=== PATIENT | male | born 1960 | race Caucasian/White ===

== ENCOUNTER 2017-06-01 11:52 | Inpatient (IN) | payer MEDICARE ==
[~2017-06-01] VITALS: Ht 172.7 cm; Wt 52.9 kg
[~2017-06-01 11:52] MED LIST: ALPR0.5T3 PO; ASPI325T PO; BACT800T5 PO; CELE20TA PO; FENT100D T-DERMAL; FERR325T PO; GABA600T PO; LEVA500T PO; METH5TAB7 PO; NORC10TA2 PO; PERI8.6T PO; PRIN10TA PO; PROC10TA PO; RANI150C PO; SENN8.6T15 PO; TAMS5CAP PO
[2017-06-01 11:55] VITALS: BP 127/74; PULSE 109; RESP 20; TEMP 97.9; O2SAT 99
--- NOTE | 2017-06-01 12:12 | PD ---
HPI Chief Complaint: General Weakness Time Seen by Provider: 12:06 Travel History International Travel<30 days: No Contact w/Intl Traveler<30days: No Traveled to known affect area: No History of Present Illness HPI 57yo M with PMH of rectal CA with colostomy bag presents to the ED with multiple complaints. Pt mainly has been unable to eat or drink much because he feels that food gets stuck in mid esophagus and then it takes a while for it to go down and is painful for a few weeks. Also with 2-3 days of increasing cough , sometimes with blood tinged sputum. Pt also has been having dysuria, and blood clots in urine for 2 weeks. States he is suppose to follow up with urologist Dr. Tapia for stent but has not. Pt follows with oncologist Dr. Monte but is not on chemo or radiation therapy. States cancer is inoperable. Denies any fever, chest pain, sob, abdominal pain, n/v. PFSH Past Medical History Autoimmune Disease: No Anxiety: Yes Depression: Yes Cancer: Yes (RECTAL) Cardiovascular Problems: Yes Chemotherapy: No Endocrine: No Genitourinary: No Hypertension: Yes Immune Disorder: No Musculoskeletal: No Neurologic: No Psychiatric: No Reproductive: No Respiratory: No Radiation Therapy: No Past Surgical History Abdominal Surgery: Yes (LLQ COLOSTOMY) Cardiac Surgery: No Ear Surgery: No Endocrine Surgery: No Eye Surgery: No Genitourinary Surgery: No Gynecologic Surgery: No Oral Surgery: No Pacemaker: No Thoracic Surgery: No Other Surgery: Yes Social History Alcohol Use: Yes (3 BEERS/WEEK) Tobacco Use: Yes (1 ppd) Substance Use: No Allergies-Medications (Allergen,Severity, Reaction): Coded Allergies: *MDRO Multi-Drug Resistant Organism (Verified Adverse Reaction, Unknown, 09/18/16) MRSA (groin wound) - 05/25/15 / (buttock) - 03/2016 / (urine) - 08/2016 Reported Meds & Prescriptions Reported Meds & Active Scripts Active Flomax (Tamsulosin HCl) 0.4 Mg Cap 0.4 Mg PO HS Reported Prochlorperazine Maleate 10 Mg Tab 10 Mg PO Q6H PRN Senna Lax (Sennosides) 8.6 Mg Tab 1 Tab PO BID PRN Ranitidine (Ranitidine HCl) 150 Mg Cap 150 Mg PO BID Prinivil (Lisinopril) 10 Mg Tab 10 Mg PO DAILY Gabapentin 600 Mg Tab 600 Mg PO TID Celexa (Citalopram Hydrobromide) 20 Mg Tab 20 Mg PO DAILY Aspirin 325 Mg Tab 325 Mg PO DAILY Alprazolam 0.5 Mg Tab 0.5 Mg PO TID Jaylene-Colace (Sennosides-Docusate Sodium) 8.6-50 Mg Tab 2 Tab PO BID Fentanyl Patch 72 HR (Fentanyl) 100 Mcg/Hr Patch 1 Patch T-DERMAL DIR Review of Systems Except as stated in HPI: all other systems reviewed are Neg Physical Exam Narrative GENERAL: 57yo M in mild distress. SKIN: Focused skin assessment warm/dry. HEAD: Atraumatic. Normocephalic. CARDIOVASCULAR: Regular rate and rhythm. No murmur appreciated. RESPIRATORY: No accessory muscle use. Coarse breath sounds bilaterally. GASTROINTESTINAL: Abdomen soft, non-tender, nondistended. +Colostomy bag. MUSCULOSKELETAL: Right proximal femur amputation, left transmetatarsal amputation. NEUROLOGICAL: Awake and alert. No obvious cranial nerve deficits. Motor grossly within normal limits. Normal speech. PSYCHIATRIC: Appropriate mood and affect; insight and judgment normal. Data Data Last Documented VS Vital Signs Date Time Temp Pulse Resp B/P Pulse Ox O2 Delivery O2 Flow Rate FiO2 06/01/17 11:55 97.9 109 20 127/74 99 Orders Electrocardiogram (06/01/17 12:07) Basic Metabolic Panel (Bmp) (06/01/17 12:07) Complete Blood Count With Diff (06/01/17 12:07) Magnesium (Mg) (06/01/17 12:07) Chest, Single Ap (06/01/17 12:07) Urinalysis - C+S If Indicated (06/01/17 12:07) Urine Culture (06/01/17 12:25) Ceftriaxone Inj (Rocephin Inj) (06/01/17 13:30) Admit To Inpatient (06/01/17 ) Code Status (06/01/17 14:06) Vital Signs (Adult) Q4H (06/01/17 14:06) Activity Oob With Assistance (06/01/17 14:06) Sodium Chlor 0.9% 1000 Ml Inj (Ns 1000 M (06/01/17 14:06) Sodium Chloride 0.9% Flush (Ns Flush) (06/01/17 14:15) Sodium Chloride 0.9% Flush (Ns Flush) (06/01/17 21:00) Acetaminophen (Tylenol) (06/01/17 14:15) Ondansetron Inj (Zofran Inj) (06/01/17 14:15) Temazepam (Restoril) (06/01/17 14:15) Comprehensive Metabolic Panel (06/02/17 06:00) Complete Blood Count With Diff (06/02/17 06:00) Pt Request For Service (06/01/17 14:06) Ot Request For Service (06/01/17 14:06) Speech Therapy Consult-Eval/Tx (06/01/17 14:06) Dietary (Dietitian) Consult (06/01/17 14:06) Case Management Consult (06/01/17 14:06) Scd Bilateral/Knee High ANJELICA.BID (06/01/17 14:06) Yariel Bilateral/Knee High ANJELICA.QSHIFT (06/01/17 14:06) Acetaminophen (Tylenol) (06/01/17 14:15) Magnesium Hydroxide Liq (Milk Of Magnesi (06/01/17 14:15) Inpatient Certification (06/01/17 ) Ceftriaxone Inj (Rocephin Inj) (06/02/17 13:00) Consult Palliative Care (06/01/17 ) Admit Order (Ed Use Only) (06/01/17 14:11) Labs Laboratory Tests Test 06/01/17 12:25 White Blood Count 19.0 TH/MM3 Red Blood Count 3.65 MIL/MM3 Hemoglobin 8.9 GM/DL Hematocrit 27.6 % Mean Corpuscular Volume 75.6 FL Mean Corpuscular Hemoglobin 24.4 PG Mean Corpuscular Hemoglobin 32.2 % Concent Red Cell Distribution Width 16.0 % Platelet Count 915 TH/MM3 Mean Platelet Volume 6.7 FL Neutrophils (%) (Auto) 92.0 % Lymphocytes (%) (Auto) 3.8 % Monocytes (%) (Auto) 3.8 % Eosinophils (%) (Auto) 0.3 % Basophils (%) (Auto) 0.1 % Neutrophils # (Auto) 17.5 TH/MM3 Lymphocytes # (Auto) 0.7 TH/MM3 Monocytes # (Auto) 0.7 TH/MM3 Eosinophils # (Auto) 0.1 TH/MM3 Basophils # (Auto) 0.0 TH/MM3 CBC Comment DIFF FINAL Differential Comment Urine Color RED Urine Turbidity CLOUDY Urine pH 8.0 Urine Specific [place] 1.011 Urine Protein 300 mg/dL Urine Glucose (UA) NEG mg/dL Urine Ketones NEG mg/dL Urine Occult Blood LARGE Urine Nitrite NEG Urine Bilirubin NEG Urine Urobilinogen LESS THAN 2.0 MG/DL Urine Leukocyte Esterase LARGE Urine RBC /hpf Urine WBC /hpf Urine WBC Clumps MANY Urine Bacteria MANY /hpf Urine Mucus MOD /lpf Microscopic Urinalysis Comment CULTURE INDICATED Sodium Level 130 MEQ/L Potassium Level 4.4 MEQ/L Chloride Level 100 MEQ/L Carbon Dioxide Level 21.0 MEQ/L Anion Gap 9 MEQ/L Blood Urea Nitrogen 20 MG/DL Creatinine 1.44 MG/DL Estimat Glomerular Filtration 50 ML/MIN Rate Random Glucose 147 MG/DL Calcium Level 9.3 MG/DL Magnesium Level 2.0 MG/DL MDM Medical Decision Making Medical Screen Exam Complete: Yes Emergency Medical Condition: Yes Differential Diagnosis Failure to thrive vs. metastatic cancer vs. mass in esophagus vs. mass in bladder vs. UTI Narrative Course 57yo M with inoperable rectal cancer here with multiple complaints. Pt has been having hematuria and dysuria, as well as odynophagia. Pt follows with oncologist Dr. Monte but has refused full chemotherapy because he said that he had 2 relatives who from chemo and he did not want to go through that. Pt states he is not ready for hospice care yet. Labs reviewed, leukocytosis at 19.0. H/H low at 8.9/27.6. Hyponatremic at 130. BUN/creatinine 20/1.44 which is more elevated than before. UA showed large leukocyte. Many WBC. Pt given ceftriaxone 1gm IV. Pt has no abdominal tenderness to palpation. CXR showed no acute cardiopulmonary disease. Discussed with Dr. Ledbetter and accepted to his service. Pt will need GI evaluation for his odynophagia as well. Discussed with Dr. Monte who knows the patient well and states he has mets to lungs and recommend CT scan and he will see the patient in the hospital. CT chest and CT a/p ordered. Diagnosis Primary Impression: Sepsis Qualified Code: A41.9 - Sepsis, due to unspecified organism Additional Impression: Odynophagia Admitting Information Admitting Physician Requests: Admit Claudia Huang DO Jun 01, 2017 12:12
[2017-06-01 12:42] LABS: AUTOMATED NEUTROPHIL # 17.5 TH/MM3 (1.8-7.7); BASOPHIL % 0.1 % (0.0-2.0); EOSINOPHIL # 0.1 TH/MM3 (0-0.4); EOSINOPHIL % 0.3 % (0.0-4.0); HEMATOCRIT 27.6 % (39.0-51.0); HEMO FLAGS DIFF FINAL; LYMPH % 3.8 % (9.0-44.0); LYMPHOCYTE # 0.7 TH/MM3 (1.0-4.8); MEAN CELL VOLUME 75.6 FL (80.0-100.0); MEAN CORPUSCULAR HEMOGLOBIN 24.4 PG (27.0-34.0); MEAN CORPUSCULAR HGB CONC 32.2 % (32.0-36.0); MONO % 3.8 % (0.0-8.0); PLATELET COUNT 915 TH/MM3 (150-450); RED BLOOD COUNT 3.65 MIL/MM3 (4.50-5.90)
[2017-06-01 13:06] LABS: BACTERIA, URINE MANY /hpf; BLOOD, URINE LARGE (NEG); COMMENT (UR) CULTURE INDICATED; CULTURE IF INDICATED CULTURE INDICATED; GLUCOSE,URINE NEG (NEG); KETONE, URINE NEG (NEG); MUCUS URINE MOD /lpf (OCC); NITRITE,URINE NEG (NEG)
[2017-06-01 13:07] LABS: URINE COLOR RED (YELLW/STRAW)
--- NOTE | 2017-06-01 13:07 | RADRPT ---
EXAM DATE/TIME: 06/01/2017 12:27 [facility] COMPARISON: CHEST SINGLE AP, February 20, 2014, 9:36. INDICATIONS : Tightness of back muscles, cough, feeling of "gurgling" in chest, and loss of appetite. MEDICAL HISTORY : None. SURGICAL HISTORY : None. ENCOUNTER: Initial ACUITY: 2 weeks PAIN SCORE: 0/10 LOCATION: Bilateral chest FINDINGS: The lungs are clear without infiltrate, nodule, or mass. There is no appreciable pleural effusion fo r technique. Heart and mediastinum are unremarkable. CONCLUSION: No acute cardiopulmonary disease. Reema Yancey MD on June 01, 2017 at 13:04 Board Certified Radiologist. This report was verified electronically.
[2017-06-01 13:08] LABS: POTASSIUM 4.4 MEQ/L (3.5-5.1)
[2017-06-01] MEDS ORDERED: cefTRIAXone INJ 1,000 MG in SODIUM CHLORIDE 0.9% INJ 100 ML IV ONE (13:30)
[2017-06-01] MEDS ORDERED: ACETAMINOPHEN 325 MG TAB PO PRN ×2 (14:15)
[2017-06-01] MEDS ORDERED: MAGNESIUM HYDROXIDE SUSP 30 ML CUP PO PRN (14:15)
[2017-06-01] MEDS ORDERED: TEMAZEPAM 15 MG CAP PO PRN (14:15)
[2017-06-01] MEDS ORDERED: SODIUM CHLORIDE 0.9% FLUSH 10 ML FLUSH IV FLUSH PRN (14:15)
[2017-06-01] MEDS ORDERED: ONDANSETRON HCL 4 MG/2 ML VIAL IVP PRN (14:15)
[2017-06-01] MEDS ORDERED: SODIUM CHLOR 0.9% 1000 ML INJ 1,000 ML IV ONE (14:30)
--- NOTE | 2017-06-01 15:10 | HHI.HP ---
[facility] Justine Anne MD Admission Diagnosis Urosepsis Diagnoses: (1) Sepsis (2) UTI (urinary tract infection) (3) Odynophagia (4) Essential hypertension (5) Anemia of chronic disease (6) Severe protein-calorie malnutrition (7) Rectal adenocarcinoma Chief Complaint: I'm not feeling right Travel History International Travel<30 Days: No Contact w/Intl Traveler <30 Da: No Traveled to Known Affected Are: No Sepsis Criteria SIRS Criteria (2 or more): Heart rate over 90, WBC > 70876, < 4000 or > 10% bands Sepsis Criteria (SIRS+source): Infect source susp/known Criteria Outcome: Meets sepsis criteria History of Present Illness 57-year-old man with a history of rectal adenocarcinoma, hydronephrosis was brought to the ED by EMS for evaluation of decreased appetite, swallow difficulty with mostly solid for as well as pain with swallowing 1-2 weeks duration. Patient described a sensation of food particles that get stuck in his mid esophagus and able to flush it down with water however this process is painful. He also had worsening cough over the past 4 days however he has noticed some blood tinged sputum times over the past 3 days. Patient does endorse dysuria as well as blood clotting his urine 2 weeks duration. He also reports that is supposed to follow with Dr. Tapia urology for possible stent placement. He mentions that he was offered treatment with chemotherapy but has decided's lately against it. He denies any chest pain shortness of breath. Reports normal out put from his colostomy and denies any blood Review of Systems Except as stated in HPI: all other systems reviewed are Neg Past Family Social History Past Medical History Anxiety: Yes Depression: Yes Cancer: Yes (RECTAL) Cardiovascular Problems: Yes Hypertension: Yes Past Surgical History Abdominal Surgery: Yes (LLQ COLOSTOMY) Right AKA Reported Medications Flomax (Tamsulosin HCl) 0.4 Mg Cap 0.4 Mg PO HS Prochlorperazine Maleate 10 Mg Tab 10 Mg PO Q6H PRN Senna Lax (Sennosides) 8.6 Mg Tab 1 Tab PO BID PRN Ranitidine (Ranitidine HCl) 150 Mg Cap 150 Mg PO BID Prinivil (Lisinopril) 10 Mg Tab 10 Mg PO DAILY Gabapentin 600 Mg Tab 600 Mg PO TID Celexa (Citalopram Hydrobromide) 20 Mg Tab 20 Mg PO DAILY Aspirin 325 Mg Tab 325 Mg PO DAILY Alprazolam 0.5 Mg Tab 0.5 Mg PO TID Jaylene-Colace (Sennosides-Docusate Sodium) 8.6-50 Mg Tab 2 Tab PO BID Fentanyl Patch 72 HR (Fentanyl) 100 Mcg/Hr Patch 1 Patch T-DERMAL DIR Allergies: Coded Allergies: *MDRO Multi-Drug Resistant Organism (Verified Adverse Reaction, Unknown, 09/18/16) MRSA (groin wound) - 05/25/15 / (buttock) - 03/2016 / (urine) - 08/2016 Family History Father had diabetes, myocardial infarction Social History Alcohol Use: Yes (3 BEERS/WEEK) Tobacco Use: Yes (1 ppd) Substance Use: No Physical Exam Vital Signs Vital Signs Date Time Temp Pulse Resp B/P Pulse Ox O2 Delivery O2 Flow Rate FiO2 06/01/17 11:55 97.9 109 20 127/74 99 Physical Exam GENERAL: This is a well-nourished, well-developed patient, in no apparent distress. SKIN: No rashes, ecchymoses or lesions. Cool and dry. HEAD: Atraumatic. Normocephalic. No temporal or scalp tenderness. EYES: Pupils equal round and reactive. Extraocular motions intact. No scleral icterus. No injection or drainage. ENT: Nose without bleeding, purulent drainage or septal hematoma. Throat without erythema, tonsillar hypertrophy or exudate. Uvula midline. Airway patent. NECK: Trachea midline. No JVD or lymphadenopathy. Supple, nontender, no meningeal signs. CARDIOVASCULAR: Regular rate and rhythm without murmurs, gallops, or rubs. RESPIRATORY: Clear to auscultation. Breath sounds equal bilaterally. No wheezes , rales, or rhonchi. GASTROINTESTINAL: Abdomen soft, non-tender, nondistended. No hepato-splenomegaly , or palpable masses. No guarding. Colostomy bag in place MUSCULOSKELETAL:Right AKA NEUROLOGICAL: Awake and alert. Cranial nerves II through XII intact. Motor and sensory grossly within normal limits. Five out of 5 muscle strength in all muscle groups. Normal speech. Laboratory Laboratory Tests Test 06/01/17 12:25 White Blood Count 19.0 Red Blood Count 3.65 Hemoglobin 8.9 Hematocrit 27.6 Mean Corpuscular Volume 75.6 Mean Corpuscular Hemoglobin 24.4 Mean Corpuscular Hemoglobin 32.2 Concent Red Cell Distribution Width 16.0 Platelet Count 915 Mean Platelet Volume 6.7 Neutrophils (%) (Auto) 92.0 Lymphocytes (%) (Auto) 3.8 Monocytes (%) (Auto) 3.8 Eosinophils (%) (Auto) 0.3 Basophils (%) (Auto) 0.1 Neutrophils # (Auto) 17.5 Lymphocytes # (Auto) 0.7 Monocytes # (Auto) 0.7 Eosinophils # (Auto) 0.1 Basophils # (Auto) 0.0 CBC Comment DIFF FINAL Differential Comment Urine Color RED Urine Turbidity CLOUDY Urine pH 8.0 Urine Specific [place] 1.011 Urine Protein 300 Urine Glucose (UA) NEG Urine Ketones NEG Urine Occult Blood LARGE Urine Nitrite NEG Urine Bilirubin NEG Urine Urobilinogen LESS THAN 2.0 Urine Leukocyte Esterase LARGE Urine RBC Urine WBC Urine WBC Clumps MANY Urine Bacteria MANY Urine Mucus MOD Microscopic Urinalysis Comment CULTURE INDICATED Sodium Level 130 Potassium Level 4.4 Chloride Level 100 Carbon Dioxide Level 21.0 Anion Gap 9 Blood Urea Nitrogen 20 Creatinine 1.44 Estimat Glomerular Filtration 50 Rate Random Glucose 147 Calcium Level 9.3 Magnesium Level 2.0 Date/Time Procedure Status Source Growth 06/01/17 14:45 Aerobic Blood Culture Received Blood Peripheral Pending 06/01/17 14:45 Anaerobic Blood Culture Received Blood Peripheral Pending 06/01/17 12:25 Urine Culture Received Urine Clean Catch Pending Result Diagram: 06/01/17 1225 06/01/17 1225 Imaging Last Impressions Chest X-Ray 06/01/17 1207 Signed Impressions: Service Date/Time: Thursday, June 01, 2017 12:27 - CONCLUSION: No acute cardiopulmonary disease. Reema Yancey MD Assessment and Plan Problem List: (1) Sepsis ICD Code: A41.9 Status: Acute (2) UTI (urinary tract infection) ICD Code: N39.0 Status: Acute (3) Odynophagia ICD Code: R13.10 Status: Acute (4) Severe protein-calorie malnutrition ICD Code: E43 Status: Acute (5) Essential hypertension ICD Code: I10 Status: Acute (6) Anemia of chronic disease ICD Code: D63.8 Status: Chronic (7) Rectal adenocarcinoma ICD Code: C20 Status: Acute Assessment and Plan 57 year-old man with Sepsis:Heart rate over 90, WBC > 93486, < 4000 or > 10% bands, source UTI; lactic acid pending. Status post Rocephin IV, continue antibiotics pending blood and urine culture UTI: Currently on Rocephin pending urine culture Odynophagia Dysphagia of solids Check small bowel follow-through with Gastrografin Consider GI consultation for evaluation for EGD Keep nothing by mouth pending speech therapy for swallow eval Hematuria History of hydronephrosis Check renal ultrasound Consult urology Dr. Willie Stallworth Flomax Acute renal failure Post renal Renal ultrasound pending Continue IV fluid hydration History of rectal adenocarcinoma Oncology consultation pending Patient does not want hospice at this time Abdomen/pelvics CT Consider chest CT Anemia of chronic disease Check Hemoccult Severe protein calorie malnutrition Consult dietitian for calorie count Tobacco abuse Tobacco counseling cessation provided Declined nicotine patch Impaired fasting glucose Check hemoglobin A1c GI prophylaxis: PPI Code Status Full code Discussed Condition With Patient, ED physician Physician Certification 2 Midnight Certification Type: Admission for Inpatient Services Order for Inpatient Services The services are ordered in accordance with Medicare regulations or non- Medicare payer requirements, as applicable. In the case of services not specified as inpatient-only, they are appropriately provided as inpatient services in accordance with the 2-midnight benchmark. Estimated LOS (days): 2 days is the estimated time the patient will need to remain in the hospital, assuming treatment plan goals are met and no additional complications. Post-Hospital Plan: Not yet determined Problem Qualifiers (1) Sepsis: Qualified Code: A41.9 - Sepsis, due to unspecified organism Miki Ledbetter MD Jun 01, 2017 15:10
[2017-06-01] MEDS ORDERED: IOHEXOL 350 MG/ML 10 ML VIAL (for RAD DIAG) IV ONE (15:23)
--- NOTE | 2017-06-01 15:59 | PD.CONS ---
Consult Service Palliative Care Consult Requested By Dr. Zapien Primary Care Physician Justine Anne MD Reason for Consultation a. To assist with evaluation and management of symptoms including:pain, fatigued b. To assist medical decision maker(s) with: better understanding of current medical conditions; weighing benefits/burdens of medical treatment options; making medical treatment decisions. HPI History of Present Illness 57-year-old past medical history significant for nonresectable adenocarcinoma of the rectum. Radiologically per Dr. Zhou's note on February 26, 2017 patient has locally progressive disease and is resulting in bilateral hydronephrosis. Mass appears to be increasing in size. Per Dr. Zhou's note he would prefer observation alone and declined Xeloda and Avastin plus 5-FU. Pt previously was seen by palliative care in 2013. He eventually was transitioned to hospice, and was on hospice from 04/16/2014 to 11/25/2015. Pt's adenocarcinoma was deemed not terminal, and pt's prognosis was >6 months. Pt was discharge off hospice services by Dr. Rainey who covers for [facility]. Patient on 06/01/2017 came to the ER for decreased appetite, difficulty swallowing with mostly solid food as well as pain with swallowing for the past 1 -2 weeks' duration. He described that the food particle appears to be just stuck mid esophagus. He also has associated worsening cough with as 4 days and with some blood tinged sputum. Patient has dysuria and clots in his urine 2 weeks duration. Patient is supposed to follow up with Dr. Tapia of urology for possible stent placement. In the ER : * Temperature is 97.9, pulse is 109, respirations 20, blood pressures 127/74, pulse ox is 99% * WBC is 19.0, hemoglobin is 8.9, hematocrit is 27.6, platelet is 1915 * Sodium is 1:30, potassium is 4.4, chlorides 100, bicarbonate is 21.0, BUN is 20, creatinine is 1.44 * Blood cultures pending 2 * UA shows large amount" lead, leukocyte esterase, but negative for nitrite. Cultures indicated and pending. * Chest x-ray shows no acute cardiopulmonary disease. Patient is transferred to hospitalist service. Patient is placed on Rocephin for UTI. Speech therapy is pending for swallow eval. Patient is given IV fluids for renal insufficiency. Oncology was consulted. Abdominal/pelvic CT is pending, chest CT is pending. Palliative Care was consulted to review goals of care. I was not able to engage with patient. He place a blanket on top of his head and refuse to answer questions. I tried to test for capacity, asking him what year it is, he only states "I don't know." He is able to say he is in [place]. When I ask him, sir you were in Hospice before right? He just said "Hospice Sucks." Spoke to him ask him about his Health Care Surrogate, and he just remained silent. I am not able to review goals of care with patient today. Function/Cognitive Trajectory Unable to elicit, he refuses my questioning. He has right AKA and has undergo extensive wound of the right buttock, that required debridment in the past. Review of Systems ROS Limitations: Clinical Condition, Uncooperative Constitutional: COMPLAINS OF: Change in appetite Ears, nose, mouth, throat: COMPLAINS OF: Throat pain (dysphagia) Musculoskeletal: COMPLAINS OF: Back pain Past Family Social History Coded Allergies: *MDRO Multi-Drug Resistant Organism (Verified Adverse Reaction, Unknown, 09/18/16) MRSA (groin wound) - 05/25/15 / (buttock) - 03/2016 / (urine) - 08/2016 Past Medical History HTN Adenocarcinoma of rectum htn cardiovascular disease PVD Past Surgical History Yes (LLQ COLOSTOMY) Right AKA Reported Medications Prochlorperazine Maleate 10 Mg Tab 10 Mg PO Q6H PRN Senna Lax (Sennosides) 8.6 Mg Tab 1 Tab PO BID PRN Ranitidine (Ranitidine HCl) 150 Mg Cap 150 Mg PO BID Prinivil (Lisinopril) 10 Mg Tab 10 Mg PO DAILY Gabapentin 600 Mg Tab 600 Mg PO TID Celexa (Citalopram Hydrobromide) 20 Mg Tab 20 Mg PO DAILY Aspirin 325 Mg Tab 325 Mg PO DAILY Alprazolam 0.5 Mg Tab 0.5 Mg PO TID Jaylene-Colace (Sennosides-Docusate Sodium) 8.6-50 Mg Tab 2 Tab PO BID Fentanyl Patch 72 HR (Fentanyl) 100 Mcg/Hr Patch 1 Patch T-DERMAL DIR Current Medications Medications (Trade) Dose Ordered Sig/Orlin Route Start Time Stop Time Status Last Admin (NS 1000 ml Inj) 1,000 ml @ 100 mls/hr Q10H IV 06/01/17 14:06 (NS Flush) 2 ml UNSCH PRN IV FLUSH 06/01/17 14:15 (NS Flush) 2 ml BID IV FLUSH 06/01/17 21:00 (Tylenol) 650 mg Q4H PRN PO 06/01/17 14:15 (Zofran Inj) 4 mg Q6H PRN IVP 06/01/17 14:15 (Restoril) 15 mg HS PRN PO 06/01/17 14:15 (Tylenol) 650 mg Q6H PRN PO 06/01/17 14:15 Magnesium Hydroxide 30 ml 30 ml Q12H PRN PO 06/01/17 14:15 (Rocephin Inj/NS Inj) 100 ml @ 200 mls/hr Q24H IV 06/02/17 13:00 (Xanax) 0.5 mg TID PO 06/01/17 18:00 (CeleXA) 20 mg DAILY PO 06/02/17 09:00 (Flomax) 0.4 mg HS PO 06/01/17 21:00 Family History Father had diabetes, myocardial infarction Substance Use Tobacco: One pack per day Alcohol: 3 beers per week Prescription med abuse: No Illicits: No Psychosocial History Patient is single. Never no children Spiritual/Cultural Factors none Health Care Surrogate: Copy in medical record (but missing witnesses. there is also a DNR) Today's verbally stated goals: no verbal goals stated. Refuses to answer questions. Physical Exam Vital Signs Date Time Temp Pulse Resp B/P Pulse Ox O2 Delivery O2 Flow Rate FiO2 06/01/17 11:55 97.9 109 20 127/74 99 Exam Exam very limited due to pt's refusal of history and physical CONSTITUTIONAL/GENERAL: This frail middle age male. [place] on top of head, when he peeks out is dishevelled. TUBES/LINES/DRAINS:colostomy, piv. SKIN:No jaundice on superficial exam. HEAD: Atraumatic. Normocephalic. EYES:. Extraocular motions intact. N ENT: Hearing grossly normal. Nose without bleeding or purulent drainage. refuses further exam. NECK: Trachea midline. Supple, nontender. No palpable thyroid enlargement or nodularity. CARDIOVASCULAR: Could not examine RESPIRATORY/CHEST: Could not examine GASTROINTESTINAL: could not examine GENITOURINARY: Without palpable bladder distension. Yan catheter in place. MUSCULOSKELETAL: right AKA. Left lower ext, refuse for me to check pedal pulse , kept feet under blanket. LYMPHATICS:could not examine NEUROLOGICAL: Awake and alert. Refuses my qeustions. Unsure if just confuse or uncooperative PSYCHIATRIC: Cannot examine. Diagnostic Tests Laboratory Laboratory Tests Test 06/01/17 06/01/17 12:25 14:45 White Blood Count 19.0 TH/MM3 (4.0-11.0) Red Blood Count 3.65 MIL/MM3 (4.50-5.90) Hemoglobin 8.9 GM/DL (13.0-17.0) Hematocrit 27.6 % (39.0-51.0) Mean Corpuscular Volume 75.6 FL (80.0-100.0) Mean Corpuscular Hemoglobin 24.4 PG (27.0-34.0) Mean Corpuscular Hemoglobin 32.2 % Concent (32.0-36.0) Red Cell Distribution Width 16.0 % (11.6-17.2) Platelet Count 915 TH/MM3 (150-450) Mean Platelet Volume 6.7 FL (7.0-11.0) Neutrophils (%) (Auto) 92.0 % (16.0-70.0) Lymphocytes (%) (Auto) 3.8 % (9.0-44.0) Monocytes (%) (Auto) 3.8 % (0.0-8.0) Eosinophils (%) (Auto) 0.3 % (0.0-4.0) Basophils (%) (Auto) 0.1 % (0.0-2.0) Neutrophils # (Auto) 17.5 TH/MM3 (1.8-7.7) Lymphocytes # (Auto) 0.7 TH/MM3 (1.0-4.8) Monocytes # (Auto) 0.7 TH/MM3 (0-0.9) Eosinophils # (Auto) 0.1 TH/MM3 (0-0.4) Basophils # (Auto) 0.0 TH/MM3 (0-0.2) CBC Comment DIFF FINAL Differential Comment Urine Color RED (YELLW/STRAW) Urine Turbidity CLOUDY (CLEAR) Urine pH 8.0 (5.0-8.5) Urine Specific [place] 1.011 (1.002-1.035) Urine Protein 300 mg/dL (NEG-TRACE) Urine Glucose (UA) NEG mg/dL (NEG) Urine Ketones NEG mg/dL (NEG) Urine Occult Blood LARGE (NEG) Urine Nitrite NEG (NEG) Urine Bilirubin NEG (NEG) Urine Urobilinogen LESS THAN 2.0 MG/DL (LESS THAN 2.0) Urine Leukocyte Esterase LARGE (NEG) Urine RBC /hpf (0-3) Urine WBC /hpf (0-5) Urine WBC Clumps MANY (NONE) Urine Bacteria MANY /hpf (NONE) Urine Mucus MOD /lpf (OCC) Microscopic Urinalysis Comment CULTURE INDICATED Sodium Level 130 MEQ/L (136-145) Potassium Level 4.4 MEQ/L (3.5-5.1) Chloride Level 100 MEQ/L (98-107) Carbon Dioxide Level 21.0 MEQ/L (21.0-32.0) Anion Gap 9 MEQ/L (5-15) Blood Urea Nitrogen 20 MG/DL (7-18) Creatinine 1.44 MG/DL (0.60-1.30) Estimat Glomerular Filtration 50 ML/MIN (>89) Rate Random Glucose 147 MG/DL (74-106) Calcium Level 9.3 MG/DL (8.5-10.1) Magnesium Level 2.0 MG/DL (1.5-2.5) Lactic Acid Level 0.7 mmol/L (0.4-2.0) Result Diagram: 06/01/17 1225 06/01/17 1225 Microbiology Microbiology Date/Time Procedure Status Source Growth 06/01/17 12:25 Urine Culture Received Urine Clean Catch Pending 06/01/17 14:30 Aerobic Blood Culture Received Blood Peripheral Pending 06/01/17 14:30 Anaerobic Blood Culture Received Blood Peripheral Pending 06/01/17 14:45 Aerobic Blood Culture Received Blood Peripheral Pending 06/01/17 14:45 Anaerobic Blood Culture Received Blood Peripheral Pending Imaging Last Impressions Chest X-Ray 06/01/17 1207 Signed Impressions: Service Date/Time: Thursday, June 01, 2017 12:27 - CONCLUSION: No acute cardiopulmonary disease. Reema Yancey MD Patient/Family Conference Present at Family Conference: no family at bedside. Family Conference Time (mins): 0 Issues Discussed: * Palliative care role, purpose, approach * Additional medical, psychosocial, and spiritual history * Patients general health, functional status, and cognitive changes in the months leading up to the current hospitalization * Patient/family understanding of the current medical problems * Patient/family understanding of prognosis * Patients goals of care as best understood from advance directives and/or conversations and/or values * Current medical treatment options and benefits/burdens of those options * Likely scenarios comparing ongoing aggressive care with a transition to comfort measures only * Questions answered to the best of my ability * Palliative care contact information provided Assessment and Plan Symptom Scale: (1) Pain Comment: refuses to answer (2) Fatigue Comment: refuses to answer. Pertinent Non-Medical Issues Psychosocial: Spiritual: Legal: Ethical issues impacting care: Important Contacts Jeimy Isaacs, sister - [phone] Karyn, sister [phone] Prognosis Pt previously was seen by palliative care in 2013. He eventually was transitioned to hospice, and was on hospice from 04/16/2014 to 11/25/2015. Pt's adenocarcinoma was deemed not terminal, and pt's prognosis was >6 months. Pt was discharge off hospice services by Dr. Rainey who covers for [facility]. Will need the expertise of oncology to clarify goals of care and see if prognosis is less than 6 months. Code Status: Full Code Plan == Capacity- uncooperative. Could not determine capacity. Unknown if he is confused or just refusing. see HPI. == Code: Pt previously signed a community DNR in 2013 which has been scanned into record. Attending place pt as Full Code. When I ask about his previous community DNR and if that still stands, he refuses to answer to engage in conversation. Pt's Code status will remain Full Code by default. == pain- he appears to be in significant pain. Palliative care however is unable to get much history or cooperation from pt this visit. I could not review plan of care in terms of pain management. I have no recommendations at this time. == Health Care Surrgoate: Jeimy Sullivan and Karyn Jo. Missing signature. Need to follow up when pt is more cooperative. == Goals of care. Unable to review with patient. I was not able to engage with patient. He place a blanket on top of his head and refuse to answer questions. I tried to test for capacity, asking him what year it is, he only states "I don't know." He is able to say he is in [place]. When I ask him, sir you were in Hospice before right? He just said "Hospice Sucks." Spoke to him, and ask pt about his Health Care Surrogate, and he just remained silent. I am not able to review goals of care with patient today. Regardless, even if pt's goals of care was comfort measures only, as mentioned before, hospice need oncology expertise the prognosis of his cancer. Pt previously was seen by palliative care in 2013. He eventually was transitioned to hospice, and was on hospice from 04/16/2014 to 11/25/2015. Pt's adenocarcinoma was deemed not terminal, and pt's prognosis was >6 months. Pt was discharge off hospice services by Dr. Rainey who covers for [facility] on 11/25/2015. == palliative care will f/u and see if pt becomes more receptive to our services. Time Spent Total Floor Time (mins): 35 Face to Face Time (mins): 17 >50% Counseling/Coord of Care: Yes Thank you for the opportunity to participate in the care of Mr. Valles. Attestation To help prompt me to consider important information that might be impacting today's encounter and assessment, information from prior notes written by myself or my colleagues may have been "brought forward" into today's note. My signature on this note, however, is an attestation that I personally performed the exam, history, and/or decision-making noted today, and, unless otherwise indicated, the interactions with patient, family, and staff as well as the review of records all occurred today. I also attest that the listed assessment and stated plan reflect my best clinical judgment today based on the combination of historical information, prior notes, and today's exam/ interactions. When time spent is documented, it refers only to time spent today by the signer, or if indicated, combined time spent today by collaborating physician/nurse practitioner. Galo Lima MD Jun 01, 2017 15:59
[2017-06-01 16:00] VITALS: BP 123/73; PULSE 86; RESP 16; TEMP 96.4; O2SAT 97
--- NOTE | 2017-06-01 16:00 | RADRPT ---
EXAM DATE/TIME: 06/01/2017 15:12 [facility] COMPARISON: CT THORAX W CONTRAST, April 03, 2014, 10:37. INDICATIONS : General weakness, difficulty swallowing; history of rectal cancer. IV CONTRAST: 97 cc Omnipaque 350 (iohexol) IV ; Cumulative dose for multiple exams. RADIATION DOSE: 6.66 CTDIvol (mGy) ; Combined studies - Thorax/Abdomen/Pelvis MEDICAL HISTORY : Carcinoma, rectal. Cardiovascular disease Hypertension. SURGICAL HISTORY : Colostomy. Colon resection. ENCOUNTER: Initial ACUITY: 2 weeks PAIN SCALE: 0/10 LOCATION: chest TECHNIQUE: Volumetric scanning of the chest was performed. Using automated exposure control and adjustment of t he mA and/or kV according to patient size, radiation dose was kept as low as reasonably achievable to obtain optimal diagnostic quality images. DICOM format image data is available electronically for review and comparison. Follow-up recommendations for incidentally detected pulmonary nodules are based at a minimum on nodul e size and patient risk factors according to Fleischner Society Guidelines. FINDINGS: There is malignant appearing adenopathy 2 large lymph nodes adjacent to one another in subcarina l area not present on the study from 2013 with conglomerate size of 5.1 x 3.8 cm in size displacing t he esophagus and the esophagus is filled with ingested material dilated as well. There is irregular i nfiltrate right upper lobe not present previously. There is also an approximate 1.7 cm pericardial ef fusion not present previously. There is inspissated mucus within the left lower lobe bronchi. CONCLUSION: 1. Pathological adenopathy in subcarinal area not present previously suspicious for malignancy and me tastatic disease. 2. The right upper lobe infiltrate. 3. Inspissated mucus within the left lower lobe bronchi. 4. Pericardial effusion. Reema Yancey MD on June 01, 2017 at 15:54 Board Certified Radiologist. This report was verified electronically.
--- NOTE | 2017-06-01 16:24 | RADRPT ---
EXAM DATE/TIME: 06/01/2017 15:12 [facility] COMPARISON: CT ABDOMEN & PELVIS W CONTRAST, April 03, 2014, 10:37. INDICATIONS : General weakness, difficulty swallowing; history of rectal cancer. IV CONTRAST: 96 cc Omnipaque 350 (iohexol) IV ; Cumulative dose for multiple exams. ORAL CONTRAST: No oral contrast ingested. RADIATION DOSE: 6.66 CTDIvol (mGy) ; Combined studies - Thorax/Abdomen/Pelvis MEDICAL HISTORY : Carcinoma, rectal. Cardiovascular disease Hypertension. SURGICAL HISTORY : Colostomy. Colon resection. ENCOUNTER: Initial ACUITY: 2 weeks PAIN SCALE: 4/10 LOCATION: Bilateral lower quadrant TECHNIQUE: Volumetric scanning of the abdomen and pelvis was performed. Using automated exposure control and ad justment of the mA and/or kV according to patient size, radiation dose was kept as low as reasonably achievable to obtain optimal diagnostic quality images. DICOM format image data is available electro nically for review and comparison. FINDINGS: CT Abdomen: The liver, spleen, pancreas, adrenals are unremarkable. There is no evidence for any appr eciable pathological adenopathy, free fluid, or bowel obstruction. There are findings in the visualiz ed lower chest discussed on the patient's chest CT. there is moderate hydronephrosis in both kidneys with hydroureter all the way down to the bladder. An ostomy site is seen on the right. CT pelvis: There is an approximate 3.9 x 5.4 cm mass appears to be originating from rectosigmoid junc tion invading the posterior bladder wall with a large either malignant adenopathy adjacent to it renny uring 6.4 cm in size in external iliac chain. The bladder has debris and gas within it and colovesica l fistula is suspected with direct contact of posterior portion of the bladder with the above-mention ed mass which appears to be originating from the rectosigmoid junction. Previously seen presacral sof t tissue mass is smaller measuring 5 cm, it measured 8 cm in maximum diameter previously. The prostat e gland is inhomogeneous and measures 3.7 x 3.9 cm in AP and transverse diameters and nonspecific. Th ere are hypertrophic changes involving the right hip chronic in nature not changed. CONCLUSION: 1. Large mass in the rectosigmoid junction almost certainly malignant with findings almost certainly colovesical fistula. 2. Malignant adenopathy of the above-mentioned malignant mass in the right pelvic region and external iliac chain. 3. The presacral mass is smaller since 2013. 4. Moderate to severe hydronephrosis in both kidneys and hydroureter. Reema Yancey MD on June 01, 2017 at 15:59 Board Certified Radiologist. This report was verified electronically.
--- NOTE | 2017-06-01 16:45 | RADRPT ---
EXAM DATE/TIME: 06/01/2017 16:20 [facility] COMPARISON: CT ABDOMEN & PELVIS W CONTRAST, June 01, 2017, 15:12. EXTERNAL COMPARISON : [facility], CT ABDOMEN & PELVIS W/ CONTRAST, February 16, 2017 INDICATIONS : Hydronephrosis. MEDICAL HISTORY : Hypertension. Deep venous thrombosis. Methicillin-resistant Staphylococcus aureus. Renal disease. Dep ression. Anxiety. Rectal. Paraplegia. SURGICAL HISTORY : Colostomy. Right lower extremity amputation. Left toes amputation. ENCOUNTER: Initial ACUITY: 1 day PAIN SCORE: 3/10 LOCATION: Bilateral flank MEASUREMENTS: RIGHT KIDNEY: 12.0 x 7.3 x 5.4 cm LEFT KIDNEY: 12.8 x 5.5 x 5.5 cm FINDINGS: There is moderate to severe hydronephrosis in both kidneys. There is debris with gas within the bladd er with a mass behind the bladder characteristic of colovesical fistula. CONCLUSION: Moderate to severe hydronephrosis in both kidneys with malignant mass behind the bladder discussed on the patient's CT examination and findings characteristic of colovesical fistula. Reema Yancey MD on June 01, 2017 at 16:42 Board Certified Radiologist. This report was verified electronically.
[2017-06-01] MEDS: SODIUM CHLOR 0.9% 1000 ML INJ 1,000 ML IV SCH (18:09)
--- NOTE | 2017-06-01 18:10 | RADRPT ---
EXAM DATE/TIME: 06/01/2017 16:47 [facility] COMPARISON: No previous studies available for comparison. INDICATIONS : Abdominal pain, evaluate for obstruction FLUORO TIME: 0 minutes IMAGE COUNT: 7 CONTRAST: [facility] IMAGING TIME(S): 15 min, 30 min, 45 min, 1 hr MEDICAL HISTORY : Carcinoma, rectal. SURGICAL HISTORY : Colostomy. Colectomy ENCOUNTER: Initial ACUITY: 1 day PAIN SCORE: 4/10 LOCATION: Bilateral abdomen FINDINGS: Preliminary structural steel fitter film reveals moderate to severe bilateral hydronephrosis with residual contrast in the renal collecting systems from recent CT. Left iliac stents present.. There is also dilatation of the left ureter is seen with contrast in the left ureter. Gastrografin GI series reveals normal filling of the stomach. There is no significant small bowel dil atation and transit time through small bowel is within the normal range of one hour. CONCLUSION: 1. Negative for small bowel obstruction or gastric outlet obstruction. Moderate to severe bilateral h ydronephrosis. Jonas Sapp MD on June 01, 2017 at 18:06 Board Certified Radiologist. This report was verified electronically.
[2017-06-01] MEDS: ALPRAZolam 0.5 MG TAB PO SCH (18:13)
[2017-06-01] MEDS ORDERED: DIATRIZOATE MEGLUM/DIATRIZOATE SOD 120 ML BTL (for RAD DIAG) PO ONE (18:19)
[2017-06-01 18:23] VITALS: BP 131/74; PULSE 96; RESP 18; TEMP 96; O2SAT 94
[2017-06-01 20:00] VITALS: BP 102/63; PULSE 96; RESP 16; TEMP 97; O2SAT 92
[2017-06-01] MEDS: TAMSULOSIN HCL 0.4 MG CAP PO SCH (20:48)
[2017-06-01] MEDS: SODIUM CHLORIDE 0.9% FLUSH 10 ML FLUSH IV FLUSH SCH (20:48)
[2017-06-02] MEDS: SODIUM CHLOR 0.9% 1000 ML INJ 1,000 ML IV SCH ×3 (00:13→20:22)
[2017-06-02 05:39] LABS: ALT (GPT) 11 U/L (12-78); ANION GAP 10 MEQ/L (5-15); AST (GOT) 8 U/L (15-37); BICARBONATE 22.5 MEQ/L (21.0-32.0); BLOOD UREA NITROGEN 19 MG/DL (7-18); CHLORIDE 105 MEQ/L (98-107); GLOMERULAR FILTRATION RATE 50 ML/MIN (>89); POTASSIUM 3.7 MEQ/L (3.5-5.1); SODIUM (NA) 137 MEQ/L (136-145)
[2017-06-02 05:46] LABS: ALKALINE PHOSPHATASE 76 U/L (45-117); TOTAL BILIRUBIN ADULT 0.2 MG/DL (0.2-1.0)
[2017-06-02 05:47] LABS: AUTOMATED NEUTROPHIL # 13.6 TH/MM3 (1.8-7.7); BASOPHIL # 0.1 TH/MM3 (0-0.2); BASOPHIL % 0.4 % (0.0-2.0); EOSINOPHIL # 0.3 TH/MM3 (0-0.4); EOSINOPHIL % 1.7 % (0.0-4.0); HEMATOCRIT 23.6 % (39.0-51.0); HEMO FLAGS DIFF FINAL; LYMPH % 6.8 % (9.0-44.0); LYMPHOCYTE # 1.1 TH/MM3 (1.0-4.8); MEAN CELL VOLUME 76.1 FL (80.0-100.0); MEAN CORPUSCULAR HEMOGLOBIN 24.3 PG (27.0-34.0); MONO % 7.3 % (0.0-8.0); NEUT % 83.8 % (16.0-70.0); PLATELET COUNT 810 TH/MM3 (150-450); RED CELL DISTRIBUTION WIDTH 15.8 % (11.6-17.2); WHITE BLOOD COUNT 16.2 TH/MM3 (4.0-11.0)
[2017-06-02 08:00] VITALS: BP 105/64; PULSE 86; RESP 20; TEMP 98.2; O2SAT 93
[2017-06-02] MEDS: SODIUM CHLORIDE 0.9% FLUSH 10 ML FLUSH IV FLUSH SCH ×2 (08:52→20:22)
[2017-06-02] MEDS: CITALOPRAM HYDROBROMIDE 20 MG TAB PO SCH (08:52)
[2017-06-02] MEDS: ALPRAZolam 0.5 MG TAB PO SCH ×3 (08:52→17:08)
--- NOTE | 2017-06-02 10:18 | PD.CONS ---
[facility] Service Urology Consult Requested By Reason for Consult Gross hematuria Primary Care Physician Justine Anne MD Diagnosis: (1) Sepsis ICD Code: A41.9 (2) UTI (urinary tract infection) ICD Code: N39.0 (3) Odynophagia ICD Code: R13.10 (4) Essential hypertension ICD Code: I10 (5) Anemia of chronic disease ICD Code: D63.8 (6) Severe protein-calorie malnutrition ICD Code: E43 (7) Rectal adenocarcinoma ICD Code: C20 History of Present Illness 57 year-old gentleman with history rectal CA and chronic bilateral hydronephrosis managed conservatively who is now admitted with decreased appetite and difficulty swallowing. During present admission the patient was noted to have grossly bloody urine thus prompting a urology consult. Patient has been followed by nephrology for bilateral hydronephrosis and manage conservatively. Patient also has seen Dr. Cayden Tapia who I recommended stent placement in the past but for one reason or another the patient elected not to have this done. He presently denies flank pain. He reports the past several days it has been difficult for him to urinate however since being emitted to the hospital he did pass a clot and subsequently has been able to void adequately. CT scanning was performed that demonstrated a large rectosigmoid mass with likely fistula formation to the urinary bladder. Also noted was moderate to severe bilateral hydronephrosis. At the time of consultation the patient had a urinal at the bedside that demonstrated sediment along with minimal blood present. It appears that the patient's rectal cancer is inoperable a consult has been placed for hospice evaluation. Review of Systems Constitutional: COMPLAINS OF: Change in appetite, DENIES: Fever Gastrointestinal: COMPLAINS OF: Difficulty Swallowing Genitourinary: COMPLAINS OF: Hematuria (resolving) Musculoskeletal: DENIES: Back pain Except as stated in HPI: all other systems reviewed are Neg Past Family Social History Past Medical History Rectal CA Hypertension Anxiety/depression Past Surgical History Status post colostomy placement Status post right hlbpb-lrt-ovme amputation Reported Medications Refer to EMR Allergies: Coded Allergies: *MDRO Multi-Drug Resistant Organism (Verified Adverse Reaction, Unknown, 09/18/16) MRSA (groin wound) - 05/25/15 / (buttock) - 03/2016 / (urine) - 08/2016 Active Ordered Medications Refer to EMR Family History Diabetes mellitus Coronary artery disease Social History Smoker of one pack per day, moderate alcohol use, denies illicit drug abuse Physical Exam Vital Signs Date Time Temp Pulse Resp B/P Pulse Ox O2 Delivery O2 Flow Rate FiO2 06/02/17 08:00 98.2 86 20 105/64 93 06/01/17 20:00 97.0 96 16 102/63 92 06/01/17 18:23 96.0 96 18 131/74 94 06/01/17 16:00 96.4 86 16 123/73 97 06/01/17 11:55 97.9 109 20 127/74 99 Physical Exam GENERAL: This is a well-nourished, well-developed patient, in no apparent distress. SKIN: No rashes, ecchymoses or lesions. Cool and dry. HEAD: Atraumatic. Normocephalic. No temporal or scalp tenderness. EYES: Pupils equal round and reactive. Extraocular motions intact. No scleral icterus. No injection or drainage. ENT: Nose without bleeding, purulent drainage or septal hematoma. Throat without erythema, tonsillar hypertrophy or exudate. Uvula midline. Airway patent. NECK: Trachea midline. No JVD or lymphadenopathy. Supple, nontender, no meningeal signs. GASTROINTESTINAL: Abdomen soft, non-tender, nondistended. Colostomy viable. No guarding. GENITOURINARY: No CVA tenderness. Yan catheter in place draining blood- tinged urine with floating debris. MUSCULOSKELETAL: Right iywsp-wno-ruki amputation NEUROLOGICAL: Awake and alert. Cranial nerves II through XII intact. Motor and sensory grossly within normal limits. Five out of 5 muscle strength in all muscle groups. Normal speech. Laboratory Tests Test 06/01/17 06/01/17 06/02/17 12:25 14:45 04:42 White Blood Count 19.0 16.2 Red Blood Count 3.65 3.10 Hemoglobin 8.9 7.5 Hematocrit 27.6 23.6 Mean Corpuscular Volume 75.6 76.1 Mean Corpuscular Hemoglobin 24.4 24.3 Mean Corpuscular Hemoglobin 32.2 32.0 Concent Red Cell Distribution Width 16.0 15.8 Platelet Count 915 810 Mean Platelet Volume 6.7 6.7 Neutrophils (%) (Auto) 92.0 83.8 Lymphocytes (%) (Auto) 3.8 6.8 Monocytes (%) (Auto) 3.8 7.3 Eosinophils (%) (Auto) 0.3 1.7 Basophils (%) (Auto) 0.1 0.4 Neutrophils # (Auto) 17.5 13.6 Lymphocytes # (Auto) 0.7 1.1 Monocytes # (Auto) 0.7 1.2 Eosinophils # (Auto) 0.1 0.3 Basophils # (Auto) 0.0 0.1 CBC Comment DIFF FINAL DIFF FINAL Differential Comment Urine Color RED Urine Turbidity CLOUDY Urine pH 8.0 Urine Specific [place] 1.011 Urine Protein 300 Urine Glucose (UA) NEG Urine Ketones NEG Urine Occult Blood LARGE Urine Nitrite NEG Urine Bilirubin NEG Urine Urobilinogen LESS THAN 2.0 Urine Leukocyte Esterase LARGE Urine RBC Urine WBC Urine WBC Clumps MANY Urine Bacteria MANY Urine Mucus MOD Microscopic Urinalysis Comment CULTURE INDICATED Sodium Level 130 137 Potassium Level 4.4 3.7 Chloride Level 100 105 Carbon Dioxide Level 21.0 22.5 Anion Gap 9 10 Blood Urea Nitrogen 20 19 Creatinine 1.44 1.45 Estimat Glomerular Filtration 50 50 Rate Random Glucose 147 108 Calcium Level 9.3 8.2 Magnesium Level 2.0 Lactic Acid Level 0.7 Total Bilirubin 0.2 Aspartate Amino Transf 8 (AST/SGOT) Alanine Aminotransferase 11 (ALT/SGPT) Alkaline Phosphatase 76 Total Protein 6.0 Albumin 2.0 Date/Time Procedure Status Source Growth 06/01/17 14:45 Aerobic Blood Culture Received Blood Peripheral Pending 06/01/17 14:45 Anaerobic Blood Culture Received Blood Peripheral Pending 06/01/17 12:25 Urine Culture Received Urine Clean Catch Pending Result Diagram: 06/02/17 0442 06/02/17 0442 Imaging Last Impressions Chest X-Ray 06/01/17 1207 Signed Impressions: Service Date/Time: Thursday, June 01, 2017 12:27 - CONCLUSION: No acute cardiopulmonary disease. Reema Yancey MD Small Bowel X-Ray 06/01/17 0000 Signed Impressions: Service Date/Time: Thursday, June 01, 2017 16:47 - CONCLUSION: 1. Negative for small bowel obstruction or gastric outlet obstruction. Moderate to severe bilateral hydronephrosis. Jonas Sapp MD Renal Ultrasound 06/01/17 0000 Signed Impressions: Service Date/Time: Thursday, June 01, 2017 16:20 - CONCLUSION: Moderate to severe hydronephrosis in both kidneys with malignant mass behind the bladder discussed on the patient's CT examination and findings characteristic of colovesical fistula. Reema Yancey MD Chest CT 06/01/17 0000 Signed Impressions: Service Date/Time: Thursday, June 01, 2017 15:12 - CONCLUSION: 1. Pathological adenopathy in subcarinal area not present previously suspicious for malignancy and metastatic disease. 2. The right upper lobe infiltrate. 3. Inspissated mucus within the left lower lobe bronchi. 4. Pericardial effusion. Reema Yancey MD Abdomen/Pelvis CT 06/01/17 0000 Signed Impressions: Service Date/Time: Thursday, June 01, 2017 15:12 - CONCLUSION: 1. Large mass in the rectosigmoid junction almost certainly malignant with findings almost certainly colovesical fistula. 2. Malignant adenopathy of the above-mentioned malignant mass in the right pelvic region and external iliac chain. 3. The presacral mass is smaller since 2012. 4. Moderate to severe hydronephrosis in both kidneys and hydroureter. Reema Yancey MD Assessment and Plan Assessment and Plan Urologic impression: #1 resolving gross hematuria #2 long-standing bilateral hydronephrosis most likely secondary to ureteral compression from the enlarging rectal mass #3 hematuria/urinary sediment most likely related to colovesical fistula formation from the enlarging rectosigmoid mass Recommendations: #1 we'll hold off on Yan catheter placement as the patient is spontaneously voiding and hematuria is resolving #2 agree with hospice evaluation #3 patient to follow up with Dr. Cayden Tapia, his established urologist sometime after hospital discharge for ongoing urologic monitoring. Problem Qualifiers (1) Sepsis: Qualified Code: A41.9 - Sepsis, due to unspecified organism Suleiman Hidalgo MD Jun 02, 2017 10:18
--- NOTE | 2017-06-02 11:43 | HHI.PR ---
Subjective Remarks Follow-up sepsis/UTI/odynophagia/gross hematuria 06/02/17-patient seen and examined, afebrile. Reports improvement of both dysphagia of solid food as well as odynophagia. Tolerated by mouth well. Denies any gross hematuria Objective Vitals Vital Signs Date Time Temp Pulse Resp B/P Pulse Ox O2 Delivery O2 Flow Rate FiO2 06/02/17 08:00 98.2 86 20 105/64 93 06/01/17 20:00 97.0 96 16 102/63 92 06/01/17 18:23 96.0 96 18 131/74 94 06/01/17 16:00 96.4 86 16 123/73 97 06/01/17 11:55 97.9 109 20 127/74 99 I/O 06/01/17 06/01/17 06/01/17 06/02/17 06/02/17 06/02/17 06:59 14:59 22:59 06:59 14:59 22:59 Intake Total 800 ml 360 ml Output Total 500 ml Balance 800 ml -140 ml Intake Oral 360 ml IV Total 800 ml Output Urine Total 400 ml Stool Total 100 ml Result Diagram: 06/02/17 0442 06/02/17 0442 Imaging Last Impressions Chest X-Ray 06/01/17 1207 Signed Impressions: Service Date/Time: Thursday, June 01, 2017 12:27 - CONCLUSION: No acute cardiopulmonary disease. Reema Yancey MD Small Bowel X-Ray 06/01/17 0000 Signed Impressions: Service Date/Time: Thursday, June 01, 2017 16:47 - CONCLUSION: 1. Negative for small bowel obstruction or gastric outlet obstruction. Moderate to severe bilateral hydronephrosis. Jonas Sapp MD Renal Ultrasound 06/01/17 0000 Signed Impressions: Service Date/Time: Thursday, June 01, 2017 16:20 - CONCLUSION: Moderate to severe hydronephrosis in both kidneys with malignant mass behind the bladder discussed on the patient's CT examination and findings characteristic of colovesical fistula. Reema Yancey MD Chest CT 06/01/17 0000 Signed Impressions: Service Date/Time: Thursday, June 01, 2017 15:12 - CONCLUSION: 1. Pathological adenopathy in subcarinal area not present previously suspicious for malignancy and metastatic disease. 2. The right upper lobe infiltrate. 3. Inspissated mucus within the left lower lobe bronchi. 4. Pericardial effusion. Reema Yancey MD Abdomen/Pelvis CT 06/01/17 0000 Signed Impressions: Service Date/Time: Thursday, June 01, 2017 15:12 - CONCLUSION: 1. Large mass in the rectosigmoid junction almost certainly malignant with findings almost certainly colovesical fistula. 2. Malignant adenopathy of the above-mentioned malignant mass in the right pelvic region and external iliac chain. 3. The presacral mass is smaller since 2012. 4. Moderate to severe hydronephrosis in both kidneys and hydroureter. Reema Yancey MD Objective Remarks GENERAL: NAD SKIN: Warm and dry. HEAD: Normocephalic. EYES: No scleral icterus. No injection or drainage. NECK: Supple, trachea midline. No JVD or lymphadenopathy. CARDIOVASCULAR: Regular rate and rhythm without murmurs, gallops, or rubs. RESPIRATORY: Breath sounds equal bilaterally. No accessory muscle use. GASTROINTESTINAL: Abdomen soft, non-tender, nondistended. Colostomy bag in place MUSCULOSKELETAL: No cyanosis, or edema. Right AKA BACK: Nontender without obvious deformity. No CVA tenderness. A/P Problem List: (1) Sepsis ICD Code: A41.9 Status: Acute (2) UTI (urinary tract infection) ICD Code: N39.0 Status: Acute (3) Odynophagia ICD Code: R13.10 Status: Acute (4) Essential hypertension ICD Code: I10 Status: Acute (5) Anemia of chronic disease ICD Code: D63.8 Status: Chronic (6) Severe protein-calorie malnutrition ICD Code: E43 Status: Acute (7) Rectal adenocarcinoma ICD Code: C20 Status: Acute Assessment and Plan 57 year-old man with Sepsis:Heart rate over 90, WBC > 38153, < 4000 or > 10% bands, source UTI; lactic acid pending. Status post Rocephin IV, continue antibiotics pending blood and urine culture UTI: Currently on Rocephin pending urine culture Odynophagia Dysphagia of solids Improving Consider GI consultation for evaluation for EGD Hematuria History of hydronephrosis enal ultrasound noted Appreciate input from urology Continue Flomax Acute renal failure Post renal Renal ultrasound pending Continue IV fluid hydration History of rectal adenocarcinoma Oncology consultation pending Appreciate input from palliative care medicine Patient does not want hospice at this time Abdomen/pelvics CT noted and review Consider chest CT Anemia of chronic disease H&H stable Severe protein calorie malnutrition Consult dietitian for calorie count Tobacco abuse Tobacco counseling cessation provided Declined nicotine patch Impaired fasting glucose hemoglobin A1c pending GI prophylaxis: PPI Problem Qualifiers (1) Sepsis: Qualified Code: A41.9 - Sepsis, due to unspecified organism Miki Ledbetter MD Jun 02, 2017 11:43
[2017-06-02 12:00] VITALS: BP 95/69; PULSE 87; RESP 18; TEMP 97.8; O2SAT 95
[2017-06-02] MEDS: cefTRIAXone INJ 1,000 MG in SODIUM CHLORIDE 0.9% INJ 100 ML IV SCH (13:08)
[2017-06-02 13:27] LABS: HEMOGLOBIN A1a 1.4 %; HEMOGLOBIN A1b 1.7 %; HEMOGLOBIN Ao 84.2 %; HEMOGLOBIN LA1C 2.2 %; HEMOGLOBIN P3 5.7 %
--- NOTE | 2017-06-02 15:35 | MB ---
cc: WILFRID PHILLIPS DATE OF CONSULTATION: 06/02/2017 REASON FOR CONSULTATION: Progressive adenocarcinoma of the rectum. PATIENT PROFILE: The patient is a 57-year-old white male. He lives alone. He had a fiance who in 2012. He has a son. He was born in [place], [place]. He smokes three-quarters of a pack of cigarettes per day. 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 HISTORY OF PRESENT ILLNESS: The patient's history dates back to 2013 when he was diagnosed with a large rectal adenocarcinoma. He had a complicated course in that he had a perirectal abscess and had a necrotizing fasciitis which propagated into the pelvis and down into the thigh. He required a right oeqki-ddt-[id number] amputation because of the infection. He at one point was treated with palliative oral capecitabine. It is unclear to me whether he has had a response. He has been offered additional therapy by his oncologist, Dr. Monte, but he has declined. He has recently developed bilateral hydronephrosis. Chemotherapy has been discussed again, and he again declined. He was at home and visited by friends. His friends noted that he had lost weight, was ill, and had blood in his urine. They felt that he was acutely ill and arranged for transportation to the hospital where he was seen in the emergency room. On arrival, he underwent a number of tests. He had blood cultures drawn, which are negative. A urine culture is pending. The most notable tests are imaging studies: A CT of the abdomen and pelvis on 06/01/2017 shows a large mass in the rectosigmoid junction, which appears malignant with findings most consistent with a colovesicular fistula. There is malignant adenopathy in the right pelvic region and external iliac chain. There is moderate to severe hydronephrosis involving both kidneys and a hydroureter. The patient had a CT of the thorax on 06/01/2017, and now has pathologic adenopathy in the subcarinal area, which was not previously present over an area of 5.1 x 3.8 cm. There is a small pericardial effusion. There is a very minimal right upper lobe infiltrate. There is mucus within the left lower lobe bronchi. The patient has been started on antibiotics since admission. He is afebrile. As indicated above, urine culture is pending. He is not having any pain. He tells me that his urine has cleared up. He has been seen by Dr. Hidalgo, who is a urologist, and is felt to have bilateral hydronephrosis secondary to ureteral compression from an enlarging rectal mass. It appears that he may have a colovesicular fistula. No Yan was placed. At the present time, he is free of pain. He is weak. Today on 06/02, hemoglobin 7.5, white count 16,000, platelets 110,000. Lytes, BUN and creatinine notable for BUN of 19, creatinine 1.45, total albumin is 2.0. Previous CEA was 10 on 02/26/2017. PAST SURGICAL HISTORY: 1. Amputation of the distal left foot. 2. Right above-knee amputation. 3. Arterial stent placement left lower extremity. 4. Multiple surgical debridements. 5. Revision of herniated colostomy in 2015. PAST MEDICAL HISTORY: 1. Stage IV adenocarcinoma of the rectum. 2. History of alcohol abuse. 3. Tobacco abuse. 4. Peripheral vascular disease. 5. History of sacral ulcer. MEDICATIONS PRIOR TO ADMISSION: 1. Xanax. 2. Aspirin. 3. Celexa. 4. Fentanyl 100 micrograms. 5. Neurontin. 6. Lisinopril. 7. Zantac. 8. Flomax. ALLERGIES: None. FAMILY HISTORY: Noncontributory. REVIEW OF SYSTEMS: No change in vision or hearing. No chest pain or palpitations. Minimal exertional shortness of breath. No abdominal or pelvic pain. He has had hematuria. He has weakness. He has had weight loss. He has poor appetite. He gets around in his house with a wheelchair. PHYSICAL EXAMINATION: GENERAL: The physical exam reveals a chronically ill-appearing male who is not in any immediate distress. VITAL SIGNS: 02 saturation 95%, blood pressure 100/60, respiratory rate 18, pulse 88, afebrile. HEAD, EYES, EARS, NOSE, THROAT: Head is normocephalic. The sclerae and conjunctivae are normal. Oropharynx unremarkable. LYMPHATIC: No cervical, supraclavicular, axillary or inguinal adenopathy. HEART: Regular rhythm. LUNGS: Clear. ABDOMEN: Abdomen soft. No hepatosplenomegaly. No masses. No tenderness. EXTREMITIES: Right above-knee amputation. NEUROLOGIC: No focal weakness other than generalized weakness due to muscular loss. ASSESSMENT: The patient is a 57-year-old male who has progressive adenocarcinoma arising from the rectum. He now has a large mass posterior to the bladder with a probable colovesical fistula. He has mediastinal adenopathy. He has bi-ureteral obstruction but nevertheless still has reasonable renal function with a GFR of 50. PLAN: 1. I reviewed with him his x-rays showing him the mass posterior to the bladder as well as a mediastinal adenopathy so he would understand the situation. 2. I spoke with his oncologist, Dr. Josef Monte, today and Dr. Monte felt that it would be reasonable to offer this gentleman palliative chemotherapy as he has had only limited exposure to capecitabine and it would be conceivable that he would have a reasonable response to a more aggressive regimen. This information was shared with the patient. He is frightened to receive chemotherapy. He is not inclined to do this at the moment. I spoke to him about hospice. He is not inclined to do this as well. Dr. Monte will return Sunday. MD KALEIGH Joshi/DANELLE /12:55 PM /3:14 PM BOB
[2017-06-02 16:00] VITALS: BP 109/54; PULSE 89; RESP 18; TEMP 98.3; O2SAT 96
--- NOTE | 2017-06-02 16:50 | EKG ---
Date Performed: 06/01/2017 Time Performed: 12:14:22 PTAGE: 57 years EKG: SINUS TACHYCARDIA BORDERLINE RIGHT AXIS DEVIATION POSSIBLE INFERIOR MYOCARDIAL INFARCTION A BNORMAL ECG PREVIOUS TRACING : 03/15/2016 04.48 Since previous tracing, no significant change. DOCTOR: Kb Hamilton Interpretating Date/Time 06/02/2017 16:49:46
[2017-06-02 20:00] VITALS: BP 106/62; PULSE 89; RESP 20; TEMP 96.3; O2SAT 92
[2017-06-02] MEDS: TAMSULOSIN HCL 0.4 MG CAP PO SCH (20:22)
[2017-06-03] VITALS (8 sets, daily range): BP systolic 113–136; BP diastolic 60–79; PULSE 90–98; RESP 16–20; TEMP 96–98.6; O2SAT 90–96
[2017-06-03] MEDS: SODIUM CHLOR 0.9% 1000 ML INJ 1,000 ML IV SCH ×2 (04:46→17:36)
[2017-06-03 04:54] LABS: AUTOMATED NEUTROPHIL # 8.7 TH/MM3 (1.8-7.7); BASOPHIL # 0.1 TH/MM3 (0-0.2); BASOPHIL % 0.7 % (0.0-2.0); EOSINOPHIL # 0.4 TH/MM3 (0-0.4); EOSINOPHIL % 3.3 % (0.0-4.0); HEMATOCRIT 21.8 % (39.0-51.0); HEMO FLAGS DIFF FINAL; LYMPH % 9.5 % (9.0-44.0); MEAN CELL VOLUME 76.7 FL (80.0-100.0); MEAN CORPUSCULAR HEMOGLOBIN 25.3 PG (27.0-34.0); NEUT % 79.5 % (16.0-70.0); PLATELET COUNT 753 TH/MM3 (150-450); RED BLOOD COUNT 2.85 MIL/MM3 (4.50-5.90)
[2017-06-03 05:20] LABS: BICARBONATE 22.4 MEQ/L (21.0-32.0); POTASSIUM 3.7 MEQ/L (3.5-5.1)
[2017-06-03] MEDS: SODIUM CHLORIDE 0.9% FLUSH 10 ML FLUSH IV FLUSH SCH ×2 (07:49→20:09)
[2017-06-03] MEDS: CITALOPRAM HYDROBROMIDE 20 MG TAB PO SCH (07:49)
[2017-06-03] MEDS: ALPRAZolam 0.5 MG TAB PO SCH ×3 (07:49→18:24)
[2017-06-03] MEDS ORDERED: MAGNESIUM CITRATE SOLN 300 ML BTL PO ONE ×2 (12:00→18:00)
--- NOTE | 2017-06-03 12:41 | HHI.PR ---
Subjective Remarks Follow-up sepsis/UTI/odynophagia/gross hematuria 06/02/17-patient seen and examined, afebrile. Reports improvement of both dysphagia of solid food as well as odynophagia. Tolerated by mouth well. Denies any gross hematuria 06/03/17-patient seen and examined, had spelling cough overnight and described as dry. Hemoglobin down to 7.2 however patient denies any bleeding. Patient does not want any palliative chemotherapy nor does he want hospice, states this will cost him money. He still complains of foot getting stuck in the mid esophagus Objective Vitals Vital Signs Date Time Temp Pulse Resp B/P Pulse Ox O2 Delivery O2 Flow Rate FiO2 06/03/17 12:00 97.1 91 18 116/68 94 06/03/17 08:00 96.0 98 20 124/61 94 06/03/17 00:00 98.6 97 20 125/60 92 06/02/17 20:00 96.3 89 20 106/62 92 06/02/17 16:00 98.3 89 18 109/54 96 I/O 06/02/17 06/02/17 06/02/17 06/03/17 06/03/17 06/03/17 07:00 15:00 23:00 07:00 15:00 23:00 Intake Total 360 ml 1200 ml 240 ml 1690 ml Output Total 500 ml 900 ml 475 ml 300 ml Balance -140 ml 300 ml -235 ml 1390 ml Intake Oral 360 ml 1200 ml 240 ml 240 ml IV Total 1450 ml Output Urine Total 400 ml 900 ml 475 ml 300 ml Stool Total 100 ml Result Diagram: 06/03/17 0432 06/03/17 0432 Imaging Last Impressions Chest X-Ray 06/01/17 1207 Signed Impressions: Service Date/Time: Thursday, June 01, 2017 12:27 - CONCLUSION: No acute cardiopulmonary disease. Reema Yancey MD Small Bowel X-Ray 06/01/17 0000 Signed Impressions: Service Date/Time: Thursday, June 01, 2017 16:47 - CONCLUSION: 1. Negative for small bowel obstruction or gastric outlet obstruction. Moderate to severe bilateral hydronephrosis. Jonas Sapp MD Renal Ultrasound 06/01/17 0000 Signed Impressions: Service Date/Time: Thursday, June 01, 2017 16:20 - CONCLUSION: Moderate to severe hydronephrosis in both kidneys with malignant mass behind the bladder discussed on the patient's CT examination and findings characteristic of colovesical fistula. Reema Yancey MD Chest CT 06/01/17 0000 Signed Impressions: Service Date/Time: Thursday, June 01, 2017 15:12 - CONCLUSION: 1. Pathological adenopathy in subcarinal area not present previously suspicious for malignancy and metastatic disease. 2. The right upper lobe infiltrate. 3. Inspissated mucus within the left lower lobe bronchi. 4. Pericardial effusion. Reema Yancey MD Abdomen/Pelvis CT 06/01/17 0000 Signed Impressions: Service Date/Time: Thursday, June 01, 2017 15:12 - CONCLUSION: 1. Large mass in the rectosigmoid junction almost certainly malignant with findings almost certainly colovesical fistula. 2. Malignant adenopathy of the above-mentioned malignant mass in the right pelvic region and external iliac chain. 3. The presacral mass is smaller since 2012. 4. Moderate to severe hydronephrosis in both kidneys and hydroureter. Reema Yancey MD Objective Remarks GENERAL: NAD SKIN: Warm and dry. HEAD: Normocephalic. EYES: No scleral icterus. No injection or drainage. NECK: Supple, trachea midline. No JVD or lymphadenopathy. CARDIOVASCULAR: Regular rate and rhythm without murmurs, gallops, or rubs. RESPIRATORY: Breath sounds equal bilaterally. No accessory muscle use. GASTROINTESTINAL: Abdomen soft, non-tender, nondistended. Colostomy bag in place MUSCULOSKELETAL: No cyanosis, or edema. Right AKA BACK: Nontender without obvious deformity. No CVA tenderness. A/P Problem List: (1) Sepsis ICD Code: A41.9 Status: Acute (2) UTI (urinary tract infection) ICD Code: N39.0 Status: Acute (3) Odynophagia ICD Code: R13.10 Status: Acute (4) Essential hypertension ICD Code: I10 Status: Acute (5) Anemia of chronic disease ICD Code: D63.8 Status: Chronic (6) Severe protein-calorie malnutrition ICD Code: E43 Status: Acute (7) Rectal adenocarcinoma ICD Code: C20 Status: Acute Assessment and Plan 57 year-old man with Sepsis:Heart rate over 90, WBC > 82941, < 4000 or > 10% bands, source UTI. Status post Rocephin IV, continue antibiotics pending blood and urine culture UTI: Currently on Rocephin pending urine culture Odynophagia Dysphagia of solids Although improving, will get upper GI series Consider GI consultation for evaluation for EGD Hematuria History of hydronephrosis Renal ultrasound noted Appreciate input from urology Continue Flomax Anemia of chronic disease Transfuse 1 unit packed red blood cell today 06/03/17 Monitor H&H Acute renal failure Creatinine improving and down to 1.32 Renal ultrasound pending Continue IV fluid hydration History of rectal adenocarcinoma Oncology consultation appreciated, however patient does know one any palliative chemotherapy Appreciate input from palliative care medicine Patient does not want hospice at this time Abdomen/pelvics CT noted and review Consider chest CT Severe protein calorie malnutrition Consult dietitian for calorie count Tobacco abuse Tobacco counseling cessation provided Declined nicotine patch Impaired fasting glucose hemoglobin A1c 5.6 GI prophylaxis: PPI Problem Qualifiers (1) Sepsis: Qualified Code: A41.9 - Sepsis, due to unspecified organism Miki Ledbetter MD Jun 03, 2017 12:41
[2017-06-03] MEDS ORDERED: ACETAMINOPHEN 325 MG TAB PO PRN (12:45)
[2017-06-03] MEDS ORDERED: diphenhydrAMINE HCL 25 MG CAP PO PRN (12:45)
[2017-06-03] MEDS ORDERED: SODIUM CHLOR 0.9% 250 ML INJ 250 ML IV ONE (12:45)
[2017-06-03] MEDS ORDERED: DIATRIZOATE MEGLUM/DIATRIZOATE SOD 9 ML CUP PO ONE (13:00)
[2017-06-03] MEDS: cefTRIAXone INJ 1,000 MG in SODIUM CHLORIDE 0.9% INJ 100 ML IV SCH (13:33)
[2017-06-03] MEDS: BISACODYL EC 5 MG TABEC PO SCH ×2 (18:00→20:09)
[2017-06-03] MEDS: guaiFENesin/CODEINE SYRUP 200 MG/20 MG/10 ML CUP PO PRN ×2 (18:24→22:41)
[2017-06-03] MEDS: TAMSULOSIN HCL 0.4 MG CAP PO SCH (20:10)
[2017-06-04] VITALS: BP 140/77; PULSE 90; RESP 20; TEMP 98.8; O2SAT 94
[2017-06-04] MEDS: SODIUM CHLOR 0.9% 1000 ML INJ 1,000 ML IV SCH (03:58)
[2017-06-04] MEDS: guaiFENesin/CODEINE SYRUP 200 MG/20 MG/10 ML CUP PO PRN ×3 (03:59→12:44)
[2017-06-04 05:05] LABS: AUTOMATED NEUTROPHIL # 9.3 TH/MM3 (1.8-7.7); BASOPHIL # 0.1 TH/MM3 (0-0.2); BASOPHIL % 1.1 % (0.0-2.0); EOSINOPHIL # 0.3 TH/MM3 (0-0.4); EOSINOPHIL % 2.9 % (0.0-4.0); HEMATOCRIT 27.8 % (39.0-51.0); HEMO FLAGS DIFF FINAL; LYMPH % 8.5 % (9.0-44.0); MEAN CELL VOLUME 76.6 FL (80.0-100.0); MEAN CORPUSCULAR HEMOGLOBIN 24.9 PG (27.0-34.0); MEAN CORPUSCULAR HGB CONC 32.5 % (32.0-36.0); MONO % 6.2 % (0.0-8.0); NEUT % 81.3 % (16.0-70.0); PLATELET COUNT 798 TH/MM3 (150-450); RED BLOOD COUNT 3.62 MIL/MM3 (4.50-5.90); RED CELL DISTRIBUTION WIDTH 16.2 % (11.6-17.2); WHITE BLOOD COUNT 11.5 TH/MM3 (4.0-11.0)
[2017-06-04] MEDS: SODIUM CHLORIDE 0.9% FLUSH 10 ML FLUSH IV FLUSH SCH (07:48)
[2017-06-04] MEDS: CITALOPRAM HYDROBROMIDE 20 MG TAB PO SCH (07:48)
[2017-06-04] MEDS: ALPRAZolam 0.5 MG TAB PO SCH ×2 (07:48→12:44)
[2017-06-04 08:00] VITALS: BP 147/71; PULSE 85; RESP 18; TEMP 95.9; O2SAT 93
--- NOTE | 2017-06-04 09:31 | PD.ONC.PN ---
Subjective Subjective Remarks Afebrile overnight. Patient resting in bed in nad. No complaints. Wants to go home. Objective Data Date Time Temp Pulse Resp B/P Pulse Ox O2 Delivery O2 Flow Rate FiO2 06/04/17 08:00 95.9 85 18 147/71 93 06/04/17 00:00 98.8 90 20 140/77 94 06/03/17 22:18 97.7 90 20 131/79 94 06/03/17 20:00 97.7 90 20 131/79 94 06/03/17 19:04 96.7 92 18 136/78 90 06/03/17 18:39 97.7 96 18 131/72 90 06/03/17 16:00 97.2 94 16 113/62 96 06/03/17 12:00 97.1 91 18 116/68 94 06/04/17 06/04/17 06/04/17 07:00 15:00 23:00 Intake Total 716 ml Output Total 550 ml Balance 166 ml Result Diagram: 06/04/17 0435 06/03/17 0432 Laboratory Results Laboratory Tests Test 06/03/17 06/04/17 15:42 04:35 Blood Type O POSITIVE Antibody Screen NEGATIVE Crossmatch Leukocyte-Reduced Red Blood Cells Blood Bank Comment White Blood Count 11.5 TH/MM3 Red Blood Count 3.62 MIL/MM3 Hemoglobin 9.0 GM/DL Hematocrit 27.8 % Mean Corpuscular Volume 76.6 FL Mean Corpuscular Hemoglobin 24.9 PG Mean Corpuscular Hemoglobin 32.5 % Concent Red Cell Distribution Width 16.2 % Platelet Count 798 TH/MM3 Mean Platelet Volume 6.4 FL Neutrophils (%) (Auto) 81.3 % Lymphocytes (%) (Auto) 8.5 % Monocytes (%) (Auto) 6.2 % Eosinophils (%) (Auto) 2.9 % Basophils (%) (Auto) 1.1 % Neutrophils # (Auto) 9.3 TH/MM3 Lymphocytes # (Auto) 1.0 TH/MM3 Monocytes # (Auto) 0.7 TH/MM3 Eosinophils # (Auto) 0.3 TH/MM3 Basophils # (Auto) 0.1 TH/MM3 CBC Comment DIFF FINAL Differential Comment Culture Results Microbiology Date/Time Procedure Status Source Growth 06/01/17 12:25 Urine Culture - Final Complete Urine Clean Catch 50-100,000 CFU/ML MIXED YANIV... 06/01/17 14:30 Aerobic Blood Culture - Preliminary Resulted Blood Peripheral NO GROWTH IN 2 DAYS 06/01/17 14:30 Anaerobic Blood Culture - Preliminary Resulted Blood Peripheral NO GROWTH IN 2 DAYS 06/01/17 14:45 Aerobic Blood Culture - Preliminary Resulted Blood Peripheral NO GROWTH IN 2 DAYS 06/01/17 14:45 Anaerobic Blood Culture - Preliminary Resulted Blood Peripheral NO GROWTH IN 2 DAYS Administered Medications Medications (Trade) Dose Ordered Sig/Orlin Route PRN Reason Start Time Stop Time Status Last Admin Dose Admin Sodium Chloride (NS 1000 ml Inj) 1,000 ml @ 70 mls/hr [id number] IV 06/01/17 14:06 06/04/17 03:58 Sodium Chloride 2 ml 2 ml BID IV FLUSH 06/01/17 21:00 06/04/17 07:48 Ceftriaxone Sodium/Sodium Chloride (Rocephin Inj/NS Inj) 100 ml @ 200 mls/hr Q24H IV 06/02/17 13:00 06/03/17 13:33 Alprazolam (Xanax) 0.5 mg TID PO 06/01/17 18:00 06/04/17 07:48 Citalopram Hydrobromide (CeleXA) 20 mg DAILY PO 06/02/17 09:00 06/04/17 07:48 Tamsulosin HCl (Flomax) 0.4 mg HS PO 06/01/17 21:00 06/03/17 20:10 Guaifenesin/ Codeine Phosphate (Robitussin Ac 200-20 Mg/10 ml Liq) 10 ml Q4H PRN PO cough 06/03/17 12:45 06/04/17 07:55 Objective Remarks GENERAL: Middle aged male upright in bed in nad. SKIN: Warm and dry. HEAD: Normocephalic. EYES: No injection or drainage. NECK: Supple, trachea midline. CARDIOVASCULAR: Regular rate and rhythm RESPIRATORY: Breath sounds equal bilaterally. No accessory muscle use. GASTROINTESTINAL: Abdomen soft, nondistended. colostomy bag in place with a small amount of liquid stool. EXTREMITIES: No cyanosis NEUROLOGICAL: No obvious focal deficit. Awake, alert, and oriented x3. Assessment/Plan Assessment 57y/o male with progressive adenocarcinoma of the rectum. h/o Stage IV adenocarcinoma of the rectum. History of alcohol abuse. Tobacco abuse. Peripheral vascular disease. History of sacral ulcer. Plan 1. metastatic adenocarcinoma: patient emphatically stating he does not want to pursue any treatment. also does not want hospice services at this time, as he states they take half of his SS check and he needs that to pay his bills. he would just like to go home for now and possibly pursue hospice when he has declined further. 2. bi-ureteral obstruction: d/t mass. spontaneously voiding. maintaining GFR greater than 50. monitor. Caron Toledo Jun 04, 2017 09:31
--- NOTE | 2017-06-04 11:23 | HHI.PR ---
Subjective Remarks Follow-up sepsis/UTI/odynophagia/gross hematuria 06/02/17-patient seen and examined, afebrile. Reports improvement of both dysphagia of solid food as well as odynophagia. Tolerated by mouth well. Denies any gross hematuria 06/03/17-patient seen and examined, had spelling cough overnight and described as dry. Hemoglobin down to 7.2 however patient denies any bleeding. Patient does not want any palliative chemotherapy nor does he want hospice, states this will cost him money. He still complains of foot getting stuck in the mid esophagus 06/04/17-patient seen and examined, still coughing, afebrile Objective Vitals Vital Signs Date Time Temp Pulse Resp B/P Pulse Ox O2 Delivery O2 Flow Rate FiO2 06/04/17 08:00 95.9 85 18 147/71 93 06/04/17 00:00 98.8 90 20 140/77 94 06/03/17 22:18 97.7 90 20 131/79 94 06/03/17 20:00 97.7 90 20 131/79 94 06/03/17 19:04 96.7 92 18 136/78 90 06/03/17 18:39 97.7 96 18 131/72 90 06/03/17 16:00 97.2 94 16 113/62 96 06/03/17 12:00 97.1 91 18 116/68 94 I/O 06/03/17 06/03/17 06/03/17 06/04/17 06/04/17 06/04/17 06:59 14:59 22:59 06:59 14:59 22:59 Intake Total 1690 ml 3149 ml 716 ml Output Total 300 ml 650 ml 250 ml 550 ml Balance 1390 ml -650 ml 2899 ml 166 ml Intake Oral 240 ml 240 ml 240 ml IV Total 1450 ml 2909 ml 476 ml Output Urine Total 300 ml 250 ml 550 ml Stool Total 650 ml Result Diagram: 06/04/17 0435 06/03/17 0432 Objective Remarks GENERAL: NAD SKIN: Warm and dry. HEAD: Normocephalic. EYES: No scleral icterus. No injection or drainage. NECK: Supple, trachea midline. No JVD or lymphadenopathy. CARDIOVASCULAR: Regular rate and rhythm without murmurs, gallops, or rubs. RESPIRATORY: Breath sounds equal bilaterally. No accessory muscle use. GASTROINTESTINAL: Abdomen soft, non-tender, nondistended. Colostomy bag in place MUSCULOSKELETAL: No cyanosis, or edema. Right AKA BACK: Nontender without obvious deformity. No CVA tenderness. A/P Problem List: (1) Sepsis ICD Code: A41.9 Status: Acute (2) UTI (urinary tract infection) ICD Code: N39.0 Status: Acute (3) Odynophagia ICD Code: R13.10 Status: Acute (4) Essential hypertension ICD Code: I10 Status: Acute (5) Anemia of chronic disease ICD Code: D63.8 Status: Chronic (6) Severe protein-calorie malnutrition ICD Code: E43 Status: Acute (7) Rectal adenocarcinoma ICD Code: C20 Status: Acute Assessment and Plan 57 year-old man with Sepsis:Heart rate over 90, WBC > 36594, < 4000 or > 10% bands, source UTI. Status post Rocephin IV, continue antibiotic;, blood and urine culture negative UTI: Currently on Rocephin and urine culture negative, therefore will discontinue antibiotic Odynophagia Dysphagia of solids Although improving, will get barium swallow today 06/04/17 Consider GI consultation for evaluation for EGD Hematuria History of hydronephrosis Renal ultrasound noted Appreciate input from urology Continue Flomax Anemia of chronic disease Transfused 1 unit packed red blood cell 06/03/17 Monitor H&H Acute renal failure- Creatinine improving and down to 1.32 Renal ultrasound noted Continue IV fluid hydration History of rectal adenocarcinoma Oncology consultation appreciated, however patient does know one any palliative chemotherapy Appreciate input from palliative care medicine Patient does not want hospice at this time Abdomen/pelvics CT noted and review Severe protein calorie malnutrition Appreciate input from dietitian for calorie count Tobacco abuse Tobacco counseling cessation provided Declined nicotine patch Impaired fasting glucose hemoglobin A1c 5.6 GI prophylaxis: PPI Problem Qualifiers (1) Sepsis: Qualified Code: A41.9 - Sepsis, due to unspecified organism Miki Ledbetter MD Jun 04, 2017 11:23
--- NOTE | 2017-06-04 11:29 | HHI.DS ---
Discharge Summary Admission Date Jun 01, 2017 at 14:12 Discharge Date: Jun 04, 2017 Admitting Diagnosis Urosepsis (1) Sepsis ICD Code: A41.9 (2) UTI (urinary tract infection) ICD Code: N39.0 (3) Odynophagia ICD Code: R13.10 (4) Essential hypertension ICD Code: I10 (5) Anemia of chronic disease ICD Code: D63.8 (6) Severe protein-calorie malnutrition ICD Code: E43 (7) Rectal adenocarcinoma ICD Code: C20 Procedures none Brief History - From Admission 57-year-old man with a history of rectal adenocarcinoma, hydronephrosis was brought to the ED by EMS for evaluation of decreased appetite, swallow difficulty with mostly solid for as well as pain with swallowing 1-2 weeks duration. Patient described a sensation of food particles that get stuck in his mid esophagus and able to flush it down with water however this process is painful. He also had worsening cough over the past 4 days however he has noticed some blood tinged sputum times over the past 3 days. Patient does endorse dysuria as well as blood clotting his urine 2 weeks duration. He also reports that is supposed to follow with Dr. Tapia urology for possible stent placement. He mentions that he was offered treatment with chemotherapy but has decided's lately against it. He denies any chest pain shortness of breath. Reports normal out put from his colostomy and denies any blood CBC/BMP: 06/04/17 0435 06/03/17 0432 Significant Findings Laboratory Tests Test 06/01/17 06/02/17 06/03/17 06/04/17 12:25 04:42 04:32 04:35 White Blood Count 19.0 TH/MM3 16.2 TH/MM3 11.5 TH/MM3 (4.0-11.0) (4.0-11.0) (4.0-11.0) Red Blood Count 3.65 MIL/MM3 3.10 MIL/MM3 2.85 MIL/MM3 3.62 MIL/MM3 (4.50-5.90) (4.50-5.90) (4.50-5.90) (4.50-5.90) Hemoglobin 8.9 GM/DL 7.5 GM/DL 7.2 GM/DL 9.0 GM/DL (13.0-17.0) (13.0-17.0) (13.0-17.0) (13.0-17.0) Hematocrit 27.6 % 23.6 % 21.8 % 27.8 % (39.0-51.0) (39.0-51.0) (39.0-51.0) (39.0-51.0) Mean Corpuscular Volume 75.6 FL 76.1 FL 76.7 FL 76.6 FL (80.0-100.0) (80.0-100.0) (80.0-100.0) (80.0-100.0) Mean Corpuscular Hemoglobin 24.4 PG 24.3 PG 25.3 PG 24.9 PG (27.0-34.0) (27.0-34.0) (27.0-34.0) (27.0-34.0) Platelet Count 915 TH/MM3 810 TH/MM3 753 TH/MM3 798 TH/MM3 (150-450) (150-450) (150-450) (150-450) Mean Platelet Volume 6.7 FL 6.7 FL 6.3 FL 6.4 FL (7.0-11.0) (7.0-11.0) (7.0-11.0) (7.0-11.0) Neutrophils (%) (Auto) 92.0 % 83.8 % 79.5 % 81.3 % (16.0-70.0) (16.0-70.0) (16.0-70.0) (16.0-70.0) Lymphocytes (%) (Auto) 3.8 % 6.8 % 8.5 % (9.0-44.0) (9.0-44.0) (9.0-44.0) Neutrophils # (Auto) 17.5 TH/MM3 13.6 TH/MM3 8.7 TH/MM3 9.3 TH/MM3 (1.8-7.7) (1.8-7.7) (1.8-7.7) (1.8-7.7) Lymphocytes # (Auto) 0.7 TH/MM3 (1.0-4.8) Urine Color RED (YELLW/STRAW) Urine Turbidity CLOUDY (CLEAR) Urine Protein 300 mg/dL (NEG-TRACE) Urine Occult Blood LARGE (NEG) Urine Leukocyte Esterase LARGE (NEG) Urine WBC Clumps MANY (NONE) Urine Bacteria MANY /hpf (NONE) Urine Mucus MOD /lpf (OCC) Sodium Level 130 MEQ/L (136-145) Blood Urea Nitrogen 20 MG/DL (7-18) 19 MG/DL (7-18) Creatinine 1.44 MG/DL 1.45 MG/DL 1.32 MG/DL (0.60-1.30) (0.60-1.30) (0.60-1.30) Estimat Glomerular Filtration 50 ML/MIN (>89) 50 ML/MIN (>89) 56 ML/MIN (>89) Rate Random Glucose 147 MG/DL 108 MG/DL (74-106) (74-106) Monocytes # (Auto) 1.2 TH/MM3 (0-0.9) Calcium Level 8.2 MG/DL 7.6 MG/DL (8.5-10.1) (8.5-10.1) Aspartate Amino Transf 8 U/L (15-37) (AST/SGOT) Alanine Aminotransferase 11 U/L (12-78) (ALT/SGPT) Total Protein 6.0 GM/DL (6.4-8.2) Albumin 2.0 GM/DL (3.4-5.0) Chloride Level 109 MEQ/L (98-107) Imaging Last Impressions Chest X-Ray 06/01/17 1207 Signed Impressions: Service Date/Time: Thursday, June 01, 2017 12:27 - CONCLUSION: No acute cardiopulmonary disease. Reema Yancey MD Small Bowel X-Ray 06/01/17 0000 Signed Impressions: Service Date/Time: Thursday, June 01, 2017 16:47 - CONCLUSION: 1. Negative for small bowel obstruction or gastric outlet obstruction. Moderate to severe bilateral hydronephrosis. Jonas Sapp MD Renal Ultrasound 06/01/17 0000 Signed Impressions: Service Date/Time: Thursday, June 01, 2017 16:20 - CONCLUSION: Moderate to severe hydronephrosis in both kidneys with malignant mass behind the bladder discussed on the patient's CT examination and findings characteristic of colovesical fistula. Reema Yancey MD Chest CT 06/01/17 0000 Signed Impressions: Service Date/Time: Thursday, June 01, 2017 15:12 - CONCLUSION: 1. Pathological adenopathy in subcarinal area not present previously suspicious for malignancy and metastatic disease. 2. The right upper lobe infiltrate. 3. Inspissated mucus within the left lower lobe bronchi. 4. Pericardial effusion. Reema Yancey MD Abdomen/Pelvis CT 06/01/17 0000 Signed Impressions: Service Date/Time: Thursday, June 01, 2017 15:12 - CONCLUSION: 1. Large mass in the rectosigmoid junction almost certainly malignant with findings almost certainly colovesical fistula. 2. Malignant adenopathy of the above-mentioned malignant mass in the right pelvic region and external iliac chain. 3. The presacral mass is smaller since 2012. 4. Moderate to severe hydronephrosis in both kidneys and hydroureter. Reema Yancey MD PE at Discharge GENERAL: NAD SKIN: Warm and dry. HEAD: Normocephalic. EYES: No scleral icterus. No injection or drainage. NECK: Supple, trachea midline. No JVD or lymphadenopathy. CARDIOVASCULAR: Regular rate and rhythm without murmurs, gallops, or rubs. RESPIRATORY: Breath sounds equal bilaterally. No accessory muscle use. GASTROINTESTINAL: Abdomen soft, non-tender, nondistended. Colostomy bag in place MUSCULOSKELETAL: No cyanosis, or edema. Right AKA BACK: Nontender without obvious deformity. No CVA tenderness. Hospital Course Patient admitted secondary to sepsis due to UTI for which she was started on IV antibiotics with monitoring of blood and urine culture. Acute renal failure improved with IV fluid hydration. Medical oncology was consulted secondary to patient history of rectal adenocarcinoma however patient declined palliative chemotherapy as well as hospice. Due to hematuria on admissions, urology was consulted however advise on continue medical management. During his hospitalization, patient was transfused 1 unit of packed red blood cell with improvement of hemoglobin. Patient's symptoms of odynophagia as well as dysphagia to solids improved and he tolerated regular pain liquid. PT/OT were all consulted. DVT and GI prophylaxis were provided. Prior to discharge, patient's condition improved and vital remained stable. Pt Condition on Discharge: Stable Discharge Disposition: Discharge Home Discharge Time: <= 30 minutes Discharge Instructions Speech Therapy-Diet Recommends: Other (regular thin liquids) Activities you can perform: Regular-No Restrictions Follow up Referrals: Oncology PCP Follow-up - 1 Week Urology Continued Medications: Alprazolam (Alprazolam) 0.5 Mg Tab 0.5 MG PO TID ANXIETY Ref 0 TAB Aspirin (Aspirin) 325 Mg Tab 325 MG PO DAILY Ref 0 TAB Citalopram (Celexa) 20 Mg Tab 20 MG PO DAILY Control Depression Ref 0 TAB Fentanyl Patch 72 HR (Fentanyl Patch 72 HR) 100 Mcg/Hr Patch 1 PATCH T-DERMAL DIR Gabapentin (Gabapentin) 600 Mg Tab 600 MG PO TID Ref 0 TAB Lisinopril (Prinivil) 10 Mg Tab 10 MG PO DAILY Blood Pressure Management Ref 0 TAB Prochlorperazine Maleate (Prochlorperazine Maleate) 10 Mg Tab 10 MG PO Q6H PRN NAUSEA OR VOMITING Ref 0 TAB Ranitidine (Ranitidine) 150 Mg Cap 150 MG PO BID Ref 0 CAP Sennosides (Senna Lax) 8.6 Mg Tab 1 TAB PO BID PRN CONSTIPATION Sennosides-Docusate Sodium (Jaylene-Colace) 8.6-50 Mg Tab 2 TAB PO BID Constipation #60 Ref 0 TAB Tamsulosin (Flomax) 0.4 Mg Cap 0.4 MG PO HS Manage Prostate Problems #90 Ref 3 CAP Miki Ledbetter MD Jun 04, 2017 11:29
--- NOTE | 2017-06-04 11:58 | RADRPT ---
EXAM DATE/TIME: 06/04/2017 11:32 [facility] COMPARISON: CT THORAX W CONTRAST, June 01, 2017, 15:12. INDICATIONS : Dry heaves FLUORO TIME: 0.2 minutes IMAGE COUNT: 3 CONTRAST: 1. Liquid E-Z Paque Barium Sulfate (60% w/v, 41% w.w) MEDICAL HISTORY : Carcinoma, rectal. Cardiovascular disease. Hypertension. SURGICAL HISTORY : colon resection, colostomy ENCOUNTER: Initial ACUITY: 1 week PAIN SCORE: 0/10 LOCATION: Bilateral neck FINDINGS: Single contrast barium swallow was bone using thin barium. The hypopharynx appears intact and only fr ontal projection could be obtained since the patient cannot roll on his side due to amputation. There is a large filling defect within the esophagus measures 11 cm in craniocaudal dimension correspondin g to ingested material seen on the patient's prior CT examination and the esophagus is distended rela mile to obstruction and mass effect from the pathological and malignant adenopathy seen on the patient 's CT in subcarinal location. CONCLUSION: There is filling defect within the esophagus which is dilated related to mass effect from pathologica l adenopathy in subcarinal location probably ingested material, however underlying mass is difficult to exclude. Reema Yancey MD on June 04, 2017 at 11:53 Board Certified Radiologist. This report was verified electronically.
[2017-06-04 12:00] VITALS: BP 146/73; PULSE 81; RESP 18; TEMP 95.9; O2SAT 95
[2017-06-04] MEDS: cefTRIAXone INJ 1,000 MG in SODIUM CHLORIDE 0.9% INJ 100 ML IV SCH (12:45)
== END 2017-06-04 15:57 | disposition home or self-care (01) | DRG 871 ==
LOC: NEPE 11:52 → NEDA 14:12 → N07B 15:49
PROVIDERS: ADMIT Hospitalist; ATTEND Hospitalist
PROC: 30233N1 Transfusion of Nonautologous Red Blood Cells into Peripheral Vein, Percutaneous Approach (ICD-10-PCS; principal; 2017-06-03)
DX: A41.9 Sepsis, unspecified organism (principal); E43 Unspecified severe protein-calorie malnutrition; N17.9 Acute kidney failure, unspecified; C78.00 Secondary malignant neoplasm of unspecified lung; E87.1 Hypo-osmolality and hyponatremia; R13.10 Dysphagia, unspecified; C20 Malignant neoplasm of rectum; Z68.1 Body mass index [BMI] 19.9 or less, adult; N13.30 Unspecified hydronephrosis; N39.0 Urinary tract infection, site not specified; N32.1 Vesicointestinal fistula; D63.8 Anemia in other chronic diseases classified elsewhere; F17.210 Nicotine dependence, cigarettes, uncomplicated; I10 Essential (primary) hypertension; F41.9 Anxiety disorder, unspecified; I73.9 Peripheral vascular disease, unspecified; F32.9 Major depressive disorder, single episode, unspecified; Z89.611 Acquired absence of right leg above knee; Z93.3 Colostomy status; Z66 Do not resuscitate; R31.0 Gross hematuria; R73.01 Impaired fasting glucose
CPT/HCPCS: 36430; 71010; 71260; 74177; 74230; 74250; 76775; 80048; 80053; 81001; 83036; 83605; 83735; 85025; 86850; 86900; 86901; 86920; 87040; 87086; 93005; 96365; J0696; J7030; J7050; P9016; Q9963; Q9967

== ENCOUNTER 2017-06-11 11:28 | Inpatient (IN) | payer MEDICARE ==
[~2017-06-11] VITALS: Ht 167.6 cm; Wt 63.1 kg
[2017-06-11] VITALS (30 sets, daily range): BP systolic 86–180; BP diastolic 61–104; PULSE 90–126; RESP 16–35; TEMP 96.7–98.8; O2SAT 67–100
[~2017-06-11 11:28] MED LIST changes: -BACT800T5 PO; -FERR325T PO; -LEVA500T PO; -METH5TAB7 PO; -NORC10TA2 PO
[2017-06-11] MEDS ORDERED: SODIUM CHLORIDE 0.9% FLUSH 10 ML FLUSH IVF PRN (11:45)
[2017-06-11] MEDS ORDERED: RESP: BUDESONIDE 0.5 MG/2 ML NEB NEB ONE (11:45)
[2017-06-11] MEDS ORDERED: PIPERACIL-TAZO 4.5 GM PREMIX 100 ML IV STA (11:49)
[2017-06-11] MEDS ORDERED: VANCOMYCIN INJ 1,000 MG in SODIUM CHLOR 0.9% 250 ML INJ 250 ML IV STA (11:49)
[2017-06-11 12:08] LABS: BASOPHIL # 0.1 TH/MM3 (0-0.2); BASOPHIL % 0.4 % (0.0-2.0); EOSINOPHIL % 0.2 % (0.0-4.0); HEMATOCRIT 34.9 % (39.0-51.0); HEMO FLAGS DIFF FINAL; LYMPH % 5.4 % (9.0-44.0); LYMPHOCYTE # 1.2 TH/MM3 (1.0-4.8); MEAN CELL VOLUME 76.7 FL (80.0-100.0); MEAN CORPUSCULAR HEMOGLOBIN 25.6 PG (27.0-34.0); MEAN CORPUSCULAR HGB CONC 33.4 % (32.0-36.0); MONO % 6.4 % (0.0-8.0); NEUT % 87.6 % (16.0-70.0); PLATELET COUNT 1040 TH/MM3 (150-450); RED BLOOD COUNT 4.55 MIL/MM3 (4.50-5.90); RED CELL DISTRIBUTION WIDTH 17.4 % (11.6-17.2); WHITE BLOOD COUNT 22.9 TH/MM3 (4.0-11.0)
[2017-06-11] MEDS ORDERED: PROPOFOL 1000 MG/100 ML INJ 100 ML ONE (12:12)
[2017-06-11] MEDS ORDERED: SUCCINYLCHOLINE CHLORIDE 200 MG/10 ML VIAL IV PUSH ONE (12:15)
[2017-06-11] MEDS ORDERED: ETOMIDATE 20 MG/10 ML VIAL IV PUSH ONE (12:15)
--- NOTE | 2017-06-11 12:21 | PD ---
HPI Chief Complaint: Respiratory Symptoms Time Seen by Provider: 11:45 Travel History International Travel<30 days: No Contact w/Intl Traveler<30days: No Traveled to known affect area: No History of Present Illness HPI Patient is a 57-year-old male presenting from his oncologist office for evaluation of shortness of breath. Patient's vital signs were assessed in the office and his oxygen saturation was found to be in the low 80s. Patient states he's been short of breath for the last several days. He denies any fever , chills, nausea, vomiting, headache, chest pain. He reports a history of COPD but does is not on any inhalers. Patient's past medical history significant for rectal cancer with metastatic disease, hypertension, GERD, anemia. He denies any pain at this time, he denies current tobacco use. PFSH Past Medical History ADHD: Yes Autoimmune Disease: No Anxiety: Yes Depression: Yes Cancer: Yes (rectal adenocarcinoma with metastatic disease) Chemotherapy: No COPD: Yes Endocrine: No GERD: Yes Genitourinary: Yes (PT HAVING TROUBLES URINATING OVER THE PAST 2 WEEKS) Hypertension: Yes Immune Disorder: No Medical other: Yes (MRSA) Musculoskeletal: No Neurologic: No Psychiatric: No Reproductive: No Respiratory: No Radiation Therapy: Yes Tetanus Vaccination: Unknown Influenza Vaccination: No Past Surgical History Abdominal Surgery: Yes (colostomy) Cardiac Surgery: No Ear Surgery: No Endocrine Surgery: No Eye Surgery: No Genitourinary Surgery: No Gynecologic Surgery: No Oral Surgery: No Pacemaker: No Thoracic Surgery: No Other Surgery: Yes (right leg and crepitation, left partial foot amputation) Social History Alcohol Use: No Tobacco Use: No Substance Use: No Allergies-Medications (Allergen,Severity, Reaction): Coded Allergies: *MDRO Multi-Drug Resistant Organism (Verified Adverse Reaction, Unknown, ) MRSA (groin wound) - 05/25/15 / (buttock) - 03/2016 / (urine) - 08/2016 Reported Meds & Prescriptions Reported Meds & Active Scripts Active Flomax (Tamsulosin HCl) 0.4 Mg Cap 0.4 Mg PO HS Reported Prochlorperazine Maleate 10 Mg Tab 10 Mg PO Q6H PRN Senna Lax (Sennosides) 8.6 Mg Tab 1 Tab PO BID PRN Ranitidine (Ranitidine HCl) 150 Mg Cap 150 Mg PO BID Prinivil (Lisinopril) 10 Mg Tab 10 Mg PO DAILY Gabapentin 600 Mg Tab 600 Mg PO TID Celexa (Citalopram Hydrobromide) 20 Mg Tab 20 Mg PO DAILY Aspirin 325 Mg Tab 325 Mg PO DAILY Alprazolam 0.5 Mg Tab 0.5 Mg PO TID Jaylene-Colace (Sennosides-Docusate Sodium) 8.6-50 Mg Tab 2 Tab PO BID Fentanyl Patch 72 HR (Fentanyl) 100 Mcg/Hr Patch 1 Patch T-DERMAL DIR Review of Systems Except as stated in HPI: all other systems reviewed are Neg Cardiovascular: Positive: Tachycardia Respiratory: Positive: Shortness of Breath Physical Exam Narrative GENERAL: Thin, well-developed, alert male. Appears acutely ill. SKIN: Warm and dry. HEAD: Atraumatic. Normocephalic. EYES: Pupils equal and round. No scleral icterus. No injection or drainage. ENT: No nasal bleeding or discharge. Mucous membranes pink and moist. NECK: Trachea midline. No JVD. CARDIOVASCULAR: Tachycardic RESPIRATORY: Tachypneic, diaphragmatic breathing, diminished lung sounds throughout, worse in the left lung. GASTROINTESTINAL: Abdomen soft, non-tender, nondistended. Hepatic and splenic margins not palpable. Colostomy MUSCULOSKELETAL: Extremities without clubbing, cyanosis, or edema. No obvious deformities. Left leg amputation, right partial foot amputation. NEUROLOGICAL: Awake and alert. No obvious cranial nerve deficits. Motor grossly within normal limits. Five out of 5 muscle strength in the arms and legs. Normal speech. PSYCHIATRIC: Appropriate mood and affect; insight and judgment normal. Data Data Last Documented VS Vital Signs Date Time Temp Pulse Resp B/P Pulse Ox O2 Delivery O2 Flow Rate FiO2 06/11/17 13:06 120 16 139/74 67 Ventilator 70 06/11/17 12:40 15.00 06/11/17 11:44 98.8 Orders Complete Blood Count With Diff (06/11/17 11:41) Comprehensive Metabolic Panel (06/11/17 11:41) B-Type Natriuretic Peptide (06/11/17 11:41) Act Partial Throm Time (Ptt) (06/11/17 11:41) Prothrombin Time / Inr (Pt) (06/11/17 11:41) Magnesium (Mg) (06/11/17 11:41) Arterial Blood Gas (Abg) (06/11/17 11:41) Blood Culture (06/11/17 11:41) Iv Access Insert/Monitor (06/11/17 11:41) Electrocardiogram (06/11/17 11:41) Ecg Monitoring (06/11/17 11:41) Oximetry (06/11/17 11:41) Oxygen Administration (06/11/17 11:41) Chest, Single Ap (06/11/17 11:41) Sodium Chloride 0.9% Flush (Ns Flush) (06/11/17 11:45) Resp Bipap / Cpap Non Invas Vt (06/11/17 11:41) Budesonide Neb (Pulmicort Respule Neb) (06/11/17 11:45) Lactic Acid (06/11/17 11:41) Urinalysis - C+S If Indicated (06/11/17 11:41) Vancomycin Inj (Vancomycin Inj) (06/11/17 11:49) Piperacil-Tazo 4.5 Gm Premix (Zosyn 4.5 (06/11/17 11:49) Etomidate Inj (Amidate Inj) (06/11/17 12:15) Succinylcholine Inj (Quelicin Inj) (06/11/17 12:15) Propofol 1000 Mg/100 Ml Inj (Diprivan 10 (06/11/17 12:15) ^ Infusion (06/11/17 12:12) RASS (06/11/17 12:12) Neurological Rass Scale ANJELICA.Q2H (06/11/17 12:12) Propofol 1000 Mg/100 Ml Inj (Diprivan 10 (06/11/17 12:12) Insert Temp Sensing Yan Cath (06/11/17 12:28) Potassium Chlor 20 Meq Premix (Kcl 20 Me (06/11/17 12:45) Chest, Single Ap (06/11/17 ) Ct Thorax/ Chest Wo Iv Contras (06/11/17 ) Admit To Inpatient (06/11/17 ) Code Status (06/11/17 12:48) Vital Signs (Adult) ANJELICA.Q1H (06/11/17 12:48) Activity Bed Rest (06/11/17 12:48) Elevate Head Of Bed (06/11/17 12:48) Neuro Checks . ORDERED (06/11/17 12:48) Pantoprazole Inj (Protonix Inj) (06/11/17 13:00) Albuterol-Ipratropium Neb (Duoneb Neb) (06/11/17 16:00) Albuterol-Ipratropium Neb (Duoneb Neb) (06/11/17 13:00) Complete Blood Count With Diff (06/12/17 04:00) Basic Metabolic Panel (Bmp) (06/12/17 04:00) Magnesium (Mg) (06/12/17 04:00) Phosphorus (Po4) (06/12/17 04:00) Sputum Culture And Gram Stain (06/11/17 12:48) Account Analyst / Telemetry ANJELICA.Q8H (06/11/17 12:48) Heparin Inj (Heparin Inj) (06/11/17 13:00) Scd Bilateral/Knee High ANJELICA.BID (06/11/17 12:48) ^ Initiate Protocol (06/11/17 12:48) Instruction (06/11/17 12:48) [facility] Nursing Information (06/11/17 13:00) Chlorhexidine 2% Cloth (Chlorhexidine 2% (06/12/17 04:00) Chlorhexidine 2% Cloth (Chlorhexidine 2% (06/11/17 13:00) Mrsa Pcr Surveillance (06/11/17 12:48) Docusate Sodium-Senna (Jaylene-Colace) (06/11/17 21:00) Magnesium Hydroxide Liq (Milk Of Magnesi (06/11/17 13:00) Sennosides (Senokot) (06/11/17 13:00) Bisacodyl Supp (Dulcolax Supp) (06/11/17 13:00) Lactulose Liq (Lactulose Liq) (06/11/17 13:00) Inpatient Certification (06/11/17 ) Legionella Urinary Antigen (06/11/17 12:50) Pneumococcal Urinary Antigen (06/11/17 12:50) Influenzae A/B Antigen (06/11/17 12:50) Blood Glucose Goal (Criteria) (06/11/17 12:52) Hypoglycemia 70 Mg/Dl Or < (06/11/17 12:52) Notify Dr: Other (06/11/17 12:52) Dextrose 50% In Nicole (Vial) Inj (D50w (Vi (06/11/17 13:00) Glucagon Inj (Glucagon Inj) (06/11/17 13:00) Insulin Human Reg Supp Scale (Novolin R (06/11/17 13:00) ^ Medication Admin Instruction (06/11/17 12:52) Notify Dr: Other (06/11/17 12:52) Phosphorus (Po4) (06/11/17 12:52) Potassium Chlor 40 Meq Premix (Kcl 40 Me (06/11/17 13:00) Potassium Chlor 20 Meq Premix (Kcl 20 Me (06/11/17 13:00) Potassium Chloride Eff (K-Lyte Cl Eff) (06/11/17 13:00) Potassium Chlor 40 Meq Premix (Kcl 40 Me (06/11/17 13:00) Potassium Chlor 20 Meq Premix (Kcl 20 Me (06/11/17 13:00) Magnesium Sulfate Inj (Magnesium Sulfate (06/11/17 13:00) Magnesium Oxide (Mag-Ox) (06/11/17 13:00) Magnesium Sulfate Inj (Magnesium Sulfate (06/11/17 13:00) Potassium Phosphate (K-Phos) (06/11/17 13:00) Sodium Phosphate Inj (Sodium Phosphate I (06/11/17 13:00) Potassium Phosphate (K-Phos) (06/11/17 13:00) Potassium Phosphate Inj (Potassium Phosp (06/11/17 13:00) Vancomycin Inj (Vancomycin Inj) (06/11/17 14:00) Piperacil-Tazo 4.5 Gm Premix (Zosyn 4.5 (06/11/17 18:00) Azithromycin Inj (Zithromax Inj) (06/11/17 14:00) Ct Guided Thoracentesis (06/11/17 ) Glucose, Pleural Fluid (06/11/17 12:54) Ldh, Pleural Fluid (06/11/17 12:54) Pleural Fluid Ph (06/11/17 12:54) Pleural Fl Cell Count + Diff (06/11/17 12:54) Fluid Culture And Gram Stain (06/11/17 12:54) Fluid Fungus Culture And Stain (06/11/17 12:54) Cytology Request For Service (06/11/17 12:54) Total Protein, Pleural Fluid (06/11/17 12:54) Midazolam 100 Mg/Ml Inj (Versed 100 Mg/M (06/11/17 13:00) Neurological Rass Scale Q30MX2,Q2HX4,Q4H (06/11/17 12:56) Admit Order (Ed Use Only) (06/11/17 13:05) Potassium Chloride Powder (Kcl Powder) (06/11/17 13:00) Labs Laboratory Tests Test 06/11/17 06/11/17 06/11/17 11:50 11:55 12:30 Blood Gas Puncture Site LT RADIAL Blood Gas Patient Temperature 98.6 Blood Gas HCO3 23 mmol/L Blood Gas Base Excess 0.8 mmol/L Blood Gas Oxygen Saturation 81 % Arterial Blood pH 7.56 Arterial Blood Partial 26 mmHg Pressure CO2 Arterial Blood Partial 44 mmHG Pressure O2 Arterial Blood Oxygen Content 12.6 Vol % Arterial Blood 1.4 % Carboxyhemoglobin Arterial Blood Methemoglobin 0.5 % Blood Gas Hemoglobin 11.1 G/DL Oxygen Delivery Device BiPAP Blood Gas Ventilator Setting IPAP10/EPAP5 Blood Gas Inspired Oxygen 100 % White Blood Count 22.9 TH/MM3 Red Blood Count 4.55 MIL/MM3 Hemoglobin 11.6 GM/DL Hematocrit 34.9 % Mean Corpuscular Volume 76.7 FL Mean Corpuscular Hemoglobin 25.6 PG Mean Corpuscular Hemoglobin 33.4 % Concent Red Cell Distribution Width 17.4 % Platelet Count 1040 TH/MM3 Mean Platelet Volume 6.6 FL Neutrophils (%) (Auto) 87.6 % Lymphocytes (%) (Auto) 5.4 % Monocytes (%) (Auto) 6.4 % Eosinophils (%) (Auto) 0.2 % Basophils (%) (Auto) 0.4 % Neutrophils # (Auto) 20.0 TH/MM3 Lymphocytes # (Auto) 1.2 TH/MM3 Monocytes # (Auto) 1.5 TH/MM3 Eosinophils # (Auto) 0.0 TH/MM3 Basophils # (Auto) 0.1 TH/MM3 CBC Comment DIFF FINAL Differential Comment Prothrombin Time 11.8 SEC Prothromb Time International 1.1 RATIO Ratio Activated Partial 32.3 SEC Thromboplast Time Sodium Level 136 MEQ/L Potassium Level 3.1 MEQ/L Chloride Level 101 MEQ/L Carbon Dioxide Level 24.5 MEQ/L Anion Gap 11 MEQ/L Blood Urea Nitrogen 14 MG/DL Creatinine 1.04 MG/DL Estimat Glomerular Filtration 73 ML/MIN Rate Random Glucose 137 MG/DL Lactic Acid Level 2.6 mmol/L Calcium Level 9.0 MG/DL Magnesium Level 1.9 MG/DL Total Bilirubin 0.5 MG/DL Aspartate Amino Transf 10 U/L (AST/SGOT) Alanine Aminotransferase 9 U/L (ALT/SGPT) Alkaline Phosphatase 88 U/L B-Type Natriuretic Peptide 87 PG/ML Total Protein 7.3 GM/DL Albumin 2.5 GM/DL Urine Color YELLOW Urine Turbidity CLOUDY Urine pH 7.0 Urine Specific [place] 1.016 Urine Protein 300 mg/dL Urine Glucose (UA) NEG mg/dL Urine Ketones TRACE mg/dL Urine Occult Blood MOD Urine Nitrite POS Urine Bilirubin NEG Urine Urobilinogen LESS THAN 2.0 MG/DL Urine Leukocyte Esterase LARGE Urine RBC 100 /hpf Urine WBC /hpf Urine WBC Clumps MANY Urine Squamous Epithelial 1 /hpf Cells Urine Transitional Epithelial 1 /hpf Cells Urine Bacteria MANY /hpf Microscopic Urinalysis Comment CULTURE INDICATED MDM Medical Decision Making Medical Screen Exam Complete: Yes Emergency Medical Condition: Yes Medical Record Reviewed: Yes Interpretation(s) Laboratory Tests Test 06/11/17 11:55 White Blood Count 22.9 TH/MM3 Red Blood Count 4.55 MIL/MM3 Hemoglobin 11.6 GM/DL Hematocrit 34.9 % Mean Corpuscular Volume 76.7 FL Mean Corpuscular Hemoglobin 25.6 PG Mean Corpuscular Hemoglobin 33.4 % Concent Red Cell Distribution Width 17.4 % Platelet Count 1040 TH/MM3 Mean Platelet Volume 6.6 FL Neutrophils (%) (Auto) 87.6 % Lymphocytes (%) (Auto) 5.4 % Monocytes (%) (Auto) 6.4 % Eosinophils (%) (Auto) 0.2 % Basophils (%) (Auto) 0.4 % Neutrophils # (Auto) 20.0 TH/MM3 Lymphocytes # (Auto) 1.2 TH/MM3 Monocytes # (Auto) 1.5 TH/MM3 Eosinophils # (Auto) 0.0 TH/MM3 Basophils # (Auto) 0.1 TH/MM3 CBC Comment DIFF FINAL Differential Comment Vital Signs Date Time Temp Pulse Resp B/P Pulse Ox O2 Delivery O2 Flow Rate FiO2 06/11/17 11:48 34 82 BiPAP 06/11/17 11:47 85 BiPAP Differential Diagnosis Sepsis versus COPD exacerbation versus pneumothorax versus pulmonary embolism versus metabolic abnormality versus other Narrative Course Patient's 57-year-old male that presented to emergency department for evaluation of shortness of breath from Dr. Monte's office. Pt was given 3 neb treatments and 125mg of IV solu-medrol en route. Sats in ED on arrival in the low 80's. Pt placed on Bipap 10/10. Labs and imaging ordered. IV access establish , pt placed on bus driver/monitor and continuous pulse oximetry. Pt continued to have O2Sats in the low to mid 80's. PCXR showed significant fluid in the left lung. Discussed with my attending. Pt was educated on intubation, he is agreeable. Please see critical care narrative. Reviewed labs and imaging from previous admit. CT of the chest showed subcarinal adenopathy, RUL infiltrate and mucous in the LL bronchi. ABG Resp. Alkalosis EKG Sinus tachycardia with a rate of 125 CBC with WBC 22 with left shift. Empiric abx ordered. K+ 3.0 IV replacement ordered Lactic Acid 2.6 UA consistent with UTI Paged intensivists for admit. Discussed with Dr. Hope who requested CT of the chest w/o contrast, then possible IR for CT guided thoracentesis. Orders placed. Admit orders placed. Versed gtt ordered by Dr. Burch 1300 Dr. Hope at bedside. Critical Care Narrative After the risks and benefits were discussed the following procedure was performed: INTUBATION: The patient was put in optimal position for the procedure. Rapid sequence intubation was initiated by Dr. Burch using 20 milligrams of etomidate IV and 100 milligrams of succinylcholine IV. I intubated patient under the supervision of Dr. Burch with a 8.0 cuffed endotracheal tube. Tube placement was confirmed by visualization of the tube and balloon passing through the cords, capnometry and subsequent chest x-ray. Breath sounds were equal and well aerated bilaterally postintubation. No breath sounds over stomach. Patient tolerated procedure well. Critical Care: The total critical care time was 60 minutes. Time to perform other separately billable procedures was not included in the critical care time. Sepsis Criteria SIRS Criteria (2 or more): Heart rate over 90, RR > 20 or PaCO2 < 32, WBC > 40041, < 4000 or > 10% bands Sepsis Criteria (SIRS+source): Infect source susp/known Severe Sepsis (+one): Hypoperfusion, Lactate >2 Diagnosis Primary Impression: Sepsis Qualified Code: A41.9 - Sepsis, due to unspecified organism Additional Impressions: Respiratory failure with hypoxia Qualified Code: J96.91 - Respiratory failure with hypoxia, unspecified chronicity UTI (urinary tract infection) Qualified Code: N39.0 - Urinary tract infection with hematuria, site unspecified Pneumonia Qualified Code: J18.1 - Pneumonia of left lower lobe due to infectious organism Condition: Critical Migdalia Luna [facility] Jun 11, 2017 12:21
[2017-06-11 12:22] LABS: INTERNATIONAL NORMALIZED RATIO 1.1 RATIO; PROTHROMBIN TIME - PATIENT 11.8 SEC (9.8-11.6)
[2017-06-11 12:26] LABS: APTT (PATIENT) 32.3 SEC (24.3-30.1)
[2017-06-11 12:32] LABS: ANION GAP 11 MEQ/L (5-15); AST (GOT) 10 U/L (15-37); BICARBONATE 24.5 MEQ/L (21.0-32.0); BLOOD UREA NITROGEN 14 MG/DL (7-18); CHLORIDE 101 MEQ/L (98-107); GLOMERULAR FILTRATION RATE 73 ML/MIN (>89); MAGNESIUM 1.9 MG/DL (1.5-2.5); POTASSIUM 3.1 MEQ/L (3.5-5.1); SODIUM (NA) 136 MEQ/L (136-145)
[2017-06-11 12:33] LABS: ALT (GPT) 9 U/L (12-78)
[2017-06-11 12:35] LABS: ALKALINE PHOSPHATASE 88 U/L (45-117); TOTAL BILIRUBIN ADULT 0.5 MG/DL (0.2-1.0)
--- NOTE | 2017-06-11 12:37 | RADRPT ---
EXAM DATE/TIME: 06/11/2017 11:59 [place] COMPARISON: CT THORAX W CONTRAST, June 01, 2017, 15:12. CHEST SINGLE AP, June 01, 2017, 12:27. INDICATIONS : Extreme shortness of braeth. MEDICAL HISTORY : Carcinoma, rectal. Cardiovascular disease Hypertension SURGICAL HISTORY : Colon resection. Colostomy. ENCOUNTER: Initial ACUITY: 3 days PAIN SCORE: Non-responsive. LOCATION: Bilateral upper chest FINDINGS: Increasing his on changes are seen in the left base. The right lung is clear. The heart and pulmonar y vascularity are normal. CONCLUSION: Increasing consolidation left base. Sean Howard MD FACR on June 11, 2017 at 12:35 Board Certified Radiologist. This report was verified electronically.
--- NOTE | 2017-06-11 12:55 | PD ---
Physical Exam Date Seen by Provider: Jun 11, 2017 Time Seen by Provider: 11:55 Narrative I am seen this patient with ILANA Lyons. The patient is a 49-year-old male with a history of rectal adenocarcinoma that is metastasized to his abdomen and lungs. The patient presents to the oncology center for respiratory distress and low oxygen saturations. When he presented to the oncology center, he has saturations in the 80s. He was severely to Take and tachycardic. The patient was placed on BiPAP initially at 12/6 however he was unable to tolerate and was decreased to 10/6. The patient's blood gas showed respiratory alkalosis. The patient was starting to fatigue. At that time the decision was made to intubate Data Data Last Documented VS Vital Signs Date Time Temp Pulse Resp B/P Pulse Ox O2 Delivery O2 Flow Rate FiO2 06/11/17 13:06 120 16 139/74 67 Ventilator 70 06/11/17 12:40 15.00 06/11/17 11:44 98.8 Orders Complete Blood Count With Diff (06/11/17 11:41) Comprehensive Metabolic Panel (06/11/17 11:41) B-Type Natriuretic Peptide (06/11/17 11:41) Act Partial Throm Time (Ptt) (06/11/17 11:41) Prothrombin Time / Inr (Pt) (06/11/17 11:41) Magnesium (Mg) (06/11/17 11:41) Arterial Blood Gas (Abg) (06/11/17 11:41) Blood Culture (06/11/17 11:41) Iv Access Insert/Monitor (06/11/17 11:41) Electrocardiogram (06/11/17 11:41) Ecg Monitoring (06/11/17 11:41) Oximetry (06/11/17 11:41) Oxygen Administration (06/11/17 11:41) Chest, Single Ap (06/11/17 11:41) Sodium Chloride 0.9% Flush (Ns Flush) (06/11/17 11:45) Resp Bipap / Cpap Non Invas Vt (06/11/17 11:41) Budesonide Neb (Pulmicort Respule Neb) (06/11/17 11:45) Lactic Acid (06/11/17 11:41) Urinalysis - C+S If Indicated (06/11/17 11:41) Vancomycin Inj (Vancomycin Inj) (06/11/17 11:49) Piperacil-Tazo 4.5 Gm Premix (Zosyn 4.5 (06/11/17 11:49) Etomidate Inj (Amidate Inj) (06/11/17 12:15) Succinylcholine Inj (Quelicin Inj) (06/11/17 12:15) Propofol 1000 Mg/100 Ml Inj (Diprivan 10 (06/11/17 12:15) ^ Infusion (06/11/17 12:12) RASS (06/11/17 12:12) Neurological Rass Scale ANJELICA.Q2H (06/11/17 12:12) Propofol 1000 Mg/100 Ml Inj (Diprivan 10 (06/11/17 12:12) Insert Temp Sensing Yan Cath (06/11/17 12:28) Potassium Chlor 20 Meq Premix (Kcl 20 Me (06/11/17 12:45) Chest, Single Ap (06/11/17 ) Ct Thorax/ Chest Wo Iv Contras (06/11/17 ) Admit To Inpatient (06/11/17 ) Code Status (06/11/17 12:48) Vital Signs (Adult) ANJELICA.Q1H (06/11/17 12:48) Activity Bed Rest (06/11/17 12:48) Elevate Head Of Bed (06/11/17 12:48) Neuro Checks . ORDERED (06/11/17 12:48) Pantoprazole Inj (Protonix Inj) (06/11/17 13:00) Albuterol-Ipratropium Neb (Duoneb Neb) (06/11/17 16:00) Albuterol-Ipratropium Neb (Duoneb Neb) (06/11/17 13:00) Complete Blood Count With Diff (06/12/17 04:00) Basic Metabolic Panel (Bmp) (06/12/17 04:00) Magnesium (Mg) (06/12/17 04:00) Phosphorus (Po4) (06/12/17 04:00) Sputum Culture And Gram Stain (06/11/17 12:48) Impregnating Tank Operator / Telemetry ANJELICA.Q8H (06/11/17 12:48) Heparin Inj (Heparin Inj) (06/11/17 13:00) Scd Bilateral/Knee High ANJELICA.BID (06/11/17 12:48) ^ Initiate Protocol (06/11/17 12:48) Instruction (06/11/17 12:48) [facility] Nursing Information (06/11/17 13:00) Chlorhexidine 2% Cloth (Chlorhexidine 2% (06/12/17 04:00) Chlorhexidine 2% Cloth (Chlorhexidine 2% (06/11/17 13:00) Mrsa Pcr Surveillance (06/11/17 12:48) Docusate Sodium-Senna (Jaylene-Colace) (06/11/17 21:00) Magnesium Hydroxide Liq (Milk Of Magnesi (06/11/17 13:00) Sennosides (Senokot) (06/11/17 13:00) Bisacodyl Supp (Dulcolax Supp) (06/11/17 13:00) Lactulose Liq (Lactulose Liq) (06/11/17 13:00) Inpatient Certification (06/11/17 ) Legionella Urinary Antigen (06/11/17 12:50) Pneumococcal Urinary Antigen (06/11/17 12:50) Influenzae A/B Antigen (06/11/17 12:50) Blood Glucose Goal (Criteria) (06/11/17 12:52) Hypoglycemia 70 Mg/Dl Or < (06/11/17 12:52) Notify Dr: Other (06/11/17 12:52) Dextrose 50% In Nicole (Vial) Inj (D50w (Vi (06/11/17 13:00) Glucagon Inj (Glucagon Inj) (06/11/17 13:00) Insulin Human Reg Supp Scale (Novolin R (06/11/17 13:00) ^ Medication Admin Instruction (06/11/17 12:52) Notify Dr: Other (06/11/17 12:52) Phosphorus (Po4) (06/11/17 12:52) Potassium Chlor 40 Meq Premix (Kcl 40 Me (06/11/17 13:00) Potassium Chlor 20 Meq Premix (Kcl 20 Me (06/11/17 13:00) Potassium Chloride Eff (K-Lyte Cl Eff) (06/11/17 13:00) Potassium Chlor 40 Meq Premix (Kcl 40 Me (06/11/17 13:00) Potassium Chlor 20 Meq Premix (Kcl 20 Me (06/11/17 13:00) Magnesium Sulfate Inj (Magnesium Sulfate (06/11/17 13:00) Magnesium Oxide (Mag-Ox) (06/11/17 13:00) Magnesium Sulfate Inj (Magnesium Sulfate (06/11/17 13:00) Potassium Phosphate (K-Phos) (06/11/17 13:00) Sodium Phosphate Inj (Sodium Phosphate I (06/11/17 13:00) Potassium Phosphate (K-Phos) (06/11/17 13:00) Potassium Phosphate Inj (Potassium Phosp (06/11/17 13:00) Vancomycin Inj (Vancomycin Inj) (06/11/17 14:00) Piperacil-Tazo 4.5 Gm Premix (Zosyn 4.5 (06/11/17 18:00) Azithromycin Inj (Zithromax Inj) (06/11/17 14:00) Ct Guided Thoracentesis (06/11/17 ) Glucose, Pleural Fluid (06/11/17 12:54) Ldh, Pleural Fluid (06/11/17 12:54) Pleural Fluid Ph (06/11/17 12:54) Pleural Fl Cell Count + Diff (06/11/17 12:54) Fluid Culture And Gram Stain (06/11/17 12:54) Fluid Fungus Culture And Stain (06/11/17 12:54) Cytology Request For Service (06/11/17 12:54) Total Protein, Pleural Fluid (06/11/17 12:54) Midazolam 100 Mg/Ml Inj (Versed 100 Mg/M (06/11/17 13:00) Neurological Rass Scale Q30MX2,Q2HX4,Q4H (06/11/17 12:56) Admit Order (Ed Use Only) (06/11/17 13:05) Potassium Chloride Powder (Kcl Powder) (06/11/17 13:00) Labs Laboratory Tests Test 06/11/17 06/11/17 06/11/17 11:50 11:55 12:30 Blood Gas Puncture Site LT RADIAL Blood Gas Patient Temperature 98.6 Blood Gas HCO3 23 mmol/L Blood Gas Base Excess 0.8 mmol/L Blood Gas Oxygen Saturation 81 % Arterial Blood pH 7.56 Arterial Blood Partial 26 mmHg Pressure CO2 Arterial Blood Partial 44 mmHG Pressure O2 Arterial Blood Oxygen Content 12.6 Vol % Arterial Blood 1.4 % Carboxyhemoglobin Arterial Blood Methemoglobin 0.5 % Blood Gas Hemoglobin 11.1 G/DL Oxygen Delivery Device BiPAP Blood Gas Ventilator Setting IPAP10/EPAP5 Blood Gas Inspired Oxygen 100 % White Blood Count 22.9 TH/MM3 Red Blood Count 4.55 MIL/MM3 Hemoglobin 11.6 GM/DL Hematocrit 34.9 % Mean Corpuscular Volume 76.7 FL Mean Corpuscular Hemoglobin 25.6 PG Mean Corpuscular Hemoglobin 33.4 % Concent Red Cell Distribution Width 17.4 % Platelet Count 1040 TH/MM3 Mean Platelet Volume 6.6 FL Neutrophils (%) (Auto) 87.6 % Lymphocytes (%) (Auto) 5.4 % Monocytes (%) (Auto) 6.4 % Eosinophils (%) (Auto) 0.2 % Basophils (%) (Auto) 0.4 % Neutrophils # (Auto) 20.0 TH/MM3 Lymphocytes # (Auto) 1.2 TH/MM3 Monocytes # (Auto) 1.5 TH/MM3 Eosinophils # (Auto) 0.0 TH/MM3 Basophils # (Auto) 0.1 TH/MM3 CBC Comment DIFF FINAL Differential Comment Prothrombin Time 11.8 SEC Prothromb Time International 1.1 RATIO Ratio Activated Partial 32.3 SEC Thromboplast Time Sodium Level 136 MEQ/L Potassium Level 3.1 MEQ/L Chloride Level 101 MEQ/L Carbon Dioxide Level 24.5 MEQ/L Anion Gap 11 MEQ/L Blood Urea Nitrogen 14 MG/DL Creatinine 1.04 MG/DL Estimat Glomerular Filtration 73 ML/MIN Rate Random Glucose 137 MG/DL Lactic Acid Level 2.6 mmol/L Calcium Level 9.0 MG/DL Magnesium Level 1.9 MG/DL Total Bilirubin 0.5 MG/DL Aspartate Amino Transf 10 U/L (AST/SGOT) Alanine Aminotransferase 9 U/L (ALT/SGPT) Alkaline Phosphatase 88 U/L B-Type Natriuretic Peptide 87 PG/ML Total Protein 7.3 GM/DL Albumin 2.5 GM/DL Urine Color YELLOW Urine Turbidity CLOUDY Urine pH 7.0 Urine Specific Amonate 1.016 Urine Protein 300 mg/dL Urine Glucose (UA) NEG mg/dL Urine Ketones TRACE mg/dL Urine Occult Blood MOD Urine Nitrite POS Urine Bilirubin NEG Urine Urobilinogen LESS THAN 2.0 MG/DL Urine Leukocyte Esterase LARGE Urine RBC 100 /hpf Urine WBC /hpf Urine WBC Clumps MANY Urine Squamous Epithelial 1 /hpf Cells Urine Transitional Epithelial 1 /hpf Cells Urine Bacteria MANY /hpf Microscopic Urinalysis Comment CULTURE INDICATED MDM Medical Record Reviewed: Yes Supervised Visit with GOGO: Yes Differential Diagnosis Pleural effusion versus worsening metastatic lesions versus mucous plug. Narrative Course 87-year-old male presents from the oncology center with respiratory distress. The patient's sats were in the 80s on room air. He is placed on 100% nonrebreather by EMS and brought his sats to the low 90s. The patient was severely to And the decision to electively intubate was made. The patient has a large effusion in his left lower lung. This possibly still could be a mucous plug however it appears more like a effusion. He'll be admitted to the intensive care unit under Dr. Olivares service. Dr. Olivares was made aware of the patient's presentation by ILANA Glover. Critical Care Narrative Aggregate critical care time was 60 minutes. Time to perform other separately billable procedures was not included in the critical care time. My time did not include minutes spent treating any other patients simultaneously or on activities that did not directly contribute to the patient's treatment. The services I provided to this patient were to treat and/or prevent clinically significant deterioration that could result in: I provided critical care services requiring my management, as noted below: Chart data review, documentation time, medication orders and management, vital sign assessments/reviewing monitor data, ordering and reviewing lab tests, ordering and interpreting/reviewing x-rays and diagnostic studies, care of the patient and discussion of the patient with the admitting physicians. Procedures Procedure Narrative Patient was intubated emergently. After informed consent, I supervised ILANA Vernon with the intubation. Using a CMAC #4 blade and an 8.0 ET tube, patient was intubated successfully. I administered the 20 mg of accommodate and 100 mg of succinylcholine while supervising the intubation. Diagnosis Primary Impression: Acute respiratory distress syndrome Additional Impressions: Respiratory failure with hypoxia Qualified Code: J96.91 - Respiratory failure with hypoxia, unspecified chronicity Sepsis Qualified Code: A41.9 - Sepsis, due to unspecified organism Pneumonia Qualified Code: J18.1 - Pneumonia of left lower lobe due to infectious organism Rectal adenocarcinoma UTI (urinary tract infection) Qualified Code: N39.0 - Urinary tract infection with hematuria, site unspecified Admitting Information Admitting Physician Requests: Admit Jose Burch MD Jun 11, 2017 12:55
[2017-06-11] MEDS ORDERED: CHLORHEXIDINE GLUCONATE 2 % 1 PACK (2 CLOTHS) TOP PRN (13:00)
[2017-06-11] MEDS ORDERED: POTASSIUM PHOSPHATE MONOBASIC 500 MG TAB PO/TUBE PRN (13:00)
[2017-06-11] MEDS ORDERED: MISCELLANEOUS NURSING INFORMATION XX SCH (13:00)
[2017-06-11] MEDS ORDERED: MAGNESIUM HYDROXIDE SUSP 30 ML CUP PO PRN (13:00)
[2017-06-11] MEDS ORDERED: SODIUM PHOSPHATE INJ 30 MMOL in SODIUM CHLOR 0.9% 250 ML INJ 240 ML IV PRN (13:00)
[2017-06-11] MEDS ORDERED: RESP: ALBUTEROL 2.5 MG/IPRATROPIUM 0.5 MG NEB (PRN) INH (13:00)
[2017-06-11] MEDS ORDERED: DEXTROSE 50% IN WATER 50 ML VIAL(D50) IV PRN (13:00)
[2017-06-11] MEDS ORDERED: HEPARIN SODIUM - SQ 10,000 UNITS/ML VIAL SQ SCH (13:00)
[2017-06-11] MEDS ORDERED: MAGNESIUM OXIDE 400 MG TAB PO PRN (13:00)
[2017-06-11] MEDS ORDERED: POTASSIUM PHOSPHATE MONOBASIC 500 MG TAB PO PRN (13:00)
[2017-06-11] MEDS ORDERED: MAGNESIUM SULFATE INJ 4 GM in SODIUM CHLORIDE 0.9% INJ 92 ML IV PRN (13:00)
[2017-06-11] MEDS ORDERED: MAGNESIUM SULFATE INJ 2 GM in SODIUM CHLORIDE 0.9% INJ 96 ML IV PRN (13:00)
[2017-06-11] MEDS ORDERED: POTASSIUM CHLORIDE 20 MEQ PWD PACKET PO PRN (13:00)
[2017-06-11] MEDS ORDERED: BISACODYL 10 MG SUPP RECTAL PRN (13:00)
[2017-06-11] MEDS ORDERED: POTASSIUM CHLOR 20 MEQ PREMIX 100 ML IV PRN ×2 (13:00)
[2017-06-11] MEDS ORDERED: POTASSIUM CHLORIDE 25 MEQ EFFERVESCENT TAB PO PRN (13:00)
[2017-06-11] MEDS ORDERED: GLUCAGON 1 MG/ML VIAL OTHER PRN (13:00)
[2017-06-11] MEDS ORDERED: POTASSIUM CHLOR 40 MEQ PREMIX 100 ML IV PRN ×2 (13:00)
[2017-06-11] MEDS ORDERED: LACTULOSE SYRUP 20 GM/30 ML CUP PO PRN (13:00)
[2017-06-11] MEDS ORDERED: SENNOSIDES 8.6 MG TAB PO PRN (13:00)
[2017-06-11] MEDS ORDERED: POTASSIUM PHOSPHATE INJ 30 MMOL in SODIUM CHLOR 0.9% 250 ML INJ 250 ML IV PRN (13:00)
[2017-06-11] MEDS: MIDAZOLAM 100 MG/ML INJ 100 ML IV SCH (13:16)
[2017-06-11] MEDS ORDERED: MIDAZOLAM HCL 5 MG/ML VIAL (1 ML) ONE (13:23)
[2017-06-11] MEDS ORDERED: MIDAZOLAM HCL 2 MG/2 ML VIAL IV PUSH ONE (13:30)
[2017-06-11] MEDS: PROPOFOL 1000 MG/100 ML INJ 100 ML IV SCH (13:34)
[2017-06-11] MEDS ORDERED: VECURONIUM BROMIDE 10 MG VIAL IV PUSH ONE (13:45)
[2017-06-11] MEDS: VANCOMYCIN INJ 1,000 MG in SODIUM CHLOR 0.9% 250 ML INJ 250 ML IV SCH (14:00)
[2017-06-11 14:19] LABS: BACTERIA, URINE MANY /hpf; BLOOD, URINE MOD (NEG); GLUCOSE,URINE NEG (NEG); KETONE, URINE TRACE mg/dL (NEG); NITRITE,URINE POS (NEG); SQUAMOUS EPITHELIAL CELL URINE 1 /hpf (0-5); TRANSITIONAL EPI CELLS, URINE 1 /hpf; URINE COLOR YELLOW (YELLW/STRAW)
[2017-06-11 14:20] LABS: COMMENT (UR) CULTURE INDICATED; CULTURE IF INDICATED CULTURE INDICATED
--- NOTE | 2017-06-11 14:40 | RADRPT ---
EXAM DATE/TIME: 06/11/2017 13:14 [facility] COMPARISON: CT THORAX W CONTRAST, June 01, 2017, 15:12. CHEST SINGLE AP, June 11, 2017, 11:59. INDICATIONS : Post intubation. MEDICAL HISTORY : Hypertension. Chronic obstructive pulmonary disease. Gastroesophageal reflux disease. Renal adeno carcinoma. SURGICAL HISTORY : Colostomy. ENCOUNTER: Subsequent ACUITY: 1 day PAIN SCORE: Non-responsive. LOCATION: Bilateral chest FINDINGS: ET tube is in good position. There is hyperinflation of the right lung with dense consolidation with volume loss on the left. The nasogastric tube is not across the GE junction. Patient is known to have mediastinal mass by tomography 06/01/17. Bronchoscopy of the left may help. CONCLUSION: Hyperinflation of the right and viable the left. Tube above the shannon. Nasogastric tube is not acr oss the GE junction. Patient is known that may be the mediastinal mass could be involving the esopha jorge. Sean Howard MD FACR on June 11, 2017 at 14:36 Board Certified Radiologist. This report was verified electronically.
[2017-06-11 14:50] LABS: BLOOD GAS BASE EXCESS 0.8 mmol/L (-2-2); BLOOD GAS CARBOXYHEMOGLOBIN 1.4 % (0-4); BLOOD GAS HCO3 23 mmol/L (22-26); BLOOD GAS METHEMOGLOBIN 0.5 % (0-2); BLOOD GAS O2 HGB SATURATION 81 % (90-100); BLOOD GAS OXYGEN CONTENT 12.6 Vol % (12.0-20.0); BLOOD GAS PCO2 26 mmHg (38-42); BLOOD GAS PO2 44 mmHG (61-120); BLOOD GAS TOTAL HGB 11.1 G/DL (12.0-16.0); CRITICAL VALUE YES; OXYGEN DEVICE BiPAP; TEMP CORR TO 98.6
[2017-06-11 14:51] LABS: DRAW SITE LT RADIAL; FIO2 100 %; NUMBER OF ARTERIAL PUNCTURES 1; STAT YES; ULNAR PULSE PRESENT; VENT SETTINGS IPAP10/EPAP5
[2017-06-11 14:53] LABS: BLOOD GAS BASE EXCESS -0.3 mmol/L (-2-2); BLOOD GAS CARBOXYHEMOGLOBIN 1.1 % (0-4); BLOOD GAS HCO3 23 mmol/L (22-26); BLOOD GAS METHEMOGLOBIN 0.6 % (0-2); BLOOD GAS O2 HGB SATURATION 70 % (90-100); BLOOD GAS OXYGEN CONTENT 10.6 Vol % (12.0-20.0); BLOOD GAS PCO2 33 mmHg (38-42); BLOOD GAS PO2 39 mmHG (61-120); BLOOD GAS TOTAL HGB 10.8 G/DL (12.0-16.0); TEMP CORR TO 98.6
[2017-06-11 14:54] LABS: CRITICAL VALUE YES; DRAW SITE LT RADIAL; FIO2 100 %; NUMBER OF ARTERIAL PUNCTURES 1; OXYGEN DEVICE VENTILATOR; STAT YES; ULNAR PULSE PRESENT; VENT SETTINGS AC/24/550/PEEP14
[2017-06-11] MEDS: RESP: ALBUTEROL 2.5 MG/IPRATROPIUM 0.5 MG NEB (SCH) INH ×3 (15:26→23:11)
[2017-06-11] MEDS: RESP: ACETYLCYSTEINE 10% 30 ML NEB NEB SCH ×2 (15:37→20:00)
[2017-06-11] MEDS: PANTOPRAZOLE SODIUM 40 MG VIAL IV SCH (15:41)
[2017-06-11] MEDS: AZITHROMYCIN INJ 500 MG in SODIUM CHLOR 0.9% 250 ML INJ 250 ML IV SCH (15:43)
--- NOTE | 2017-06-11 15:52 | RADRPT ---
EXAM DATE/TIME: 06/11/2017 14:46 [facility] COMPARISON: CT THORAX W CONTRAST, June 01, 2017, 15:12. CT ABDOMEN & PELVIS W CONTRAST, June 01, 2017, 15:12. INDICATIONS : Respiratory arrest RADIATION DOSE: 5.1 CTDIvol (mGy) MEDICAL HISTORY : Hypertension. Chronic obstructive pulmonary disease. Carcinoma, rectal. DVT SURGICAL HISTORY : Cholecystectomy. ENCOUNTER: Initial ACUITY: 1 day PAIN SCALE: Non-responsive LOCATION: chest TECHNIQUE: Volumetric scanning of the chest was performed. Using automated exposure control and adjustment of t he mA and/or kV according to patient size, radiation dose was kept as low as reasonably achievable to obtain optimal diagnostic quality images. DICOM format image data is available electronically for r eview and comparison. Follow-up recommendations for incidentally detected pulmonary nodules are based at a minimum on nodul e size and patient risk factors according to Fleischner Society Guidelines. FINDINGS: LUNGS: The left lung is completely consolidated with only a few central air bronchograms identified. Filling defect is identified within the left mainstem bronchus causing obstruction. The right lung is hyperi nflated. Small parenchymal opacity is identified anteriorly within the right upper lobe. There is no significant consolidation. PLEURAE: Small pleural effusion is identified outlining the collapsed left lung. This does not appear amenable to ultrasound-guided thoracentesis. MEDIASTINUM: A large subcarinal mass is identified it measures 4.5 x 6.6 x 10.7 cm in size. The mass is invading o r originating from the esophagus. There is extension and occlusion of the left mainstem bronchus by t he mass. Nasogastric tube is displaced along the posterior margin of the mass. AXILLAE: Within normal limits. No lymphadenopathy. MUSCULOSKELETAL: Within normal limits for patient age. MISCELLANEOUS: Moderate to severe bilateral hydronephrosis is noted. Small calcified gallstones are noted. CONCLUSION: 1. Large subcarinal mediastinal mass obstructing the left mainstem bronchus and presenting as a large filling defect within the esophagus. This is characteristic of an aggressive neoplastic process poss ibly esophageal carcinoma. 2. Consolidated left lung to bronchial obstruction. 3. Small left pleural effusion 4. Known bilateral moderate to severe hydronephrosis. 5. Small patchy infiltrate right upper lobe. Edouard German MD on June 11, 2017 at 15:38 Board Certified Radiologist. This report was verified electronically.
--- NOTE | 2017-06-11 16:15 | MH ---
cc: RAFY MIRANDA M.D. DATE OF 1960 DATE OF ADMISSION 06/11/2017 HISTORY OF THE PRESENT ILLNESS The patient is a 57-year-old male with past medical history of rectal adenocarcinoma with metastatic disease and COPD, hypertension, gastroesophageal reflux disease and anemia. He presented to [facility] Emergency Department from his oncologist's office for evaluation of shortness of breath. He was found to have O2 saturation in the low 80s and the patient has been short of breath for several days. He denied any associated symptoms of fever, chills, cough, nausea or vomiting or any abdominal pain. On arrival to the ER he was tachycardic, tachypneic and severely hypoxemic. The patient was intubated with etomidate, succinylcholine and placed on full mechanical ventilation. When seen he is currently on Diprivan, fentanyl and versed drips for sedation and vent synchrony. In addition he receive vecuronium 10 milligrams IV push. A chest x-ray pre intubation showed consolidation left base and his chest x-ray post intubation showed hyperinflation of the right with dense consolidation with volume loss on the left. Initially he was on BiPAP 10/5 with 100% FIO2, however, the patient failed BiPAP and he was subsequently intubated. ABG post intubation appears mixed venous gas with a pH of 7.46, CO2 33, paO2 39, bicarb 23 and saturation 70% on assist control rate of 24 tidal volume 550, PEEP of 14, 100% FIO2. A CT scan of the chest was ordered. The patient's current blood pressure is 111/73, tachycardic with a heart rate of 115. PAST MEDICAL HISTORY Significant for: 1. Rectal adenocarcinoma with metastatic disease. 2. Hypertension, 3. Gastroesophageal reflux disease. 4. Anemia. PAST SURGICAL HISTORY 1. Previous colostomy. 2. Right leg above-knee amputation. 3. Left partial foot amputation. SOCIAL HISTORY Non-smoker, non-drinker per records. MEDICATIONS Reported medications include: 1. Flomax. 2. Lisinopril. 3. Gabapentin. 4. Celexa. 5. Aspirin. 6. Alprazolam. 7. Fentanyl patch. 8. Jaylene-Colace. REVIEW OF SYSTEMS As per the history of present illness the rest of the review of symptoms limited. PHYSICAL EXAMINATION GENERAL: A 57-year-old male critically ill, intubated and sedated for hypoxemic respiratory failure. VITAL SIGNS: Temperature 98.8, pulse of 115, blood pressure currently 111/73. Vent settings, PRVC, rate of 24, tidal volume 550, PEEP of 14, 100% FIO2, ____ 1.3. HEENT: Atraumatic, normocephalic. Pupils equal, round, reactive to light and accommodation. Extraocular muscles are intact. Conjunctivae pink. Nonicteric sclerae. Oral mucosa within normal. NECK: Supple. No JVD, adenopathy or thyromegaly. Trachea is midline. Orally intubated. CARDIOVASCULAR: Tachycardic. Normal S1-S2. No murmurs, rubs, or gallops noted. LUNGS: Diminished breath sounds on the left with a few coarse breath sounds. ABDOMEN: Soft and nontender. Nondistended. Positive bowel sounds. Colostomy bag in place. EXTREMITIES: Right above-knee amputation and left partial foot amputation noted. NEUROLOGIC: Intubated and sedated. LABORATORY DATA Sodium 136, potassium 3.1, chloride 101, CO2 24, BUN 14, creatinine 1.04, glucose 137, lactic acid 2.6. BNP 87. WBC 22.9, hemoglobin 11.6, hematocrit 34, platelet count 1040. INR 1.1, PT 11.8, PTT 32.3. IMAGING Radiographic studies, a chest x-ray post intubation showed hyperinflation of the right lung and dense consolidation occupying approximately 2/3 of the left lung/ IMPRESSION 1. Acute hypoxemic respiratory failure. 2. Left lower lobe consolidation. 3. Leukocytosis. 4. Chronic obstructive pulmonary disease. 5. Rectal adenocarcinoma with metastases. 6. Hypertension. 7. Mild lactic acidemia. 8. Hypokalemia. 9. Gastroesophageal reflux disease. 10. Anemia. 11. Thrombocytosis. RECOMMENDATIONS 1. Continue with sedation. The patient is currently on fentanyl, versed and Diprivan for vent synchrony as well. Daily sedation vacation when appropriate. He received vecuronium 10 milligrams IV push in the ED. 2. Continue with vent support and maintain saturations above 92%. 3. Bronchodilators in the form of DuoNeb q.4h. In addition we will add Mucomyst nebs with breathing treatments and start Solu-Medrol 60 milligrams IV q.8h. Start Flolan 30,000 ng-8ml/hr nebs. 4. The patient is for a CT scan of the chest without contrast for further evaluation of pulmonary parenchyma. The patient might need bronchoscopy when stable. 5. Monitor heart rate and blood pressure closely and maintain mean arterial pressure greater than 65 mmHg. Serial lactic acid monitoring. Place on IV fluids, D5 NS at 84 ml an hour. 6. Monitor renal function ins and outs and electrolyte replacement per protocol. He will need potassium replacement for potassium 3.1. 7. Keep n.p.o. for now and place on Protonix 40 milligrams IV daily for GI prophylaxis. Start tube feedings within the next 24 hours if remains intubated. 8. If enough effusion to drain on CT scan chest we will proceed with thoracentesis and send pleural fluid for analysis and culture. 9. Continue with broad-spectrum antibiotics in the form of vancomycin, Zosyn and azithromycin. Monitor for signs of infection which include fever and WBC. Follow up on blood culture and urine culture. In addition we will obtain strep, pneumonia, legionella urinary antigen. We will send nasal washing to rule out influenza. 10. Monitor CBC and we will consult oncology service. The patient is known to Dr. Monte. 11. Sliding scale insulin with Accu-Chek q.4h for glycemic control as the patient will be IV steroids. 12. GI prophylaxis with Protonix 40 milligrams daily and deep venous thrombosis prophylaxis with sequential compression devices. We will hold off on chemical anticoagulation prophylaxis for now. 13. We will consult urology service for hematuria which was noted in the ED. 14. Place a central line if indicated. 15. Critical care time 40 minutes excluding procedures. Prognosis guarded. Addendum: CT chest reviewed showed Large subcarinal mediastinal mass obstructing the left mainstem bronchus and presenting as a large filling defect within the esophagus ? esophageal carcinoma. Consolidated left lung to bronchial obstruction. Small left pleural effusion Known bilateral moderate to severe hydronephrosis.. Small patchy infiltrate right upper lobe. Case discussed with multiple consultants including Dr. Quiñonez from CTS, Dr. Alfonso from Gen surgery, from Pulmonary service and Dr. Quezada from GI. CTS and general surgery recommended bronchoscopy and upper endoscopy however he is unstable for any procedures at this time. Patient is also unstable to be transferred to [facility] for evaluation of endobronchial stent placement. Will start Flolan and consult palliative care. Patient is know to palliative care service. Urology was also consulted for b/l hydronephrosis and hematuria. MD NIKI Peña/JEMMA /3:19 PM /3:32 PM BOB
[2017-06-11] MEDS: POTASSIUM CHLOR 20 MEQ PREMIX 100 ML IV SCH ×2 (16:49→18:51)
[2017-06-11] MEDS: INSULIN NovoLIN REGULAR SUPPLEMENTAL SCALE SQ SCH ×2 (16:50→19:01)
--- NOTE | 2017-06-11 17:17 | PD.CONS ---
HPI History of Present Illness This is a 57 year old male with hx rectal adenocarcinoma with mets, COPD, GERD, anemia who presented to the ER with worsening SOB, oxygen saturation in 80s. He was subsequently intubated and sedated on vent now. CXR showed left lung consolidation and volum eloss, right lung hyper inflation. CT showed subcarinal mediastinal mass obastructing left main stem bronchus presenting as filling defect within the esohpagus characteristic of aggressive neoplastic process, poss esophageal carcinoma. GI has been consulted for esophageal mass. HX obtained from EMR. PFSH Past Medical History COPD metastatic rectal adenocarcinoma GERD anemia, Past Surgical History unable to obtain Coded Allergies: *MDRO Multi-Drug Resistant Organism (Verified Adverse Reaction, Unknown, ) MRSA (groin wound) - 05/25/15 / (buttock) - 03/2016 / (urine) - 08/2016 Family History unable to obtain Social History unable to obtain Review of Systems ROS pt on vent GI Exam Vitals I&O Vital Signs Date Time Temp Pulse Resp B/P Pulse Ox O2 Delivery O2 Flow Rate FiO2 06/11/17 16:00 103 24 98/64 73 Ventilator 100 06/11/17 15:45 103 24 107/67 73 Ventilator 100 06/11/17 15:27 72 100 06/11/17 15:06 109 24 105/67 73 Ventilator 100 06/11/17 14:50 110 24 102/66 73 Ventilator 100 06/11/17 14:34 112 24 103/70 73 Ventilator 100 06/11/17 14:30 75 100 06/11/17 14:06 115 24 111/73 73 Ventilator 100 06/11/17 14:05 115 24 109/70 73 Ventilator 100 06/11/17 13:58 114 24 110/68 73 Ventilator 100 06/11/17 13:51 118 24 117/72 73 Ventilator 100 06/11/17 13:50 100 06/11/17 13:39 118 25 115/69 69 Blow-by 06/11/17 13:36 118 25 120/61 72 Blow-by 06/11/17 13:21 118 16 140/81 68 Blow-by 70 06/11/17 13:06 120 16 139/74 67 Ventilator 70 06/11/17 12:51 116 16 176/96 81 Ventilator 60 06/11/17 12:40 75 15.00 100 06/11/17 12:40 60 06/11/17 12:40 123 16 180/104 100 Ventilator 06/11/17 12:30 118 16 137/87 100 Ventilator 06/11/17 12:03 125 35 130/78 86 BiPAP 06/11/17 11:48 34 82 BiPAP 06/11/17 11:47 85 BiPAP 06/11/17 11:44 98.8 126 34 138/74 91 06/11/17 11:43 84 100 Imaging Last Impressions Chest X-Ray 06/11/17 1141 Signed Impressions: Service Date/Time: Sunday, June 11, 2017 11:59 - CONCLUSION: Increasing consolidation left base. Sean Howard MD FACR Chest CT 06/11/17 0000 Signed Impressions: Service Date/Time: Sunday, June 11, 2017 14:46 - CONCLUSION: 1. Large subcarinal mediastinal mass obstructing the left mainstem bronchus and presenting as a large filling defect within the esophagus. 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 2. Consolidated left lung to bronchial obstruction. 3. Small left pleural effusion 4. Known bilateral moderate to severe hydronephrosis. 5. Small patchy infiltrate right upper lobe. Edouard German MD Laboratory Test 06/11/17 06/11/17 06/11/17 06/11/17 11:50 11:55 12:30 14:03 Blood Gas Puncture Site LT RADIAL LT RADIAL Blood Gas Patient Temperature 98.6 98.6 Blood Gas HCO3 23 mmol/L 23 mmol/L Blood Gas Base Excess 0.8 mmol/L -0.3 mmol/L Blood Gas Oxygen Saturation 81 % 70 % Arterial Blood pH 7.56 7.46 Arterial Blood Partial 26 mmHg 33 mmHg Pressure CO2 Arterial Blood Partial 44 mmHG 39 mmHG Pressure O2 Arterial Blood Oxygen Content 12.6 Vol % 10.6 Vol % Arterial Blood 1.4 % 1.1 % Carboxyhemoglobin Arterial Blood Methemoglobin 0.5 % 0.6 % Blood Gas Hemoglobin 11.1 G/DL 10.8 G/DL Oxygen Delivery Device BiPAP VENTILATOR Blood Gas Ventilator Setting IPAP10/EPAP5 AC/24/550/PEEP14 Blood Gas Inspired Oxygen 100 % 100 % White Blood Count 22.9 TH/MM3 Red Blood Count 4.55 MIL/MM3 Hemoglobin 11.6 GM/DL Hematocrit 34.9 % Mean Corpuscular Volume 76.7 FL Mean Corpuscular Hemoglobin 25.6 PG Mean Corpuscular Hemoglobin 33.4 % Concent Red Cell Distribution Width 17.4 % Platelet Count 1040 TH/MM3 Mean Platelet Volume 6.6 FL Neutrophils (%) (Auto) 87.6 % Lymphocytes (%) (Auto) 5.4 % Monocytes (%) (Auto) 6.4 % Eosinophils (%) (Auto) 0.2 % Basophils (%) (Auto) 0.4 % Neutrophils # (Auto) 20.0 TH/MM3 Lymphocytes # (Auto) 1.2 TH/MM3 Monocytes # (Auto) 1.5 TH/MM3 Eosinophils # (Auto) 0.0 TH/MM3 Basophils # (Auto) 0.1 TH/MM3 CBC Comment DIFF FINAL Differential Comment Prothrombin Time 11.8 SEC Prothromb Time International 1.1 RATIO Ratio Activated Partial 32.3 SEC Thromboplast Time Sodium Level 136 MEQ/L Potassium Level 3.1 MEQ/L Chloride Level 101 MEQ/L Carbon Dioxide Level 24.5 MEQ/L Anion Gap 11 MEQ/L Blood Urea Nitrogen 14 MG/DL Creatinine 1.04 MG/DL Estimat Glomerular Filtration 73 ML/MIN Rate Random Glucose 137 MG/DL Lactic Acid Level 2.6 mmol/L Calcium Level 9.0 MG/DL Phosphorus Level 1.5 MG/DL Magnesium Level 1.9 MG/DL Total Bilirubin 0.5 MG/DL Aspartate Amino Transf 10 U/L (AST/SGOT) Alanine Aminotransferase 9 U/L (ALT/SGPT) Alkaline Phosphatase 88 U/L B-Type Natriuretic Peptide 87 PG/ML Total Protein 7.3 GM/DL Albumin 2.5 GM/DL Urine Color YELLOW Urine Turbidity CLOUDY Urine pH 7.0 Urine Specific [place] 1.016 Urine Protein 300 mg/dL Urine Glucose (UA) NEG mg/dL Urine Ketones TRACE mg/dL Urine Occult Blood MOD Urine Nitrite POS Urine Bilirubin NEG Urine Urobilinogen LESS THAN 2.0 MG/DL Urine Leukocyte Esterase LARGE Urine RBC 100 /hpf Urine WBC /hpf Urine WBC Clumps MANY Urine Squamous Epithelial 1 /hpf Cells Urine Transitional Epithelial 1 /hpf Cells Urine Bacteria MANY /hpf Microscopic Urinalysis Comment CULTURE INDICATED Date/Time Procedure Status Source Growth 06/11/17 12:30 Urine Culture Received Urine Clean Catch Pending 06/11/17 11:55 Aerobic Blood Culture Received Blood Peripheral Pending 06/11/17 11:55 Anaerobic Blood Culture Received Blood Peripheral Pending Physical Examination HEENT: normocephalic; atraumatic; no jaundice. intubated CHEST: CTA CARDIAC: tachy ABDOMEN: Soft, nondistended, nontender; ostomy bag with liquid stool, no hepatosplenomegaly; bowel sounds are present in all four quadrants. EXTREMITIES: left foot with toe amputations, right AKA SKIN: Normal; no rash; no jaundice. 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 pt w/ hx rectal adenocarcinoma. - anemia - hgb 11.6 on admission. has hematuria - acute hypoxemic respiratory failure, left lower lobe consolidation per [facility] PLAN - EGD if stable - monitor labs - supportive care - further recs to follow THis pt seen by myself and Dr Caro and this note is written on his behalf Hellen Caro Jun 11, 2017 17:17
[2017-06-11] MEDS: DEXT 5%-NACL 0.9% 1000 ML INJ 1,000 ML IV SCH (18:13)
[2017-06-11] MEDS: methylPREDNISolone SOD SUCC 40 MG/1 ML VIAL IV PUSH SCH ×2 (18:13→23:47)
[2017-06-11] MEDS: PIPERACIL-TAZO 4.5 GM PREMIX 100 ML IV SCH ×2 (18:14→23:47)
[2017-06-11] MEDS: EPOPROSTENOL NEB SOLUTION 30 NG/KG/MIN 100 ML NEB SCH ×2 (18:50)
[2017-06-11 19:02] LABS: BLOOD GAS BASE EXCESS -3.2 mmol/L (-2-2); BLOOD GAS CARBOXYHEMOGLOBIN 1.1 % (0-4); BLOOD GAS HCO3 21 mmol/L (22-26); BLOOD GAS METHEMOGLOBIN 1.2 % (0-2); BLOOD GAS O2 HGB SATURATION 87 % (90-100); BLOOD GAS OXYGEN CONTENT 13.7 Vol % (12.0-20.0); BLOOD GAS PCO2 36 mmHg (38-42); BLOOD GAS PO2 63 mmHg (61-120); BLOOD GAS TOTAL HGB 11.1 G/DL (12.0-16.0); CRITICAL VALUE YES; OXYGEN DEVICE VENTILATOR; TEMP CORR TO 98.6
[2017-06-11 19:03] LABS: DRAW SITE RT RADIAL; FIO2 100 %; NUMBER OF ARTERIAL PUNCTURES 1; STAT YES; ULNAR PULSE PRESENT; VENT SETTINGS A/C 24/550/PEEP14
--- NOTE | 2017-06-11 19:29 | PD.CONS ---
Consult Service Palliative Care . Consult Requested By Dr. Olivares . Primary Care Physician Josef Monte MD . Reason for Consultation a. To assist with evaluation and management of symptoms including: dyspnea, pain b. To assist medical decision maker(s) with: better understanding of current medical conditions; weighing benefits/burdens of medical treatment options; making medical treatment decisions. . HPI History of Present Illness Mr. Valles is a 57-year-old male known to the palliative care service who has a medical history including metastatic colorectal cancer; COPD; hypertension; GERD; and anemia; who was sent to the emergency department via EMS from his oncologist's office because of several days of worsening shortness of breath and oxygen saturations found to be in the low 80s. On route he was given nebulizer treatments and 125 mg of IV Solu-Medrol. He also complained of difficulty urinating over the past 2 weeks. The patient was first diagnosed with a large rectal adenocarcinoma in 2013. He had a very complicated course involving a perirectal abscess and a necrotizing fasciitis which involved the pelvis and down into the thigh. He underwent multiple debridements, diverting colostomy, was in septic shock and respiratory failure requiring intubation and mechanical ventilation. He ultimately underwent a right kbktu-[id number]-clvd amputation and a left lower extremity transmetatarsal amputation and debridement. He completed a course of radiation to the rectal mass. He was initially felt not to be a candidate for chemotherapy or surgical excision. After 3 months in the hospital, he opted for comfort measures only and was enrolled with [facility] on and was transferred to a hospice care Center. Remarkably, the patient's wounds healed and he was able to gain strength under hospice care. With increase strength he became interested in follow-up with specialists including oncology and vascular surgery and getting imaging to follow the progress of his cancer. He was formally discharged from hospice services on 11/25/15. Hospice would call him periodically but lost touch with them as of 03/29/16. The patient has been followed as an outpatient in medical oncology by Dr. Monte. At one point he was treated with palliative oral capecitabine but it is unclear if he had a response. He has since been offered chemotherapy on several different occasions but has apparently declined. He more recently his developed bilateral hydronephrosis presumably from local extension of the tumor. The patient had recently been hospitalized here at [facility] from 06/01/17 through 06/04/17. He came in complaining primarily of decreased appetite, difficulty swallowing both solid foods, and pain with swallowing for 1-2 weeks. He also fell like things were getting stuck in his midesophagus. He was also complaining of some blood-tinged sputum and dysuria with blood clots in his urine. The patient was noted to have urosepsis. Renal failure and patient's other symptoms seemed to improve with antibiotic therapy. He received a unit of packed red blood cells for his anemia. CT of the abdomen on 06/01/17 showed a large mass in the rectosigmoid junction with findings consistent with a colovesicular fistula. There was also malignant adenopathy in the right pelvic region and external iliac chain. There was moderate to severe hydronephrosis involving both kidneys. CT of the chest on showed pathologic adenopathy in the subcarinal area which was not previously present. There was also a small pericardial effusion. He was once again offered palliative chemotherapy and declined. Initial vital signs in the emergency department showed temperature 98.8; pulse 126; respiratory rate 34; blood pressure 138/74; pulse oximetry 84 on 100% FiO2. In the emergency department important examination findings included the following > patient appeared critically ill. He was tachycardic without murmurs or gallops. He was tachypneic. There were diminished breath sounds on the left with a few coarse breath sounds. Abdomen was nontender and nondistended with positive bowel sounds. Colostomy bag was in place. Right [id number]-fcx-rcoq amputation and left partial foot amputation were noted. He was awake and alert. Initial diagnostic testing on this admission revealed the following: * Arterial blood gases on BiPAP at 100% FiO2 showed pH 7.56; PCO2 26; PO 244; bicarbonate 23; base excess 0.8 * CBC showed WBC 22.9; hemoglobin 11.6; platelet count 1040 * Coagulation profile showed PT 11.8; INR 1.1 * Chemistry profile showed sodium 136; potassium 3.1; chloride 101; CO2 24.5; anion gap 11; BUN 14; creatinine 1.04; GFR 73; glucose 137; lactic acid 2.6; calcium 9.0; magnesium 1.9 * Liver function studies showed bilirubin 0.5; AST 10; ALT 9; alkaline phosphatase 88; total protein 7.3; albumin 2.5 * Urinalysis was remarkable for moderate occult blood; trace ketones; large leukocyte esterase; positive nitrite; many WBC clumps; many bacteria * CT of the chest showed a large subcarinal mediastinal mass obstructing the left main stem bronchus and presenting as a large filling defect within the esophagus; consolidated left lung to bronchial obstruction; small left pleural effusion; known bilateral moderate to severe hydronephrosis; patchy infiltrate right upper lobe * EKG showed sinus tachycardia with a rate of 125. The patient's oxygen saturations remained in the low 80s upon arrival in the emergency department. He was placed on BiPAP. IV access was established. O2 sats remained in the low to mid 80s. Chest x-ray showed consolidation in the left lung. ER staff reports they discussed resuscitation and intubation with the patient. He appeared quite overwhelmed and unable to give a thoughtful answer. It was felt best to intubate him at the time. He was intubated and placed on mechanical ventilation. Critical care was consulted. At the time of my visit, patient is still in the emergency department. He is sedated with fentanyl and medazepam and is unresponsive. . Function/Cognitive Trajectory In spite of the extent of his illness, the patient was living alone. He had an electric hospital bed at home. He used a motorized scooter within his home. He used local bus for transportation. . Review of Systems ROS Limitations: Clinical Condition (patient is sedated and mechanically ventilated at the time of my visit. Unable to get review of systems other than what was provided to the emergency supervisor fabrication department's upon arrival. I am unable to contact family members.) Past Family Social History Coded Allergies: *MDRO Multi-Drug Resistant Organism (Verified Adverse Reaction, Unknown, ) MRSA (groin wound) - 05/25/15 / (buttock) - 03/2016 / (urine) - 08/2016 Past Medical History metastatic rectal adenocarcinoma COPD Hx of necrotizing fasciitis GERD anemia, anxiety Depression Hydronephrosis Past Surgical History Diverting colostomy Multiple debridements for necrotizing fasciitis AKA for necrotizing fasciitis on right Partial foot amputation for necrotizing fasciitis . Reported Medications Prehospital medications included the following: Flomax (Tamsulosin HCl) 0.4 Mg Cap 0.4 Mg PO HS Prochlorperazine Maleate 10 Mg Tab 10 Mg PO Q6H PRN Senna Lax (Sennosides) 8.6 Mg Tab 1 Tab PO BID PRN Ranitidine (Ranitidine HCl) 150 Mg Cap 150 Mg PO BID Prinivil (Lisinopril) 10 Mg Tab 10 Mg PO DAILY Gabapentin 600 Mg Tab 600 Mg PO TID Celexa (Citalopram Hydrobromide) 20 Mg Tab 20 Mg PO DAILY Aspirin 325 Mg Tab 325 Mg PO DAILY Alprazolam 0.5 Mg Tab 0.5 Mg PO TID Jaylene-Colace (Sennosides-Docusate Sodium) 8.6-50 Mg Tab 2 Tab PO BID Fentanyl Patch 72 HR (Fentanyl) 100 Mcg/Hr Patch 1 Patch T-DERMAL DIR . Current Medications Medications (Trade) Dose Ordered Sig/Orlin Route Start Time Stop Time Status Last Admin Sodium Chloride 2 ml 2 ml UNSCH PRN IVF 06/11/17 11:45 (Diprivan 1000 Mg/100ml Inj) 100 ml @ 0 mls/hr TITRATE IV 06/11/17 12:15 06/11/17 13:34 (Protonix Inj) 40 mg DAILY IV 06/11/17 13:00 06/11/17 15:41 Miscellaneous Information 1 Q361D XX 06/11/17 13:00 (Chlorhexidine 2% Cloth) 3 pack Taper DAILY@04 TOP 06/12/17 04:00 06/08/18 03:59 (Chlorhexidine 2% Cloth) 3 pack UNSCH PRN TOP 06/11/17 13:00 (Jaylene-Colace) 1 tab BID PO 06/11/17 21:00 (Milk Of Magnesia Liq) 30 ml Q12H PRN PO 06/11/17 13:00 (Senokot) 17.2 mg Q12H PRN PO 06/11/17 13:00 (Dulcolax Supp) 10 mg DAILY PRN RECTAL 06/11/17 13:00 (Lactulose Liq) 30 ml DAILY PRN PO 06/11/17 13:00 (D50w (Vial) Inj) 50 ml UNSCH PRN IV 06/11/17 13:00 (Glucagon Inj) 1 mg UNSCH PRN OTHER 06/11/17 13:00 Insulin Human Regular 1 1 Q6H SQ 06/11/17 13:00 06/11/17 16:50 Potassium Chloride 100 ml @ 50 mls/hr Q2H PRN IV 06/11/17 13:00 (KCl 20 Meq Premix Inj) 100 ml @ 50 mls/hr Q2H PRN IV 06/11/17 13:00 Potassium Bicarb/ Potassium Chloride 50 meq 50 meq UNSCH PRN PO 06/11/17 13:00 Potassium Chloride 100 ml @ 25 mls/hr UNSCH PRN IV 06/11/17 13:00 Potassium Chloride 100 ml @ 50 mls/hr Q2H PRN IV 06/11/17 13:00 (Magnesium Sulfate Inj/NS Inj) 100 ml @ 50 mls/hr UNSCH PRN IV 06/11/17 13:00 Magnesium Oxide 800 mg 800 mg UNSCH PRN PO 06/11/17 13:00 (Magnesium Sulfate Inj/NS Inj) 100 ml @ 50 mls/hr UNSCH PRN IV 06/11/17 13:00 Potassium Phosphate 2000 mg 2,000 mg Q4H PRN PO 06/11/17 13:00 (Sodium Phosphate Inj/NS 250 ml Inj) 250 ml @ 42 mls/hr UNSCH PRN IV 06/11/17 13:00 (KCl Powder) 40 meq UNSCH PRN PO 06/11/17 13:00 Potassium Phosphate 2000 mg 2,000 mg UNSCH PRN PO/TUBE 06/11/17 13:00 Potassium Phosphate 30 mmol/ Sodium Chloride 260 ml @ 42 mls/hr UNSCH PRN IV 06/11/17 13:00 Vancomycin HCl 1000 mg/Sodium Chloride 250 ml @ 250 mls/hr Q12H IV 06/11/17 14:00 Piperacillin Sod/ Tazobactam Sod 100 ml @ 200 mls/hr Q6H IV 06/11/17 18:00 06/11/17 18:14 Azithromycin 500 mg/Sodium Chloride 250 ml @ 250 mls/hr Q24H IV 06/11/17 14:00 06/11/17 15:43 Midazolam HCl 100 ml @ 0 mls/hr TITRATE IV 06/11/17 13:00 06/11/17 13:16 Fentanyl Citrate 250 ml @ 0 mls/hr TITRATE IV 06/11/17 13:30 (D5W-NS 1000 ml Inj) 1,000 ml @ 84 mls/hr [id number] IV 06/11/17 15:30 06/11/17 18:13 Methylprednisolone Sodium Succinate 60 mg 60 mg Q8H IV PUSH 06/11/17 16:00 06/11/17 18:13 (Flolan (30,000 Ng/ml) Neb/NS Inj) 100 ml @ 8 mls/hr Q8H NEB 06/11/17 18:00 . Family History Patient believed there was peripheral vascular disease in the family. . Substance Use Tobacco: One ppd for most of his adult life. Alcohol: Hx of EtOH abuse. At one time was consuming 18 beers per day. Prescription med abuse: No known abuse Illicits: No known use of illicits. . Psychosocial History Born in [place], [place]. Educated through the 11th grade. 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 Never . Rupert of cancer in the [facility] in 2012. He has a son from whom he is estranged. Patient moved to [place] approximately 15 years ago and has lived in a mobile home for most of that time. Has been living alone. He has two sisters living in [facility] who he has listed as his health care surrogates in the past. . Spiritual/Cultural Factors No known mormon affiliation. Patient decline vaccines [facility] specialist visits while he was in our hospice care center. . Living Will: Never completed Health Care Surrogate: Copy in medical record Durable Power of Dental Office Receptionist: Never completed Date completed: There is a "designation of health care surrogate" form in the electronic medical record dated 01/09/14. It should be noted that one witness signature is missing. . Health Care Surrogate(s): There is a "designation of health care surrogate" form in the electronic medical record dated 01/09/14. It should be noted that one witness signature is missing. The form designates his sisters as health care surrogates... * Jeimy Gorman [phone] * Karyn Osorio [phone] . Documented care wishes: There is no written documentation of health care preferences/goals/wishes. . Today's verbally stated goals: Patient is unable to verbally state his goals. It is now reasonably doubtful that he will become able to do so. . Family/friends goals: Unable to contact either of his sisters who are listed as health care surrogates. Unaware of other family members. . Ethical and Legal Issues Patient is currently incapacitated to make his own health care decisions. It appears unlikely he will regain capacity to do so. . Physical Exam Vital Signs Date Time Temp Pulse Resp B/P Pulse Ox O2 Delivery O2 Flow Rate FiO2 06/11/17 17:15 101 24 103/71 84 Ventilator 100 06/11/17 16:45 101 24 97/69 84 Ventilator 100 06/11/17 16:15 100 24 102/67 84 Ventilator 100 06/11/17 16:00 103 24 98/64 73 Ventilator 100 06/11/17 15:45 103 24 107/67 73 Ventilator 100 06/11/17 15:27 72 100 06/11/17 15:06 109 24 105/67 73 Ventilator 100 06/11/17 14:50 110 24 102/66 73 Ventilator 100 06/11/17 14:34 112 24 103/70 73 Ventilator 100 06/11/17 14:30 75 100 06/11/17 14:06 115 24 111/73 73 Ventilator 100 06/11/17 14:05 115 24 109/70 73 Ventilator 100 06/11/17 13:58 114 24 110/68 73 Ventilator 100 06/11/17 13:51 118 24 117/72 73 Ventilator 100 06/11/17 13:50 100 06/11/17 13:39 118 25 115/69 69 Blow-by 06/11/17 13:36 118 25 120/61 72 Blow-by 06/11/17 13:21 118 16 140/81 68 Blow-by 70 06/11/17 13:06 120 16 139/74 67 Ventilator 70 06/11/17 12:51 116 16 176/96 81 Ventilator 60 06/11/17 12:40 75 15.00 100 06/11/17 12:40 60 06/11/17 12:40 123 16 180/104 100 Ventilator 06/11/17 12:30 118 16 137/87 100 Ventilator 06/11/17 12:03 125 35 130/78 86 BiPAP 06/11/17 11:48 34 82 BiPAP 06/11/17 11:47 85 BiPAP 06/11/17 11:44 98.8 126 34 138/74 91 06/11/17 11:43 84 100 . Exam CONSTITUTIONAL/GENERAL: This is a pale; gaunt; chronically ill-appearing gentleman currently sedated, unresponsive, intubated, and mechanically ventilated in the emergency room. TUBES/LINES/DRAINS: Orotracheal tube; Yan catheter; peripheral IVs; colostomy. SKIN: No jaundice, rashes, or lesions. No wounds seen anteriorly. Skin temperature appropriate. Not diaphoretic. HEAD: Atraumatic. Normocephalic. EYES: Pupils equal and round but minimally reactive. Unable to assess extraocular movements because of sedation. No scleral icterus. No injection or drainage. Fundi not examined. ENT: Unable to assess hearing. Nose without bleeding or purulent drainage. Oropharynx difficult to assess due to intubations. NECK: Trachea midline. No palpable thyroid enlargement or nodularity. CARDIOVASCULAR: Tachycardic. Regular rhythm without murmurs, gallops, or rubs. Jugular venous distention is present.. Peripheral pulses symmetric. RESPIRATORY/CHEST: Chest is asymmetric with visible chest rise and fall on the right but none on the left. Essentially no air movement heard on the left.. No wheezes, rales, or rhonchi. GASTROINTESTINAL: Abdomen soft, non-tender, nondistended. Colostomy bag is present. No hepato-splenomegaly, or palpable masses. No guarding. Bowel sounds present. GENITOURINARY: Without palpable bladder distension. Yan catheter in place. MUSCULOSKELETAL: Extremities notable for right [id number]-[id number] amputation and left partial foot amputation. Extremities otherwise without clubbing, cyanosis , or edema. No mottling. LYMPHATICS: No palpable cervical or supraclavicular adenopathy. NEUROLOGICAL: Sedated, unresponsive. No spontaneous movements. PSYCHIATRIC: Unable to assess due to level of responsiveness. . Diagnostic Tests Laboratory Laboratory Tests Test 06/11/17 06/11/17 06/11/17 06/11/17 11:50 11:55 12:30 14:03 Blood Gas Puncture Site LT RADIAL LT RADIAL Blood Gas Patient Temperature 98.6 98.6 Blood Gas HCO3 23 mmol/L 23 mmol/L (22-26) (22-26) Blood Gas Base Excess 0.8 mmol/L -0.3 mmol/L (-2-2) (-2-2) Blood Gas Oxygen Saturation 81 % (90-100) 70 % (90-100) Arterial Blood pH 7.56 7.46 (7.380-7.420) (7.380-7.420) Arterial Blood Partial 26 mmHg (38-42) 33 mmHg (38-42) Pressure CO2 Arterial Blood Partial 44 mmHG 39 mmHG Pressure O2 (61-120) (61-120) Arterial Blood Oxygen Content 12.6 Vol % 10.6 Vol % (12.0-20.0) (12.0-20.0) Arterial Blood 1.4 % (0-4) 1.1 % (0-4) Carboxyhemoglobin Arterial Blood Methemoglobin 0.5 % (0-2) 0.6 % (0-2) Blood Gas Hemoglobin 11.1 G/DL 10.8 G/DL (12.0-16.0) (12.0-16.0) Oxygen Delivery Device BiPAP VENTILATOR Blood Gas Ventilator Setting IPAP10/EPAP5 AC/24/550/PEEP14 Blood Gas Inspired Oxygen 100 % 100 % White Blood Count 22.9 TH/MM3 (4.0-11.0) Red Blood Count 4.55 MIL/MM3 (4.50-5.90) Hemoglobin 11.6 GM/DL (13.0-17.0) Hematocrit 34.9 % (39.0-51.0) Mean Corpuscular Volume 76.7 FL (80.0-100.0) Mean Corpuscular Hemoglobin 25.6 PG (27.0-34.0) Mean Corpuscular Hemoglobin 33.4 % Concent (32.0-36.0) Red Cell Distribution Width 17.4 % (11.6-17.2) Platelet Count 1040 TH/MM3 (150-450) Mean Platelet Volume 6.6 FL (7.0-11.0) Neutrophils (%) (Auto) 87.6 % (16.0-70.0) Lymphocytes (%) (Auto) 5.4 % (9.0-44.0) Monocytes (%) (Auto) 6.4 % (0.0-8.0) Eosinophils (%) (Auto) 0.2 % (0.0-4.0) Basophils (%) (Auto) 0.4 % (0.0-2.0) Neutrophils # (Auto) 20.0 TH/MM3 (1.8-7.7) Lymphocytes # (Auto) 1.2 TH/MM3 (1.0-4.8) Monocytes # (Auto) 1.5 TH/MM3 (0-0.9) Eosinophils # (Auto) 0.0 TH/MM3 (0-0.4) Basophils # (Auto) 0.1 TH/MM3 (0-0.2) CBC Comment DIFF FINAL Differential Comment Prothrombin Time 11.8 SEC (9.8-11.6) Prothromb Time International 1.1 RATIO Ratio Activated Partial 32.3 SEC Thromboplast Time (24.3-30.1) Sodium Level 136 MEQ/L (136-145) Potassium Level 3.1 MEQ/L (3.5-5.1) Chloride Level 101 MEQ/L (98-107) Carbon Dioxide Level 24.5 MEQ/L (21.0-32.0) Anion Gap 11 MEQ/L (5-15) Blood Urea Nitrogen 14 MG/DL (7-18) Creatinine 1.04 MG/DL (0.60-1.30) Estimat Glomerular Filtration 73 ML/MIN (>89) Rate Random Glucose 137 MG/DL (74-106) Lactic Acid Level 2.6 mmol/L (0.4-2.0) Calcium Level 9.0 MG/DL (8.5-10.1) Phosphorus Level 1.5 MG/DL (2.5-4.9) Magnesium Level 1.9 MG/DL (1.5-2.5) Total Bilirubin 0.5 MG/DL (0.2-1.0) Aspartate Amino Transf 10 U/L (15-37) (AST/SGOT) Alanine Aminotransferase 9 U/L (12-78) (ALT/SGPT) Alkaline Phosphatase 88 U/L (45-117) B-Type Natriuretic Peptide 87 PG/ML (0-100) Total Protein 7.3 GM/DL (6.4-8.2) Albumin 2.5 GM/DL (3.4-5.0) Urine Color YELLOW (YELLW/STRAW) Urine Turbidity CLOUDY (CLEAR) Urine pH 7.0 (5.0-8.5) Urine Specific Randolph 1.016 (1.002-1.035) Urine Protein 300 mg/dL (NEG-TRACE) Urine Glucose (UA) NEG mg/dL (NEG) Urine Ketones TRACE mg/dL (NEG) Urine Occult Blood MOD (NEG) Urine Nitrite POS (NEG) Urine Bilirubin NEG (NEG) Urine Urobilinogen LESS THAN 2.0 MG/DL (LESS THAN 2.0) Urine Leukocyte Esterase LARGE (NEG) Urine RBC 100 /hpf (0-3) Urine WBC /hpf (0-5) Urine WBC Clumps MANY (NONE) Urine Squamous Epithelial 1 /hpf (0-5) Cells Urine Transitional Epithelial 1 /hpf (NONE) Cells Urine Bacteria MANY /hpf (NONE) Microscopic Urinalysis Comment CULTURE INDICATED . Result Diagram: 06/11/17 1155 06/11/17 1155 Microbiology Microbiology Date/Time Procedure Status Source Growth 06/11/17 11:50 Aerobic Blood Culture Received Blood Peripheral Pending 06/11/17 11:50 Anaerobic Blood Culture Received Blood Peripheral Pending 06/11/17 11:55 Aerobic Blood Culture Received Blood Peripheral Pending 06/11/17 11:55 Anaerobic Blood Culture Received Blood Peripheral Pending 06/11/17 12:30 Urine Culture Received Urine Clean Catch Pending . Imaging Last Impressions Chest X-Ray 06/11/17 1141 Signed Impressions: Service Date/Time: Sunday, June 11, 2017 11:59 - CONCLUSION: Increasing consolidation left base. Sean Howard MD FACR Chest CT 06/11/17 0000 Signed Impressions: Service Date/Time: Sunday, June 11, 2017 14:46 - CONCLUSION: 1. Large subcarinal mediastinal mass obstructing the left mainstem bronchus and presenting as a large filling defect within the esophagus. 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 2. Consolidated left lung to bronchial obstruction. 3. Small left pleural effusion 4. Known bilateral moderate to severe hydronephrosis. 5. Small patchy infiltrate right upper lobe. Edouard German MD . Procedures * Intubation/mechanical ventilation . Patient/Family Conference Present at Family Conference: Unable to contact family. . Issues Discussed: Unable to contact family . Assessment and Plan Disease Oriented Problem List: (1) Rectal adenocarcinoma Comment: Metastatic to pelvic and chest nodes. . (2) Respiratory failure with hypoxia Comment: Left lung is consolidated and not ventilating due to carinal node obstruction of the left mainstem bronches. . Unable to adequately oxygenate even with substantial pressures. . (3) Esophageal obstruction Comment: Obstruction appears to be secondary to compression from malignant node. . (4) Hydronephrosis Comment: Bilateral from tumor obstruction . (5) Sepsis (6) UTI (urinary tract infection) Symptom Scale: (1) Pain 0-10 Scale: Unable to quantify Comment: Sources of pain may now include orotracheal intubation; Yan catheterization; vascular access lines. . (2) Dyspnea 0-10 Scale: 10 Comment: Dyspnea with severe upon arrival. Now controlled with mechanical ventilation. Still unable to adequately oxygenate. Dyspnea also being treated pharmacologically with opiates and benzodiazepines. . Pertinent Non-Medical Issues Psychosocial: Patient apparently lived alone. Has 2 sisters who live in [facility] that reportedly he has been out of touch with for about a year. There is a son he is estranged from. Spiritual: No known mormon affiliation. Patient declined [facility] specialist visits when he was a hospice patient. Legal: Patient has a written designation of health care surrogate that is missing one of the witnesses. He designated both of the sisters as surrogates. There is also a community DNR form signed on 04/18/14. It is unclear from subsequent physician visits and hospitalizations if he wanted this status to continue. Ethical issues impacting care: Patient is currently incapacitated. Given difficulty oxygenating him, it is becoming increasingly unlikely that he will regain capacity. . Important Contacts Patient has listed his 2 sisters as health care surrogates back in 2013. A friend has indicated that he has been out of touch with the sisters for approximately one year. * Jeimy Gorman [phone] * Karyn Osorio [phone] . Prognosis This patient has metastatic colorectal adenocarcinoma. He has undergone radiation. He has declined chemotherapy on several occasions. Metastatic disease is causing multiple complications. First and foremost he has obstruction of the left mainstem bronchus which has caused a central collapse of the left lung. Even with intubation and mechanical ventilation on pressure we are unable to bring oxygen saturations into the 90s. Tumor also appears to be compressing his esophagus. In addition, he has had ongoing problems with obstructive uropathy. Though BUN and creatinine are normal at this time he has gross hematuria. These problems are on top of chronic malnutrition with a current albumin of 2.5. Due to ongoing hypoxia in spite of mechanical ventilation at 100% FiO2 and higher pressures, patient is at high risk for a cardiac event and . Due to patient's dire condition, he does not appear to be a candidate for any major procedures. Patient is currently capacitated to make his own health care decisions. It appears unlikely, given her difficulty oxygenating him, that he will regain capacity to do so. He would certainly be a candidate for hospice care again if/when goals are clearly comfort oriented. . Code Status: Full Code Plan == Code Status: FULL CODE. ER staff said the patient seems somewhat overwhelmed when intubation and CODE STATUS was discussed. He did inquire how long he might need life support. Otherwise he was vague. They felt that it was safer to intubate him and try and sort out goals/preferences later under the circumstances. Patient had completed a [facility] DNR order back in 2013. It seems since that time, however, he has opted for aggressive care and it is unclear if he desired ongoing DNR status. I have been unable to contact his sisters -- his last stone designated health care surrogates-- to discuss CODE STATUS and other goals. == Decision making: Patient is currently incapacitated to make his own health care decisions. Because we are now having trouble oxygenating him in spite of mechanical ventilation and high pressures, it is becoming increasingly unlikely that he will ever regain capacity. There is no spouse. There is an estranged son we have no contact information for. He has previously listed his 2 sisters -- Jeimy Gorman and Karyn Kinney -- as health care surrogates. I have been unable to contact either of the in spite of multiple phone calls.. == Goals of medical treatment: As noted above, goals are unclear. We probably need to continue with aggressive care until we are able to contact a legal decision-maker. == Pain: Current sources of pain would include orotracheal intubation, Yan catheter, vascular access lines, and bedbound status. He is currently on a fentanyl drip which appears to be adequate for symptom management. No additional recommendations at this time. == Dyspnea: Patient has profound dyspnea from his obstructed left main bronchus and his inability to oxygenate through the left lung. Dyspnea is partially being managed through mechanical ventilation . He is also on both fentanyl, midazolam, , and propofol drips. No further recommendations at this time == I have personally made five separate attempts to contact the patient's 2 sisters. There is a repeated busy signal at Ms Gorman's number. I get the outgoing message at Ms. Yus number but her voice mail is full and I am unable to leave a message. If the patient survives overnight the palliative care team and case management will continue to seek out the sisters and any other family members that can serve as proxy decision-maker's. == I personally discussed the case with Dr. Burch, ER nurse practitioner, ER nurse, and Dr. Olivares. == Palliative care will continue to follow to assist with symptom management and to further clarify goals of medical treatment as the clinical course evolves. . Thank you for the opportunity to participate in the care of Mr. Valles. . Attestation To help prompt me to consider important information that might be impacting today's encounter and assessment, information from prior notes written by myself or my colleagues may have been "brought forward" into today's note. My signature on this note, however, is an attestation that I personally performed the exam, history, and/or decision-making noted today, and, unless otherwise indicated, the interactions with patient, family, and staff as well as the review of records all occurred today. I also attest that the listed assessment and stated plan reflect my best clinical judgment today based on the combination of historical information, prior notes, and today's exam/ interactions. When time spent is documented, it refers only to time spent today by the signer, or if indicated, combined time spent today by collaborating physician/nurse practitioner. . Francis Bolden MD Jun 11, 2017 19:24
[2017-06-11] MEDS: DOCUSATE SODIUM 50 MG/SENNA 8.6 MG TAB PO SCH (21:08)
--- NOTE | 2017-06-11 23:58 | PD.CONS ---
HPI Service General Surgery Consult Requested By Dr. Hope Primary Care Physician Josef Monte MD History of Present Illness Mr. Valles is very well known to me in the past after rectal cancer perforation causing severe necrotizing fasciitis requiring multiple debridements and amputation of the right lower extremity. He has been followed by Dr. Josef Monte for the rectal adenocarcinoma. He was unable to undergo surgical resection. He did undergo palliative radiation. The patient has been admitted to the hospital with respiratory failure. He has radiologic evidence of metastatic disease to the thorax obstructing the left main stem bronchus. There are no surgical treatment options from my standpoint. Past Family Social History Allergies: Coded Allergies: *MDRO Multi-Drug Resistant Organism (Verified Adverse Reaction, Unknown, ) MRSA PCR Positive 06/11/17 MRSA (groin wound) - 05/25/15 / (buttock) - 03/2016 / (urine) - 08/2016 Active Ordered Medications Current Medications Medications (Trade) Dose Ordered Sig/Orlin Route Start Time Stop Time Status Last Admin Sodium Chloride 2 ml 2 ml UNSCH PRN IVF 06/11/17 11:45 (Diprivan 1000 Mg/100ml Inj) 100 ml @ 0 mls/hr TITRATE IV 06/11/17 12:15 06/11/17 13:34 (Protonix Inj) 40 mg DAILY IV 06/11/17 13:00 06/11/17 15:41 Miscellaneous Information 1 [id number] XX 06/11/17 13:00 (Chlorhexidine 2% Cloth) 3 pack Taper DAILY@04 TOP 06/12/17 04:00 06/08/18 03:59 (Chlorhexidine 2% Cloth) 3 pack UNSCH PRN TOP 06/11/17 13:00 (Jaylene-Colace) 1 tab BID PO 06/11/17 21:00 06/11/17 21:08 (Milk Of Magnesia Liq) 30 ml Q12H PRN PO 06/11/17 13:00 (Senokot) 17.2 mg Q12H PRN PO 06/11/17 13:00 (Dulcolax Supp) 10 mg DAILY PRN RECTAL 06/11/17 13:00 (Lactulose Liq) 30 ml DAILY PRN PO 06/11/17 13:00 (D50w (Vial) Inj) 50 ml UNSCH PRN IV 06/11/17 13:00 (Glucagon Inj) 1 mg UNSCH PRN OTHER 06/11/17 13:00 Insulin Human Regular 1 1 Q6H SQ 06/11/17 13:00 06/11/17 19:01 Potassium Chloride 100 ml @ 50 mls/hr Q2H PRN IV 06/11/17 13:00 (KCl 20 Meq Premix Inj) 100 ml @ 50 mls/hr Q2H PRN IV 06/11/17 13:00 Potassium Bicarb/ Potassium Chloride 50 meq 50 meq UNSCH PRN PO 06/11/17 13:00 Potassium Chloride 100 ml @ 25 mls/hr UNSCH PRN IV 06/11/17 13:00 Potassium Chloride 100 ml @ 50 mls/hr Q2H PRN IV 06/11/17 13:00 (Magnesium Sulfate Inj/NS Inj) 100 ml @ 50 mls/hr UNSCH PRN IV 06/11/17 13:00 Magnesium Oxide 800 mg 800 mg UNSCH PRN PO 06/11/17 13:00 (Magnesium Sulfate Inj/NS Inj) 100 ml @ 50 mls/hr UNSCH PRN IV 06/11/17 13:00 Potassium Phosphate 2000 mg 2,000 mg Q4H PRN PO 06/11/17 13:00 (Sodium Phosphate Inj/NS 250 ml Inj) 250 ml @ 42 mls/hr UNSCH PRN IV 06/11/17 13:00 (KCl Powder) 40 meq UNSCH PRN PO 06/11/17 13:00 Potassium Phosphate 2000 mg 2,000 mg UNSCH PRN PO/TUBE 06/11/17 13:00 Potassium Phosphate 30 mmol/ Sodium Chloride 260 ml @ 42 mls/hr UNSCH PRN IV 06/11/17 13:00 Vancomycin HCl 1000 mg/Sodium Chloride 250 ml @ 250 mls/hr Q12H IV 06/11/17 14:00 Piperacillin Sod/ Tazobactam Sod 100 ml @ 200 mls/hr Q6H IV 06/11/17 18:00 06/11/17 23:47 Azithromycin 500 mg/Sodium Chloride 250 ml @ 250 mls/hr Q24H IV 06/11/17 14:00 06/11/17 15:43 Midazolam HCl 100 ml @ 0 mls/hr TITRATE IV 06/11/17 13:00 06/11/17 13:16 Fentanyl Citrate 250 ml @ 0 mls/hr TITRATE IV 06/11/17 13:30 (D5W-NS 1000 ml Inj) 1,000 ml @ 84 mls/hr [id number] IV 06/11/17 15:30 06/11/17 18:13 Methylprednisolone Sodium Succinate 60 mg 60 mg Q8H IV PUSH 06/11/17 16:00 06/11/17 23:47 (Flolan (30,000 Ng/ml) Neb/NS Inj) 100 ml @ 8 mls/hr Q8H NEB 06/11/17 18:00 06/11/17 18:50 Physical Exam Vital Signs Vital Signs Date Time Temp Pulse Resp B/P Pulse Ox O2 Delivery O2 Flow Rate FiO2 06/11/17 22:00 96 06/11/17 21:36 95 100 06/11/17 21:00 100 06/11/17 20:00 90 06/11/17 20:00 100 06/11/17 20:00 96.7 90 24 86/66 89 06/11/17 19:00 90 24 92/63 91 06/11/17 18:33 95 100 06/11/17 17:30 100 81 06/11/17 17:15 101 24 103/71 84 Ventilator 100 06/11/17 16:45 101 24 97/69 84 Ventilator 100 06/11/17 16:15 100 24 102/67 84 Ventilator 100 06/11/17 16:00 103 24 98/64 73 Ventilator 100 06/11/17 15:45 103 24 107/67 73 Ventilator 100 06/11/17 15:27 72 100 06/11/17 15:06 109 24 105/67 73 Ventilator 100 06/11/17 14:50 110 24 102/66 73 Ventilator 100 06/11/17 14:34 112 24 103/70 73 Ventilator 100 06/11/17 14:30 75 100 06/11/17 14:06 115 24 111/73 73 Ventilator 100 06/11/17 14:05 115 24 109/70 73 Ventilator 100 06/11/17 13:58 114 24 110/68 73 Ventilator 100 06/11/17 13:51 118 24 117/72 73 Ventilator 100 06/11/17 13:50 100 06/11/17 13:39 118 25 115/69 69 Blow-by 06/11/17 13:36 118 25 120/61 72 Blow-by 06/11/17 13:21 118 16 140/81 68 Blow-by 70 06/11/17 13:06 120 16 139/74 67 Ventilator 70 06/11/17 12:51 116 16 176/96 81 Ventilator 60 06/11/17 12:40 75 15.00 100 06/11/17 12:40 60 06/11/17 12:40 123 16 180/104 100 Ventilator 06/11/17 12:30 118 16 137/87 100 Ventilator 06/11/17 12:03 125 35 130/78 86 BiPAP 06/11/17 11:48 34 82 BiPAP 06/11/17 11:47 85 BiPAP 06/11/17 11:44 98.8 126 34 138/74 91 06/11/17 11:43 84 100 Laboratory Laboratory Tests Test 06/11/17 06/11/17 06/11/17 06/11/17 11:50 11:55 12:30 14:03 Blood Gas Puncture Site LT RADIAL LT RADIAL Blood Gas Patient Temperature 98.6 98.6 Blood Gas HCO3 23 23 Blood Gas Base Excess 0.8 -0.3 Blood Gas Oxygen Saturation 81 70 Arterial Blood pH 7.56 7.46 Arterial Blood Partial 26 33 Pressure CO2 Arterial Blood Partial 44 39 Pressure O2 Arterial Blood Oxygen Content 12.6 10.6 Arterial Blood 1.4 1.1 Carboxyhemoglobin Arterial Blood Methemoglobin 0.5 0.6 Blood Gas Hemoglobin 11.1 10.8 Oxygen Delivery Device BiPAP VENTILATOR Blood Gas Ventilator Setting IPAP10/EPAP5 AC/24/550/PEEP14 Blood Gas Inspired Oxygen 100 100 White Blood Count 22.9 Red Blood Count 4.55 Hemoglobin 11.6 Hematocrit 34.9 Mean Corpuscular Volume 76.7 Mean Corpuscular Hemoglobin 25.6 Mean Corpuscular Hemoglobin 33.4 Concent Red Cell Distribution Width 17.4 Platelet Count 1040 Mean Platelet Volume 6.6 Neutrophils (%) (Auto) 87.6 Lymphocytes (%) (Auto) 5.4 Monocytes (%) (Auto) 6.4 Eosinophils (%) (Auto) 0.2 Basophils (%) (Auto) 0.4 Neutrophils # (Auto) 20.0 Lymphocytes # (Auto) 1.2 Monocytes # (Auto) 1.5 Eosinophils # (Auto) 0.0 Basophils # (Auto) 0.1 CBC Comment DIFF FINAL Differential Comment Prothrombin Time 11.8 Prothromb Time International 1.1 Ratio Activated Partial 32.3 Thromboplast Time Sodium Level 136 Potassium Level 3.1 Chloride Level 101 Carbon Dioxide Level 24.5 Anion Gap 11 Blood Urea Nitrogen 14 Creatinine 1.04 Estimat Glomerular Filtration 73 Rate Random Glucose 137 Lactic Acid Level 2.6 Calcium Level 9.0 Phosphorus Level 1.5 Magnesium Level 1.9 Total Bilirubin 0.5 Aspartate Amino Transf 10 (AST/SGOT) Alanine Aminotransferase 9 (ALT/SGPT) Alkaline Phosphatase 88 B-Type Natriuretic Peptide 87 Total Protein 7.3 Albumin 2.5 Urine Color YELLOW Urine Turbidity CLOUDY Urine pH 7.0 Urine Specific Helper 1.016 Urine Protein 300 Urine Glucose (UA) NEG Urine Ketones TRACE Urine Occult Blood MOD Urine Nitrite POS Urine Bilirubin NEG Urine Urobilinogen LESS THAN 2.0 Urine Leukocyte Esterase LARGE Urine RBC 100 Urine WBC Urine WBC Clumps MANY Urine Squamous Epithelial 1 Cells Urine Transitional Epithelial 1 Cells Urine Bacteria MANY Microscopic Urinalysis Comment CULTURE INDICATED Test 06/11/17 18:43 Blood Gas Puncture Site RT RADIAL Blood Gas Patient Temperature 98.6 Blood Gas HCO3 21 Blood Gas Base Excess -3.2 Blood Gas Oxygen Saturation 87 Arterial Blood pH 7.39 Arterial Blood Partial 36 Pressure CO2 Arterial Blood Partial 63 Pressure O2 Arterial Blood Oxygen Content 13.7 Arterial Blood 1.1 Carboxyhemoglobin Arterial Blood Methemoglobin 1.2 Blood Gas Hemoglobin 11.1 Oxygen Delivery Device VENTILATOR Blood Gas Ventilator Setting A/C 24/550/PEEP14 Blood Gas Inspired Oxygen 100 Date/Time Procedure Status Source Growth 06/11/17 12:30 Urine Culture Received Urine Clean Catch Pending 06/11/17 11:55 Aerobic Blood Culture Received Blood Peripheral Pending 06/11/17 11:55 Anaerobic Blood Culture Received Blood Peripheral Pending Result Diagram: 06/11/17 1155 06/11/17 1155 Kaden,Juwan PIKE Jun 11, 2017 23:58
[2017-06-12] VITALS (24 sets, daily range): BP systolic 80–110; BP diastolic 54–77; PULSE 90–118; RESP 20–25; TEMP 97.5–98.8; O2SAT 87–99
[2017-06-12] MEDS: INSULIN NovoLIN REGULAR SUPPLEMENTAL SCALE SQ SCH ×6 (01:00→22:00)
[2017-06-12] MEDS: MIDAZOLAM 100 MG/ML INJ 100 ML IV SCH ×2 (01:04→13:50)
[2017-06-12] MEDS: VANCOMYCIN INJ 1,000 MG in SODIUM CHLOR 0.9% 250 ML INJ 250 ML IV SCH ×2 (01:04→14:55)
[2017-06-12] MEDS: EPOPROSTENOL NEB SOLUTION 30 NG/KG/MIN 100 ML NEB SCH ×4 (02:48→16:25)
[2017-06-12] MEDS: RESP: ALBUTEROL 2.5 MG/IPRATROPIUM 0.5 MG NEB (SCH) INH ×5 (03:07→20:59)
[2017-06-12] MEDS: RESP: ACETYLCYSTEINE 10% 30 ML NEB NEB SCH ×6 (03:08→20:00)
[2017-06-12] MEDS: DEXT 5%-NACL 0.9% 1000 ML INJ 1,000 ML IV SCH (03:25)
[2017-06-12] MEDS: CHLORHEXIDINE GLUCONATE 2 % 1 PACK (2 CLOTHS) TOP SCH (04:00)
[2017-06-12 04:19] LABS: AUTOMATED NEUTROPHIL # 28.5 TH/MM3 (1.8-7.7); BASOPHIL % 0.2 % (0.0-2.0); HEMO FLAGS DIFF FINAL; LYMPH % 1.7 % (9.0-44.0); LYMPHOCYTE # 0.5 TH/MM3 (1.0-4.8); MEAN CELL VOLUME 77.3 FL (80.0-100.0); MEAN CORPUSCULAR HEMOGLOBIN 25.7 PG (27.0-34.0); MEAN CORPUSCULAR HGB CONC 33.2 % (32.0-36.0); MONO % 2.3 % (0.0-8.0); NEUT % 95.8 % (16.0-70.0); PLATELET COUNT 984 TH/MM3 (150-450); RED BLOOD COUNT 4.13 MIL/MM3 (4.50-5.90); RED CELL DISTRIBUTION WIDTH 17.5 % (11.6-17.2); WHITE BLOOD COUNT 29.8 TH/MM3 (4.0-11.0)
[2017-06-12] MEDS ORDERED: ALBUMIN HUMAN 25% 25 GM/100 ML BAGP IV ONE ×2 (04:45→23:45)
[2017-06-12] MEDS ORDERED: SODIUM CHLOR 0.9% 1000 ML INJ 1,000 ML IV ONE (04:45)
[2017-06-12 04:47] LABS: BICARBONATE 21.9 MEQ/L (21.0-32.0); POTASSIUM 4.1 MEQ/L (3.5-5.1)
[2017-06-12] MEDS: PIPERACIL-TAZO 4.5 GM PREMIX 100 ML IV SCH ×4 (06:02→23:48)
--- NOTE | 2017-06-12 06:42 | RADRPT ---
EXAM DATE/TIME: 06/12/2017 06:09 [place] COMPARISON: CHEST SINGLE AP, June 11, 2017, 13:14. INDICATIONS : Respiratory distress. MEDICAL HISTORY : Hypertension. Chronic obstructive pulmonary disease. Gastroesophageal reflux disease. Renal adenocarc inoma.. SURGICAL HISTORY : Colostomy. ENCOUNTER: Subsequent ACUITY: 2 days PAIN SCORE: Non-responsive. LOCATION: Bilateral chest FINDINGS: Right lung is clear. Endotracheal tube tip at the inferior margin of clavicles. Enteric tube is prese nt on the distal tip overlies the expected location of the distal esophagus, side port overlies the m id esophagus. There is elevation of the left hemidiaphragm and left lower lobe atelectasis and consol idation of left upper lobe consolidation. There is minor loss of left hemithorax. Left effusion. CONCLUSION: Stable appearance of the chest. Reggie Murillo MD on June 12, 2017 at 6:40 Board Certified Radiologist. This report was verified electronically.
[2017-06-12 07:21] LABS: BLOOD GAS BASE EXCESS -6.8 mmol/L (-2-2); BLOOD GAS HCO3 18 mmol/L (22-26); BLOOD GAS PCO2 38 mmHg (38-42); BLOOD GAS PO2 90 mmHg (61-120)
[2017-06-12 07:22] LABS: BLOOD GAS CARBOXYHEMOGLOBIN 0.9 % (0-4); BLOOD GAS METHEMOGLOBIN 1.1 % (0-2); BLOOD GAS TOTAL HGB 12.8 G/DL (12.0-16.0)
[2017-06-12 07:23] LABS: BLOOD GAS O2 HGB SATURATION 93 % (90-100); BLOOD GAS OXYGEN CONTENT 16.8 Vol % (12.0-20.0); CRITICAL VALUE NO; DRAW SITE RT RADIAL; FIO2 100 %; NUMBER OF ARTERIAL PUNCTURES 1; OXYGEN DEVICE VENTILATOR; STAT NO; TEMP CORR TO 98.6; ULNAR PULSE PRESENT; VENT SETTINGS PRVC/AC
--- NOTE | 2017-06-12 07:56 | MB ---
cc: LAURENCE MOESS DATE OF CONSULTATION 06/11/2017 REASON FOR CONSULTATION Mr. Valles is a 57-year-old male with a history of metastatic rectal cancer who was admitted to the emergency room with shortness of breath and required to be intubated. He is currently intubated and sedated and I am unable to take a history and physical from the patient. This will be taken from the chart. PAST MEDICAL HISTORY His medical history is notable for: 1. Metastatic rectal adenocarcinoma 2. Hypertension 3. Gastroesophageal reflux disease 4. Anemia PAST SURGICAL HISTORY Noted as: 1. Colostomy 2. Right above the knee amputation 3. Left partial foot amputation SOCIAL HISTORY There is no history of smoking or drinking. MEDICATIONS For medications, refer to the chart. REVIEW OF SYSTEMS Unable to obtain due to currently intubated and sedated. PHYSICAL EXAM PRESENT VITALS: Temperature 98.8, heart rate 103, respiratory rate 24, blood pressure is 98/64, pulse ox is 80, FIO2 is 100. GENERAL: He is cachectic 57-year-old male currently intubated and sedated. HEENT: Normocephalic, atraumatic. NECK: Supple. LUNGS: Breath sounds bilaterally. ABDOMEN: Soft, nontender and nondistended. He has a Yan catheter in with gross hematuria noted. EXTREMITIES: He has a right [id number] amputation. Left side shows no evidence of cyanosis, clubbing or edema. LABORATORY DATA White count 22.9, hemoglobin 11.6, hematocrit 34.9, platelet count of 1040. Sodium 136, potassium 3.1, chloride 101, CO2 24.5, BUN 14, creatinine 1.04, glucose 137. PT is 11.8, INR is 1.1, PTT is 32.3. Urinalysis shows large leukoesterase with nitrite positive and numerous white cells and 100 red cells. ASSESSMENT This is a 57-year-old male with metastatic rectal cancer who presented with shortness of breath now currently intubated in the emergency room with evidence of gross hematuria. Gross hematuria by report was noted after the Yan catheter was placed and was irrigated at the bedside presently to clear. No clots were evacuated. I would recommend observing urine output and monitoring hematuria. Irrigate Yan q. shift with 60 cc Piston syringe and will follow. If necessary, we will obtain imaging studies in the future if he stabilizes. Thank you for the consult and allowing me to participate in the care of this patient. Laurence BINGHAM/DJL /5:21 PM /7:44 AM
[2017-06-12] MEDS: DOCUSATE SODIUM 50 MG/SENNA 8.6 MG TAB PO SCH ×2 (08:11→20:34)
[2017-06-12] MEDS: PANTOPRAZOLE SODIUM 40 MG VIAL IV SCH (08:11)
[2017-06-12] MEDS: methylPREDNISolone SOD SUCC 40 MG/1 ML VIAL IV PUSH SCH ×3 (08:11→23:48)
--- NOTE | 2017-06-12 09:20 | HHI.CCPN ---
Subjective Remarks/Hospital Course The patient is a 57-year-old male with past medical history of rectal adenocarcinoma with metastatic disease and COPD, hypertension, GERD and anemia. He presented to [facility] Emergency Department from his oncologist's office for evaluation of shortness of breath. He was found to have O2 saturation in the low 80s and the patient has been short of breath for several days. He denied any associated symptoms of fever, chills, cough, nausea or vomiting or any abdominal pain. On arrival to the ER he was tachycardic, tachypneic and severely hypoxemic. The patient was intubated with etomidate, succinylcholine and placed on full mechanical ventilation. When seen he is currently on Diprivan, fentanyl and versed drips for sedation and vent synchrony. In addition he receive vecuronium 10 milligrams IV push. A chest x- ray pre intubation showed consolidation left base and his chest x-ray post intubation showed hyperinflation of the right with dense consolidation with volume loss on the left. Initially he was on BiPAP 10/5 with 100% FIO2, however , the patient failed BiPAP and he was subsequently intubated. ABG post intubation appears mixed venous gas with a pH of 7.46, CO2 33, paO2 39, bicarb 23 and saturation 70% on assist control rate of 24 tidal volume 550, PEEP of 14 , 100% FIO2. A CT scan of the chest was ordered. The patient's current blood pressure is 111/73, tachycardic with a heart rate of 115. 06/12 Patient is sedated with Diprivan, Fentanyl and Versed. Afebrile. On PRVC with PEEP:7 and FIO2 90%. No recurrent hematuria. Objective Vital Signs Date Time Temp Pulse Resp B/P Pulse Ox O2 Delivery O2 Flow Rate FiO2 06/12/17 07:45 96 85 06/12/17 06:00 118 06/12/17 04:00 98.4 22 82/62 06/11/17 17:15 Ventilator 06/11/17 12:40 15.00 Intake and Output 06/11/17 06/11/17 06/12/17 08:00 16:00 00:00 Intake Total 902 ml Output Total 425 ml Balance 477 ml Result Diagram: 06/12/17 0345 06/12/17 0345 Other Results Laboratory Tests Test 06/11/17 06/11/17 06/11/17 06/11/17 11:50 11:55 12:30 14:03 Blood Gas Puncture Site LT RADIAL LT RADIAL Blood Gas Patient Temperature 98.6 98.6 Blood Gas HCO3 23 mmol/L 23 mmol/L Blood Gas Base Excess 0.8 mmol/L -0.3 mmol/L Blood Gas Oxygen Saturation 81 % 70 % Arterial Blood pH 7.56 7.46 Arterial Blood Partial 26 mmHg 33 mmHg Pressure CO2 Arterial Blood Partial 44 mmHG 39 mmHG Pressure O2 Arterial Blood Oxygen Content 12.6 Vol % 10.6 Vol % Arterial Blood 1.4 % 1.1 % Carboxyhemoglobin Arterial Blood Methemoglobin 0.5 % 0.6 % Blood Gas Hemoglobin 11.1 G/DL 10.8 G/DL Oxygen Delivery Device BiPAP VENTILATOR Blood Gas Ventilator Setting IPAP10/EPAP5 AC/24/550/PEEP14 Blood Gas Inspired Oxygen 100 % 100 % White Blood Count 22.9 TH/MM3 Red Blood Count 4.55 MIL/MM3 Hemoglobin 11.6 GM/DL Hematocrit 34.9 % Mean Corpuscular Volume 76.7 FL Mean Corpuscular Hemoglobin 25.6 PG Mean Corpuscular Hemoglobin 33.4 % Concent Red Cell Distribution Width 17.4 % Platelet Count 1040 TH/MM3 Mean Platelet Volume 6.6 FL Neutrophils (%) (Auto) 87.6 % Lymphocytes (%) (Auto) 5.4 % Monocytes (%) (Auto) 6.4 % Eosinophils (%) (Auto) 0.2 % Basophils (%) (Auto) 0.4 % Neutrophils # (Auto) 20.0 TH/MM3 Lymphocytes # (Auto) 1.2 TH/MM3 Monocytes # (Auto) 1.5 TH/MM3 Eosinophils # (Auto) 0.0 TH/MM3 Basophils # (Auto) 0.1 TH/MM3 CBC Comment DIFF FINAL Differential Comment Prothrombin Time 11.8 SEC Prothromb Time International 1.1 RATIO Ratio Activated Partial 32.3 SEC Thromboplast Time Sodium Level 136 MEQ/L Potassium Level 3.1 MEQ/L Chloride Level 101 MEQ/L Carbon Dioxide Level 24.5 MEQ/L Anion Gap 11 MEQ/L Blood Urea Nitrogen 14 MG/DL Creatinine 1.04 MG/DL Estimat Glomerular Filtration 73 ML/MIN Rate Random Glucose 137 MG/DL Lactic Acid Level 2.6 mmol/L Calcium Level 9.0 MG/DL Phosphorus Level 1.5 MG/DL Magnesium Level 1.9 MG/DL Total Bilirubin 0.5 MG/DL Aspartate Amino Transf 10 U/L (AST/SGOT) Alanine Aminotransferase 9 U/L (ALT/SGPT) Alkaline Phosphatase 88 U/L B-Type Natriuretic Peptide 87 PG/ML Total Protein 7.3 GM/DL Albumin 2.5 GM/DL Urine Color YELLOW Urine Turbidity CLOUDY Urine pH 7.0 Urine Specific Kermit 1.016 Urine Protein 300 mg/dL Urine Glucose (UA) NEG mg/dL Urine Ketones TRACE mg/dL Urine Occult Blood MOD Urine Nitrite POS Urine Bilirubin NEG Urine Urobilinogen LESS THAN 2.0 MG/DL Urine Leukocyte Esterase LARGE Urine RBC 100 /hpf Urine WBC /hpf Urine WBC Clumps MANY Urine Squamous Epithelial 1 /hpf Cells Urine Transitional Epithelial 1 /hpf Cells Urine Bacteria MANY /hpf Microscopic Urinalysis Comment CULTURE INDICATED Test 06/11/17 06/11/17 06/12/17 06/12/17 18:43 18:45 03:45 05:39 Blood Gas Puncture Site RT RADIAL RT RADIAL Blood Gas Patient Temperature 98.6 98.6 Blood Gas HCO3 21 mmol/L 18 mmol/L Blood Gas Base Excess -3.2 mmol/L -6.8 mmol/L Blood Gas Oxygen Saturation 87 % 93 % Arterial Blood pH 7.39 7.31 Arterial Blood Partial 36 mmHg 38 mmHg Pressure CO2 Arterial Blood Partial 63 mmHg 90 mmHg Pressure O2 Arterial Blood Oxygen Content 13.7 Vol % 16.8 Vol % Arterial Blood 1.1 % 0.9 % Carboxyhemoglobin Arterial Blood Methemoglobin 1.2 % 1.1 % Blood Gas Hemoglobin 11.1 G/DL 12.8 G/DL Oxygen Delivery Device VENTILATOR VENTILATOR Blood Gas Ventilator Setting A/C PRVC/AC 24/550/PEEP14 Blood Gas Inspired Oxygen 100 % 100 % Nasal Screen MRSA (PCR) MRSA DETECTED White Blood Count 29.8 TH/MM3 Red Blood Count 4.13 MIL/MM3 Hemoglobin 10.6 GM/DL Hematocrit 32.0 % Mean Corpuscular Volume 77.3 FL Mean Corpuscular Hemoglobin 25.7 PG Mean Corpuscular Hemoglobin 33.2 % Concent Red Cell Distribution Width 17.5 % Platelet Count 984 TH/MM3 Mean Platelet Volume 6.6 FL Neutrophils (%) (Auto) 95.8 % Lymphocytes (%) (Auto) 1.7 % Monocytes (%) (Auto) 2.3 % Eosinophils (%) (Auto) 0.0 % Basophils (%) (Auto) 0.2 % Neutrophils # (Auto) 28.5 TH/MM3 Lymphocytes # (Auto) 0.5 TH/MM3 Monocytes # (Auto) 0.7 TH/MM3 Eosinophils # (Auto) 0.0 TH/MM3 Basophils # (Auto) 0.0 TH/MM3 CBC Comment DIFF FINAL Differential Comment Sodium Level 140 MEQ/L Potassium Level 4.1 MEQ/L Chloride Level 107 MEQ/L Carbon Dioxide Level 21.9 MEQ/L Anion Gap 11 MEQ/L Blood Urea Nitrogen 22 MG/DL Creatinine 1.46 MG/DL Estimat Glomerular Filtration 50 ML/MIN Rate Random Glucose 220 MG/DL Calcium Level 8.1 MG/DL Phosphorus Level 6.3 MG/DL Magnesium Level 2.0 MG/DL Imaging Last Impressions Chest X-Ray 06/12/17 0000 Signed Impressions: Service Date/Time: Monday, June 12, 2017 06:09 - CONCLUSION: Stable appearance of the chest. Reggie Murillo MD Chest CT 06/11/17 0000 Signed Impressions: Service Date/Time: Sunday, June 11, 2017 14:46 - CONCLUSION: 1. Large subcarinal mediastinal mass obstructing the left mainstem bronchus and presenting as a large filling defect within the esophagus. 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 2. Consolidated left lung to bronchial obstruction. 3. Small left pleural effusion 4. Known bilateral moderate to severe hydronephrosis. 5. Small patchy infiltrate right upper lobe. Edouard German MD Objective Remarks GENERAL: Patient is 57 yo critically ill intubated and sedated SKIN: Warm and dry. HEAD: Normocephalic. EYES: No scleral icterus. No injection or drainage. NECK: Supple, trachea midline. No JVD or lymphadenopathy. orally intubated CARDIOVASCULAR: Regular rate and rhythm without murmurs, gallops, or rubs. RESPIRATORY: Diminished BS on left. No accessory muscle use. GASTROINTESTINAL: Abdomen soft, non-tender, nondistended. MUSCULOSKELETAL: No cyanosis, or edema. Neuro: Sedated A/P Assessment and Plan . Acute hypoxemic respiratory failure. 2. Left lower lobe consolidation. 3. Leukocytosis. 4. COPD 5. Rectal adenocarcinoma with metastases. 6. Hypertension. 7. Mild lactic acidemia. 8. Hypokalemia. 9. Gastroesophageal reflux disease. 10. Anemia. 11. B/L hydronephrosis Plan: Neuro: On fentanyl, versed and Diprivan infusions for sedation and vent synchrony Pulm: Continue with vent support and maintain sats> 92%. Bronchodilators, Solu-Medrol 60mg IV q.8h. Continue Flolan 30,000 ng-8ml/hr nebs. CT chest reviewed and discussed with Dr. Guardado Will likely need broncho with biopsy r/o endobronchial lesions/ bronchogenic ca Patient is at high risk for bronch at this time given amount of O2 support. On PRVC RR 20, TV 550, IT: 1.30, PEEP:7, FIO2 90%, decrease FIO2 as angela. CV: Monitor HR and BP keep MAP> 65 mmHg. Check lactic acid- on NS at 84 ml an hour. : Monitor renal function ins and outs and electrolyte replacement per protocol. Cr: 1.46 from 1.04, on NS@84ml/hr Urology is following for b/l hydronephrosis and hematuria (cleared) GI: On Protonix 40 mg IV daily for GI prophylaxis. Start tube feeds- Glucerna 1.5 with goal rate 45ml/hr GI is following - likely need EGD r/o esophageal mass General surgery si following - Dr. Alfonso ID: Continue with abx(vancomycin, Zosyn and azithromycin) Monitor for signs of infections(fever and WBC) Follow up on blood culture and urine culture from 06/11 ID eval. Check strep pneumonia, legionella urinary antigen., nasal washing to rule out influenza and sputum cx. Heme: Monitor CBC, consult oncology service. Patient is known to Dr. Monte. Endo: SSI with Accu-Chek q.4h for glycemic control GI prophylaxis with Protonix 40 mg daily and DVT prophylaxis with SCD's. Not on chemical anticoagulation prophylaxis due to hematuria Palliative care is following CCT 30 mins Placido Olivares MD Jun 12, 2017 09:20
[2017-06-12] MEDS ORDERED: GLUCAGON 1 MG/ML VIAL OTHER PRN (09:30)
[2017-06-12] MEDS ORDERED: DEXTROSE 50% IN WATER 50 ML VIAL(D50) IV PRN (09:30)
[2017-06-12] MEDS: SODIUM CHLOR 0.9% 1000 ML INJ 1,000 ML IV SCH ×2 (10:30→19:50)
--- NOTE | 2017-06-12 10:33 | HHI.PR ---
Subjective Patient symptoms today Pt seen and examined. Intubated and sedated. Urine now clear. Objective Vital Signs Vital Signs Date Time Temp Pulse Resp B/P Pulse Ox O2 Delivery O2 Flow Rate FiO2 06/12/17 09:00 113 20 80/56 96 06/12/17 08:00 98.3 112 20 92/62 98 06/12/17 08:00 85 06/12/17 07:45 96 85 06/12/17 07:00 116 20 92/58 99 06/12/17 06:15 90 06/12/17 06:00 118 06/12/17 04:14 87 100 06/12/17 04:00 100 06/12/17 04:00 98.4 116 22 82/62 87 06/12/17 04:00 116 06/12/17 02:30 100 06/12/17 02:00 109 06/12/17 01:25 100 06/12/17 00:25 92 100 06/12/17 00:00 109 06/12/17 00:00 98.0 90 24 86/66 89 06/12/17 00:00 100 06/12/17 00:00 98.0 109 21 84/54 91 06/11/17 22:00 96 06/11/17 21:36 95 100 06/11/17 21:00 100 06/11/17 20:00 90 06/11/17 20:00 100 06/11/17 20:00 96.7 90 24 86/66 89 06/11/17 19:00 90 24 92/63 91 06/11/17 18:33 95 100 06/11/17 17:30 100 81 06/11/17 17:15 101 24 103/71 84 Ventilator 100 06/11/17 16:45 101 24 97/69 84 Ventilator 100 06/11/17 16:15 100 24 102/67 84 Ventilator 100 06/11/17 16:00 103 24 98/64 73 Ventilator 100 06/11/17 15:45 103 24 107/67 73 Ventilator 100 06/11/17 15:27 72 100 06/11/17 15:06 109 24 105/67 73 Ventilator 100 06/11/17 14:50 110 24 102/66 73 Ventilator 100 06/11/17 14:34 112 24 103/70 73 Ventilator 100 06/11/17 14:30 75 100 06/11/17 14:06 115 24 111/73 73 Ventilator 100 06/11/17 14:05 115 24 109/70 73 Ventilator 100 06/11/17 13:58 114 24 110/68 73 Ventilator 100 06/11/17 13:51 118 24 117/72 73 Ventilator 100 06/11/17 13:50 100 06/11/17 13:39 118 25 115/69 69 Blow-by 06/11/17 13:36 118 25 120/61 72 Blow-by 06/11/17 13:21 118 16 140/81 68 Blow-by 70 06/11/17 13:06 120 16 139/74 67 Ventilator 70 06/11/17 12:51 116 16 176/96 81 Ventilator 60 06/11/17 12:40 75 15.00 100 06/11/17 12:40 60 06/11/17 12:40 123 16 180/104 100 Ventilator 06/11/17 12:30 118 16 137/87 100 Ventilator 06/11/17 12:03 125 35 130/78 86 BiPAP 06/11/17 11:48 34 82 BiPAP 06/11/17 11:47 85 BiPAP 06/11/17 11:44 98.8 126 34 138/74 91 06/11/17 11:43 84 100 Intake & Output 06/12/17 06/12/17 07:00 19:00 Intake Total 2706 ml Output Total 685 ml Balance 2021 ml Intake IV Total 2706 ml Output Urine Total 625 ml Stool Total 60 ml Result Diagram: 06/12/17 0345 06/12/17 0345 Imaging Last 24 hours Impressions Chest X-Ray 06/12/17 0000 Signed Impressions: Service Date/Time: Monday, June 12, 2017 06:09 - CONCLUSION: Stable appearance of the chest. Reggie Murillo MD Chest X-Ray 06/11/17 1141 Signed Impressions: Service Date/Time: Sunday, June 11, 2017 11:59 - CONCLUSION: Increasing consolidation left base. Sean Howard MD FACR Objective Remarks Abd:soft,nt,nd Yan: urine clear Medications and IVs Current Medications Medications (Trade) Dose Ordered Sig/Orlin Route Start Time Stop Time Status Last Admin Sodium Chloride 2 ml 2 ml UNSCH PRN IVF 06/11/17 11:45 (Diprivan 1000 Mg/100ml Inj) 100 ml @ 0 mls/hr TITRATE IV 06/11/17 12:15 06/11/17 13:34 (Protonix Inj) 40 mg DAILY IV 06/11/17 13:00 06/12/17 08:11 Miscellaneous Information 1 Q361D XX 06/11/17 13:00 (Chlorhexidine 2% Cloth) 3 pack Taper DAILY@04 TOP 06/12/17 04:00 06/08/18 03:59 06/12/17 04:00 (Chlorhexidine 2% Cloth) 3 pack UNSCH PRN TOP 06/11/17 13:00 (Jaylene-Colace) 1 tab BID PO 06/11/17 21:00 06/12/17 08:11 (Milk Of Magnesia Liq) 30 ml Q12H PRN PO 06/11/17 13:00 (Senokot) 17.2 mg Q12H PRN PO 06/11/17 13:00 (Dulcolax Supp) 10 mg DAILY PRN RECTAL 06/11/17 13:00 (Lactulose Liq) 30 ml DAILY PRN PO 06/11/17 13:00 (D50w (Vial) Inj) 50 ml UNSCH PRN IV 06/11/17 13:00 Glucagon 1 mg 1 mg UNSCH PRN OTHER 06/11/17 13:00 Potassium Chloride 100 ml @ 50 mls/hr Q2H PRN IV 06/11/17 13:00 (KCl 20 Meq Premix Inj) 100 ml @ 50 mls/hr Q2H PRN IV 06/11/17 13:00 Potassium Bicarb/ Potassium Chloride 50 meq 50 meq UNSCH PRN PO 06/11/17 13:00 Potassium Chloride 100 ml @ 25 mls/hr UNSCH PRN IV 06/11/17 13:00 Potassium Chloride 100 ml @ 50 mls/hr Q2H PRN IV 06/11/17 13:00 (Magnesium Sulfate Inj/NS Inj) 100 ml @ 50 mls/hr UNSCH PRN IV 06/11/17 13:00 Magnesium Oxide 800 mg 800 mg UNSCH PRN PO 06/11/17 13:00 (Magnesium Sulfate Inj/NS Inj) 100 ml @ 50 mls/hr UNSCH PRN IV 06/11/17 13:00 Potassium Phosphate 2000 mg 2,000 mg Q4H PRN PO 06/11/17 13:00 (Sodium Phosphate Inj/NS 250 ml Inj) 250 ml @ 42 mls/hr UNSCH PRN IV 06/11/17 13:00 (KCl Powder) 40 meq UNSCH PRN PO 06/11/17 13:00 Potassium Phosphate 2000 mg 2,000 mg UNSCH PRN PO/TUBE 06/11/17 13:00 Potassium Phosphate 30 mmol/ Sodium Chloride 260 ml @ 42 mls/hr UNSCH PRN IV 06/11/17 13:00 06/11/17 23:58 Vancomycin HCl 1000 mg/Sodium Chloride 250 ml @ 250 mls/hr Q12H IV 06/11/17 14:00 06/12/17 01:04 Piperacillin Sod/ Tazobactam Sod 100 ml @ 200 mls/hr Q6H IV 06/11/17 18:00 06/12/17 06:02 Azithromycin 500 mg/Sodium Chloride 250 ml @ 250 mls/hr Q24H IV 06/11/17 14:00 06/11/17 15:43 Midazolam HCl 100 ml @ 0 mls/hr TITRATE IV 06/11/17 13:00 06/12/17 01:04 (fentaNYL DRIP) 250 ml @ 0 mls/hr TITRATE IV 06/11/17 13:30 Methylprednisolone Sodium Succinate 60 mg 60 mg Q8H IV PUSH 06/11/17 16:00 06/12/17 08:11 Epoprostenol Sodium 45 ml/ Sodium Chloride 100 ml @ 8 mls/hr Q8H NEB 06/11/17 18:00 06/12/17 02:48 (NS 1000 ml Inj) 1,000 ml @ 84 mls/hr [id number] IV 06/12/17 10:00 (NovoLIN R SUPPLEMENTAL SCALE) 1 Q4H SQ 06/12/17 10:00 Assessment and Plan Assessment and Plan 57 y.o male with metastatic rectal cancer with hematuria and bilateral hydronephrosis. Hematuria now cleared. Creatinine at 1.4 up from 1.0. Continue to monitor. Will follow. Cayden Tapia DO Jun 12, 2017 10:33
[2017-06-12 11:28] LABS: BICARBONATE 20.2 MEQ/L (21.0-32.0); POTASSIUM 3.3 MEQ/L (3.5-5.1)
--- NOTE | 2017-06-12 11:29 | HHI.GIFU ---
Subjective Remarks Still on high ventilator support, FIO2 80%. Pulmonology following, planning for possible bronchoscopy once more stable. TF started. No GI bleeding. Objective Vitals I&O Vital Signs Date Time Temp Pulse Resp B/P Pulse Ox O2 Delivery O2 Flow Rate FiO2 06/12/17 09:00 113 20 80/56 96 06/12/17 08:00 98.3 112 20 92/62 98 06/12/17 08:00 85 06/12/17 07:45 96 85 06/12/17 07:00 116 20 92/58 99 06/12/17 06:15 90 06/12/17 06:00 118 06/12/17 04:14 87 100 06/12/17 04:00 100 06/12/17 04:00 98.4 116 22 82/62 87 06/12/17 04:00 116 06/12/17 02:30 100 06/12/17 02:00 109 06/12/17 01:25 100 06/12/17 00:25 92 100 06/12/17 00:00 109 06/12/17 00:00 98.0 90 24 86/66 89 06/12/17 00:00 100 06/12/17 00:00 98.0 109 21 84/54 91 06/11/17 22:00 96 06/11/17 21:36 95 100 06/11/17 21:00 100 06/11/17 20:00 90 06/11/17 20:00 100 06/11/17 20:00 96.7 90 24 86/66 89 06/11/17 19:00 90 24 92/63 91 06/11/17 18:33 95 100 06/11/17 17:30 100 81 06/11/17 17:15 101 24 103/71 84 Ventilator 100 06/11/17 16:45 101 24 97/69 84 Ventilator 100 06/11/17 16:15 100 24 102/67 84 Ventilator 100 06/11/17 16:00 103 24 98/64 73 Ventilator 100 06/11/17 15:45 103 24 107/67 73 Ventilator 100 06/11/17 15:27 72 100 06/11/17 15:06 109 24 105/67 73 Ventilator 100 06/11/17 14:50 110 24 102/66 73 Ventilator 100 06/11/17 14:34 112 24 103/70 73 Ventilator 100 06/11/17 14:30 75 100 06/11/17 14:06 115 24 111/73 73 Ventilator 100 06/11/17 14:05 115 24 109/70 73 Ventilator 100 06/11/17 13:58 114 24 110/68 73 Ventilator 100 06/11/17 13:51 118 24 117/72 73 Ventilator 100 06/11/17 13:50 100 06/11/17 13:39 118 25 115/69 69 Blow-by 06/11/17 13:36 118 25 120/61 72 Blow-by 06/11/17 13:21 118 16 140/81 68 Blow-by 70 06/11/17 13:06 120 16 139/74 67 Ventilator 70 06/11/17 12:51 116 16 176/96 81 Ventilator 60 06/11/17 12:40 75 15.00 100 06/11/17 12:40 60 06/11/17 12:40 123 16 180/104 100 Ventilator 06/11/17 12:30 118 16 137/87 100 Ventilator 06/11/17 12:03 125 35 130/78 86 BiPAP 06/11/17 11:48 34 82 BiPAP 06/11/17 11:47 85 BiPAP 06/11/17 11:44 98.8 126 34 138/74 91 06/11/17 11:43 84 100 I/O 06/11/17 06/11/17 06/11/17 06/12/17 06/12/17 06/12/17 07:00 15:00 23:00 07:00 15:00 23:00 Intake Total 902 ml 1804 ml Output Total 425 ml 260 ml Balance 477 ml 1544 ml Intake IV Total 902 ml 1804 ml Output Urine Total 375 ml 250 ml Stool Total 50 ml 10 ml Laboratory Laboratory Tests Test 06/11/17 06/11/17 06/11/17 06/11/17 11:50 11:55 12:30 14:03 Blood Gas Puncture Site LT RADIAL LT RADIAL Blood Gas Patient Temperature 98.6 98.6 Blood Gas HCO3 23 23 Blood Gas Base Excess 0.8 -0.3 Blood Gas Oxygen Saturation 81 70 Arterial Blood pH 7.56 7.46 Arterial Blood Partial 26 33 Pressure CO2 Arterial Blood Partial 44 39 Pressure O2 Arterial Blood Oxygen Content 12.6 10.6 Arterial Blood 1.4 1.1 Carboxyhemoglobin Arterial Blood Methemoglobin 0.5 0.6 Blood Gas Hemoglobin 11.1 10.8 Oxygen Delivery Device BiPAP VENTILATOR Blood Gas Ventilator Setting IPAP10/EPAP5 AC/24/550/PEEP14 Blood Gas Inspired Oxygen 100 100 White Blood Count 22.9 Red Blood Count 4.55 Hemoglobin 11.6 Hematocrit 34.9 Mean Corpuscular Volume 76.7 Mean Corpuscular Hemoglobin 25.6 Mean Corpuscular Hemoglobin 33.4 Concent Red Cell Distribution Width 17.4 Platelet Count 1040 Mean Platelet Volume 6.6 Neutrophils (%) (Auto) 87.6 Lymphocytes (%) (Auto) 5.4 Monocytes (%) (Auto) 6.4 Eosinophils (%) (Auto) 0.2 Basophils (%) (Auto) 0.4 Neutrophils # (Auto) 20.0 Lymphocytes # (Auto) 1.2 Monocytes # (Auto) 1.5 Eosinophils # (Auto) 0.0 Basophils # (Auto) 0.1 CBC Comment DIFF FINAL Differential Comment Prothrombin Time 11.8 Prothromb Time International 1.1 Ratio Activated Partial 32.3 Thromboplast Time Sodium Level 136 Potassium Level 3.1 Chloride Level 101 Carbon Dioxide Level 24.5 Anion Gap 11 Blood Urea Nitrogen 14 Creatinine 1.04 Estimat Glomerular Filtration 73 Rate Random Glucose 137 Lactic Acid Level 2.6 Calcium Level 9.0 Phosphorus Level 1.5 Magnesium Level 1.9 Total Bilirubin 0.5 Aspartate Amino Transf 10 (AST/SGOT) Alanine Aminotransferase 9 (ALT/SGPT) Alkaline Phosphatase 88 B-Type Natriuretic Peptide 87 Total Protein 7.3 Albumin 2.5 Urine Color YELLOW Urine Turbidity CLOUDY Urine pH 7.0 Urine Specific [place] 1.016 Urine Protein 300 Urine Glucose (UA) NEG Urine Ketones TRACE Urine Occult Blood MOD Urine Nitrite POS Urine Bilirubin NEG Urine Urobilinogen LESS THAN 2.0 Urine Leukocyte Esterase LARGE Urine RBC 100 Urine WBC Urine WBC Clumps MANY Urine Squamous Epithelial 1 Cells Urine Transitional Epithelial 1 Cells Urine Bacteria MANY Microscopic Urinalysis Comment CULTURE INDICATED Test 06/11/17 06/11/17 06/12/17 06/12/17 18:43 18:45 03:45 05:39 Blood Gas Puncture Site RT RADIAL RT RADIAL Blood Gas Patient Temperature 98.6 98.6 Blood Gas HCO3 21 18 Blood Gas Base Excess -3.2 -6.8 Blood Gas Oxygen Saturation 87 93 Arterial Blood pH 7.39 7.31 Arterial Blood Partial 36 38 Pressure CO2 Arterial Blood Partial 63 90 Pressure O2 Arterial Blood Oxygen Content 13.7 16.8 Arterial Blood 1.1 0.9 Carboxyhemoglobin Arterial Blood Methemoglobin 1.2 1.1 Blood Gas Hemoglobin 11.1 12.8 Oxygen Delivery Device VENTILATOR VENTILATOR Blood Gas Ventilator Setting A/C PRVC/AC 24/550/PEEP14 Blood Gas Inspired Oxygen 100 100 Nasal Screen MRSA (PCR) MRSA DETECTED White Blood Count 29.8 Red Blood Count 4.13 Hemoglobin 10.6 Hematocrit 32.0 Mean Corpuscular Volume 77.3 Mean Corpuscular Hemoglobin 25.7 Mean Corpuscular Hemoglobin 33.2 Concent Red Cell Distribution Width 17.5 Platelet Count 984 Mean Platelet Volume 6.6 Neutrophils (%) (Auto) 95.8 Lymphocytes (%) (Auto) 1.7 Monocytes (%) (Auto) 2.3 Eosinophils (%) (Auto) 0.0 Basophils (%) (Auto) 0.2 Neutrophils # (Auto) 28.5 Lymphocytes # (Auto) 0.5 Monocytes # (Auto) 0.7 Eosinophils # (Auto) 0.0 Basophils # (Auto) 0.0 CBC Comment DIFF FINAL Differential Comment Sodium Level 140 Potassium Level 4.1 Chloride Level 107 Carbon Dioxide Level 21.9 Anion Gap 11 Blood Urea Nitrogen 22 Creatinine 1.46 Estimat Glomerular Filtration 50 Rate Random Glucose 220 Calcium Level 8.1 Phosphorus Level 6.3 Magnesium Level 2.0 Date/Time Procedure Status Source Growth 06/12/17 09:45 Influenza Types A,B Antigen ([facility]) Ordered Nasal Washing Pending 06/12/17 09:45 Gram Stain Received Sputum Endotracheal Pending 06/12/17 09:45 Sputum Culture Received Sputum Endotracheal Pending 06/11/17 12:30 Urine Culture Received Urine Clean Catch Pending 06/11/17 11:55 Aerobic Blood Culture Received Blood Peripheral Pending 06/11/17 11:55 Anaerobic Blood Culture Received Blood Peripheral Pending Imaging Last Impressions Chest X-Ray 06/12/17 0000 Signed Impressions: Service Date/Time: Monday, June 12, 2017 06:09 - CONCLUSION: Stable appearance of the chest. Reggie Murillo MD Chest CT 06/11/17 0000 Signed Impressions: Service Date/Time: Rom, June 11, 2017 14:46 - CONCLUSION: 1. Large subcarinal mediastinal mass obstructing the left mainstem bronchus and presenting as a large filling defect within the esophagus. 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 2. Consolidated left lung to bronchial obstruction. 3. Small left pleural effusion 4. Known bilateral moderate to severe hydronephrosis. 5. Small patchy infiltrate right upper lobe. Edouard German MD Physical Exam HEENT: Normocephalic; atraumatic; no jaundice. CHEST: Resp even/unlabored. OETT to vent, FIO2 80%. CARDIAC: ST ABDOMEN: Soft, mildly distended, nontender; no hepatosplenomegaly; bowel sounds are present in all four quadrants. Colostomy right side. Old colostomy site on left with drsg d/i. EXTREMITIES: Left foot amputation. 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 esophageal mass. Chest CT(06/11/17)-----> 1. Large subcarinal mediastinal mass obstructing the left mainstem bronchus and presenting as a large filling defect within the esophagus. 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 2. Consolidated left lung to bronchial obstruction. 3. Small left pleural effusion 4. Known bilateral moderate to severe hydronephrosis. 5. Small patchy infiltrate right upper lobe. He was recently hospitalized for dysphagia/odynophagia (06/01-06/04). He was not evaluated by our service at that time. Pulmonary following, considering bronchoscopy once respiratory status improves. Will await bronch and consider EGD when more stable after bronchoscopy. - Dysphagia, decreased appetite, odynophagia. Recently hospitalized from 06/01-. There are no outpatient records from our office of EGD. - Anemia. No obvious acute blood loss. 10.6/32.0. - Leukocytosis. He has LLL consolidation. FLU A/B negative, Sputum pending, urine cx pending, bcx no growth 1 day Zosyn - Bilateral hydronephrosis, Hematuria. following. - Acute hypoxemic respiratory failure, left lower lobe consolidation, COPD. vent. per [facility] - Metastatic rectal cancer. Dx with large rectal adenocarcinoma in 2013. This was complicated by a perirectal abscess and a necrotizing fasciitis which involved the pelivs and down the thigh. S/P multiple debridement, diverting colostomy. He has undergone radiation. Initially felt to not be a candidate for chemotherapy and at one point, was on hospice, but then discharged from hospice services on 11/25. He is followed by Dr. Monte, and at one point was treated with palliative oral capecitabine, but it is unclear if he had a response. He has since been offered palliative chemo on several different occasions, but declined treatment. He PLAN: - TF as tolerated - Cont. PPI - Abx per CCM - Monitor labs - Consider EGD when more stable, after bronchoscopy. ? esophageal stent - Supportive care - Pt seen and examined by Dr. Caro and myself and this note is written on his behalf Suzanna Ordonez Jun 12, 2017 11:29
--- NOTE | 2017-06-12 11:35 | MB ---
cc: Nichole GUARDADO M.D. DATE OF CONSULTATION: 06/11/2017 REASON FOR CONSULTATION Respiratory failure. HISTORY OF PRESENT ILLNESS This is a 57-year-old white male with a history of rectal adenocarcinoma and history of metastatic disease, has been under the care of Dr. Monte, oncologist. The patient also has a longstanding history of COPD. He was seen in the emergency room earlier today for shortness of breath and low O2 sats and he has been getting progressively dyspneic over the past few days. He has had no wheezing or cough and no nausea, vomiting or aspiration and denied any hemoptysis or hematemesis. The patient did have a CT of the chest, however, which showed extensive mediastinal adenopathy with mass lesion extending into the left mainstem bronchus which apparently has now occluded the bronchus. He had to be intubated, placed on ventilator support, and now on 100% FIO2 and is sedated with propofol. The patient had a blood gas study done initially which showed a pO2 of 39 with a sat of 70%. The patient's blood pressure was borderline and he is hypokalemic. PAST MEDICAL HISTORY Includes: 1. History of pneumonia and COPD. 2. History of adenocarcinoma of the rectum with metastatic disease, not on chemotherapy. 3. He has hypertension. 4. History has had a history for gastroesophageal reflux and anemia. PAST SURGICAL HISTORY 1. [id number] amputation of the right leg. 2. Colostomy with colon resection in the past. 3. Left partial foot amputation. HABITS The patient does not smoke. No significant alcohol. MEDICATION Med list was reviewed and includes: 1. Alprazolam. 2. Gabapentin. 3. Celexa. 4. Aspirin. 5. Flomax. 6. Lisinopril. 7. Fentanyl. REVIEW OF SYSTEMS The patient is intubated, unable to respond. FAMILY HISTORY Noncontributory. PHYSICAL EXAMINATION GENERAL: This averagely built middle-aged white female is pale and intubated and sedated. VITAL SIGNS: Blood pressure 110/50, heart rate was 110, respirations 24, temperature 97. HEENT: Pupils reactive and equal. Tongue is moist. Throat has secretions. NECK: Supple without venous distension. Trachea midline. No thyroid enlargement. CHEST: Distant breath sounds over the left chest with occasional wheezes heard bilaterally, more on the left upper chest. HEART: The heart sounds are regular, S1, S2. No murmur. ABDOMEN: Soft, slightly protuberant without masses or organomegaly or tenderness. Bowel sounds are active. EXTREMITIES: Cool extremities. There is amputated right [id number] and the left leg foot amputated. Pulse is not well felt. The patient is sedated. IMPRESSION 1. Hypoxemic respiratory failure. 2. Metastatic carcinoma with complete left lung atelectasis. 3. Rectal adenocarcinoma with metastasis. 4. Pneumonia left lung. 5. Sepsis ___. 6. Anemia of chronic disease. 7. COPD. 8. Hypertension. PLAN The patient has been kept sedated. Will place him on ventilator with rate of 24, PEEP of 14 and FIO2 100%. Nebulized DuoNeb solution added q.4 hours and Solu-Medrol 40 mg IV q.6 hours. Antibiotic therapy has been started by Dr. Olivares which we will continue and we will keep him n.p.o. ____ NG tube for suction. Followup chest x-ray and blood gas to be done and FIO2 will be weaned as tolerated. I will consider doing a bronchoscopy when his clinical condition has stabilized. Thank you Dr. Hope for this consultation. Rip Guardado MD JVD/VEENA /7:24 PM /11:15 AM
--- NOTE | 2017-06-12 11:49 | HHI.HCPN ---
Spoke with PAN Jarrell to request accurints to find family as medical staff has been unable to reach persons in EMR. Accurints produced accurate number for Karyn Kinney, patients sister and alternate health care surrogate: . Spoke with Karyn who confirms she is the patient's sister, states primary health care surrogate Jeimy is . Karyn reports she is the only living siblings. Confirms she is willing to serve as health care surrogate. Dr. Bolden to follow-up to provide medical update and address goals of care. Contacts requested to be updated in EMR. Shira Durham MSW, LEAF BINNER Jun 12, 2017 11:49
[2017-06-12] MEDS: fentaNYL DRIP 250 ML IV SCH (11:53)
--- NOTE | 2017-06-12 12:41 | MB ---
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 CHIEF COMPLAINT The patient presented to my office reporting difficulty breathing, fatigue and weakness. HISTORY OF PRESENT ILLNESS Mr. Valles is very pleasant 57-year-old man who is well-known to me from previous hospitalizations as well as outpatient visits. Mr. Valles history with rectal cancer and dates back to 2013 when he presented with a large rectal mass with associated perirectal abscess. He developed necrotizing fasciitis involving his sacral area with extension down to his right thigh and lower extremity. The patient underwent at that time aggressive debridement and eventually required high dqkzz-wpd-eizq amputation of his right lower extremity, extensive debridement of his right gluteal area, and eventually required partial amputation of his left foot. This patient subsequently underwent palliative radiation to the primary rectal mass. He was in very poor condition at that time in the summer of 2013 and was discharged home on Hospice. He survived and reestablished followup with me in the summer. At that time he underwent systemic restaging and was noted to have persistent disease in the pelvis as well as new metastases to the lungs. He was recommended palliative systemic chemotherapy. He grudgingly agreed to receive palliative systemic therapy so long as it was "oral agents ". He was treated with 4 to 5 months Xeloda with modest benefit. He categorically declined intravenous systemic chemotherapy because he had lost many relatives to cancer who had been on systemic chemotherapy. In his mind he associated palliative systemic chemotherapy in the IV form with poor outcomes. About three months ago he came off of treatment completely. He had been in his usual fair state of health up until about two weeks ago when he was hospitalized for difficulty breathing. He underwent restaging at that time and was noted to have progressive disease in the pelvis as well as progressive disease in the thorax. He was noted in particular to have directed extension of his tumor into the bladder with resultant hematuria and is noted to have a large subcarinal mass. The patient was discharged home and came in to see me today and the outpatient clinic. Upon presentation he was noted to have an O2 sat of 80% on room air. He had poor response to high rate oxygen replacement intranasally. club licensee were called and he was sent into the emergency department. Shortly after presentation the emergency department he was intubated for respiratory failure. CT imaging of the thorax performed after intubation revealed complete collapse of the left lung second secondary to a large infiltrative mass in the sub shannon with extension into the left main stem bronchus. I have been asked to see the patient to help direct future goals of care and to communicate with family. PAST MEDICAL HISTORY 1. Metastatic adenocarcinoma of the lung. 2. Peripheral arterial disease. 3. High briwr-sso-tutu amputation on the right side. Partial amputation of the left foot. 4. Arterial stent placement in the lower extremity on the left side. 5. Multiple surgical debridements. 6. Various abdominal surgeries including diverting colostomy as well as reduction of colostomy associate hernia. 7. Tobacco abuse. 8. COPD. 9. History of alcohol abuse. FAMILY HISTORY Could not obtain at this time. REVIEW OF SYSTEMS I did obtain a review of systems prior to him being intubated. The patient's major complaints were that of difficulty breathing, fatigue, weakness, loss of appetite. Weight loss. He reported pain in his chest and his abdomen. He reported bleeding in his urine. He reported nausea but denies vomiting. He denied difficulty swallowing, he denies hematochezia or melena. PHYSICAL EXAMINATION VITAL SIGNS: Temperature is 90, 8.8 degrees Fahrenheit, heart rate ranging between 126 beats per minute and 100 beats a minute, blood pressure 103/71, O2 sats 95% on 100% FIO2. GENERAL APPERANACE: Mr. Valles is a middle-aged male, he is laying in bed, he is sedated, intubated and nonresponsive. HEAD, EYES, EARS, NOSE, AND THROAT: Head atraumatic, normocephalic, conjunctive a are responsive. Conjunctive are pale sclerae are anicteric, pupils are responsive. Oral exam ET tube in place. LUNGS: Respiratory exam: No breath sounds heard over the left hemithorax. Right chest: Good air movement bilaterally. CARDIOVASCULAR SYSTEM: Tachycardiac, regular, S1-S2. ABDOMEN: Abdominal examination, a colostomy bag is noted, additional ostomy is also identified. The belly, otherwise soft, no palpable organ enlargement. EXTREMITIES: Right high ogiqk-fad-melb amputation. On the left side he has no pretibial edema. No calf tenderness. MUSCULOSKELETAL: Generalized muscle wasting. CENTRAL NERVOUS SYSTEM: No spontaneous movements. LABORATORY FINDINGS Blood work dated 06/11/2017: WBC count 22.9, hemoglobin 11.6 gm/dl, hematocrit 35%, MCV 76.7, platelet count of 1040, absolute neutrophil count is 20. Absolute monocyte count 1.5. Chemistries; Sodium 136, potassium 3.1, chloride 101, bicarb 24.5, BUN 14, creatinine one, EGFR 137, lactic acid 2.6, phosphate beta phosphorus is 1.5, calcium nine, magnesium 1.9, total bilirubin 0.5, AST 10, ALT nine, alkaline phosphatase 88, BNP 87, albumin 2.5. IMAGING STUDIES CT scan of the thorax 06/11/2017: 1. A large subcarinal mediastinal mass with obstruction of the left mainstem bronchus and presenting as a large filling defect within the esophagus. Characteristic of aggressive neoplastic process, possibly esophageal carcinoma. 2. Consolidated left lung with bronchial obstruction. Left pleural effusion. Known bilateral moderate to severe hydronephrosis. ASSESSMENT Mr. Valles is a 57-year-old man well-known to me from my outpatient practice. Mr. Valles has a known diagnosis of locally recurrent adenocarcinoma the rectum. His initial diagnosis of rectal carcinoma was established in 2013. He was treated at that time with palliative radiation. He had multiple other medical issues at that time including necrotizing fasciitis which required multiple amputations an extensive debridement with multiple surgeries on his gluteal area on the right side as well on his legs. Eventually required high gxiny-ymi-tyzm amputation on the right side. Mr. Valles was discharged from the hospital after a more than 2-month hospitalization, he was discharged to the hospice care facility and then was later discharged to his home. He remain on Hospice for 2 years. After he survive 2 years he came off of hospice and reestablished followup with me in the summer of 2016. The patient at that time was doing well seemingly. He was restaged and was found to have local recurrence / persistence of the adenocarcinoma of rectum and was also noted to have a spiculated mass / lesion involving the left upper lobe of the lung. Mediastinal lymphadenopathy was identified as well. He was recommended palliative systemic therapy. He declined any intravenous systemic chemotherapy and preferred instead to go on oral Xeloda which is a low intensity agent for palliation. The patient tolerated treatment reasonably well but discontinued treatment about two and half to three months ago because he was having difficulty affording the copayment. He was offered IV systemic chemotherapy which he declined. Two weeks ago he was hospitalized because he was urinating blood and was also having chest and abdominal pain. Imaging studies indicated progressive disease in the thorax and in the abdomen and pelvis. Again conversation regarding palliative systemic chemotherapy was initiated at this time with my partner non destructive testing inspector Dr. Kb Paez. The patient declined palliative systemic chemotherapy at that time. He was scheduled to see me in my clinic to discuss goals of care and possible hospice for end-of-life care. He came into my office today and was side was hypoxic and clear respiratory distress. [employer] licensee were called and he was sent over to the emergency department where he was intubated. RECOMMENDATIONS 1. Metastatic carcinoma likely of rectal primary: At this point I would suggest the patient be treated palliatively. He had been declining palliative intravenous systemic chemotherapy or any form of systemic treatment for the past few months. He had made clear to me that he did not wish to continue aggressive goals of care. He was actually considering hospice when club licensee were called. I will consult palliative care for end-of-life care. MD MAE Bear/adelita /6:47 PM /12:22 PM BOB
--- NOTE | 2017-06-12 13:12 | HHI.HCPN ---
Reason for visit a. To assist with evaluation and management of symptoms including: dyspnea, pain; encephalopathy b. To assist medical decision maker(s) with: better understanding of current medical conditions; weighing benefits/burdens of medical treatment options; making medical treatment decisions. . Subjective/Interval History Mr. Valles is sedated (fentanyl/midazolam/propofol) but arousable , intubated , mechanically ventilated in an MICU bed. Per his primary nurse, when more wakeful, he is able to follow some basic commands. For me , he awakens to stimulation, but quickly drifts back to sleep. Though now wakeful, I do not believe he is capacitated to make his own decisions. Since my last visit, they have been able to wean some vent support -- FI02 down to 70%; PEEP down to 7. t max 98.3; BP 80-109 / 56-72; HR 109-116; RR 20; Pulse ox up to 95-99 on 70 -85%. Urine output 625. WBC 29.8; Hg 10.6; Plt 984; K 3.3; CO2 20.2; BUN23; Creat 1.5; GFR 48 Cultures negative to date. . Family/friend interactions Able to contact patient's sister -- Karyn Kinney and spoke with her by phone for approximately 20 minutes. . Ms. Kinney reports that the patient's other sister last year. Both patient's parents are . She confirms that the patient has a son somewhere but remains estranged and to her knowledge there has been no reconciliaton and no one knows his contact information. Ms. Kinney has kept in touch with her brother. She reports that she spoke with him by phone on Sunday. I updated Ms. Kinney regarding the patient's current clinical condition. We discussed resuscitation status. I informed Ms. An that the patient had signed a DNR form in the past and that per his friend, he has a DNR form on his refrigerator. I also let her know that per ER staff, he appeared uncomfortable and overwhelmed when they discussed resuscitation in the ED and were not getting a clear answer. They decided to go forward with intubation. Ms. Kinney indicated she had not had any direct discussions with the patient regarding resuscitation status. Ms. Kinney told me she would be coming to visit the patient tomorrow. She is willing to serve as proxy decision maker. She is hoping he will regain the ability to make his own decisions. She felt it best to leave him full code for now. . Advance Directives Living Will: Never completed Health Care Surrogate: Copy in medical record Durable Power of Picker / Packer: Never completed Advance Directive Specifics Date completed: There is a "designation of health care surrogate" form in the electronic medical record dated 01/09/14. It should be noted that one witness signature is missing. . Health Care Surrogate(s): There is a "designation of health care surrogate" form in the electronic medical record dated 01/09/14. It should be noted that one witness signature is missing. The form designates his sisters as health care surrogates... * Jeimy Gorman [phone] * Karyn Osorio [phone] We have subsequently learned that Jeimy Gorman is . New number for Karyn Osorio who is willing to serve as proxy is [phone] . Documented care wishes: There is no written documentation of health care preferences/goals/wishes other than a signed DNR order. Unclear if the patient , in the ED wanted to reverse this. . Objective Vital Signs Date Time Temp Pulse Resp B/P Pulse Ox O2 Delivery O2 Flow Rate FiO2 06/12/17 12:04 98 70 06/12/17 12:00 97.5 109 20 109/72 98 06/12/17 12:00 80 06/12/17 12:00 109 06/12/17 11:00 112 20 82/56 95 06/12/17 10:00 113 20 87/55 97 06/12/17 10:00 113 06/12/17 09:00 113 20 80/56 96 06/12/17 08:00 98.3 112 20 92/62 98 06/12/17 08:00 85 06/12/17 08:00 112 06/12/17 07:45 96 85 06/12/17 07:00 116 20 92/58 99 06/12/17 06:15 90 06/12/17 06:00 118 06/12/17 04:14 87 100 06/12/17 04:00 100 06/12/17 04:00 98.4 116 22 82/62 87 06/12/17 04:00 116 06/12/17 02:30 100 06/12/17 02:00 109 06/12/17 01:25 100 06/12/17 00:25 92 100 06/12/17 00:00 109 06/12/17 00:00 98.0 90 24 86/66 89 06/12/17 00:00 100 06/12/17 00:00 98.0 109 21 84/54 91 06/11/17 22:00 96 06/11/17 21:36 95 100 06/11/17 21:00 100 06/11/17 20:00 90 06/11/17 20:00 100 06/11/17 20:00 96.7 90 24 86/66 89 06/11/17 19:00 90 24 92/63 91 06/11/17 18:33 95 100 06/11/17 17:30 100 81 06/11/17 17:15 101 24 103/71 84 Ventilator 100 06/11/17 16:45 101 24 97/69 84 Ventilator 100 06/11/17 16:15 100 24 102/67 84 Ventilator 100 06/11/17 16:00 103 24 98/64 73 Ventilator 100 06/11/17 15:45 103 24 107/67 73 Ventilator 100 06/11/17 15:27 72 100 06/11/17 15:06 109 24 105/67 73 Ventilator 100 06/11/17 14:50 110 24 102/66 73 Ventilator 100 06/11/17 14:34 112 24 103/70 73 Ventilator 100 06/11/17 14:30 75 100 06/11/17 14:06 115 24 111/73 73 Ventilator 100 06/11/17 14:05 115 24 109/70 73 Ventilator 100 06/11/17 13:58 114 24 110/68 73 Ventilator 100 06/11/17 13:51 118 24 117/72 73 Ventilator 100 06/11/17 13:50 100 06/11/17 13:39 118 25 115/69 69 Blow-by 06/11/17 13:36 118 25 120/61 72 Blow-by 06/11/17 13:21 118 16 140/81 68 Blow-by 70 06/11/17 13:06 120 16 139/74 67 Ventilator 70 06/11/17 12:51 116 16 176/96 81 Ventilator 60 Intake & Output 06/12/17 06/12/17 06:59 18:59 Intake Total 2706 ml Output Total 685 ml Balance 2021 ml Intake IV Total 2706 ml Output Urine Total 625 ml Stool Total 60 ml . Physical Exam CONSTITUTIONAL/GENERAL: This is a pale; gaunt; chronically ill-appearing gentleman currently sedated, intubated, and mechanically ventilated in the MICU. He awakens briefly, can follow a few simple commands, and then drifts back to sleep. TUBES/LINES/DRAINS: Orotracheal tube; orogastric tube; Yan catheter; peripheral IVs; colostomy. SKIN: No jaundice, rashes, or lesions. No wounds seen anteriorly. Skin temperature appropriate. Not diaphoretic. HEAD: Atraumatic. Normocephalic. EYES: Pupils equal and round. EOMs intact. No scleral icterus. No injection or drainage. Fundi not examined. ENT: Appears to hear me. Nose without bleeding or purulent drainage. Oropharynx difficult to assess due to intubations. NECK: Trachea midline. CARDIOVASCULAR: Tachycardic. Regular rhythm without murmurs, gallops, or rubs. Jugular venous distention is present.. Peripheral pulses symmetric. RESPIRATORY/CHEST: Chest is asymmetric with visible chest rise and fall on the right but less on the left. Much diminished air movement heard on the left.. Rare wheeze. GASTROINTESTINAL: Abdomen soft, distended, non-tender. Colostomy bag is present. No hepato-splenomegaly, or palpable masses. No guarding. Bowel sounds present. GENITOURINARY: Without palpable bladder distension. Yan catheter in place. MUSCULOSKELETAL: Extremities notable for right [id number] amputation and left partial foot amputation. Extremities otherwise without clubbing, cyanosis , or edema. No mottling. LYMPHATICS: Not examined. NEUROLOGICAL: Sedated, but arousable. Follows a few simple commands, quickly drifts back to sleep. Moves all extremities. PSYCHIATRIC: Unable to assess due to level of responsiveness. . Diagnostic Tests Laboratory Laboratory Tests Test 06/11/17 06/11/17 06/11/17 06/11/17 11:50 11:55 12:30 14:03 Blood Gas Puncture Site LT RADIAL LT RADIAL Blood Gas Patient Temperature 98.6 98.6 Blood Gas HCO3 23 mmol/L 23 mmol/L (22-26) (22-26) Blood Gas Base Excess 0.8 mmol/L -0.3 mmol/L (-2-2) (-2-2) Blood Gas Oxygen Saturation 81 % (90-100) 70 % (90-100) Arterial Blood pH 7.56 7.46 (7.380-7.420) (7.380-7.420) Arterial Blood Partial 26 mmHg (38-42) 33 mmHg (38-42) Pressure CO2 Arterial Blood Partial 44 mmHG 39 mmHG Pressure O2 (61-120) (61-120) Arterial Blood Oxygen Content 12.6 Vol % 10.6 Vol % (12.0-20.0) (12.0-20.0) Arterial Blood 1.4 % (0-4) 1.1 % (0-4) Carboxyhemoglobin Arterial Blood Methemoglobin 0.5 % (0-2) 0.6 % (0-2) Blood Gas Hemoglobin 11.1 G/DL 10.8 G/DL (12.0-16.0) (12.0-16.0) Oxygen Delivery Device BiPAP VENTILATOR Blood Gas Ventilator Setting IPAP10/EPAP5 AC/24/550/PEEP14 Blood Gas Inspired Oxygen 100 % 100 % White Blood Count 22.9 TH/MM3 (4.0-11.0) Red Blood Count 4.55 MIL/MM3 (4.50-5.90) Hemoglobin 11.6 GM/DL (13.0-17.0) Hematocrit 34.9 % (39.0-51.0) Mean Corpuscular Volume 76.7 FL (80.0-100.0) Mean Corpuscular Hemoglobin 25.6 PG (27.0-34.0) Mean Corpuscular Hemoglobin 33.4 % Concent (32.0-36.0) Red Cell Distribution Width 17.4 % (11.6-17.2) Platelet Count 1040 TH/MM3 (150-450) Mean Platelet Volume 6.6 FL (7.0-11.0) Neutrophils (%) (Auto) 87.6 % (16.0-70.0) Lymphocytes (%) (Auto) 5.4 % (9.0-44.0) Monocytes (%) (Auto) 6.4 % (0.0-8.0) Eosinophils (%) (Auto) 0.2 % (0.0-4.0) Basophils (%) (Auto) 0.4 % (0.0-2.0) Neutrophils # (Auto) 20.0 TH/MM3 (1.8-7.7) Lymphocytes # (Auto) 1.2 TH/MM3 (1.0-4.8) Monocytes # (Auto) 1.5 TH/MM3 (0-0.9) Eosinophils # (Auto) 0.0 TH/MM3 (0-0.4) Basophils # (Auto) 0.1 TH/MM3 (0-0.2) CBC Comment DIFF FINAL Differential Comment Prothrombin Time 11.8 SEC (9.8-11.6) Prothromb Time International 1.1 RATIO Ratio Activated Partial 32.3 SEC Thromboplast Time (24.3-30.1) Sodium Level 136 MEQ/L (136-145) Potassium Level 3.1 MEQ/L (3.5-5.1) Chloride Level 101 MEQ/L (98-107) Carbon Dioxide Level 24.5 MEQ/L (21.0-32.0) Anion Gap 11 MEQ/L (5-15) Blood Urea Nitrogen 14 MG/DL (7-18) Creatinine 1.04 MG/DL (0.60-1.30) Estimat Glomerular Filtration 73 ML/MIN (>89) Rate Random Glucose 137 MG/DL (74-106) Lactic Acid Level 2.6 mmol/L (0.4-2.0) Calcium Level 9.0 MG/DL (8.5-10.1) Phosphorus Level 1.5 MG/DL (2.5-4.9) Magnesium Level 1.9 MG/DL (1.5-2.5) Total Bilirubin 0.5 MG/DL (0.2-1.0) Aspartate Amino Transf 10 U/L (15-37) (AST/SGOT) Alanine Aminotransferase 9 U/L (12-78) (ALT/SGPT) Alkaline Phosphatase 88 U/L (45-117) B-Type Natriuretic Peptide 87 PG/ML (0-100) Total Protein 7.3 GM/DL (6.4-8.2) Albumin 2.5 GM/DL (3.4-5.0) Urine Color YELLOW (YELLW/STRAW) Urine Turbidity CLOUDY (CLEAR) Urine pH 7.0 (5.0-8.5) Urine Specific [place] 1.016 (1.002-1.035) Urine Protein 300 mg/dL (NEG-TRACE) Urine Glucose (UA) NEG mg/dL (NEG) Urine Ketones TRACE mg/dL (NEG) Urine Occult Blood MOD (NEG) Urine Nitrite POS (NEG) Urine Bilirubin NEG (NEG) Urine Urobilinogen LESS THAN 2.0 MG/DL (LESS THAN 2.0) Urine Leukocyte Esterase LARGE (NEG) Urine RBC 100 /hpf (0-3) Urine WBC /hpf (0-5) Urine WBC Clumps MANY (NONE) Urine Squamous Epithelial 1 /hpf (0-5) Cells Urine Transitional Epithelial 1 /hpf (NONE) Cells Urine Bacteria MANY /hpf (NONE) Microscopic Urinalysis Comment CULTURE INDICATED Test 06/11/17 06/11/17 06/12/17 06/12/17 18:43 18:45 03:45 05:39 Blood Gas Puncture Site RT RADIAL RT RADIAL Blood Gas Patient Temperature 98.6 98.6 Blood Gas HCO3 21 mmol/L 18 mmol/L (22-26) (22-26) Blood Gas Base Excess -3.2 mmol/L -6.8 mmol/L (-2-2) (-2-2) Blood Gas Oxygen Saturation 87 % (90-100) 93 % (90-100) Arterial Blood pH 7.39 7.31 (7.380-7.420) (7.380-7.420) Arterial Blood Partial 36 mmHg (38-42) 38 mmHg (38-42) Pressure CO2 Arterial Blood Partial 63 mmHg 90 mmHg Pressure O2 (61-120) (61-120) Arterial Blood Oxygen Content 13.7 Vol % 16.8 Vol % (12.0-20.0) (12.0-20.0) Arterial Blood 1.1 % (0-4) 0.9 % (0-4) Carboxyhemoglobin Arterial Blood Methemoglobin 1.2 % (0-2) 1.1 % (0-2) Blood Gas Hemoglobin 11.1 G/DL 12.8 G/DL (12.0-16.0) (12.0-16.0) Oxygen Delivery Device VENTILATOR VENTILATOR Blood Gas Ventilator Setting A/C PRVC/AC 24/550/PEEP14 Blood Gas Inspired Oxygen 100 % 100 % Nasal Screen MRSA (PCR) MRSA DETECTED (NOT DETECT) White Blood Count 29.8 TH/MM3 (4.0-11.0) Red Blood Count 4.13 MIL/MM3 (4.50-5.90) Hemoglobin 10.6 GM/DL (13.0-17.0) Hematocrit 32.0 % (39.0-51.0) Mean Corpuscular Volume 77.3 FL (80.0-100.0) Mean Corpuscular Hemoglobin 25.7 PG (27.0-34.0) Mean Corpuscular Hemoglobin 33.2 % Concent (32.0-36.0) Red Cell Distribution Width 17.5 % (11.6-17.2) Platelet Count 984 TH/MM3 (150-450) Mean Platelet Volume 6.6 FL (7.0-11.0) Neutrophils (%) (Auto) 95.8 % (16.0-70.0) Lymphocytes (%) (Auto) 1.7 % (9.0-44.0) Monocytes (%) (Auto) 2.3 % (0.0-8.0) Eosinophils (%) (Auto) 0.0 % (0.0-4.0) Basophils (%) (Auto) 0.2 % (0.0-2.0) Neutrophils # (Auto) 28.5 TH/MM3 (1.8-7.7) Lymphocytes # (Auto) 0.5 TH/MM3 (1.0-4.8) Monocytes # (Auto) 0.7 TH/MM3 (0-0.9) Eosinophils # (Auto) 0.0 TH/MM3 (0-0.4) Basophils # (Auto) 0.0 TH/MM3 (0-0.2) CBC Comment DIFF FINAL Differential Comment Sodium Level 140 MEQ/L (136-145) Potassium Level 4.1 MEQ/L (3.5-5.1) Chloride Level 107 MEQ/L (98-107) Carbon Dioxide Level 21.9 MEQ/L (21.0-32.0) Anion Gap 11 MEQ/L (5-15) Blood Urea Nitrogen 22 MG/DL (7-18) Creatinine 1.46 MG/DL (0.60-1.30) Estimat Glomerular Filtration 50 ML/MIN (>89) Rate Random Glucose 220 MG/DL (74-106) Calcium Level 8.1 MG/DL (8.5-10.1) Phosphorus Level 6.3 MG/DL (2.5-4.9) Magnesium Level 2.0 MG/DL (1.5-2.5) Test 06/12/17 10:50 Sodium Level 141 MEQ/L (136-145) Potassium Level 3.3 MEQ/L (3.5-5.1) Chloride Level 110 MEQ/L (98-107) Carbon Dioxide Level 20.2 MEQ/L (21.0-32.0) Anion Gap 11 MEQ/L (5-15) Blood Urea Nitrogen 23 MG/DL (7-18) Creatinine 1.50 MG/DL (0.60-1.30) Estimat Glomerular Filtration 48 ML/MIN (>89) Rate Random Glucose 164 MG/DL (74-106) Lactic Acid Level 2.5 mmol/L (0.4-2.0) Calcium Level 7.8 MG/DL (8.5-10.1) Phosphorus Level 4.0 MG/DL (2.5-4.9) . Result Diagram: 06/12/17 0345 06/12/17 1050 Microbiology Microbiology Date/Time Procedure Status Source Growth 06/11/17 11:50 Aerobic Blood Culture - Preliminary Resulted Blood Peripheral NO GROWTH IN 1 DAY 06/11/17 11:50 Anaerobic Blood Culture - Preliminary Resulted Blood Peripheral NO GROWTH IN 1 DAY 06/11/17 11:55 Aerobic Blood Culture - Preliminary Resulted Blood Peripheral NO GROWTH IN 1 DAY 06/11/17 11:55 Anaerobic Blood Culture - Preliminary Resulted Blood Peripheral NO GROWTH IN 1 DAY 06/11/17 12:30 Urine Culture Received Urine Clean Catch Pending 06/12/17 09:45 Gram Stain Received Sputum Endotracheal Pending 06/12/17 09:45 Sputum Culture Received Sputum Endotracheal Pending 06/12/17 09:45 Influenza Types A,B Antigen (C[place]ELIA) Ordered Nasal Washing Pending 06/12/17 11:00 Influenza Types A,B Antigen (C[place]ELIA) - Final Complete Nasal Washing NEGATIVE FOR FLU A AND B ANTIGEN.... . Imaging Last Impressions Chest X-Ray 06/12/17 0000 Signed Impressions: Service Date/Time: Monday, June 12, 2017 06:09 - CONCLUSION: Stable appearance of the chest. Reggie Murillo MD Chest CT 06/11/17 0000 Signed Impressions: Service Date/Time: Sunday, June 11, 2017 14:46 - CONCLUSION: 1. Large subcarinal mediastinal mass obstructing the left mainstem bronchus and presenting as a large filling defect within the esophagus. 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 2. Consolidated left lung to bronchial obstruction. 3. Small left pleural effusion 4. Known bilateral moderate to severe hydronephrosis. 5. Small patchy infiltrate right upper lobe. Edouard German MD . Procedures * Intubation/mechanical ventilation . Assessment and Plan Disease Oriented Problem List: (1) Rectal adenocarcinoma Comment: Metastatic to pelvic and chest nodes. . (2) Respiratory failure with hypoxia Comment: Left lung is consolidated and not ventilating adequately due to carinal node obstruction of the left mainstem bronchus. . Initially unable to ventilate adequately in spite of vent support and high PEEP. Now improving. . . (3) Esophageal obstruction Comment: Obstruction appears to be secondary to compression from malignant node. . (4) Hydronephrosis Comment: Bilateral from tumor obstruction . (5) Sepsis (6) UTI (urinary tract infection) Symptom Scale: (1) Pain 0-10 Scale: Unable to quantify Comment: Sources of pain may now include orotracheal intubation; Yan catheterization; vascular access lines. . (2) Dyspnea 0-10 Scale: 10 Comment: Dyspnea with severe upon arrival. Now controlled with mechanical ventilation. Oxygenation slowly improving. Dyspnea also being treated pharmacologically with opiates and benzodiazepines. . Pertinent Non-Medical Issues Psychosocial: Patient apparently lived alone. He has one surviving sister -- Karyn Kinney -- who live in [facility]. He has kept in touch with here. There is a son he is estranged from for whom there is no contact information. Spiritual: No known orthodoxy affiliation. Patient declined furnace liner visits when he was a hospice patient. Legal: Patient has a written designation of health care surrogate that is missing one of the witnesses. He designated both of the sisters as surrogates. Only one sister survives. There is also a community DNR form signed on . It is unclear from subsequent physician visits and hospitalizations if he wanted this status to continue. Ethical issues impacting care: Patient is currently incapacitated. . Important Contacts Patient has listed his 2 sisters as health care surrogates back in 2013. Sister -- Jeimy -- is now . * Karyn Osorio (sister and health care surrogate) [phone] . Prognosis This patient has metastatic colorectal adenocarcinoma. He has undergone radiation. He has declined chemotherapy on several occasions. Metastatic disease is causing multiple complications. First and foremost he has obstruction of the left mainstem bronchus which has caused a central collapse of the left lung. Even with intubation and mechanical ventilation on high PEEP we were unable to bring oxygen saturations into the 90s. This has now improved. Tumor also appears to be compressing his esophagus. In addition, he has had ongoing problems with obstructive uropathy. Though BUN and creatinine are normal at this time he has gross hematuria. These problems are on top of chronic malnutrition with a current albumin of 2.5. Due to patient's dire condition, he does not appear to be a candidate for any major procedures. He would certainly be a candidate for hospice care again if/when goals are clearly comfort oriented. . Code Status: Full Code Plan == Code Status: FULL CODE. ER staff said the patient seems somewhat overwhelmed when intubation and CODE STATUS was discussed. He did inquire how long he might need life support. Otherwise he was vague. They felt that it was safer to intubate him and try and sort out goals/preferences later under the circumstances. Patient had completed a [facility] DNR order back in 2013, and per a friend, he still has a copy on his refrigerator. == Decision making: Patient is currently incapacitated to make his own health care decisions. As it now appears we will be able to oxygenate him adequately, he may recover capacity to make his own health care decisions. There is no spouse. There is an estranged son we have no contact information for. He has previously listed his 2 sisters -- Jeimy Gorman and Karyn Kinney -- as health care surrogates though there is a witness signature omitted from the document. Sister -- Jeimy -- is as are his parents. That leaves sister Karyn Kinney [phone] as the surrogate and she is willing to fill this role. == Goals of medical treatment: As noted above, goals are unclear. Patient may recover capacity. Will continue aggressive care including FULL CODE for now. Sister plan on visiting on 06/13/17 and we will re-visit goals then . . == Pain: Current sources of pain would include orotracheal intubation, Yan catheter, vascular access lines, and bedbound status. He is currently on a fentanyl drip which appears to be adequate for symptom management. No additional recommendations at this time. == Dyspnea: Patient has profound dyspnea from his obstructed left main bronchus . We initially had trouble oxygenating him adequately in spite of vent support and high PEEP. He is on both fentanyl, midazolam, , and propofol drips which will certainly help mitigate subjective dyspnea. . No further recommendations at this time == As noted above, I was able to speak with sister -- Karyn Kinney -- who is now the legal decision maker while patient is incapacitated. She plans on visting (She lives in [facility]) the afternoon of 06/13/17. ==Case discussed in person with Drs. Olivares and Debby. == Palliative care will continue to follow to assist with symptom management and to further clarify goals of medical treatment as the clinical course evolves. . Time Spent Total Floor Time (mins): 40 (Total floor time included chart review, patient exam, above referenced telephone conversation with the surrogate, discussions with Drs. Resendiz, collaboration with primary nurse, and documentaiton. ) Face to Face Time (mins): 10 >50% Counseling/Coord of Care: Yes Attestation To help prompt me to consider important information that might be impacting today's encounter and assessment, information from prior notes written by myself or my colleagues may have been "brought forward" into today's note. My signature on this note, however, is an attestation that I personally performed the exam, history, and/or decision-making noted today, and, unless otherwise indicated, the interactions with patient, family, and staff as well as the review of records all occurred today. I also attest that the listed assessment and stated plan reflect my best clinical judgment today based on the combination of historical information, prior notes, and today's exam/ interactions. When time spent is documented, it refers only to time spent today by the signer, or if indicated, combined time spent today by collaborating physician/nurse practitioner. . Francis Bolden MD Jun 12, 2017 13:12 and stated plan reflect my best clinical judgment today based on the combination of historical information, prior notes, and today's exam/ interactions. When time spent is documented, it refers only to time spent today by the signer, or if indicated, combined time spent today by collaborating physician/nurse practitioner. . Francis Bolden MD Jun 12, 2017 13:12
--- NOTE | 2017-06-12 13:44 | RADRPT ---
EXAM DATE/TIME: 06/12/2017 12:41 [facility] COMPARISON: CT ABDOMEN & PELVIS W CONTRAST, June 01, 2017, 15:12. US KIDNEY/RENAL/BLADDER, June 01, 2017, 16:20. EXTERNAL COMPARISON : [facility], [place] Renogram with lasix, March 23, 2017POI, CT Abdomen, 02/16/2017. INDICATIONS : Hydronephrosis. MEDICAL HISTORY : Hypertension. Deep venous thrombosis. Methicillin-resistant Staphylococcus aureus. Renal disease. Dep ression. Anxiety. Rectal. Paraplegia. SURGICAL HISTORY : Colostomy. Right lower extremity amputation. Left toes amputation. ENCOUNTER: Subsequent ACUITY: 1 day PAIN SCORE: Nonresponsive. LOCATION: Bilateral flank MEASUREMENTS: RIGHT KIDNEY: 13.3 x 4.5 x 4.5 cm LEFT KIDNEY: 11.8 x 4.9 x 4.3 cm FINDINGS: RIGHT KIDNEY: There continues to be hydronephrosis of the right collecting system. The hydronephrosis appears to be improved compared to the prior ultrasound. No other significant change is seen with the right kidney . LEFT KIDNEY: There continues to be some hydronephrosis of the left collecting system. However this is improved com pared to the prior study. No other significant change is seen compared to the prior study. BLADDER: There is a Yan catheter in urinary bladder. CONCLUSION: There continues to be bilateral hydronephrosis, right greater than left. The hydronephrosis appears t o be improved compared to the prior examination. Alistair Balderas MD on June 12, 2017 at 13:39 Board Certified Radiologist. This report was verified electronically.
[2017-06-12] MEDS: AZITHROMYCIN INJ 500 MG in SODIUM CHLOR 0.9% 250 ML INJ 250 ML IV SCH (13:50)
[2017-06-12] MEDS: PROPOFOL 1000 MG/100 ML INJ 100 ML IV SCH (14:55)
--- NOTE | 2017-06-12 15:53 | EKG ---
Date Performed: 06/11/2017 Time Performed: 11:50:19 PTAGE: 57 years EKG: SINUS TACHYCARDIA MARKED RIGHT AXIS DEVIATION PROBABLE INFERIOR MYOCARDIAL INFARCTION ABNOR MAL ECG INTERPRETATION BASED ON A DEFAULT AGE OF 39 YEARS PREVIOUS TRACING : 06/01/2017 12.14 DOCTOR: Elvie Duke Interpretating Date/Time 06/12/2017 15:46:45
--- NOTE | 2017-06-12 19:13 | HHI.PR ---
Subjective Remarks Critical and on the vent .FIo2 at 65 %. CXR shows some aeration of left lung.On Antibiotics and Solumedrol Objective Vital Signs Date Time Temp Pulse Resp B/P Pulse Ox O2 Delivery O2 Flow Rate FiO2 06/12/17 18:00 107 06/12/17 18:00 107 06/12/17 18:00 107 20 82/59 94 06/12/17 17:56 65 06/12/17 17:00 108 20 90/63 96 06/12/17 17:00 108 06/12/17 16:00 98.2 104 20 90/61 96 06/12/17 16:00 70 06/12/17 16:00 104 06/12/17 15:26 96 70 06/12/17 15:00 108 25 98/62 96 06/12/17 14:00 108 20 88/60 95 06/12/17 14:00 108 06/12/17 13:00 112 24 104/69 90 06/12/17 12:04 98 70 06/12/17 12:00 97.5 109 20 109/72 98 06/12/17 12:00 80 06/12/17 12:00 109 06/12/17 11:00 112 20 82/56 95 06/12/17 10:00 113 20 87/55 97 06/12/17 10:00 113 06/12/17 09:00 113 20 80/56 96 06/12/17 08:00 98.3 112 20 92/62 98 06/12/17 08:00 85 06/12/17 08:00 112 06/12/17 07:45 96 85 06/12/17 07:00 116 20 92/58 99 06/12/17 06:15 90 06/12/17 06:00 118 06/12/17 04:14 87 100 06/12/17 04:00 100 06/12/17 04:00 98.4 116 22 82/62 87 06/12/17 04:00 116 06/12/17 02:30 100 06/12/17 02:00 109 06/12/17 01:25 100 06/12/17 00:25 92 100 06/12/17 00:00 109 06/12/17 00:00 98.0 90 24 86/66 89 06/12/17 00:00 100 06/12/17 00:00 98.0 109 21 84/54 91 06/11/17 22:00 96 06/11/17 21:36 95 100 06/11/17 21:00 100 06/11/17 20:00 90 06/11/17 20:00 100 06/11/17 20:00 96.7 90 24 86/66 89 I/O 06/11/17 06/11/17 06/11/17 06/12/17 06/12/17 06/12/17 07:00 15:00 23:00 07:00 15:00 23:00 Intake Total 902 ml 1804 ml 1509 ml Output Total 425 ml 260 ml 250 ml Balance 477 ml 1544 ml 1259 ml Intake IV Total 902 ml 1804 ml 1239 ml Tube Feeding 70 ml Other 200 ml Output Urine Total 375 ml 250 ml 250 ml Stool Total 50 ml 10 ml 0 ml # Bowel Movements 0 Result Diagram: 06/12/17 0345 06/12/17 1050 Objective Remarks GENERAL: This averagely built middle-aged white male intubated and sedated. HEENT: Pupils reactive and equal. Throat has secretions. NECK: Supple without venous distension. Trachea midline. No thyroid enlargement. CHEST: Distant breath sounds over the left chest with occasional wheezes heard bilaterally, more on the left upper chest. HEART: The heart sounds are regular, S1, S2. No murmur. ABDOMEN: Soft, slightly protuberant without masses or organomegaly or tenderness. Bowel sounds are active. EXTREMITIES: Cool extremities. There is amputated right [id number] and the left leg foot amputated. Pulses not well felt. The patient is sedated. Assessment and Plan Assessment and Plan IMPRESSION 1. Hypoxemic respiratory failure. 2. Metastatic carcinoma with complete left lung atelectasis. 3. Rectal adenocarcinoma with metastasis. 4. Pneumonia left lung. 5. Sepsis . 6. Anemia of chronic disease. 7. COPD. 8. Hypertension. Plan : 1. Cont Vent support and Wean FIo2 to kep sat >90. 2. Cont Vanco,Zosyn, Zithromax 3. Nebs q6h , duoneb 4. CXR ,CBC,BMP ,ABG in am 5. Keep sedated, for vent control. 6. Wean PEEP to 5 CM 7. Will consider Bronchoscopy if FIO2 <50 % 8. D/W Dr Hope. Nichole Guardado MD Jun 12, 2017 19:13
--- NOTE | 2017-06-12 19:31 | MB ---
cc: JOE FARNSWORTH MD, ALAA M.D. DATE OF CONSULTATION: 06/12/[address] Olivares. REASON FOR CONSULTATION: Pneumonia HISTORY OF PRESENT ILLNESS: This is a 57-year-old white male who has a history of adenocarcinoma, stage IV of the rectum. The patient was recently hospitalized and was noted to have ureteral obstruction. He was discharged from the hospital on June 04. He elected not to have any treatment for the cancer. This is an unresectable cancer which he has been followed. The patient was admitted to the hospital after he presented to the emergency department with respiratory distress. He apparently was having shortness of breath of several days. The patient was intubated. He is currently on the ventilator. Chest x-ray showed almost complete opacification of the left lung. Sputum culture was taken and the result is pending. The patient had a white blood cell count of 22.9 yesterday. His heart rate in the emergency department was 120 and lactic acid level was 2.6. The patient was awakened on the ventilator. He is sedated. Information is obtained from the medical record. PAST MEDICAL HISTORY 1. Rectal cancer diagnosed back in 2013. 2. History of necrotizing fasciitis involving the right lower extremity. 3. Right above knee amputation. 4. Left transmetatarsal amputation 5. Hypertension 6. Gastroesophageal reflux disease. ALLERGIES NO KNOWN DRUG ALLERGIES. MEDICATIONS 1. Piperacillin/tazobactam 2. Vancomycin 3. Epoprostenol 4. DuoNeb 5. Methylprednisolone 6. Azithromycin 7. Protonix 8. Potassium 9. Propofol 10. Midazolam. SOCIAL HISTORY No alcohol, no tobacco, no illicit drug use. FAMILY HISTORY: Noncontributory. REVIEW OF SYSTEMS: Unobtainable. The patient is intubated on the ventilator. PHYSICAL EXAMINATION: This is a cachectic-appearing male who is on the ventilator. He awakens and tracks with his eyes. The vital signs include temperature of 97.5, BP 104/69, heart rate 112, respirations per ventilator. HEENT: Extraocular movements appear grossly intact. Pupils reactive to light. Oropharynx intubated. Neck: Supple without adenopathy. Lungs: Decreased breath sounds on the left throughout. Fair breath sounds on the right. Heart: Regular S1-S2 without audible murmurs, rubs or gallops. Abdomen: Bowel sounds present, soft, bowel sounds are diminished, however. The patient has a colostomy in place. Rectal: Not performed. Extremities: The right [id number] amputation site is intact. The left transmetatarsal site appears intact. No edema. Skin: No rash. Neuro: Unable to assess. Psych: Unable to assess. LABORATORY DATA WBC 29.8, platelets 984, hemoglobin 10.6, 95% neutrophils, creatinine 1.50, BUN 23, sodium 141. Sputum culture pending. Urine culture pending. Blood culture pending. Urinalysis revealed many white blood cell clumps. IMPRESSION 1. Pneumonia involving the left lung likely post obstructive. The patient noted to have large subcarinal mediastinal mass obstructing the left mainstem bronchus and also large filling defect within the esophagus. 2. Acute respiratory failure. 3. Abnormal urinalysis suggesting UTI. The patient has history of ureteral obstruction in the past. 4. Rectal cancer, untreated. RECOMMENDATIONS 1. Continue Piperacillin/tazobactam 2. Continue vancomycin. 3. Continue azithromycin 4. Monitor sputum culture. 5. Monitor urine culture. 6. Monitor blood culture. 7. Follow clinical response. Thank you for this consultation. The patient's progress will be followed with you and further recommendations will be given upon followup. The patient also likely has cancer involving possibly the esophagus. Joe Farnsworth MD FD/GRACIE /1:01 PM /6:17 PM
[2017-06-12] MEDS ORDERED: SODIUM CHLORID 0.9% 500 ML INJ 500 ML IV ONE (23:45)
[2017-06-13] VITALS (23 sets, daily range): BP systolic 89–111; BP diastolic 59–76; PULSE 90–109; RESP 17–21; TEMP 97.7–98.7; O2SAT 97–100
[2017-06-13] MEDS: RESP: ALBUTEROL 2.5 MG/IPRATROPIUM 0.5 MG NEB (SCH) INH ×6 (00:44→20:43)
[2017-06-13] MEDS: INSULIN NovoLIN REGULAR SUPPLEMENTAL SCALE SQ SCH ×6 (01:26→22:00)
[2017-06-13] MEDS: EPOPROSTENOL NEB SOLUTION 30 NG/KG/MIN 100 ML NEB SCH ×6 (01:26→19:54)
[2017-06-13] MEDS: VANCOMYCIN INJ 1,000 MG in SODIUM CHLOR 0.9% 250 ML INJ 250 ML IV SCH ×2 (01:26→15:21)
[2017-06-13] MEDS: MIDAZOLAM 100 MG/ML INJ 100 ML IV SCH ×2 (01:27→12:42)
[2017-06-13] MEDS: PROPOFOL 1000 MG/100 ML INJ 100 ML IV SCH ×3 (01:45→19:54)
[2017-06-13] MEDS: CHLORHEXIDINE GLUCONATE 2 % 1 PACK (2 CLOTHS) TOP SCH (04:00)
[2017-06-13] MEDS: RESP: ACETYLCYSTEINE 10% 30 ML NEB NEB SCH ×6 (04:00→20:43)
[2017-06-13] MEDS: PIPERACIL-TAZO 4.5 GM PREMIX 100 ML IV SCH ×4 (05:36→23:19)
[2017-06-13 05:40] LABS: AUTOMATED NEUTROPHIL # 26.8 TH/MM3 (1.8-7.7); BASOPHIL % 0.2 % (0.0-2.0); HEMATOCRIT 29.9 % (39.0-51.0); HEMO FLAGS DIFF FINAL; LYMPH % 1.7 % (9.0-44.0); LYMPHOCYTE # 0.5 TH/MM3 (1.0-4.8); MEAN CELL VOLUME 78.1 FL (80.0-100.0); MEAN CORPUSCULAR HGB CONC 30.7 % (32.0-36.0); NEUT % 96.1 % (16.0-70.0); PLATELET COUNT 926 TH/MM3 (150-450); RED BLOOD COUNT 3.83 MIL/MM3 (4.50-5.90); RED CELL DISTRIBUTION WIDTH 17.9 % (11.6-17.2); WHITE BLOOD COUNT 27.8 TH/MM3 (4.0-11.0)
[2017-06-13 06:08] LABS: POTASSIUM 4.1 MEQ/L (3.5-5.1)
[2017-06-13] MEDS: methylPREDNISolone SOD SUCC 40 MG/1 ML VIAL IV PUSH SCH ×3 (08:12→23:19)
[2017-06-13] MEDS: DOCUSATE SODIUM 50 MG/SENNA 8.6 MG TAB PO SCH ×2 (08:12→19:54)
[2017-06-13] MEDS: PANTOPRAZOLE SODIUM 40 MG VIAL IV SCH (08:12)
--- NOTE | 2017-06-13 08:38 | HHI.PR ---
Subjective Patient symptoms today Pt intubated and sedated. Urine is clear today. Objective Vital Signs Vital Signs Date Time Temp Pulse Resp B/P Pulse Ox O2 Delivery O2 Flow Rate FiO2 06/13/17 07:39 100 55 06/13/17 06:00 55 06/13/17 06:00 109 06/13/17 04:02 99 60 06/13/17 04:00 98.7 108 20 89/59 99 06/13/17 04:00 108 06/13/17 04:00 60 06/13/17 02:00 107 06/13/17 01:30 60 06/13/17 00:45 100 60 06/13/17 00:00 98.6 104 20 102/68 98 06/13/17 00:00 65 06/13/17 00:00 104 06/12/17 22:00 108 06/12/17 20:52 97 65 06/12/17 20:00 65 06/12/17 20:00 110 06/12/17 20:00 98.8 110 20 110/77 97 06/12/17 18:00 107 06/12/17 18:00 107 06/12/17 18:00 107 20 82/59 94 06/12/17 17:56 65 06/12/17 17:00 108 20 90/63 96 06/12/17 17:00 108 06/12/17 16:00 98.2 104 20 90/61 96 06/12/17 16:00 70 06/12/17 16:00 104 06/12/17 15:26 96 70 06/12/17 15:00 108 25 98/62 96 06/12/17 14:00 108 20 88/60 95 06/12/17 14:00 108 06/12/17 13:00 112 24 104/69 90 06/12/17 12:04 98 70 06/12/17 12:00 97.5 109 20 109/72 98 06/12/17 12:00 80 06/12/17 12:00 109 06/12/17 11:00 112 20 82/56 95 06/12/17 10:00 113 20 87/55 97 06/12/17 10:00 113 06/12/17 09:00 113 20 80/56 96 Intake & Output 06/13/17 06/13/17 07:00 19:00 Intake Total 3786 ml Output Total 605 ml Balance 3181 ml Intake IV Total 2822 ml Tube Feeding 784 ml Other 180 ml Output Urine Total 600 ml Stool Total 5 ml Result Diagram: 06/13/17 0426 06/13/176 Objective Remarks Abd:soft,nt,nd Yan: urine clear 06/13 Abd:soft,nt,nd Yan: urine clear Medications and IVs Current Medications Medications (Trade) Dose Ordered Sig/Orlin Route Start Time Stop Time Status Last Admin Sodium Chloride 2 ml 2 ml UNSCH PRN IVF 06/11/17 11:45 (Diprivan 1000 Mg/100ml Inj) 100 ml @ 0 mls/hr TITRATE IV 06/11/17 12:15 06/13/17 01:45 (Protonix Inj) 40 mg DAILY IV 06/11/17 13:00 06/13/17 08:12 Miscellaneous Information 1 [id number] XX 06/11/17 13:00 (Chlorhexidine 2% Cloth) 3 pack Taper DAILY@04 TOP 06/12/17 04:00 06/08/18 03:59 06/13/17 04:00 (Chlorhexidine 2% Cloth) 3 pack UNSCH PRN TOP 06/11/17 13:00 (Jaylene-Colace) 1 tab BID PO 06/11/17 21:00 06/13/17 08:12 (Milk Of Magnesia Liq) 30 ml Q12H PRN PO 06/11/17 13:00 (Senokot) 17.2 mg Q12H PRN PO 06/11/17 13:00 (Dulcolax Supp) 10 mg DAILY PRN RECTAL 06/11/17 13:00 (Lactulose Liq) 30 ml DAILY PRN PO 06/11/17 13:00 (D50w (Vial) Inj) 50 ml UNSCH PRN IV 06/11/17 13:00 Glucagon 1 mg 1 mg UNSCH PRN OTHER 06/11/17 13:00 Potassium Chloride 100 ml @ 50 mls/hr Q2H PRN IV 06/11/17 13:00 (KCl 20 Meq Premix Inj) 100 ml @ 50 mls/hr Q2H PRN IV 06/11/17 13:00 Potassium Bicarb/ Potassium Chloride 50 meq 50 meq UNSCH PRN PO 06/11/17 13:00 06/12/17 11:53 Potassium Chloride 100 ml @ 25 mls/hr UNSCH PRN IV 06/11/17 13:00 Potassium Chloride 100 ml @ 50 mls/hr Q2H PRN IV 06/11/17 13:00 (Magnesium Sulfate Inj/NS Inj) 100 ml @ 50 mls/hr UNSCH PRN IV 06/11/17 13:00 Magnesium Oxide 800 mg 800 mg UNSCH PRN PO 06/11/17 13:00 (Magnesium Sulfate Inj/NS Inj) 100 ml @ 50 mls/hr UNSCH PRN IV 06/11/17 13:00 Potassium Phosphate 2000 mg 2,000 mg Q4H PRN PO 06/11/17 13:00 (Sodium Phosphate Inj/NS 250 ml Inj) 250 ml @ 42 mls/hr UNSCH PRN IV 06/11/17 13:00 (KCl Powder) 40 meq UNSCH PRN PO 06/11/17 13:00 Potassium Phosphate 2000 mg 2,000 mg UNSCH PRN PO/TUBE 06/11/17 13:00 Potassium Phosphate 30 mmol/ Sodium Chloride 260 ml @ 42 mls/hr UNSCH PRN IV 06/11/17 13:00 06/11/17 23:58 Vancomycin HCl 1000 mg/Sodium Chloride 250 ml @ 250 mls/hr Q12H IV 06/11/17 14:00 06/13/17 01:26 Piperacillin Sod/ Tazobactam Sod 100 ml @ 200 mls/hr Q6H IV 06/11/17 18:00 06/13/17 05:36 Azithromycin 500 mg/Sodium Chloride 250 ml @ 250 mls/hr Q24H IV 06/11/17 14:00 06/12/17 13:50 Midazolam HCl 100 ml @ 0 mls/hr TITRATE IV 06/11/17 13:00 06/13/17 01:27 (fentaNYL DRIP) 250 ml @ 0 mls/hr TITRATE IV 06/11/17 13:30 06/12/17 11:53 Methylprednisolone Sodium Succinate 60 mg 60 mg Q8H IV PUSH 06/11/17 16:00 06/13/17 08:12 Epoprostenol Sodium 45 ml/ Sodium Chloride 100 ml @ 8 mls/hr Q8H NEB 06/11/17 18:00 06/13/17 01:26 (NS 1000 ml Inj) 1,000 ml @ 84 mls/hr [id number] IV 06/12/17 10:00 06/12/17 19:50 (NovoLIN R SUPPLEMENTAL SCALE) 1 Q4H SQ 06/12/17 10:00 06/12/17 17:49 Assessment and Plan Assessment and Plan 57 y.o male with metastatic rectal cancer with hematuria and bilateral hydronephrosis. Hematuria now cleared. Creatinine at 1.4 up from 1.0. Continue to monitor. Will follow. 06/13 57 y.o male with metastatic rectal cancer with hematuria and bilateral hydronephrosis. Hematuria resolved. Irrigate prn Cayden Tapia DO Jun 13, 2017 08:38
[2017-06-13] MEDS: SODIUM CHLOR 0.9% 1000 ML INJ 1,000 ML IV SCH ×2 (08:42→22:06)
[2017-06-13] MEDS: fentaNYL DRIP 250 ML IV SCH (10:11)
--- NOTE | 2017-06-13 11:29 | HHI.IDPN ---
Note Infectious Disease Note Patient is awake but restless. Follows commands. On the vent. Rust colored sputum suctioned - scant amts. Seen for pneumonia. 57-year-old white male who has a history of adenocarcinoma, stage IV of the rectum. PAST MEDICAL HISTORY 1. Rectal cancer diagnosed back in 2013. 2. History of necrotizing fasciitis involving the right lower extremity. 3. Right above knee amputation. 4. Left transmetatarsal amputation 5. Hypertension 6. Gastroesophageal reflux disease. ALLERGIES NO KNOWN DRUG ALLERGIES. ANTIBIOTICS: 1. Piperacillin/tazobactam 2. Vancomycin 3. Azithromycin OBJECTIVE: Vital Signs Date Time Temp Pulse Resp B/P Pulse Ox O2 Delivery O2 Flow Rate FiO2 06/13/17 10:30 45 06/13/17 10:00 105 06/13/17 09:00 107 06/13/17 09:00 107 20 103/68 99 06/13/17 08:00 98.4 107 21 97/71 99 06/13/17 08:00 107 06/13/17 08:00 55 06/13/17 07:39 100 55 06/13/17 07:00 105 06/13/17 07:00 105 20 92/63 98 06/13/17 06:00 55 06/13/17 06:00 109 06/13/17 04:02 99 60 06/13/17 04:00 98.7 108 20 89/59 99 06/13/17 04:00 108 06/13/17 04:00 60 06/13/17 02:00 107 06/13/17 01:30 60 06/13/17 00:45 100 60 06/13/17 00:00 98.6 104 20 102/68 98 06/13/17 00:00 65 06/13/17 00:00 104 06/12/17 22:00 108 06/12/17 20:52 97 65 06/12/17 20:00 65 06/12/17 20:00 110 06/12/17 20:00 98.8 110 20 110/77 97 06/12/17 18:00 107 06/12/17 18:00 107 06/12/17 18:00 107 20 82/59 94 06/12/17 17:56 65 06/12/17 17:00 108 20 90/63 96 06/12/17 17:00 108 06/12/17 16:00 98.2 104 20 90/61 96 06/12/17 16:00 70 06/12/17 16:00 104 06/12/17 15:26 96 70 06/12/17 15:00 108 25 98/62 96 06/12/17 14:00 108 20 88/60 95 06/12/17 14:00 108 06/12/17 13:00 112 24 104/69 90 06/12/17 12:04 98 70 06/12/17 12:00 97.5 109 20 109/72 98 06/12/17 12:00 80 06/12/17 12:00 109 06/12/17 06/12/17 06/13/17 15:00 23:00 07:00 Intake Total 1509 ml 1899 ml 1887 ml Output Total 250 ml 155 ml 450 ml Balance 1259 ml 1744 ml 1437 ml Intake IV Total 1239 ml 1395 ml 1427 ml Tube Feeding 70 ml 444 ml 340 ml Other 200 ml 60 ml 120 ml Output Urine Total 250 ml 150 ml 450 ml Stool Total 0 ml 5 ml 0 ml # Bowel Movements 0 Laboratory Tests Test 06/11/17 06/12/17 06/13/17 11:55 03:45 04:26 White Blood Count 22.9 TH/MM3 29.8 TH/MM3 27.8 TH/MM3 Red Blood Count 4.55 MIL/MM3 4.13 MIL/MM3 3.83 MIL/MM3 Hemoglobin 11.6 GM/DL 10.6 GM/DL 9.2 GM/DL Hematocrit 34.9 % 32.0 % 29.9 % Mean Corpuscular Volume 76.7 FL 77.3 FL 78.1 FL Mean Corpuscular Hemoglobin 25.6 PG 25.7 PG 24.0 PG Mean Corpuscular Hemoglobin 33.4 % 33.2 % 30.7 % Concent Red Cell Distribution Width 17.4 % 17.5 % 17.9 % Platelet Count 1040 TH/MM3 984 TH/MM3 926 TH/MM3 Mean Platelet Volume 6.6 FL 6.6 FL 6.7 FL Neutrophils (%) (Auto) 87.6 % 95.8 % 96.1 % Lymphocytes (%) (Auto) 5.4 % 1.7 % 1.7 % Monocytes (%) (Auto) 6.4 % 2.3 % 2.0 % Eosinophils (%) (Auto) 0.2 % 0.0 % 0.0 % Basophils (%) (Auto) 0.4 % 0.2 % 0.2 % Neutrophils # (Auto) 20.0 TH/MM3 28.5 TH/MM3 26.8 TH/MM3 Lymphocytes # (Auto) 1.2 TH/MM3 0.5 TH/MM3 0.5 TH/MM3 Monocytes # (Auto) 1.5 TH/MM3 0.7 TH/MM3 0.6 TH/MM3 Eosinophils # (Auto) 0.0 TH/MM3 0.0 TH/MM3 0.0 TH/MM3 Basophils # (Auto) 0.1 TH/MM3 0.0 TH/MM3 0.0 TH/MM3 CBC Comment DIFF FINAL DIFF FINAL DIFF FINAL Differential Comment Laboratory Tests Test 06/11/17 06/12/17 06/12/17 06/13/17 11:55 03:45 10:50 04:26 Sodium Level 136 MEQ/L 140 MEQ/L 141 MEQ/L 143 MEQ/L Potassium Level 3.1 MEQ/L 4.1 MEQ/L 3.3 MEQ/L 4.1 MEQ/L Chloride Level 101 MEQ/L 107 MEQ/L 110 MEQ/L 115 MEQ/L Carbon Dioxide Level 24.5 MEQ/L 21.9 MEQ/L 20.2 MEQ/L 19.0 MEQ/L Anion Gap 11 MEQ/L 11 MEQ/L 11 MEQ/L 9 MEQ/L Blood Urea Nitrogen 14 MG/DL 22 MG/DL 23 MG/DL 28 MG/DL Creatinine 1.04 MG/DL 1.46 MG/DL 1.50 MG/DL 1.55 MG/DL Estimat Glomerular Filtration 73 ML/MIN 50 ML/MIN 48 ML/MIN 46 ML/MIN Rate Random Glucose 137 MG/DL 220 MG/DL 164 MG/DL 129 MG/DL Lactic Acid Level 2.6 mmol/L 2.5 mmol/L Calcium Level 9.0 MG/DL 8.1 MG/DL 7.8 MG/DL 7.7 MG/DL Phosphorus Level 1.5 MG/DL 6.3 MG/DL 4.0 MG/DL 4.1 MG/DL Magnesium Level 1.9 MG/DL 2.0 MG/DL 2.0 MG/DL Total Bilirubin 0.5 MG/DL Aspartate Amino Transf 10 U/L (AST/SGOT) Alanine Aminotransferase 9 U/L (ALT/SGPT) Alkaline Phosphatase 88 U/L B-Type Natriuretic Peptide 87 PG/ML Total Protein 7.3 GM/DL Albumin 2.5 GM/DL Microbiology Date/Time Procedure Status Source Growth 06/11/17 11:50 Aerobic Blood Culture - Preliminary Resulted Blood Peripheral NO GROWTH IN 2 DAYS 06/11/17 11:50 Anaerobic Blood Culture - Preliminary Resulted Blood Peripheral NO GROWTH IN 2 DAYS 06/11/17 11:55 Aerobic Blood Culture - Preliminary Resulted Blood Peripheral NO GROWTH IN 2 DAYS 06/11/17 11:55 Anaerobic Blood Culture - Preliminary Resulted Blood Peripheral NO GROWTH IN 2 DAYS 06/11/17 12:30 Urine Culture - Preliminary Resulted Urine Clean Catch Group D Enterococcus 06/12/17 09:45 Gram Stain - Final Resulted Sputum Endotracheal 06/12/17 09:45 Sputum Culture Resulted Sputum Endotracheal Pending 06/12/17 09:45 Influenza Types A,B Antigen (CORNELIA) Ordered Nasal Washing Pending 06/12/17 09:45 Legionella Antigen - Final Complete Urine Catheterized Urine PRESUMPTIVE NEGATIVE FOR LEGIONELLA P... 06/12/17 09:45 Streptococcus pneumoniae Antigen (M - Final Complete Urine Catheterized Urine PRESUMPTIVE NEGATIVE FOR STREPTOCOCCU... 06/12/17 11:00 Influenza Types A,B Antigen (CORNELIA) - Final Complete Nasal Washing NEGATIVE FOR FLU A AND B ANTIGEN.... IMAGING: Renal Ultrasound 06/12/17 0000 Signed Impressions: Service Date/Time: Monday, June 12, 2017 12:41 - CONCLUSION: There continues to be bilateral hydronephrosis, right greater than left. The hydronephrosis appears to be improved compared to the prior examination. Alistair Balderas MD Chest X-Ray 06/12/17 0000 Signed Impressions: Service Date/Time: Monday, June 12, 2017 06:09 - CONCLUSION: Stable appearance of the chest. Reggie Murillo MD Chest CT 06/11/17 0000 Signed Impressions: Service Date/Time: Sunday, June 11, 2017 14:46 - CONCLUSION: 1. Large subcarinal mediastinal mass obstructing the left mainstem bronchus and presenting as a large filling defect within the esophagus. 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 2. Consolidated left lung to bronchial obstruction. 3. Small left pleural effusion 4. Known bilateral moderate to severe hydronephrosis. 5. Small patchy infiltrate right upper lobe. Edouard German MD PHYSICAL EXAMINATION: GENERAL: On the ventilator. Awake. follows commands. HEENT: Extraocular movements appear grossly intact. Pupils reactive to light. Oropharynx intubated. Neck: Supple without adenopathy. Lungs: Decreased breath sounds on the left throughout. Clear on the right. Heart: Regular S1-S2 without audible murmurs, rubs or gallops. Abdomen: Bowel sounds present, soft, bowel sounds are diminished. Extremities: The right [id number] amputation site is intact. The left transmetatarsal site appears intact. No edema. Skin: No rash. Neuro: Unable to fully assess. Psych: Unable to assess. IMPRESSION 1. Pneumonia involving the left lung likely post obstructive. The patient noted to have large subcarinal mediastinal mass obstructing the left mainstem bronchus and also large filling defect within the esophagus. 2. Acute respiratory failure. 3. Chronic renal failure probable acute component. 4. Abnormal urinalysis suggesting UTI. The patient has history of ureteral obstruction in the past. 5. Rectal cancer, untreated. RECOMMENDATIONS 1. Continue Piperacillin/tazobactam 2. Continue vancomycin. 3. Continue azithromycin 4. Follow cultures. 5. Follow clinical response. Edgar Tinoco MD Jun 13, 2017 11:29
--- NOTE | 2017-06-13 13:19 | HHI.CCPN ---
Subjective Remarks/Hospital Course The patient is a 57-year-old male with past medical history of rectal adenocarcinoma with metastatic disease and COPD, hypertension, GERD and anemia. He presented to [facility] Emergency Department from his oncologist's office for evaluation of shortness of breath. He was found to have O2 saturation in the low 80s and the patient has been short of breath for several days. He denied any associated symptoms of fever, chills, cough, nausea or vomiting or any abdominal pain. On arrival to the ER he was tachycardic, tachypneic and severely hypoxemic. The patient was intubated with etomidate, succinylcholine and placed on full mechanical ventilation. When seen he is currently on Diprivan, fentanyl and versed drips for sedation and vent synchrony. In addition he receive vecuronium 10 milligrams IV push. A chest x- ray pre intubation showed consolidation left base and his chest x-ray post intubation showed hyperinflation of the right with dense consolidation with volume loss on the left. Initially he was on BiPAP 10/5 with 100% FIO2, however , the patient failed BiPAP and he was subsequently intubated. ABG post intubation appears mixed venous gas with a pH of 7.46, CO2 33, paO2 39, bicarb 23 and saturation 70% on assist control rate of 24 tidal volume 550, PEEP of 14 , 100% FIO2. A CT scan of the chest was ordered. The patient's current blood pressure is 111/73, tachycardic with a heart rate of 115. 06/12 Patient is sedated with Diprivan, Fentanyl and Versed. Afebrile. On PRVC with PEEP:7 and FIO2 90%. No recurrent hematuria. 06/13 patient remains intubated sedated but wakes up easily follows commands. Chest x-ray pending today. PEEP at 7 FiO2 down to 55% Objective Vital Signs Date Time Temp Pulse Resp B/P Pulse Ox O2 Delivery O2 Flow Rate FiO2 06/13/17 12:06 97 45 06/13/17 12:00 98.4 102 20 97/63 06/11/17 17:15 Ventilator 06/11/17 12:40 15.00 Intake and Output 06/12/17 06/12/17 06/13/17 08:00 16:00 00:00 Intake Total 1804 ml 1509 ml 1899 ml Output Total 260 ml 250 ml 155 ml Balance 1544 ml 1259 ml 1744 ml Result Diagram: 06/13/17 0426 06/13/17 0426 Other Results Microbiology Date/Time Procedure Status Source Growth 06/12/17 09:45 Legionella Antigen - Final Complete Urine Catheterized Urine PRESUMPTIVE NEGATIVE FOR LEGIONELLA P... 06/12/17 09:45 Streptococcus pneumoniae Antigen (M - Final Complete Urine Catheterized Urine PRESUMPTIVE NEGATIVE FOR STREPTOCOCCU... 06/12/17 11:00 Influenza Types A,B Antigen (CORNELIA) - Final Complete Nasal Washing NEGATIVE FOR FLU A AND B ANTIGEN.... Imaging Last Impressions Chest X-Ray 06/12/17 0000 Signed Impressions: Service Date/Time: Monday, June 12, 2017 06:09 - CONCLUSION: Stable appearance of the chest. Reggie Murillo MD Chest CT 06/11/17 0000 Signed Impressions: Service Date/Time: Sunday, June 11, 2017 14:46 - CONCLUSION: 1. Large subcarinal mediastinal mass obstructing the left mainstem bronchus and presenting as a large filling defect within the esophagus. 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 2. Consolidated left lung to bronchial obstruction. 3. Small left pleural effusion 4. Known bilateral moderate to severe hydronephrosis. 5. Small patchy infiltrate right upper lobe. Edouard German MD Objective Remarks GENERAL: Patient is 57 yo critically ill intubated and sedated SKIN: Warm and dry. HEAD: Normocephalic. EYES: No scleral icterus. No injection or drainage. NECK: Supple, trachea midline. No JVD or lymphadenopathy. orally intubated CARDIOVASCULAR: Regular rate and rhythm without murmurs, gallops, or rubs. RESPIRATORY: Diminished BS on left. No accessory muscle use. GASTROINTESTINAL: Abdomen soft, non-tender, nondistended. MUSCULOSKELETAL: No cyanosis, or edema. Neuro: Sedated. Wakes up easily follows commands bilateral upper and lower extremities A/P Assessment and Plan 1. Acute hypoxemic respiratory failure. 2. Left lung consolidation. 3. Leukocytosis. 4. COPD 5. Rectal adenocarcinoma with metastases. 6. Hypertension. 7. Mild lactic acidemia. 8. Hypokalemia. 9. Gastroesophageal reflux disease. 10. Anemia. 11. B/L hydronephrosis 12. UTI with enterococcus Plan: Neuro: On fentanyl, versed and Diprivan infusions for sedation and vent synchrony. Daily sedation vacation Pulm: Continue with vent support and maintain sats> 92%. Bronchodilators, Solu-Medrol 60mg IV q.8h. Continue Flolan 30,000 ng-8ml/hr nebs-start weaning in [address] chest reviewed and discussed with Dr. Guardado. Will likely need broncho with biopsy r/o endobronchial lesions/ bronchogenic ca-planned for today 5 PM On PRVC RR 20, TV 550, IT: 1.30, PEEP:7, FIO2 55%, decrease FIO2 as angela. CV: Monitor HR and BP keep MAP> 65 mmHg. NS at 84 ml an hour. : Monitor renal function ins and outs and electrolyte replacement per protocol. Cr: 1.55 from 1.4, on NS@84ml/hr Urology is following for b/l hydronephrosis and hematuria (cleared) GI: On Protonix 40 mg IV daily for GI prophylaxis. Tube feeds- Glucerna 1.5 with goal rate 45ml/hr GI is following - likely need EGD r/o esophageal mass General surgery following - Dr. Alfonso ID: Continue with abx(vancomycin, Zosyn and azithromycin) Monitor for signs of infections(fever and WBC) Follow up on blood culture and urine culture from 06/11 ID eval. Urine cx the enterococcus Check strep pneumonia, legionella urinary antigen., nasal washing to rule out influenza and sputum cx. Heme: Monitor CBC, consult oncology service. Patient is known to Dr. Monte. Endo: SSI with Accu-Chek q.4h for glycemic control GI prophylaxis with Protonix 40 mg daily and DVT prophylaxis with SCD's. Not on chemical anticoagulation prophylaxis due to hematuria. Consider in 24 hours, no hematuria Palliative care is following CCT 33 mins Monique Erwin MD Jun 13, 2017 13:19
[2017-06-13] MEDS: AZITHROMYCIN INJ 500 MG in SODIUM CHLOR 0.9% 250 ML INJ 250 ML IV SCH (13:39)
--- NOTE | 2017-06-13 13:48 | HHI.GIFU ---
Subjective Remarks Pt becoming more aware. Still on ventilator. Oxygen sats improving on lower FIO2. Brohchoscopy is planned. We will be happy to do EGD when and if needed. Esophageal stent will probably be needed to facilitate XRT. Pt appears comfortable. Objective Vitals I&O Vital Signs Date Time Temp Pulse Resp B/P Pulse Ox O2 Delivery O2 Flow Rate FiO2 06/13/17 12:06 97 45 06/13/17 12:00 45 06/13/17 12:00 98.4 102 20 97/63 97 06/13/17 12:00 102 06/13/17 11:00 104 20 111/76 97 06/13/17 10:30 45 06/13/17 10:00 105 06/13/17 10:00 105 20 107/74 98 06/13/17 09:00 107 06/13/17 09:00 107 20 103/68 99 06/13/17 08:00 98.4 107 21 97/71 99 06/13/17 08:00 107 06/13/17 08:00 55 06/13/17 07:39 100 55 06/13/17 07:00 105 06/13/17 07:00 105 20 92/63 98 06/13/17 06:00 55 06/13/17 06:00 109 06/13/17 04:02 99 60 06/13/17 04:00 98.7 108 20 89/59 99 06/13/17 04:00 108 06/13/17 04:00 60 06/13/17 02:00 107 06/13/17 01:30 60 06/13/17 00:45 100 60 06/13/17 00:00 98.6 104 20 102/68 98 06/13/17 00:00 65 06/13/17 00:00 104 06/12/17 22:00 108 06/12/17 20:52 97 65 06/12/17 20:00 65 06/12/17 20:00 110 06/12/17 20:00 98.8 110 20 110/77 97 06/12/17 18:00 107 06/12/17 18:00 107 06/12/17 18:00 107 20 82/59 94 06/12/17 17:56 65 06/12/17 17:00 108 20 90/63 96 06/12/17 17:00 108 06/12/17 16:00 98.2 104 20 90/61 96 06/12/17 16:00 70 06/12/17 16:00 104 06/12/17 15:26 96 70 06/12/17 15:00 108 25 98/62 96 06/12/17 14:00 108 20 88/60 95 06/12/17 14:00 108 I/O 06/12/17 06/12/17 06/12/17 06/13/17 06/13/17 06/13/17 06:59 14:59 22:59 06:59 14:59 22:59 Intake Total 1804 ml 1509 ml 1899 ml 1887 ml Output Total 260 ml 250 ml 155 ml 450 ml Balance 1544 ml 1259 ml 1744 ml 1437 ml Intake IV Total 1804 ml 1239 ml 1395 ml 1427 ml Tube Feeding 70 ml 444 ml 340 ml Other 200 ml 60 ml 120 ml Output Urine Total 250 ml 250 ml 150 ml 450 ml Stool Total 10 ml 0 ml 5 ml 0 ml # Bowel Movements 0 Laboratory Laboratory Tests Test 06/13/17 04:26 White Blood Count 27.8 Red Blood Count 3.83 Hemoglobin 9.2 Hematocrit 29.9 Mean Corpuscular Volume 78.1 Mean Corpuscular Hemoglobin 24.0 Mean Corpuscular Hemoglobin 30.7 Concent Red Cell Distribution Width 17.9 Platelet Count 926 Mean Platelet Volume 6.7 Neutrophils (%) (Auto) 96.1 Lymphocytes (%) (Auto) 1.7 Monocytes (%) (Auto) 2.0 Eosinophils (%) (Auto) 0.0 Basophils (%) (Auto) 0.2 Neutrophils # (Auto) 26.8 Lymphocytes # (Auto) 0.5 Monocytes # (Auto) 0.6 Eosinophils # (Auto) 0.0 Basophils # (Auto) 0.0 CBC Comment DIFF FINAL Differential Comment Sodium Level 143 Potassium Level 4.1 Chloride Level 115 Carbon Dioxide Level 19.0 Anion Gap 9 Blood Urea Nitrogen 28 Creatinine 1.55 Estimat Glomerular Filtration 46 Rate Random Glucose 129 Calcium Level 7.7 Phosphorus Level 4.1 Magnesium Level 2.0 Date/Time Procedure Status Source Growth 06/12/17 11:00 Influenza Types A,B Antigen (CORNELIA) - Final Complete Nasal Washing NEGATIVE FOR FLU A AND B ANTIGEN.... 06/12/17 09:45 Legionella Antigen - Final Complete Urine Catheterized Urine PRESUMPTIVE NEGATIVE FOR LEGIONELLA P... 06/12/17 09:45 Streptococcus pneumoniae Antigen (M - Final Complete Urine Catheterized Urine PRESUMPTIVE NEGATIVE FOR STREPTOCOCCU... 06/12/17 09:45 Influenza Types A,B Antigen (CORNELIA) Ordered Nasal Washing Pending 06/12/17 09:45 Gram Stain - Final Resulted Sputum Endotracheal 06/12/17 09:45 Sputum Culture Resulted Sputum Endotracheal Pending 06/11/17 12:30 Urine Culture - Preliminary Resulted Urine Clean Catch Group D Enterococcus 06/11/17 11:55 Aerobic Blood Culture - Preliminary Resulted Blood Peripheral NO GROWTH IN 2 DAYS 06/11/17 11:55 Anaerobic Blood Culture - Preliminary Resulted Blood Peripheral NO GROWTH IN 2 DAYS Physical Exam HEENT: Normocephalic; atraumatic; no jaundice. CHEST: Resp even/unlabored. OETT to vent, FIO2 80%. CARDIAC: ST ABDOMEN: Soft, mildly distended, nontender; no hepatosplenomegaly; bowel sounds are present in all four quadrants. Colostomy right side. Old colostomy site on left with drsg d/i. EXTREMITIES: Left foot amputation. 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 esophageal mass. Chest CT(06/11/17)-----> 1. Large subcarinal mediastinal mass obstructing the left mainstem bronchus and presenting as a large filling defect within the esophagus. 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 2. Consolidated left lung to bronchial obstruction. 3. Small left pleural effusion 4. Known bilateral moderate to severe hydronephrosis. 5. Small patchy infiltrate right upper lobe. He was recently hospitalized for dysphagia/odynophagia (06/01-06/04). He was not evaluated by our service at that time. Pulmonary following, considering bronchoscopy once respiratory status improves. Will await bronch and consider EGD when more stable after bronchoscopy. - Dysphagia, decreased appetite, odynophagia. Recently hospitalized from 06/01-. There are no outpatient records from our office of EGD. - Anemia. No obvious acute blood loss. 10.6/32.0. - Leukocytosis. He has LLL consolidation. FLU A/B negative, Sputum pending, urine cx pending, bcx no growth 1 day Zosyn - Bilateral hydronephrosis, Hematuria. following. - Acute hypoxemic respiratory failure, left lower lobe consolidation, COPD. vent. per CCM - Metastatic rectal cancer. Dx with large rectal adenocarcinoma in 2013. This was complicated by a perirectal abscess and a necrotizing fasciitis which involved the pelivs and down the thigh. S/P multiple debridement, diverting colostomy. He has undergone radiation. Initially felt to not be a candidate for chemotherapy and at one point, was on hospice, but then discharged from hospice services on 11/25. He is followed by Dr. Monte, and at one point was treated with palliative oral capecitabine, but it is unclear if he had a response. He has since been offered palliative chemo on several different occasions, but declined treatment. He PLAN: - TF as tolerated - Cont. PPI - Abx per [facility] - Monitor labs - Consider EGD when more stable, after bronchoscopy. ? esophageal stent - Supportive care Maninder Caro MD Jun 13, 2017 13:48
--- NOTE | 2017-06-13 13:49 | RADRPT ---
EXAM DATE/TIME: 06/13/2017 13:15 [facility] COMPARISON: CHEST SINGLE AP, June 12, 2017, 6:09. INDICATIONS : Shortness of breath. MEDICAL HISTORY : Hypertension. Deep venous thrombosis. Methicillin-resistant Staphylococcus aureus. Renal disease. Dep ression. Anxiety. Rectal. Paraplegia. SURGICAL HISTORY : Colostomy. Right lower extremity amputation. Left toes amputation. ENCOUNTER: Subsequent ACUITY: 2 days PAIN SCORE: Non-responsive. LOCATION: Bilateral chest FINDINGS: ET tube is in good position. Mild loss is evident on the left. Right lung is reasonably well inflat ed. ET tube is not across the GE junction. Pulmonary vascularity is normal. CONCLUSION: Stable chest with marked volume loss on the left. Sean Howard MD FACR on June 13, 2017 at 13:46 Board Certified Radiologist. This report was verified electronically.
[2017-06-13 17:03] LABS: APTT (PATIENT) 27.1 SEC (24.3-30.1); PROTHROMBIN TIME - PATIENT 11.5 SEC (9.8-11.6)
[2017-06-13] MEDS ORDERED: fentaNYL CITRATE 250 MCG/5 ML AMP ONE (17:28)
--- NOTE | 2017-06-13 17:46 | HHI.PR ---
Subjective Remarks Critical and on the vent .FIo2 at 45 %. O2 sat 96 CXR shows some aeration of left lung.On Antibiotics and Solumedrol. Was scheduled for bronchoscopy to evaluate the left lung but family decided to hold off on any procedure Objective Vital Signs Date Time Temp Pulse Resp B/P Pulse Ox O2 Delivery O2 Flow Rate FiO2 06/13/17 16:20 99 45 06/13/17 16:00 97.7 104 20 97 06/13/17 16:00 104 06/13/17 16:00 45 06/13/17 15:00 104 20 91/63 99 06/13/17 14:00 105 17 98/63 99 06/13/17 14:00 105 06/13/17 13:00 104 20 94/60 97 06/13/17 12:06 97 45 06/13/17 12:00 45 06/13/17 12:00 98.4 102 20 97/63 97 06/13/17 12:00 102 06/13/17 11:00 104 20 111/76 97 06/13/17 10:30 45 06/13/17 10:00 105 06/13/17 10:00 105 20 107/74 98 06/13/17 09:00 107 06/13/17 09:00 107 20 103/68 99 06/13/17 08:00 98.4 107 21 97/71 99 06/13/17 08:00 107 06/13/17 08:00 55 06/13/17 07:39 100 55 06/13/17 07:00 105 06/13/17 07:00 105 20 92/63 98 06/13/17 06:00 55 06/13/17 06:00 109 06/13/17 04:02 99 60 06/13/17 04:00 98.7 108 20 89/59 99 06/13/17 04:00 108 06/13/17 04:00 60 06/13/17 02:00 107 06/13/17 01:30 60 06/13/17 00:45 100 60 06/13/17 00:00 98.6 104 20 102/68 98 06/13/17 00:00 65 06/13/17 00:00 104 06/12/17 22:00 108 06/12/17 20:52 97 65 06/12/17 20:00 65 06/12/17 20:00 110 06/12/17 20:00 98.8 110 20 110/77 97 06/12/17 18:00 107 06/12/17 18:00 107 06/12/17 18:00 107 20 82/59 94 06/12/17 17:56 65 I/O 06/12/17 06/12/17 06/12/17 06/13/17 06/13/17 06/13/17 06:59 14:59 22:59 06:59 14:59 22:59 Intake Total 1804 ml 1509 ml 1899 ml 1887 ml 1364 ml Output Total 260 ml 250 ml 155 ml 450 ml 400 ml Balance 1544 ml 1259 ml 1744 ml 1437 ml 964 ml Intake IV Total 1804 ml 1239 ml 1395 ml 1427 ml 1028 ml Tube Feeding 70 ml 444 ml 340 ml 236 ml Other 200 ml 60 ml 120 ml 100 ml Output Urine Total 250 ml 250 ml 150 ml 450 ml 400 ml Stool Total 10 ml 0 ml 5 ml 0 ml 0 ml # Bowel Movements 0 0 Result Diagram: 06/13/1742506/13/17425 Objective Remarks GENERAL: This averagely built middle-aged white male intubated and sedated. HEENT: Pupils reactive and equal. Throat clear. NECK: Supple without venous distension. Trachea midline. No thyroid enlargement. CHEST: Distant breath sounds over the left chest with occasional wheezes heard bilaterally, more on the left upper chest. HEART: The heart sounds are regular, S1, S2. No murmur. ABDOMEN: Soft, slightly protuberant without masses or organomegaly or tenderness. Bowel sounds are active. EXTREMITIES: Warm extremities. There is amputated right [id number] and the left leg foot amputated. Pulses not well felt. The patient is sedated. Assessment and Plan Assessment and Plan IMPRESSION 1. Hypoxemic respiratory failure. 2. Metastatic carcinoma with complete left lung atelectasis. 3. Rectal adenocarcinoma with metastasis. 4. Pneumonia left lung. 5. Sepsis . 6. Anemia of chronic disease. 7. COPD. 8. Hypertension. Plan : 1. Cont Vent support and Wean FIo2 to kep sat >90. 2. Cont Vanco,Zosyn, Zithromax 3. Nebs q6h , duoneb 4. CXR ,CBC,BMP , in am 5. Keep sedated, for vent control. 6. Wean PEEP to 5 CM 7. Hold Bronchoscopy per family request 8. D/W Dr Erwin. Nichole Guardado MD Jun 13, 2017 17:46
--- NOTE | 2017-06-13 18:00 | HHI.HCPN ---
Reason for visit a. To assist with evaluation and management of symptoms including: dyspnea, pain; encephalopathy b. To assist medical decision maker(s) with: better understanding of current medical conditions; weighing benefits/burdens of medical treatment options; making medical treatment decisions. . Subjective/Interval History Mr. Valles is sedated (fentanyl/midazolam/propofol) but arousable , intubated , mechanically ventilated in an MICU bed. He is sleeping soundly and barely stirs to voice/exam for me. He does not awaken. Dr. Erwin tells me he was following commands earlier today. Family arrived from the [facility]. They indicated the patient was wakeful for them but they were not convinced he recognized them. Patient continues to show improvement in oxygenation -- FIO2 now down to 45%. PEEP remains at 7. Afebrile. Some systolic BPs still in the low 90s. Borderline tachycardia. . Family/friend interactions Patioent's sister -- Karyn Kinney -- the health care surrogate arrived. She was accompanied by her niece Tanika Rincon and Tanika's daughter. 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 Maritza Burch. I met with this family for about 45 minutes in the consult room. We went over the patient's medical history, current challenges, diagnostic test results, etc. We discussed how it is possible that he could come off the ventilator. We discussed how his cancer was not going to be curable, but if he improved enough he could conceivably be a candidate for airway/esophageal stenting; radiation therapy; palliative chemotherapy; etc. which might help prolong his life. We also discussed, however, that it was unlikely that he could live independently again if he is able to survive the hospitalization. Family was unanimous in saying that the patient was already tired. They reminded me that he continued to have his [facility] DNR order on his refrigerator. He had shared with them multiple times how he would never be willing to try chemotherapy. They said he was at a point where he just wanted to leave things alone and "let what happens, happen." Family felt strongly that he would want to be compassionately removed from life support now. We discussed what happened in the ED and why they chose to intubate him them. We discussed the [place] Statutes in regard to withholding/withdrawal of life support and how if the physicians felt there was a chance that the patient would regain capacity to make his/her own decisions, then they should allow that to take place. We discussed the process of withdrawal of life support if we end up going in that direction. The health care surrogate said that on their ride here, they were called and asked to consent to bronchoscopy. They gave their consent on the phone, but now after seeing him, they don't want to put him through that. We discussed the benefits/burdens of bronchoscopy. they decided to forego the bronchoscopy at this time. . Advance Directives Living Will: Never completed Health Care Surrogate: Copy in medical record Durable Power of Billing Clerk: Never completed Advance Directive Specifics Date completed: There is a "designation of health care surrogate" form in the electronic medical record dated 01/09/14. It should be noted that one witness signature is missing. . Health Care Surrogate(s): There is a "designation of health care surrogate" form in the electronic medical record dated 01/09/14. It should be noted that one witness signature is missing. The form designates his sisters as health care surrogates... * Jeimy Gorman [phone] * Karyn Osorio [phone] We have subsequently learned that Jeimy Gorman is . New number for Karyn Osorio who is willing to serve as proxy is [phone] . Documented care wishes: There is no written documentation of health care preferences/goals/wishes other than a signed DNR order. Unclear if the patient , in the ED wanted to reverse this. . Objective Vital Signs Date Time Temp Pulse Resp B/P Pulse Ox O2 Delivery O2 Flow Rate FiO2 06/13/17 16:20 99 45 06/13/17 16:00 97.7 104 20 97 06/13/17 16:00 104 06/13/17 16:00 45 06/13/17 15:00 104 20 91/63 99 06/13/17 14:00 105 17 98/63 99 06/13/17 14:00 105 06/13/17 13:00 104 20 94/60 97 06/13/17 12:06 97 45 06/13/17 12:00 45 06/13/17 12:00 98.4 102 20 97/63 97 06/13/17 12:00 102 06/13/17 11:00 104 20 111/76 97 06/13/17 10:30 45 06/13/17 10:00 105 06/13/17 10:00 105 20 107/74 98 06/13/17 09:00 107 06/13/17 09:00 107 20 103/68 99 06/13/17 08:00 98.4 107 21 97/71 99 06/13/17 08:00 107 06/13/17 08:00 55 06/13/17 07:39 100 55 06/13/17 07:00 105 06/13/17 07:00 105 20 92/63 98 06/13/17 06:00 55 06/13/17 06:00 109 06/13/17 04:02 99 60 06/13/17 04:00 98.7 108 20 89/59 99 06/13/17 04:00 108 06/13/17 04:00 60 06/13/17 02:00 107 06/13/17 01:30 60 06/13/17 00:45 100 60 06/13/17 00:00 98.6 104 20 102/68 98 06/13/17 00:00 65 06/13/17 00:00 104 06/12/17 22:00 108 06/12/17 20:52 97 65 06/12/17 20:00 65 06/12/17 20:00 110 06/12/17 20:00 98.8 110 20 110/77 97 06/12/17 18:00 107 06/12/17 18:00 107 06/12/17 18:00 107 20 82/59 94 06/12/17 17:56 65 Intake & Output 06/13/17 06/13/17 07:00 19:00 Intake Total 3786 ml 1364 ml Output Total 605 ml 400 ml Balance 3181 ml 964 ml Intake IV Total 2822 ml 1028 ml Tube Feeding 784 ml 236 ml Other 180 ml 100 ml Output Urine Total 600 ml 400 ml Stool Total 5 ml 0 ml # Bowel Movements 0 Physical Exam CONSTITUTIONAL/GENERAL: This is a pale; gaunt; chronically ill-appearing gentleman currently sedated, intubated, and mechanically ventilated in the MICU. Stirs slightly to voice/exam, but does not awaken. TUBES/LINES/DRAINS: Orotracheal tube; orogastric tube; Yan catheter; peripheral IVs; colostomy. SKIN: No jaundice, rashes, or lesions. No wounds seen anteriorly. Skin temperature appropriate. Not diaphoretic. EYES: Pupils equal and round. No scleral icterus. No injection or drainage. Fundi not examined. ENT: Oropharynx difficult to assess due to intubations. NECK: Trachea midline. CARDIOVASCULAR: Tachycardic. Regular rhythm without murmurs, gallops, or rubs. No JVD. RESPIRATORY/CHEST: Chest movement now symmetric. Diminished air movement heard on the left compared to right.. Rare wheeze. GASTROINTESTINAL: Abdomen soft, distended, non-tender. Colostomy bag is present. No hepato-splenomegaly, or palpable masses. No guarding. Bowel sounds present. GENITOURINARY: Without palpable bladder distension. Yan catheter in place. 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 Extremities otherwise without clubbing, cyanosis , or edema. No mottling. LYMPHATICS: Not examined. NEUROLOGICAL: Sedated. Does not awaken and barely stirs to voice or exam. PSYCHIATRIC: Unable to assess due to level of responsiveness. . Diagnostic Tests Laboratory Laboratory Tests Test 06/11/17 06/11/17 06/11/17 06/11/17 11:50 11:55 12:30 14:03 Blood Gas Puncture Site LT RADIAL LT RADIAL Blood Gas Patient Temperature 98.6 98.6 Blood Gas HCO3 23 mmol/L 23 mmol/L (22-26) (22-26) Blood Gas Base Excess 0.8 mmol/L -0.3 mmol/L (-2-2) (-2-2) Blood Gas Oxygen Saturation 81 % (90-100) 70 % (90-100) Arterial Blood pH 7.56 7.46 (7.380-7.420) (7.380-7.420) Arterial Blood Partial 26 mmHg (38-42) 33 mmHg (38-42) Pressure CO2 Arterial Blood Partial 44 mmHG 39 mmHG Pressure O2 (61-120) (61-120) Arterial Blood Oxygen Content 12.6 Vol % 10.6 Vol % (12.0-20.0) (12.0-20.0) Arterial Blood 1.4 % (0-4) 1.1 % (0-4) Carboxyhemoglobin Arterial Blood Methemoglobin 0.5 % (0-2) 0.6 % (0-2) Blood Gas Hemoglobin 11.1 G/DL 10.8 G/DL (12.0-16.0) (12.0-16.0) Oxygen Delivery Device BiPAP VENTILATOR Blood Gas Ventilator Setting IPAP10/EPAP5 AC/24/550/PEEP14 Blood Gas Inspired Oxygen 100 % 100 % Prothrombin Time 11.8 SEC (9.8-11.6) Prothromb Time International 1.1 RATIO Ratio Activated Partial 32.3 SEC Thromboplast Time (24.3-30.1) Sodium Level 136 MEQ/L (136-145) Potassium Level 3.1 MEQ/L (3.5-5.1) Chloride Level 101 MEQ/L (98-107) Carbon Dioxide Level 24.5 MEQ/L (21.0-32.0) Anion Gap 11 MEQ/L (5-15) Blood Urea Nitrogen 14 MG/DL (7-18) Creatinine 1.04 MG/DL (0.60-1.30) Estimat Glomerular Filtration 73 ML/MIN (>89) Rate Random Glucose 137 MG/DL (74-106) Lactic Acid Level 2.6 mmol/L (0.4-2.0) Calcium Level 9.0 MG/DL (8.5-10.1) Phosphorus Level 1.5 MG/DL (2.5-4.9) Magnesium Level 1.9 MG/DL (1.5-2.5) Total Bilirubin 0.5 MG/DL (0.2-1.0) Aspartate Amino Transf 10 U/L (15-37) (AST/SGOT) Alanine Aminotransferase 9 U/L (12-78) (ALT/SGPT) Alkaline Phosphatase 88 U/L (45-117) B-Type Natriuretic Peptide 87 PG/ML (0-100) Total Protein 7.3 GM/DL (6.4-8.2) Albumin 2.5 GM/DL (3.4-5.0) White Blood Count 22.9 TH/MM3 (4.0-11.0) Red Blood Count 4.55 MIL/MM3 (4.50-5.90) Hemoglobin 11.6 GM/DL (13.0-17.0) Hematocrit 34.9 % (39.0-51.0) Mean Corpuscular Volume 76.7 FL (80.0-100.0) Mean Corpuscular Hemoglobin 25.6 PG (27.0-34.0) Mean Corpuscular Hemoglobin 33.4 % Concent (32.0-36.0) Red Cell Distribution Width 17.4 % (11.6-17.2) Platelet Count 1040 TH/MM3 (150-450) Mean Platelet Volume 6.6 FL (7.0-11.0) Neutrophils (%) (Auto) 87.6 % (16.0-70.0) Lymphocytes (%) (Auto) 5.4 % (9.0-44.0) Monocytes (%) (Auto) 6.4 % (0.0-8.0) Eosinophils (%) (Auto) 0.2 % (0.0-4.0) Basophils (%) (Auto) 0.4 % (0.0-2.0) Neutrophils # (Auto) 20.0 TH/MM3 (1.8-7.7) Lymphocytes # (Auto) 1.2 TH/MM3 (1.0-4.8) Monocytes # (Auto) 1.5 TH/MM3 (0-0.9) Eosinophils # (Auto) 0.0 TH/MM3 (0-0.4) Basophils # (Auto) 0.1 TH/MM3 (0-0.2) CBC Comment DIFF FINAL Differential Comment Urine Color YELLOW (YELLW/STRAW) Urine Turbidity CLOUDY (CLEAR) Urine pH 7.0 (5.0-8.5) Urine Specific [place] 1.016 (1.002-1.035) Urine Protein 300 mg/dL (NEG-TRACE) Urine Glucose (UA) NEG mg/dL (NEG) Urine Ketones TRACE mg/dL (NEG) Urine Occult Blood MOD (NEG) Urine Nitrite POS (NEG) Urine Bilirubin NEG (NEG) Urine Urobilinogen LESS THAN 2.0 MG/DL (LESS THAN 2.0) Urine Leukocyte Esterase LARGE (NEG) Urine RBC 100 /hpf (0-3) Urine WBC /hpf (0-5) Urine WBC Clumps MANY (NONE) Urine Squamous Epithelial 1 /hpf (0-5) Cells Urine Transitional Epithelial 1 /hpf (NONE) Cells Urine Bacteria MANY /hpf (NONE) Microscopic Urinalysis Comment CULTURE INDICATED Test 8/7/17 8/7/17 8/8/17 8/8/17 18:43 18:45 03:45 05:39 Blood Gas Puncture Site RT RADIAL RT RADIAL Blood Gas Patient Temperature 98.6 98.6 Blood Gas HCO3 21 mmol/L 18 mmol/L (22-26) (22-26) Blood Gas Base Excess -3.2 mmol/L -6.8 mmol/L (-2-2) (-2-2) Blood Gas Oxygen Saturation 87 % (90-100) 93 % (90-100) Arterial Blood pH 7.39 7.31 (7.380-7.420) (7.380-7.420) Arterial Blood Partial 36 mmHg (38-42) 38 mmHg (38-42) Pressure CO2 Arterial Blood Partial 63 mmHg 90 mmHg Pressure O2 (61-120) (61-120) Arterial Blood Oxygen Content 13.7 Vol % 16.8 Vol % (12.0-20.0) (12.0-20.0) Arterial Blood 1.1 % (0-4) 0.9 % (0-4) Carboxyhemoglobin Arterial Blood Methemoglobin 1.2 % (0-2) 1.1 % (0-2) Blood Gas Hemoglobin 11.1 G/DL 12.8 G/DL (12.0-16.0) (12.0-16.0) Oxygen Delivery Device VENTILATOR VENTILATOR Blood Gas Ventilator Setting A/C PRVC/AC 24/550/PEEP14 Blood Gas Inspired Oxygen 100 % 100 % Nasal Screen MRSA (PCR) MRSA DETECTED (NOT DETECT) White Blood Count 29.8 TH/MM3 (4.0-11.0) Red Blood Count 4.13 MIL/MM3 (4.50-5.90) Hemoglobin 10.6 GM/DL (13.0-17.0) Hematocrit 32.0 % (39.0-51.0) Mean Corpuscular Volume 77.3 FL (80.0-100.0) Mean Corpuscular Hemoglobin 25.7 PG (27.0-34.0) Mean Corpuscular Hemoglobin 33.2 % Concent (32.0-36.0) Red Cell Distribution Width 17.5 % (11.6-17.2) Platelet Count 984 TH/MM3 (150-450) Mean Platelet Volume 6.6 FL (7.0-11.0) Neutrophils (%) (Auto) 95.8 % (16.0-70.0) Lymphocytes (%) (Auto) 1.7 % (9.0-44.0) Monocytes (%) (Auto) 2.3 % (0.0-8.0) Eosinophils (%) (Auto) 0.0 % (0.0-4.0) Basophils (%) (Auto) 0.2 % (0.0-2.0) Neutrophils # (Auto) 28.5 TH/MM3 (1.8-7.7) Lymphocytes # (Auto) 0.5 TH/MM3 (1.0-4.8) Monocytes # (Auto) 0.7 TH/MM3 (0-0.9) Eosinophils # (Auto) 0.0 TH/MM3 (0-0.4) Basophils # (Auto) 0.0 TH/MM3 (0-0.2) CBC Comment DIFF FINAL Differential Comment Sodium Level 140 MEQ/L (136-145) Potassium Level 4.1 MEQ/L (3.5-5.1) Chloride Level 107 MEQ/L (98-107) Carbon Dioxide Level 21.9 MEQ/L (21.0-32.0) Anion Gap 11 MEQ/L (5-15) Blood Urea Nitrogen 22 MG/DL (7-18) Creatinine 1.46 MG/DL (0.60-1.30) Estimat Glomerular Filtration 50 ML/MIN (>89) Rate Random Glucose 220 MG/DL (74-106) Calcium Level 8.1 MG/DL (8.5-10.1) Phosphorus Level 6.3 MG/DL (2.5-4.9) Magnesium Level 2.0 MG/DL (1.5-2.5) Test 06/12/17 06/13/17 06/13/17 10:50 04:26 16:30 Sodium Level 141 MEQ/L 143 MEQ/L (136-145) (136-145) Potassium Level 3.3 MEQ/L 4.1 MEQ/L (3.5-5.1) (3.5-5.1) Chloride Level 110 MEQ/L 115 MEQ/L (98-107) (98-107) Carbon Dioxide Level 20.2 MEQ/L 19.0 MEQ/L (21.0-32.0) (21.0-32.0) Anion Gap 11 MEQ/L (5-15) 9 MEQ/L (5-15) Blood Urea Nitrogen 23 MG/DL (7-18) 28 MG/DL (7-18) Creatinine 1.50 MG/DL 1.55 MG/DL (0.60-1.30) (0.60-1.30) Estimat Glomerular Filtration 48 ML/MIN (>89) 46 ML/MIN (>89) Rate Random Glucose 164 MG/DL 129 MG/DL (74-106) (74-106) Lactic Acid Level 2.5 mmol/L (0.4-2.0) Calcium Level 7.8 MG/DL 7.7 MG/DL (8.5-10.1) (8.5-10.1) Phosphorus Level 4.0 MG/DL 4.1 MG/DL (2.5-4.9) (2.5-4.9) White Blood Count 27.8 TH/MM3 (4.0-11.0) Red Blood Count 3.83 MIL/MM3 (4.50-5.90) Hemoglobin 9.2 GM/DL (13.0-17.0) Hematocrit 29.9 % (39.0-51.0) Mean Corpuscular Volume 78.1 FL (80.0-100.0) Mean Corpuscular Hemoglobin 24.0 PG (27.0-34.0) Mean Corpuscular Hemoglobin 30.7 % Concent (32.0-36.0) Red Cell Distribution Width 17.9 % (11.6-17.2) Platelet Count 926 TH/MM3 (150-450) Mean Platelet Volume 6.7 FL (7.0-11.0) Neutrophils (%) (Auto) 96.1 % (16.0-70.0) Lymphocytes (%) (Auto) 1.7 % (9.0-44.0) Monocytes (%) (Auto) 2.0 % (0.0-8.0) Eosinophils (%) (Auto) 0.0 % (0.0-4.0) Basophils (%) (Auto) 0.2 % (0.0-2.0) Neutrophils # (Auto) 26.8 TH/MM3 (1.8-7.7) Lymphocytes # (Auto) 0.5 TH/MM3 (1.0-4.8) Monocytes # (Auto) 0.6 TH/MM3 (0-0.9) Eosinophils # (Auto) 0.0 TH/MM3 (0-0.4) Basophils # (Auto) 0.0 TH/MM3 (0-0.2) CBC Comment DIFF FINAL Differential Comment Magnesium Level 2.0 MG/DL (1.5-2.5) Prothrombin Time 11.5 SEC (9.8-11.6) Prothromb Time International 1.0 RATIO Ratio Activated Partial 27.1 SEC Thromboplast Time (24.3-30.1) . Result Diagram: 06/13/17 0426 06/13/17 0426 Microbiology Microbiology Date/Time Procedure Status Source Growth 06/11/17 11:50 Aerobic Blood Culture - Preliminary Resulted Blood Peripheral NO GROWTH IN 2 DAYS 06/11/17 11:50 Anaerobic Blood Culture - Preliminary Resulted Blood Peripheral NO GROWTH IN 2 DAYS 06/11/17 11:55 Aerobic Blood Culture - Preliminary Resulted Blood Peripheral NO GROWTH IN 2 DAYS 06/11/17 11:55 Anaerobic Blood Culture - Preliminary Resulted Blood Peripheral NO GROWTH IN 2 DAYS 06/11/17 12:30 Urine Culture - Final Complete Urine Clean Catch Enterococcus Faecalis 06/12/17 09:45 Gram Stain - Final Resulted Sputum Endotracheal 06/12/17 09:45 Sputum Culture - Preliminary Resulted S. Aureus Mrsa 06/12/17 09:45 Influenza Types A,B Antigen (CORNELIA) Ordered Nasal Washing Pending 06/12/17 09:45 Legionella Antigen - Final Complete Urine Catheterized Urine PRESUMPTIVE NEGATIVE FOR LEGIONELLA P... 06/12/17 09:45 Streptococcus pneumoniae Antigen (M - Final Complete Urine Catheterized Urine PRESUMPTIVE NEGATIVE FOR STREPTOCOCCU... 06/12/17 11:00 Influenza Types A,B Antigen (CORNELIA) - Final Complete Nasal Washing NEGATIVE FOR FLU A AND B ANTIGEN.... . Imaging Last Impressions Chest X-Ray 06/13/17 0000 Signed Impressions: Service Date/Time: Tuesday, June 13, 2017 13:15 - CONCLUSION: Stable chest with marked volume loss on the left. Sean Howard MD FACR Renal Ultrasound 06/12/17 0000 Signed Impressions: Service Date/Time: Monday, June 12, 2017 12:41 - CONCLUSION: There continues to be bilateral hydronephrosis, right greater than left. The hydronephrosis appears to be improved compared to the prior examination. Alistair Balderas MD Chest CT 06/11/17 0000 Signed Impressions: Service Date/Time: Sunday, June 11, 2017 14:46 - CONCLUSION: 1. Large subcarinal mediastinal mass obstructing the left mainstem bronchus and presenting as a large filling defect within the esophagus. 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 2. Consolidated left lung to bronchial obstruction. 3. Small left pleural effusion 4. Known bilateral moderate to severe hydronephrosis. 5. Small patchy infiltrate right upper lobe. Edouard German MD . Procedures * Intubation/mechanical ventilation . Assessment and Plan Disease Oriented Problem List: (1) Rectal adenocarcinoma Comment: Metastatic to pelvic and chest nodes. . (2) Respiratory failure with hypoxia Comment: Left lung is consolidated and not ventilating adequately due to carinal node obstruction of the left mainstem bronchus. . Initially unable to ventilate adequately in spite of vent support and high PEEP. Now improving. . . (3) Esophageal obstruction Comment: Obstruction appears to be secondary to compression from malignant node. . (4) Hydronephrosis Comment: Bilateral from tumor obstruction . (5) Sepsis (6) UTI (urinary tract infection) Symptom Scale: (1) Pain 0-10 Scale: Unable to quantify Comment: Sources of pain may now include orotracheal intubation; Yan catheterization; vascular access lines. . (2) Dyspnea 0-10 Scale: Unable to quantify Comment: Dyspnea with severe upon arrival. Now controlled with mechanical ventilation. Oxygenation slowly improving. Dyspnea also being treated pharmacologically with opiates and benzodiazepines. . Pertinent Non-Medical Issues Psychosocial: Patient apparently lived alone. He has one surviving sister -- Karyn Kinney -- who live in [facility]. He has kept in touch with here. There is an niece -- Tanika Rincon -- who knows him well and used to live here. There is a son he is estranged from for whom there is no contact information. Spiritual: No known congregational affiliation. Patient declined [employer] visits when he was a hospice patient. Legal: Patient has a written designation of health care surrogate that is missing one of the witnesses. He designated both of the sisters as surrogates. Only one sister survives. There is also a community DNR form signed on . It is unclear from subsequent physician visits and hospitalizations if he wanted this DNR status to continue. Ethical issues impacting care: Patient is currently incapacitated. . Important Contacts Patient has listed his 2 sisters as health care surrogates back in 2013. Sister -- Jeimy -- is now . * Karyn Osorio (sister and health care surrogate) [phone] * Tanika Rincon (niece -- the health care surrogate usually consults with Ms. Rincon before making decisions (C: [phone]; H: [phone]) . Prognosis This patient has metastatic colorectal adenocarcinoma. He has undergone radiation. He has declined chemotherapy on several occasions. Metastatic disease is causing multiple complications. First and foremost he has obstruction of the left mainstem bronchus which has caused a central collapse of the left lung. Even with intubation and mechanical ventilation on high PEEP we were unable to bring oxygen saturations into the 90s. This has now improved probably from high dose IV steroids. . Tumor also appears to be compressing his esophagus. In addition, he has had ongoing problems with obstructive uropathy. Gross hematuria has improved but BUN/creatinine now rising. . These problems are on top of chronic malnutrition with a current albumin of 2.5. Due to patient's dire condition, he does not appear to be a candidate for any major procedures. He would certainly be a candidate for hospice care again if/when goals are clearly comfort oriented. . Code Status: Alternative Code (Intubation only -- no chest compressions or shock or ACLS drugs.) Plan == Code Status: ALTERNATE CODE . Health care surrogate stresses that patient kept a DNR order on his refrigerator. Surrogate wants no chest compressions or shock. She wants to be notified prior to any extubation regarding orders for re-intubation. == Decision making: Patient is currently incapacitated to make his own health care decisions. As it now appears we will be able to oxygenate him adequately, he may recover capacity to make his own health care decisions. There is no spouse. There is an estranged son we have no contact information for. He has previously listed his 2 sisters -- Jeimy Gorman and Karyn Kinney -- as health care surrogates though there is a witness signature omitted from the document. Sister -- Jeimy -- is as are his parents. That leaves sister Karyn Kinney [phone] as the surrogate and she is willing to fill this role. Ms. Kinney is now consulting with her niece -- Tanika Rincon -- to help with decision making. == Goals of medical treatment: Health care surrogate feels strongly that patient would not want to be maintained on life support. They are advocating for withdrawal of life support as soon as possible. The patient, however, shows signs that he might become capacitated to make his own health care decisions. Dr. Monique Erwin feels it makes most sense to give the patient two more days. If he has not regained capacity by Sunday or has not shown significant evidence that he will regain further capacity, he will be comfortable with withdrawal of life support then. Family would prefer withdrawal of life support today, but are OK with this compromise. They want to be able to be here for withdrawal or wean so he does not alone. Family has opted NOT to go forward with bronchoscopy. == Pain: Current sources of pain would include orotracheal intubation, Yan catheter, vascular access lines, and bedbound status. He is currently on a fentanyl drip which appears to be adequate for symptom management. No additional recommendations at this time. == Dyspnea: Patient has profound dyspnea from his obstructed left main bronchus . We initially had trouble oxygenating him adequately in spite of vent support and high PEEP. He is on both fentanyl, midazolam, , and propofol drips which will certainly help mitigate subjective dyspnea. . No further recommendations at this time == I was present when Dr. Gutierrez spoke with family this evening . He spoke about how the patient would visit him and did not want any further aggressive treatments. the patient told Dr. Gutierrez what he told the family -- "we'll just let what happens happen." Dr. Gutierrez told family that he felt there was little chance that ongoing aggressive care would would provide substantial quantity or quality of life . He advocated transition to comfort measures only . ==Case discussed with Dr. Erwin == Palliative care will continue to follow to assist with symptom management and to further clarify goals of medical treatment as the clinical course evolves. . Time Spent Total Floor Time (mins): 80 (Total floor time included chart review; patient exam; above referenced meeting alone with family; telephone conversation with Dr. Erwin; family meeting with Dr. Gutierrez; reviewing resuscitation status; collaboration with primary nurse; documentation. ) Face to Face Time (mins): 10 >50% Counseling/Coord of Care: Yes Attestation To help prompt me to consider important information that might be impacting today's encounter and assessment, information from prior notes written by myself or my colleagues may have been "brought forward" into today's note. My signature on this note, however, is an attestation that I personally performed the exam, history, and/or decision-making noted today, and, unless otherwise indicated, the interactions with patient, family, and staff as well as the review of records all occurred today. I also attest that the listed assessment and stated plan reflect my best clinical judgment today based on the combination of historical information, prior notes, and today's exam/ interactions. When time spent is documented, it refers only to time spent today by the signer, or if indicated, combined time spent today by collaborating physician/nurse practitioner. . Francis Bolden MD Jun 13, 2017 18:00
[2017-06-14] VITALS (25 sets, daily range): BP systolic 102–134; BP diastolic 67–88; PULSE 86–108; RESP 20–114; TEMP 97.7–98.8; O2SAT 95–100
[2017-06-14] MEDS: RESP: ACETYLCYSTEINE 10% 30 ML NEB NEB SCH ×6 (00:23→20:38)
[2017-06-14] MEDS: RESP: ALBUTEROL 2.5 MG/IPRATROPIUM 0.5 MG NEB (SCH) INH ×6 (00:23→20:38)
[2017-06-14] MEDS: VANCOMYCIN INJ 1,000 MG in SODIUM CHLOR 0.9% 250 ML INJ 250 ML IV SCH (01:27)
[2017-06-14] MEDS: INSULIN NovoLIN REGULAR SUPPLEMENTAL SCALE SQ SCH ×6 (01:27→22:00)
[2017-06-14] MEDS: CHLORHEXIDINE GLUCONATE 2 % 1 PACK (2 CLOTHS) TOP SCH (01:28)
[2017-06-14] MEDS: MIDAZOLAM 100 MG/ML INJ 100 ML IV SCH ×2 (02:32→11:59)
--- NOTE | 2017-06-14 04:57 | RADRPT ---
EXAM DATE/TIME: 06/14/2017 03:23 [place] COMPARISON: CHEST SINGLE AP, June 13, 2017, 13:15. INDICATIONS : Respiratory disease. MEDICAL HISTORY : Hypertension. Deep venous thrombosis. Methicillin-resistant Staphylococcus aureus. Renal disease. Dep ression. Anxiety. Rectal Paraplegia. SURGICAL HISTORY : Colostomy. Right lower extremity amputation. Left toes amputation. ENCOUNTER: Subsequent ACUITY: 3 days PAIN SCORE: Non-responsive. LOCATION: Bilateral chest FINDINGS: Right lung is clear. Endotracheal tube again noted. Enteric tube is present in the distal tip overlie s the expected location of the distal esophagus, side port overlies the mid esophagus. There is persi stent opacification of left hemithorax with volume loss seen. CONCLUSION: Persistent left lung consolidation and effusion. Reggie Murillo MD on June 14, 2017 at 4:55 Board Certified Radiologist. This report was verified electronically.
[2017-06-14] MEDS: PIPERACIL-TAZO 4.5 GM PREMIX 100 ML IV SCH ×2 (05:28→12:00)
[2017-06-14] MEDS: fentaNYL DRIP 250 ML IV SCH (05:32)
[2017-06-14] MEDS: PROPOFOL 1000 MG/100 ML INJ 100 ML IV SCH ×3 (05:32→19:57)
[2017-06-14] MEDS: EPOPROSTENOL NEB SOLUTION 30 NG/KG/MIN 100 ML NEB SCH ×6 (06:27→17:29)
[2017-06-14 06:51] LABS: AUTOMATED NEUTROPHIL # 31.3 TH/MM3 (1.8-7.7); BASOPHIL % 0.1 % (0.0-2.0); HEMATOCRIT 29.3 % (39.0-51.0); LYMPHOCYTE # 0.6 TH/MM3 (1.0-4.8); MEAN CELL VOLUME 78.2 FL (80.0-100.0); MEAN CORPUSCULAR HEMOGLOBIN 24.2 PG (27.0-34.0); MEAN CORPUSCULAR HGB CONC 30.9 % (32.0-36.0); MONO % 2.1 % (0.0-8.0); NEUT % 95.8 % (16.0-70.0); PLATELET COUNT 971 TH/MM3 (150-450); RED BLOOD COUNT 3.75 MIL/MM3 (4.50-5.90); RED CELL DISTRIBUTION WIDTH 18.1 % (11.6-17.2); WHITE BLOOD COUNT 32.7 TH/MM3 (4.0-11.0)
[2017-06-14 06:58] LABS: HEMO FLAGS AUTO DIFF
[2017-06-14 07:37] LABS: ALKALINE PHOSPHATASE 50 U/L (45-117); ALT (GPT) 19 U/L (12-78); ANION GAP 7 MEQ/L (5-15); AST (GOT) 70 U/L (15-37); BICARBONATE 20.9 MEQ/L (21.0-32.0); BLOOD UREA NITROGEN 32 MG/DL (7-18); CHLORIDE 117 MEQ/L (98-107); GLOMERULAR FILTRATION RATE 55 ML/MIN (>89); MAGNESIUM 2.1 MG/DL (1.5-2.5); POTASSIUM 4.4 MEQ/L (3.5-5.1); SODIUM (NA) 145 MEQ/L (136-145); TOTAL BILIRUBIN ADULT 0.3 MG/DL (0.2-1.0)
[2017-06-14 07:47] LABS: PLATELET ESTIMATE SMEAR HIGH (NORMAL); PLATELET MORPHOLOGY NORMAL (NORMAL); POLYS (SEG NEUTROPHILS) 98 % (16-70); SCAN/DIFF FINAL DIFF MANUAL; WBC DIFF SAMPLE 100
--- NOTE | 2017-06-14 08:56 | HHI.CCPN ---
Subjective Remarks/Hospital Course The patient is a 57-year-old male with past medical history of rectal adenocarcinoma with metastatic disease and COPD, hypertension, GERD and anemia. He presented to [facility] Emergency Department from his oncologist's office for evaluation of shortness of breath. He was found to have O2 saturation in the low 80s and the patient has been short of breath for several days. He denied any associated symptoms of fever, chills, cough, nausea or vomiting or any abdominal pain. On arrival to the ER he was tachycardic, tachypneic and severely hypoxemic. The patient was intubated with etomidate, succinylcholine and placed on full mechanical ventilation. When seen he is currently on Diprivan, fentanyl and versed drips for sedation and vent synchrony. In addition he receive vecuronium 10 milligrams IV push. A chest x- ray pre intubation showed consolidation left base and his chest x-ray post intubation showed hyperinflation of the right with dense consolidation with volume loss on the left. Initially he was on BiPAP 10/5 with 100% FIO2, however , the patient failed BiPAP and he was subsequently intubated. ABG post intubation appears mixed venous gas with a pH of 7.46, CO2 33, paO2 39, bicarb 23 and saturation 70% on assist control rate of 24 tidal volume 550, PEEP of 14 , 100% FIO2. A CT scan of the chest was ordered. The patient's current blood pressure is 111/73, tachycardic with a heart rate of 115. 06/12 Patient is sedated with Diprivan, Fentanyl and Versed. Afebrile. On PRVC with PEEP:7 and FIO2 90%. No recurrent hematuria. 06/13 patient remains intubated sedated but wakes up easily follows commands. Chest x-ray pending today. PEEP at 7 FiO2 down to 55% 06/14 Patient remains intubated and sedared, On PRVC with PEEP: 7 and FIO2 45%. Afebrile. Objective Vital Signs Date Time Temp Pulse Resp B/P Pulse Ox O2 Delivery O2 Flow Rate FiO2 06/14/17 08:16 98 45 06/14/17 06:00 96 06/14/17 04:00 98.8 23 119/70 06/11/17 17:15 Ventilator 06/11/17 12:40 15.00 Intake and Output 06/13/17 06/13/17 06/14/17 08:00 16:00 00:00 Intake Total 1887 ml 1364 ml 1464 ml Output Total 450 ml 400 ml 400 ml Balance 1437 ml 964 ml 1064 ml Result Diagram: 06/14/17 0530 06/14/17 0530 Other Results Laboratory Tests Test 06/13/17 06/14/17 16:30 05:30 Prothrombin Time 11.5 SEC Prothromb Time International 1.0 RATIO Ratio Activated Partial 27.1 SEC Thromboplast Time White Blood Count 32.7 TH/MM3 Red Blood Count 3.75 MIL/MM3 Hemoglobin 9.1 GM/DL Hematocrit 29.3 % Mean Corpuscular Volume 78.2 FL Mean Corpuscular Hemoglobin 24.2 PG Mean Corpuscular Hemoglobin 30.9 % Concent Red Cell Distribution Width 18.1 % Platelet Count 971 TH/MM3 Mean Platelet Volume 6.4 FL Neutrophils (%) (Auto) 95.8 % Lymphocytes (%) (Auto) 2.0 % Monocytes (%) (Auto) 2.1 % Eosinophils (%) (Auto) 0.0 % Basophils (%) (Auto) 0.1 % Neutrophils # (Auto) 31.3 TH/MM3 Lymphocytes # (Auto) 0.6 TH/MM3 Monocytes # (Auto) 0.7 TH/MM3 Eosinophils # (Auto) 0.0 TH/MM3 Basophils # (Auto) 0.0 TH/MM3 CBC Comment AUTO DIFF Differential Total Cells 100 Counted Neutrophils % (Manual) 98 % Monocytes % 2 % Neutrophils # (Manual) 32.0 TH/MM3 Differential Comment FINAL DIFF MANUAL Platelet Estimate HIGH Platelet Morphology Comment NORMAL Sodium Level 145 MEQ/L Potassium Level 4.4 MEQ/L Chloride Level 117 MEQ/L Carbon Dioxide Level 20.9 MEQ/L Anion Gap 7 MEQ/L Blood Urea Nitrogen 32 MG/DL Creatinine 1.34 MG/DL Estimat Glomerular Filtration 55 ML/MIN Rate Random Glucose 113 MG/DL Calcium Level 8.1 MG/DL Magnesium Level 2.1 MG/DL Total Bilirubin 0.3 MG/DL Aspartate Amino Transf 70 U/L (AST/SGOT) Alanine Aminotransferase 19 U/L (ALT/SGPT) Alkaline Phosphatase 50 U/L Total Protein 5.3 GM/DL Albumin 2.2 GM/DL Imaging Last Impressions Chest X-Ray 06/14/17 0600 Signed Impressions: Service Date/Time: June 03:23 - CONCLUSION: Persistent left lung consolidation and effusion. Reggie Murillo MD Renal Ultrasound 06/12/17 0000 Signed Impressions: Service Date/Time: Monday, June 12, 2017 12:41 - CONCLUSION: There continues to be bilateral hydronephrosis, right greater than left. The hydronephrosis appears to be improved compared to the prior examination. Alistair Balderas MD Chest CT 06/11/17 0000 Signed Impressions: Service Date/Time: Sunday, June 11, 2017 14:46 - CONCLUSION: 1. Large subcarinal mediastinal mass obstructing the left mainstem bronchus and presenting as a large filling defect within the esophagus. 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 2. Consolidated left lung to bronchial obstruction. 3. Small left pleural effusion 4. Known bilateral moderate to severe hydronephrosis. 5. Small patchy infiltrate right upper lobe. Edouard German MD Objective Remarks GENERAL: Patient is 57 yo critically ill intubated and sedated SKIN: Warm and dry. HEAD: Normocephalic. EYES: No scleral icterus. No injection or drainage. NECK: Supple, trachea midline. No JVD or lymphadenopathy. orally intubated CARDIOVASCULAR: Regular rate and rhythm without murmurs, gallops, or rubs. RESPIRATORY: Diminished BS on left. No accessory muscle use. GASTROINTESTINAL: Abdomen soft, non-tender, nondistended. MUSCULOSKELETAL: No cyanosis, or edema. Neuro: Sedated. Wakes up easily follows commands bilateral upper and lower extremities A/P Assessment and Plan 1. Acute hypoxemic respiratory failure. 2. Left lung consolidation. 3. Leukocytosis. 4. COPD 5. Rectal adenocarcinoma with metastases. 6. Hypertension. 7. Mild lactic acidemia. 8. Hypokalemia. 9. Gastroesophageal reflux disease. 10. Anemia. 11. B/L hydronephrosis 12. UTI with enterococcus Plan: Neuro: On fentanyl, versed and Diprivan infusions for sedation and vent synchrony. Daily sedation vacation when appropriate Pulm: Continue with vent support and maintain sats> 92%. Bronchodilators, Solu-Medrol 60mg IV q.8h. Continue Flolan 30,000 ng-8ml/hr nebs- On PRVC RR 20, TV 550, IT: 1.30, PEEP:7, FIO2 45%, decrease FIO2 as angela. CV: Monitor HR and BP keep MAP> 65 mmHg. NS at 84 ml an hour. : Monitor renal function ins and outs and electrolyte replacement per protocol. Cr: 1.34 today from 1.55, on NS@84ml/hr Urology is following for b/l hydronephrosis and hematuria (cleared) Renal US: B/l hydronephrosis R>L , urology is following GI: On Protonix 40 mg IV daily for GI prophylaxis. Tube feeds- Glucerna 1.5 with goal rate 45ml/hr GI is following - likely need EGD r/o esophageal mass General surgery following - Dr. Alfonso ID: Continue with abx per ID(vancomycin, Zosyn and azithromycin) Monitor for signs of infections(fever and WBC) 06/11 Urine cx: Enterococcus faecalis 06/12: Sputum: MRSA strep pneumonia, legionella urinary antigen., nasal washing for influenza all negative Heme: Monitor CBC, consult oncology service. Patient is known to Dr. Monte. Endo: SSI with Accu-Chek q.4h for glycemic control GI prophylaxis with Protonix 40 mg daily and DVT prophylaxis with SCD's. start Heparin SQ H/H stable and hematuria cleared) Palliative care is following CCT 30 mins Placido Olivares MD Jun 14, 2017 08:56
[2017-06-14] MEDS: SODIUM CHLOR 0.9% 1000 ML INJ 1,000 ML IV SCH ×2 (09:40→21:35)
[2017-06-14] MEDS: methylPREDNISolone SOD SUCC 40 MG/1 ML VIAL IV PUSH SCH ×2 (10:28→14:45)
[2017-06-14] MEDS: PANTOPRAZOLE SODIUM 40 MG VIAL IV SCH (10:28)
[2017-06-14] MEDS: DOCUSATE SODIUM 50 MG/SENNA 8.6 MG TAB PO SCH ×2 (10:28→21:59)
--- NOTE | 2017-06-14 12:32 | HHI.PR ---
Subjective Remarks Awake and on the vent .FIo2 at 40 %. O2 sat 96 CXR shows some aeration of left lung.On Antibiotics and Was scheduled for bronchoscopy to evaluate the left lung but family decided to hold off on any procedure. Objective Vital Signs Date Time Temp Pulse Resp B/P Pulse Ox O2 Delivery O2 Flow Rate FiO2 06/14/17 12:00 98.7 108 23 115/67 95 06/14/17 12:00 108 06/14/17 12:00 45 06/14/17 11:49 40 06/14/17 11:02 98 40 06/14/17 11:00 107 21 126/77 100 06/14/17 11:00 107 06/14/17 10:00 102 06/14/17 10:00 102 20 98 06/14/17 09:00 100 20 106/70 97 06/14/17 09:00 100 06/14/17 08:16 98 45 06/14/17 08:00 98.8 95 20 106/71 99 06/14/17 08:00 95 06/14/17 08:00 45 06/14/17 07:00 96 06/14/17 07:00 96 20 102/73 97 06/14/17 06:00 96 06/14/17 04:00 100 06/14/17 04:00 45 06/14/17 04:00 98.8 100 23 119/70 96 06/14/17 03:37 100 45 06/14/17 02:00 86 06/14/17 00:23 98 45 06/14/17 00:00 45 06/14/17 00:00 98.6 91 20 116/71 98 06/14/17 00:00 90 06/13/17 22:00 90 06/13/17 20:45 99 45 06/13/17 20:00 96 06/13/17 20:00 98.4 97 20 102/70 98 06/13/17 20:00 45 06/13/17 18:00 103 06/13/17 16:20 99 45 06/13/17 16:00 97.7 104 20 97 06/13/17 16:00 104 06/13/17 16:00 45 06/13/17 15:00 104 20 91/63 99 06/13/17 14:00 105 17 98/63 99 06/13/17 14:00 105 06/13/17 13:00 104 20 94/60 97 I/O 06/13/17 06/13/17 06/13/17 06/14/17 06/14/17 06/14/17 07:00 15:00 23:00 07:00 15:00 23:00 Intake Total 1887 ml 1364 ml 1464 ml 1440 ml Output Total 450 ml 400 ml 400 ml 550 ml 0 ml Balance 1437 ml 964 ml 1064 ml 890 ml 0 ml Intake IV Total 1427 ml 1028 ml 1233 ml 970 ml Tube Feeding 340 ml 236 ml 231 ml 410 ml Other 120 ml 100 ml 60 ml Output Urine Total 450 ml 400 ml 400 ml 550 ml Stool Total 0 ml 0 ml 0 ml 0 ml Tube Feeding Residual Discard 0 ml # Bowel Movements 0 Result Diagram: 06/14/1752906/14/17529 Objective Remarks GENERAL: This averagely built middle-aged white male intubated and sedated.Responds . HEENT: Pupils reactive and equal. Throat clear. NECK: Supple without venous distension. Trachea midline. No thyroid enlargement. CHEST: Distant breath sounds over the left chest with occasional wheezes heard bilaterally. HEART: The heart sounds are regular, S1, S2. No murmur. ABDOMEN: Soft, slightly protuberant without masses or organomegaly or tenderness. Bowel sounds are active. EXTREMITIES: Warm extremities. There is amputated right [id number] and the left leg foot amputated. Pulses not well felt. The patient is awake Assessment and Plan Assessment and Plan IMPRESSION 1. Hypoxemic respiratory failure. 2. Metastatic carcinoma with complete left lung atelectasis. 3. Rectal adenocarcinoma with metastasis. 4. Pneumonia left lung. 5. Sepsis . 6. Anemia of chronic disease. 7. COPD. 8. Hypertension. Plan : 1. Cont Vent support and Wean FIo2 to kep sat >90. 2. Cont Vanco,Zosyn, Zithromax 3. Nebs q6h , duoneb 4. CBC,BMP , in am 5. Reduce sedation 6. Tube feeds at 50 CC 7. Hold Bronchoscopy per family request 8. D/W Dr Erwin. Nichole Guardado MD Jun 14, 2017 12:32
--- NOTE | 2017-06-14 13:18 | HHI.IDPN ---
Note Infectious Disease Note Patient is awake. Follows commands. On the vent. CPAP. Sputum culture has MRSA. Family refused thoracentesis. Seen for pneumonia. 57-year-old white male who has a history of adenocarcinoma, stage IV of the rectum. PAST MEDICAL HISTORY 1. Rectal cancer diagnosed back in 2013. 2. History of necrotizing fasciitis involving the right lower extremity. 3. Right above knee amputation. 4. Left transmetatarsal amputation 5. Hypertension 6. Gastroesophageal reflux disease. ALLERGIES NO KNOWN DRUG ALLERGIES. ANTIBIOTICS: 1. Piperacillin/tazobactam 2. Vancomycin 3. Azithromycin OBJECTIVE: Vital Signs Date Time Temp Pulse Resp B/P Pulse Ox O2 Delivery O2 Flow Rate FiO2 06/14/17 12:00 98.7 108 23 115/67 95 06/14/17 12:00 108 06/14/17 12:00 45 06/14/17 11:49 40 06/14/17 11:02 98 40 06/14/17 11:00 107 21 126/77 100 06/14/17 11:00 107 06/14/17 10:00 102 06/14/17 10:00 102 20 98 06/14/17 09:00 100 20 106/70 97 06/14/17 09:00 100 06/14/17 08:16 98 45 06/14/17 08:00 98.8 95 20 106/71 99 06/14/17 08:00 95 06/14/17 08:00 45 06/14/17 07:00 96 06/14/17 07:00 96 20 102/73 97 06/14/17 06:00 96 06/14/17 04:00 100 06/14/17 04:00 45 06/14/17 04:00 98.8 100 23 119/70 96 06/14/17 03:37 100 45 06/14/17 02:00 86 06/14/17 00:23 98 45 06/14/17 00:00 45 06/14/17 00:00 98.6 91 20 116/71 98 06/14/17 00:00 90 06/13/17 22:00 90 06/13/17 20:45 99 45 06/13/17 20:00 96 06/13/17 20:00 98.4 97 20 102/70 98 06/13/17 20:00 45 06/13/17 18:00 103 06/13/17 16:20 99 45 06/13/17 16:00 97.7 104 20 97 06/13/17 16:00 104 06/13/17 16:00 45 06/13/17 15:00 104 20 91/63 99 06/13/17 14:00 105 17 98/63 99 06/13/17 14:00 105 06/13/17 06/13/17 06/14/17 14:59 22:59 06:59 Intake Total 1364 ml 1464 ml 1440 ml Output Total 400 ml 400 ml 550 ml Balance 964 ml 1064 ml 890 ml Intake IV Total 1028 ml 1233 ml 970 ml Tube Feeding 236 ml 231 ml 410 ml Other 100 ml 60 ml Output Urine Total 400 ml 400 ml 550 ml Stool Total 0 ml 0 ml 0 ml # Bowel Movements 0 Laboratory Tests Test 06/13/17 06/14/17 04:26 05:30 White Blood Count 27.8 TH/MM3 32.7 TH/MM3 Red Blood Count 3.83 MIL/MM3 3.75 MIL/MM3 Hemoglobin 9.2 GM/DL 9.1 GM/DL Hematocrit 29.9 % 29.3 % Mean Corpuscular Volume 78.1 FL 78.2 FL Mean Corpuscular Hemoglobin 24.0 PG 24.2 PG Mean Corpuscular Hemoglobin 30.7 % 30.9 % Concent Red Cell Distribution Width 17.9 % 18.1 % Platelet Count 926 TH/MM3 971 TH/MM3 Mean Platelet Volume 6.7 FL 6.4 FL Neutrophils (%) (Auto) 96.1 % 95.8 % Lymphocytes (%) (Auto) 1.7 % 2.0 % Monocytes (%) (Auto) 2.0 % 2.1 % Eosinophils (%) (Auto) 0.0 % 0.0 % Basophils (%) (Auto) 0.2 % 0.1 % Neutrophils # (Auto) 26.8 TH/MM3 31.3 TH/MM3 Lymphocytes # (Auto) 0.5 TH/MM3 0.6 TH/MM3 Monocytes # (Auto) 0.6 TH/MM3 0.7 TH/MM3 Eosinophils # (Auto) 0.0 TH/MM3 0.0 TH/MM3 Basophils # (Auto) 0.0 TH/MM3 0.0 TH/MM3 CBC Comment DIFF FINAL AUTO DIFF Differential Comment FINAL DIFF MANUAL Differential Total Cells 100 Counted Neutrophils % (Manual) 98 % Monocytes % 2 % Neutrophils # (Manual) 32.0 TH/MM3 Platelet Estimate HIGH Platelet Morphology Comment NORMAL Laboratory Tests Test 06/13/17 06/14/17 04:26 05:30 Sodium Level 143 MEQ/L 145 MEQ/L Potassium Level 4.1 MEQ/L 4.4 MEQ/L Chloride Level 115 MEQ/L 117 MEQ/L Carbon Dioxide Level 19.0 MEQ/L 20.9 MEQ/L Anion Gap 9 MEQ/L 7 MEQ/L Blood Urea Nitrogen 28 MG/DL 32 MG/DL Creatinine 1.55 MG/DL 1.34 MG/DL Estimat Glomerular Filtration 46 ML/MIN 55 ML/MIN Rate Random Glucose 129 MG/DL 113 MG/DL Calcium Level 7.7 MG/DL 8.1 MG/DL Phosphorus Level 4.1 MG/DL Magnesium Level 2.0 MG/DL 2.1 MG/DL Total Bilirubin 0.3 MG/DL Aspartate Amino Transf 70 U/L (AST/SGOT) Alanine Aminotransferase 19 U/L (ALT/SGPT) Alkaline Phosphatase 50 U/L Total Protein 5.3 GM/DL Albumin 2.2 GM/DL Microbiology Date/Time Procedure Status Source Growth 06/12/17 09:45 Gram Stain - Final Complete Sputum Endotracheal 06/12/17 09:45 Sputum Culture - Final Complete S. Aureus Mrsa 06/12/17 09:45 Influenza Types A,B Antigen ([place]) Ordered Nasal Washing Pending 06/12/17 09:45 Legionella Antigen - Final Complete Urine Catheterized Urine PRESUMPTIVE NEGATIVE FOR LEGIONELLA P... 06/12/17 09:45 Streptococcus pneumoniae Antigen (M - Final Complete Urine Catheterized Urine PRESUMPTIVE NEGATIVE FOR STREPTOCOCCU... 06/12/17 11:00 Influenza Types A,B Antigen ([place]) - Final Complete Nasal Washing NEGATIVE FOR FLU A AND B ANTIGEN.... IMAGING: Chest X-Ray 06/14/17 0600 Signed Impressions: Service Date/Time: June 03:23 - CONCLUSION: Persistent left lung consolidation and effusion. Reggie Murillo MD Renal Ultrasound 06/12/17 0000 Signed Impressions: Service Date/Time: Monday, June 12, 2017 12:41 - CONCLUSION: There continues to be bilateral hydronephrosis, right greater than left. The hydronephrosis appears to be improved compared to the prior examination. Alistair Balderas MD Chest X-Ray 06/12/17 0000 Signed Impressions: Service Date/Time: Monday, June 12, 2017 06:09 - CONCLUSION: Stable appearance of the chest. Reggie Murillo MD Chest CT 06/11/17 0000 Signed Impressions: Service Date/Time: Sunday, June 11, 2017 14:46 - CONCLUSION: 1. Large subcarinal mediastinal mass obstructing the left mainstem bronchus and presenting as a large filling defect within the esophagus. 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 2. Consolidated left lung to bronchial obstruction. 3. Small left pleural effusion 4. Known bilateral moderate to severe hydronephrosis. 5. Small patchy infiltrate right upper lobe. Edouard German MD PHYSICAL EXAMINATION: GENERAL: On the ventilator. Awake. follows commands. HEENT: No icterus. Neck: Supple without adenopathy. Lungs: Decreased breath sounds on the left throughout. Clear on the right. Heart: Regular S1-S2 without audible murmurs, rubs or gallops. Abdomen: Bowel sounds present, soft, bowel sounds are diminished. Extremities: The right [id number] amputation site is intact. The left transmetatarsal site appears intact. No edema. Skin: No rash. Neuro: Unable to fully assess. Psych: Unable to assess. IMPRESSION 1. Pneumonia involving the left lung likely post obstructive. MRSA. The patient noted to have large subcarinal mediastinal mass obstructing the left mainstem bronchus and also large filling defect within the esophagus. 2. Acute respiratory failure. 3. Chronic renal failure probable acute component. 4. UTI. Enterococcus. The patient has history of ureteral obstruction in the past. 5. Rectal cancer, untreated. RECOMMENDATIONS 1. Stop Piperacillin/tazobactam 2. Stop vancomycin. 3. Stop azithromycin 4. Start Zyvox. 5. Follow cultures. 6. Follow clinical response. I will be off 06/05 - 06/18, other ID MD zach. Edgar Tinoco MD Jun 14, 2017 13:18
[2017-06-14] MEDS: LINEZOLID 600 MG PREMIX 300 ML IV SCH (14:44)
--- NOTE | 2017-06-14 15:08 | PD.ONC.PN ---
Subjective Subjective Remarks Afebrile overnight. Remains intubated, sedated. Objective Data Date Time Temp Pulse Resp B/P Pulse Ox O2 Delivery O2 Flow Rate FiO2 06/14/17 14:53 98 40 06/14/17 13:30 45 06/14/17 12:00 98.7 108 23 115/67 95 06/14/17 12:00 108 06/14/17 12:00 45 06/14/17 11:49 40 06/14/17 11:02 98 40 06/14/17 11:00 107 21 126/77 100 06/14/17 11:00 107 06/14/17 10:00 102 06/14/17 10:00 102 20 98 06/14/17 09:00 100 20 106/70 97 06/14/17 09:00 100 06/14/17 08:16 98 45 06/14/17 08:00 98.8 95 20 106/71 99 06/14/17 08:00 95 06/14/17 08:00 45 06/14/17 07:00 96 06/14/17 07:00 96 20 102/73 97 06/14/17 06:00 96 06/14/17 04:00 100 06/14/17 04:00 45 06/14/17 04:00 98.8 100 23 119/70 96 06/14/17 03:37 100 45 06/14/17 02:00 86 06/14/17 00:23 98 45 06/14/17 00:00 45 06/14/17 00:00 98.6 91 20 116/71 98 06/14/17 00:00 90 06/13/17 22:00 90 06/13/17 20:45 99 45 06/13/17 20:00 96 06/13/17 20:00 98.4 97 20 102/70 98 06/13/17 20:00 45 06/13/17 18:00 103 06/13/17 16:20 99 45 06/13/17 16:00 97.7 104 20 97 06/13/17 16:00 104 06/13/17 16:00 45 06/14/17 06/14/17 06/14/17 06:59 14:59 22:59 Intake Total 1440 ml Output Total 550 ml 0 ml Balance 890 ml 0 ml Result Diagram: 06/14/17 0530 06/14/17 0530 Laboratory Results Laboratory Tests Test 06/13/17 06/14/17 16:30 05:30 Prothrombin Time 11.5 SEC Prothromb Time International 1.0 RATIO Ratio Activated Partial 27.1 SEC Thromboplast Time White Blood Count 32.7 TH/MM3 Red Blood Count 3.75 MIL/MM3 Hemoglobin 9.1 GM/DL Hematocrit 29.3 % Mean Corpuscular Volume 78.2 FL Mean Corpuscular Hemoglobin 24.2 PG Mean Corpuscular Hemoglobin 30.9 % Concent Red Cell Distribution Width 18.1 % Platelet Count 971 TH/MM3 Mean Platelet Volume 6.4 FL Neutrophils (%) (Auto) 95.8 % Lymphocytes (%) (Auto) 2.0 % Monocytes (%) (Auto) 2.1 % Eosinophils (%) (Auto) 0.0 % Basophils (%) (Auto) 0.1 % Neutrophils # (Auto) 31.3 TH/MM3 Lymphocytes # (Auto) 0.6 TH/MM3 Monocytes # (Auto) 0.7 TH/MM3 Eosinophils # (Auto) 0.0 TH/MM3 Basophils # (Auto) 0.0 TH/MM3 CBC Comment AUTO DIFF Differential Total Cells 100 Counted Neutrophils % (Manual) 98 % Monocytes % 2 % Neutrophils # (Manual) 32.0 TH/MM3 Differential Comment FINAL DIFF MANUAL Platelet Estimate HIGH Platelet Morphology Comment NORMAL Sodium Level 145 MEQ/L Potassium Level 4.4 MEQ/L Chloride Level 117 MEQ/L Carbon Dioxide Level 20.9 MEQ/L Anion Gap 7 MEQ/L Blood Urea Nitrogen 32 MG/DL Creatinine 1.34 MG/DL Estimat Glomerular Filtration 55 ML/MIN Rate Random Glucose 113 MG/DL Calcium Level 8.1 MG/DL Magnesium Level 2.1 MG/DL Total Bilirubin 0.3 MG/DL Aspartate Amino Transf 70 U/L (AST/SGOT) Alanine Aminotransferase 19 U/L (ALT/SGPT) Alkaline Phosphatase 50 U/L Total Protein 5.3 GM/DL Albumin 2.2 GM/DL Culture Results Microbiology Date/Time Procedure Status Source Growth 06/12/17 09:45 Gram Stain - Final Complete Sputum Endotracheal 06/12/17 09:45 Sputum Culture - Final Complete S. Aureus Mrsa 06/12/17 09:45 Influenza Types A,B Antigen (CORNELIA) Ordered Nasal Washing Pending 06/12/17 09:45 Legionella Antigen - Final Complete Urine Catheterized Urine PRESUMPTIVE NEGATIVE FOR LEGIONELLA P... 06/12/17 09:45 Streptococcus pneumoniae Antigen (M - Final Complete Urine Catheterized Urine PRESUMPTIVE NEGATIVE FOR STREPTOCOCCU... 06/12/17 11:00 Influenza Types A,B Antigen (CORNELIA) - Final Complete Nasal Washing NEGATIVE FOR FLU A AND B ANTIGEN.... Imaging Studies Last 24 hours Impressions Chest X-Ray 06/14/17 0600 Signed Impressions: Service Date/Time: June 03:23 - CONCLUSION: Persistent left lung consolidation and effusion. Reggie Murillo MD Administered Medications Medications (Trade) Dose Ordered Sig/Orlin Route PRN Reason Start Time Stop Time Status Last Admin Dose Admin Sodium Chloride 2 ml 2 ml UNSCH PRN IVF FLUSH AFTER USING IV ACCESS 06/11/17 11:45 06/14/17 10:28 Propofol (Diprivan 1000 Mg/100ml Inj) 100 ml @ 0 mls/hr TITRATE IV 06/11/17 12:15 06/14/17 10:28 Pantoprazole Sodium (Protonix Inj) 40 mg DAILY IV 06/11/17 13:00 06/14/17 10:28 Chlorhexidine Gluconate (Chlorhexidine 2% Cloth) 3 pack Taper DAILY@04 TOP 06/12/17 04:00 06/08/18 03:59 06/14/17 01:28 Senna/Docusate Sodium (Jaylene-Colace) 1 tab BID PO 06/11/17 21:00 06/14/17 10:28 Potassium Bicarb/ Potassium Chloride 50 meq 50 meq UNSCH PRN PO For Potassium 3.3 - 3.5 mEq/L 06/11/17 13:00 06/12/17 11:53 Potassium Phosphate 30 mmol/ Sodium Chloride 260 ml @ 42 mls/hr UNSCH PRN IV SEE LABEL COMMENTS 06/11/17 13:00 06/11/17 23:58 Midazolam HCl 100 ml @ 0 mls/hr TITRATE IV 06/11/17 13:00 06/14/17 11:59 Fentanyl Citrate (fentaNYL DRIP) 250 ml @ 0 mls/hr TITRATE IV 06/11/17 13:30 06/14/17 05:32 Methylprednisolone Sodium Succinate 60 mg 60 mg Q8H IV PUSH 06/11/17 16:00 8/10/17 14:45 Epoprostenol Sodium 45 ml/ Sodium Chloride 100 ml @ 8 mls/hr Q8H NEB 06/11/17 18:00 06/14/17 06:27 Sodium Chloride (NS 1000 ml Inj) 1,000 ml @ 84 mls/hr [id number] IV 06/12/17 10:00 06/14/17 09:40 Insulin Human Regular 1 1 Q4H SQ 06/12/17 10:00 06/12/17 17:49 Linezolid (Zyvox 600 Mg Premix) 300 ml @ 300 mls/hr Q12H IV 06/14/17 14:00 06/14/17 14:44 Objective Remarks GENERAL: Chronically ill male intubated, sedated SKIN: Warm and dry. HEAD: Normocephalic. EYES: No injection or drainage. NECK: Supple, trachea midline. CARDIOVASCULAR: Regular rate and rhythm RESPIRATORY: anterior cui with occasional rhonchi. on mechanical ventilation GASTROINTESTINAL: Abdomen nondistended. EXTREMITIES: No cyanosis. NEUROLOGICAL: intubated, sedated Assessment/Plan Problem List: (1) Metastatic adenocarcinoma Status: Acute Plan: History: --h/o locally recurrent adenocarcinoma the rectum. --initial diagnosis of rectal carcinoma was established in 2013. --was treated at that time with palliative radiation. --had multiple other medical issues at that time including necrotizing fasciitis which required multiple amputations an extensive debridement with multiple surgeries on his gluteal area on the right side as well on his legs. Eventually required high [id number] amputation on the right side. --Mr. Valles was discharged from the hospital after a more than 2-month hospitalization, he was discharged to the hospice care facility and then was later discharged to his home. He remain on Hospice for 2 years. After he survive 2 years he came off of hospice and reestablished followup with me in the summer of 2016. The patient at that time was doing well seemingly. He was restaged and was found to have local recurrence / persistence of the adenocarcinoma of rectum and was also noted to have a spiculated mass / lesion involving the left upper lobe of the lung. Mediastinal lymphadenopathy was identified as well. --patient declined any intravenous systemic chemotherapy and preferred instead to go on oral Xeloda which is a low intensity agent for palliation. The patient tolerated treatment reasonably well but discontinued treatment about two and half to three months ago because he was having difficulty affording the copayment. He was offered IV systemic chemotherapy which he declined. --Two weeks ago he was hospitalized because he was urinating blood and was also having chest and abdominal pain. Imaging studies indicated progressive disease in the thorax and in the abdomen and pelvis. Again conversation regarding palliative systemic chemotherapy was initiated at this time with my partner regional extension service specialist Dr. Kb Paez. The patient declined palliative systemic chemotherapy at that time. --at time of admission, patient came to clinic and was hypoxic bioinformaticist were called and he was sent over to the emergency department where he was intubated. 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 Peripheral arterial disease. High [id number] amputation on the right side. Partial amputation of the left foot. Arterial stent placement in the lower extremity on the left side. Multiple surgical debridements. Various abdominal surgeries including diverting colostomy as well as reduction of colostomy associate hernia. Tobacco abuse. COPD. History of alcohol abuse. Plan 1. per palliative care/nursing staff, patient's family is planning compassionate extubation tomorrow or Sunday (they want to be here during extubation). If he survives extubation, they plan to transition to comfort measures. 2. continue supportive care Caron Toledo Jun 14, 2017 15:08 Caron Toledo Jun 14, 2017 15:08
--- NOTE | 2017-06-14 17:30 | HHI.GIFU ---
Subjective Remarks Pt laying in bed, awake on vent. Indicates no abd pain. weak. NO bronch for now per family; per family service worker considering withdrawal. Objective Vitals I&O Vital Signs Date Time Temp Pulse Resp B/P Pulse Ox O2 Delivery O2 Flow Rate FiO2 06/14/17 16:00 105 06/14/17 16:00 45 06/14/17 16:00 98.4 105 27 115/77 97 06/14/17 15:00 104 114 117/79 99 06/14/17 15:00 104 06/14/17 14:53 98 40 06/14/17 14:00 104 06/14/17 13:30 45 06/14/17 12:00 98.7 108 23 115/67 95 06/14/17 12:00 108 06/14/17 12:00 45 06/14/17 11:49 40 06/14/17 11:02 98 40 06/14/17 11:00 107 21 126/77 100 06/14/17 11:00 107 06/14/17 10:00 102 06/14/17 10:00 102 20 98 06/14/17 09:00 100 20 106/70 97 06/14/17 09:00 100 06/14/17 08:16 98 45 06/14/17 08:00 98.8 95 20 106/71 99 06/14/17 08:00 95 06/14/17 08:00 45 06/14/17 07:00 96 06/14/17 07:00 96 20 102/73 97 06/14/17 06:00 96 06/14/17 04:00 100 06/14/17 04:00 45 06/14/17 04:00 98.8 100 23 119/70 96 06/14/17 03:37 100 45 06/14/17 02:00 86 06/14/17 00:23 98 45 06/14/17 00:00 45 06/14/17 00:00 98.6 91 20 116/71 98 06/14/17 00:00 90 06/13/17 22:00 90 06/13/17 20:45 99 45 06/13/17 20:00 96 06/13/17 20:00 98.4 97 20 102/70 98 06/13/17 20:00 45 06/13/17 18:00 103 I/O 06/13/17 06/13/17 06/13/17 06/14/17 06/14/17 06/14/17 07:00 15:00 23:00 07:00 15:00 23:00 Intake Total 1887 ml 1364 ml 1464 ml 1440 ml 1246 ml Output Total 450 ml 400 ml 400 ml 550 ml 550 ml Balance 1437 ml 964 ml 1064 ml 890 ml 696 ml Intake IV Total 1427 ml 1028 ml 1233 ml 970 ml 821 ml Tube Feeding 340 ml 236 ml 231 ml 410 ml 365 ml Other 120 ml 100 ml 60 ml 60 ml Output Urine Total 450 ml 400 ml 400 ml 550 ml 550 ml Stool Total 0 ml 0 ml 0 ml 0 ml 0 ml Tube Feeding Residual Discard 0 ml # Bowel Movements 0 Laboratory Laboratory Tests Test 06/14/17 05:30 White Blood Count 32.7 Red Blood Count 3.75 Hemoglobin 9.1 Hematocrit 29.3 Mean Corpuscular Volume 78.2 Mean Corpuscular Hemoglobin 24.2 Mean Corpuscular Hemoglobin 30.9 Concent Red Cell Distribution Width 18.1 Platelet Count 971 Mean Platelet Volume 6.4 Neutrophils (%) (Auto) 95.8 Lymphocytes (%) (Auto) 2.0 Monocytes (%) (Auto) 2.1 Eosinophils (%) (Auto) 0.0 Basophils (%) (Auto) 0.1 Neutrophils # (Auto) 31.3 Lymphocytes # (Auto) 0.6 Monocytes # (Auto) 0.7 Eosinophils # (Auto) 0.0 Basophils # (Auto) 0.0 CBC Comment AUTO DIFF Differential Total Cells 100 Counted Neutrophils % (Manual) 98 Monocytes % 2 Neutrophils # (Manual) 32.0 Differential Comment FINAL DIFF MANUAL Platelet Estimate HIGH Platelet Morphology Comment NORMAL Sodium Level 145 Potassium Level 4.4 Chloride Level 117 Carbon Dioxide Level 20.9 Anion Gap 7 Blood Urea Nitrogen 32 Creatinine 1.34 Estimat Glomerular Filtration 55 Rate Random Glucose 113 Calcium Level 8.1 Magnesium Level 2.1 Total Bilirubin 0.3 Aspartate Amino Transf 70 (AST/SGOT) Alanine Aminotransferase 19 (ALT/SGPT) Alkaline Phosphatase 50 Total Protein 5.3 Albumin 2.2 Date/Time Procedure Status Source Growth 06/12/17 11:00 Influenza Types A,B Antigen (CORNELIA) - Final Complete Nasal Washing NEGATIVE FOR FLU A AND B ANTIGEN.... 06/12/17 09:45 Legionella Antigen - Final Complete Urine Catheterized Urine PRESUMPTIVE NEGATIVE FOR LEGIONELLA P... 06/12/17 09:45 Streptococcus pneumoniae Antigen (M - Final Complete Urine Catheterized Urine PRESUMPTIVE NEGATIVE FOR STREPTOCOCCU... 06/12/17 09:45 Influenza Types A,B Antigen (CORNELIA) Ordered Nasal Washing Pending 06/12/17 09:45 Gram Stain - Final Complete Sputum Endotracheal 06/12/17 09:45 Sputum Culture - Final Complete S. Aureus Mrsa 06/11/17 12:30 Urine Culture - Final Complete Urine Clean Catch Enterococcus Faecalis 06/11/17 11:55 Aerobic Blood Culture - Preliminary Resulted Blood Peripheral NO GROWTH IN 3 DAYS 06/11/17 11:55 Anaerobic Blood Culture - Preliminary Resulted Blood Peripheral NO GROWTH IN 3 DAYS Imaging Last Impressions Chest X-Ray 06/14/17 0600 Signed Impressions: Service Date/Time: June 03:23 - CONCLUSION: Persistent left lung consolidation and effusion. Reggie Murillo MD Renal Ultrasound 06/12/17 0000 Signed Impressions: Service Date/Time: Monday, June 12, 2017 12:41 - CONCLUSION: There continues to be bilateral hydronephrosis, right greater than left. The hydronephrosis appears to be improved compared to the prior examination. Alistair Balderas MD Chest CT 06/11/17 0000 Signed Impressions: Service Date/Time: Sunday, June 11, 2017 14:46 - CONCLUSION: 1. Large subcarinal mediastinal mass obstructing the left mainstem bronchus and presenting as a large filling defect within the esophagus. 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 2. Consolidated left lung to bronchial obstruction. 3. Small left pleural effusion 4. Known bilateral moderate to severe hydronephrosis. 5. Small patchy infiltrate right upper lobe. Edouard German MD Physical Exam HEENT: Normocephalic; atraumatic; no jaundice. CHEST: Resp even/unlabored. OETT to vent CARDIAC: ST ABDOMEN: Soft, mildly distended, nontender; no hepatosplenomegaly; bowel sounds faint. Colostomy right side. Old colostomy site on left with drsg d/i. EXTREMITIES: Left foot amputation. Right leg amputated LOAN FUNDER: Lethargic, makes eye contact Assessment and Plan Plan ASSESSMENT - Large mediastinal mass, with external compression of esophagus vs. esophageal mass. Chest CT(06/11/17)-----> 1. Large subcarinal mediastinal mass obstructing the left mainstem bronchus and presenting as a large filling defect within the esophagus. 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 2. Consolidated left lung to bronchial obstruction. 3. Small left pleural effusion 4. Known bilateral moderate to severe hydronephrosis. 5. Small patchy infiltrate right upper lobe. He was recently hospitalized for dysphagia/odynophagia (06/01-06/04). He was not evaluated by our service at that time. Pulmonary following, considering bronchoscopy once respiratory status improves. Family not proceeding with bronch at this time. Per family service worker considering withdrawal support. - Dysphagia, decreased appetite, odynophagia. Recently hospitalized from 06/01-. There are no outpatient records from our office of EGD. - Anemia. No obvious acute blood loss. - Leukocytosis. worsening. He has LLL consolidation. FLU A/B negative, Sputum pending, urine cx pending, bcx no growth 1 day Zosyn - Bilateral hydronephrosis, Hematuria. following. - Acute hypoxemic respiratory failure, left lower lobe consolidation, COPD. vent. per CCM - Metastatic rectal cancer. Dx with large rectal adenocarcinoma in 2013. This was complicated by a perirectal abscess and a necrotizing fasciitis which involved the pelivs and down the thigh. S/P multiple debridement, diverting colostomy. He has undergone radiation. Initially felt to not be a candidate for chemotherapy and at one point, was on hospice, but then discharged from hospice services on 11/25. He is followed by Dr. Monte, and at one point was treated with palliative oral capecitabine, but it is unclear if he had a response. He has since been offered palliative chemo on several different occasions, but declined treatment. PLAN: - TF as tolerated - Cont. PPI - Abx per CCM - Monitor labs - Consider EGD when more stable if family agreeable. ? esophageal stent - Supportive care This pt seen by myself and Dr Caro and this note is written on his behalf Hellen Caro [facility] Jun 14, 2017 17:30
[2017-06-14] MEDS: HEPARIN SODIUM - SQ 10,000 UNITS/ML VIAL SQ SCH (21:59)
[2017-06-15] VITALS (22 sets, daily range): BP systolic 85–141; BP diastolic 55–82; PULSE 96–118; RESP 11–37; TEMP 97.8–98.6; O2SAT 79–100
[2017-06-15] MEDS: LINEZOLID 600 MG PREMIX 300 ML IV SCH (00:28)
[2017-06-15] MEDS: methylPREDNISolone SOD SUCC 40 MG/1 ML VIAL IV PUSH SCH ×4 (00:29→22:18)
[2017-06-15] MEDS: RESP: ACETYLCYSTEINE 10% 30 ML NEB NEB SCH ×3 (00:40→07:58)
[2017-06-15] MEDS: RESP: ALBUTEROL 2.5 MG/IPRATROPIUM 0.5 MG NEB (SCH) INH ×3 (00:40→07:59)
[2017-06-15] MEDS: fentaNYL DRIP 250 ML IV SCH ×3 (00:54→22:32)
[2017-06-15] MEDS: INSULIN NovoLIN REGULAR SUPPLEMENTAL SCALE SQ SCH ×3 (02:00→10:00)
[2017-06-15] MEDS: CHLORHEXIDINE GLUCONATE 2 % 1 PACK (2 CLOTHS) TOP SCH ×2 (03:11→22:18)
[2017-06-15] MEDS: MIDAZOLAM 100 MG/ML INJ 100 ML IV SCH ×3 (03:11→22:32)
[2017-06-15] MEDS: EPOPROSTENOL NEB SOLUTION 30 NG/KG/MIN 100 ML NEB SCH ×2 (04:39)
[2017-06-15] MEDS: PANTOPRAZOLE SODIUM 40 MG VIAL IV SCH (08:12)
[2017-06-15] MEDS: DOCUSATE SODIUM 50 MG/SENNA 8.6 MG TAB PO SCH (08:12)
[2017-06-15] MEDS: HEPARIN SODIUM - SQ 10,000 UNITS/ML VIAL SQ SCH (08:13)
[2017-06-15] MEDS: PROPOFOL 1000 MG/100 ML INJ 100 ML IV SCH (08:13)
[2017-06-15 08:25] LABS: AUTOMATED NEUTROPHIL # 26.3 TH/MM3 (1.8-7.7); BASOPHIL # 0.1 TH/MM3 (0-0.2); BASOPHIL % 0.3 % (0.0-2.0); LYMPHOCYTE # 0.6 TH/MM3 (1.0-4.8); MEAN CELL VOLUME 78.8 FL (80.0-100.0); MEAN CORPUSCULAR HGB CONC 31.8 % (32.0-36.0); MONO % 2.6 % (0.0-8.0); NEUT % 95.1 % (16.0-70.0); PLATELET COUNT 879 TH/MM3 (150-450); RED BLOOD COUNT 3.43 MIL/MM3 (4.50-5.90); RED CELL DISTRIBUTION WIDTH 18.3 % (11.6-17.2); WHITE BLOOD COUNT 27.7 TH/MM3 (4.0-11.0)
[2017-06-15 08:39] LABS: HEMO FLAGS AUTO DIFF
[2017-06-15 08:57] LABS: ANION GAP 8 MEQ/L (5-15); AST (GOT) 36 U/L (15-37); BICARBONATE 21.6 MEQ/L (21.0-32.0); BLOOD UREA NITROGEN 27 MG/DL (7-18); CHLORIDE 112 MEQ/L (98-107); GLOMERULAR FILTRATION RATE 69 ML/MIN (>89); POTASSIUM 3.8 MEQ/L (3.5-5.1); SODIUM (NA) 142 MEQ/L (136-145)
[2017-06-15 09:05] LABS: ALKALINE PHOSPHATASE 46 U/L (45-117); ALT (GPT) 19 U/L (12-78); TOTAL BILIRUBIN ADULT 0.3 MG/DL (0.2-1.0)
[2017-06-15 09:31] LABS: BANDS 1 % (0-6); MYELOCYTES 1 % (0-0); NEUTROPHIL # MANUAL DIFF 26.3 TH/MM3 (1.8-7.7); POLYS (SEG NEUTROPHILS) 93 % (16-70); SCAN/DIFF FINAL DIFF MANUAL; WBC DIFF SAMPLE 100
[2017-06-15 09:32] LABS: PLATELET ESTIMATE SMEAR HIGH (NORMAL); PLATELET MORPHOLOGY NORMAL (NORMAL); TOXIC VACUOLATION PRESENT (NONE SEEN)
--- NOTE | 2017-06-15 09:48 | HHI.CCPN ---
Subjective Remarks/Hospital Course The patient is a 57-year-old male with past medical history of rectal adenocarcinoma with metastatic disease and COPD, hypertension, GERD and anemia. He presented to [facility] Emergency Department from his oncologist's office for evaluation of shortness of breath. He was found to have O2 saturation in the low 80s and the patient has been short of breath for several days. He denied any associated symptoms of fever, chills, cough, nausea or vomiting or any abdominal pain. On arrival to the ER he was tachycardic, tachypneic and severely hypoxemic. The patient was intubated with etomidate, succinylcholine and placed on full mechanical ventilation. When seen he is currently on Diprivan, fentanyl and versed drips for sedation and vent synchrony. In addition he receive vecuronium 10 milligrams IV push. A chest x- ray pre intubation showed consolidation left base and his chest x-ray post intubation showed hyperinflation of the right with dense consolidation with volume loss on the left. Initially he was on BiPAP 10/5 with 100% FIO2, however , the patient failed BiPAP and he was subsequently intubated. ABG post intubation appears mixed venous gas with a pH of 7.46, CO2 33, paO2 39, bicarb 23 and saturation 70% on assist control rate of 24 tidal volume 550, PEEP of 14 , 100% FIO2. A CT scan of the chest was ordered. The patient's current blood pressure is 111/73, tachycardic with a heart rate of 115. 06/12 Patient is sedated with Diprivan, Fentanyl and Versed. Afebrile. On PRVC with PEEP:7 and FIO2 90%. No recurrent hematuria. 06/13 patient remains intubated sedated but wakes up easily follows commands. Chest x-ray pending today. PEEP at 7 FiO2 down to 55% 06/14 Patient remains intubated and sedated, On PRVC with PEEP: 7 and FIO2 45%. Afebrile. 06/15 No events overnight. Afebrile. WBC is trending down Objective Vital Signs Date Time Temp Pulse Resp B/P Pulse Ox O2 Delivery O2 Flow Rate FiO2 06/15/17 07:59 98 40 06/15/17 06:00 101 06/15/17 04:00 97.8 20 126/81 06/11/17 17:15 Ventilator 8/7/17 12:40 15.00 Intake and Output 06/14/17 06/14/17 06/15/17 08:00 16:00 00:00 Intake Total 1440 ml 1246 ml 1853 ml Output Total 550.0 ml 550 ml 1125 ml Balance 890.0 ml 696 ml 728 ml Result Diagram: 06/15/17 0613 06/15/17 0613 Other Results Laboratory Tests Test 06/15/17 06:13 White Blood Count 27.7 TH/MM3 Red Blood Count 3.43 MIL/MM3 Hemoglobin 8.6 GM/DL Hematocrit 27.0 % Mean Corpuscular Volume 78.8 FL Mean Corpuscular Hemoglobin 25.0 PG Mean Corpuscular Hemoglobin 31.8 % Concent Red Cell Distribution Width 18.3 % Platelet Count 879 TH/MM3 Mean Platelet Volume 6.5 FL Neutrophils (%) (Auto) 95.1 % Lymphocytes (%) (Auto) 2.0 % Monocytes (%) (Auto) 2.6 % Eosinophils (%) (Auto) 0.0 % Basophils (%) (Auto) 0.3 % Neutrophils # (Auto) 26.3 TH/MM3 Lymphocytes # (Auto) 0.6 TH/MM3 Monocytes # (Auto) 0.7 TH/MM3 Eosinophils # (Auto) 0.0 TH/MM3 Basophils # (Auto) 0.1 TH/MM3 CBC Comment AUTO DIFF Differential Total Cells 100 Counted Neutrophils % (Manual) 93 % Band Neutrophils % 1 % Lymphocytes % 3 % Monocytes % 2 % Neutrophils # (Manual) 26.3 TH/MM3 Myelocytes 1 % Differential Comment FINAL DIFF MANUAL Toxic Vacuolation PRESENT Platelet Estimate HIGH Platelet Morphology Comment NORMAL Red Cell Morphology Comment NORMAL Sodium Level 142 MEQ/L Potassium Level 3.8 MEQ/L Chloride Level 112 MEQ/L Carbon Dioxide Level 21.6 MEQ/L Anion Gap 8 MEQ/L Blood Urea Nitrogen 27 MG/DL Creatinine 1.09 MG/DL Estimat Glomerular Filtration 69 ML/MIN Rate Random Glucose 106 MG/DL Calcium Level 7.9 MG/DL Phosphorus Level 1.9 MG/DL Magnesium Level 2.0 MG/DL Total Bilirubin 0.3 MG/DL Aspartate Amino Transf 36 U/L (AST/SGOT) Alanine Aminotransferase 19 U/L (ALT/SGPT) Alkaline Phosphatase 46 U/L Total Protein 5.2 GM/DL Albumin 2.1 GM/DL Imaging Laboratory Tests Test 06/15/17 06:13 White Blood Count 27.7 TH/MM3 Red Blood Count 3.43 MIL/MM3 Hemoglobin 8.6 GM/DL Hematocrit 27.0 % Mean Corpuscular Volume 78.8 FL Mean Corpuscular Hemoglobin 25.0 PG Mean Corpuscular Hemoglobin 31.8 % Concent Red Cell Distribution Width 18.3 % Platelet Count 879 TH/MM3 Mean Platelet Volume 6.5 FL Neutrophils (%) (Auto) 95.1 % Lymphocytes (%) (Auto) 2.0 % Monocytes (%) (Auto) 2.6 % Eosinophils (%) (Auto) 0.0 % Basophils (%) (Auto) 0.3 % Neutrophils # (Auto) 26.3 TH/MM3 Lymphocytes # (Auto) 0.6 TH/MM3 Monocytes # (Auto) 0.7 TH/MM3 Eosinophils # (Auto) 0.0 TH/MM3 Basophils # (Auto) 0.1 TH/MM3 CBC Comment AUTO DIFF Differential Total Cells 100 Counted Neutrophils % (Manual) 93 % Band Neutrophils % 1 % Lymphocytes % 3 % Monocytes % 2 % Neutrophils # (Manual) 26.3 TH/MM3 Myelocytes 1 % Differential Comment FINAL DIFF MANUAL Toxic Vacuolation PRESENT Platelet Estimate HIGH Platelet Morphology Comment NORMAL Red Cell Morphology Comment NORMAL Sodium Level 142 MEQ/L Potassium Level 3.8 MEQ/L Chloride Level 112 MEQ/L Carbon Dioxide Level 21.6 MEQ/L Anion Gap 8 MEQ/L Blood Urea Nitrogen 27 MG/DL Creatinine 1.09 MG/DL Estimat Glomerular Filtration 69 ML/MIN Rate Random Glucose 106 MG/DL Calcium Level 7.9 MG/DL Phosphorus Level 1.9 MG/DL Magnesium Level 2.0 MG/DL Total Bilirubin 0.3 MG/DL Aspartate Amino Transf 36 U/L (AST/SGOT) Alanine Aminotransferase 19 U/L (ALT/SGPT) Alkaline Phosphatase 46 U/L Total Protein 5.2 GM/DL Albumin 2.1 GM/DL Objective Remarks GENERAL: Patient is 57 yo critically ill intubated and sedated SKIN: Warm and dry. HEAD: Normocephalic. EYES: No scleral icterus. No injection or drainage. NECK: Supple, trachea midline. No JVD or lymphadenopathy. orally intubated CARDIOVASCULAR: Regular rate and rhythm without murmurs, gallops, or rubs. RESPIRATORY: Diminished BS on left. No accessory muscle use. GASTROINTESTINAL: Abdomen soft, non-tender, nondistended. MUSCULOSKELETAL: No cyanosis, or edema. Neuro: Sedated. Wakes up easily follows commands bilateral upper and lower extremities A/P Assessment and Plan 1. Acute hypoxemic respiratory failure. 2. Left lung consolidation. 3. Leukocytosis. 4. COPD 5. Rectal adenocarcinoma with metastases. 6. Hypertension. 7. Mild lactic acidemia. 8. Hypokalemia. 9. Gastroesophageal reflux disease. 10. Anemia. 11. B/L hydronephrosis 12. UTI with enterococcus Plan: Neuro: On fentanyl, versed and Diprivan infusions for sedation and vent synchrony. Daily sedation vacation when appropriate Pulm: Continue with vent support and maintain sats> 92%. Bronchodilators, Solu-Medrol 60mg IV q.8h. Continue Flolan 30,000 ng-8ml/hr nebs- On PRVC RR 20, TV 550, IT: 1.30, PEEP:7, FIO2 45%, decrease FIO2 as angela. CV: Monitor HR and BP keep MAP> 65 mmHg. NS at 84 ml an hour. : Monitor renal function ins and outs and electrolyte replacement per protocol. will need phos replacement today Cr: 1.09 today from 1.34 on NS@84ml/hr, d/c IVF and diurese with Bumex 1mg x1 Urology is following for b/l hydronephrosis and hematuria (cleared) Renal US: B/l hydronephrosis R>L , urology is following GI: On Protonix 40 mg IV daily for GI prophylaxis. Tube feeds- Glucerna 1.5 with goal rate 45ml/hr GI is following - likely need EGD r/o esophageal mass General surgery following - Dr. Alfonso ID: Continue with abx per ID(Zyvox) off vancomycin, Zosyn and azithromycin per ID) Monitor for signs of infections(fever and WBC) 06/11 Urine cx: Enterococcus faecalis 06/12: Sputum: MRSA strep pneumonia, legionella urinary antigen., nasal washing for influenza all negative Heme: Monitor CBC, onc is following- Dr. Monte. Endo: SSI with Accu-Chek q.4h for glycemic control GI prophylaxis with Protonix 40 mg daily and DVT prophylaxis with SCD's, Heparin SQ Palliative care is following Level 3 Placido Olivares MD Jun 15, 2017 09:48
[2017-06-15] MEDS ORDERED: BUMETANIDE INJ 1 MG/4 ML VIAL IV PUSH ONE (10:15)
--- NOTE | 2017-06-15 11:22 | HHI.IDPN ---
Subjective Subjective Remarks ID [id number] for Dr Torres chart reviewed Pt is previously known to me when he has admitted for nec fascititis of R buttock and RLE He was diagnosed with rectal cancer sp colostomy He is now admitted for MRSA PBNA, acute VDRF He also has ebneroccocall UTI Antibiotics zyviox iv Allergies: Coded Allergies: *MDRO Multi-Drug Resistant Organism (Verified Adverse Reaction, Unknown, ) MRSA Sputum 06/12/17 MRSA PCR Positive 06/11/17 MRSA (groin wound) - 05/25/15 / (buttock) - 03/2016 / (urine) - 08/2016 Objective . Vital Signs Date Time Temp Pulse Resp B/P Pulse Ox O2 Delivery O2 Flow Rate FiO2 06/15/17 10:59 40 06/15/17 10:00 100 06/15/17 10:00 100 20 90/56 99 06/15/17 09:00 101 20 85/55 97 06/15/17 08:00 100 06/15/17 08:00 40 06/15/17 08:00 98.2 100 20 96/60 98 06/15/17 07:59 98 40 06/15/17 07:00 101 20 92/59 97 06/15/17 06:00 101 06/15/17 04:00 40 06/15/17 04:00 97.8 109 20 126/81 99 06/15/17 04:00 109 06/15/17 03:53 96 40 06/15/17 02:00 99 06/15/17 01:21 98 40 06/15/17 00:00 40 06/15/17 00:00 96 06/15/17 00:00 97.9 96 34 117/76 99 06/14/17 22:38 99 40 06/14/17 22:00 101 06/14/17 20:30 99 40 06/14/17 20:00 104 06/14/17 20:00 40 06/14/17 20:00 97.7 104 58 134/88 98 06/14/17 18:00 104 06/14/17 18:00 104 26 121/78 98 06/14/17 17:00 105 21 124/80 98 06/14/17 17:00 105 06/14/17 16:00 105 06/14/17 16:00 45 06/14/17 16:00 98.4 105 27 115/77 97 06/14/17 15:00 104 114 117/79 99 06/14/17 15:00 104 06/14/17 14:53 98 40 06/14/17 14:00 104 06/14/17 13:30 45 06/14/17 12:00 98.7 108 23 115/67 95 06/14/17 12:00 108 06/14/17 12:00 45 06/14/17 11:49 40 06/14/17 06/14/17 06/15/17 15:00 23:00 07:00 Intake Total 1246 ml 1853 ml 1709 ml Output Total 550 ml 1125 ml 875 ml Balance 696 ml 728 ml 834 ml Intake IV Total 821 ml 1304 ml 1131 ml Tube Feeding 365 ml 399 ml 403 ml Other 60 ml 150 ml 175 ml Output Urine Total 550 ml 1000 ml 750 ml Stool Total 0 ml 125 ml 125 ml Tube Feeding Residual Discard 0 ml . Laboratory Tests Test 06/14/17 06/15/17 05:30 06:13 White Blood Count 32.7 TH/MM3 27.7 TH/MM3 Red Blood Count 3.75 MIL/MM3 3.43 MIL/MM3 Hemoglobin 9.1 GM/DL 8.6 GM/DL Hematocrit 29.3 % 27.0 % Mean Corpuscular Volume 78.2 FL 78.8 FL Mean Corpuscular Hemoglobin 24.2 PG 25.0 PG Mean Corpuscular Hemoglobin 30.9 % 31.8 % Concent Red Cell Distribution Width 18.1 % 18.3 % Platelet Count 971 TH/MM3 879 TH/MM3 Mean Platelet Volume 6.4 FL 6.5 FL Neutrophils (%) (Auto) 95.8 % 95.1 % Lymphocytes (%) (Auto) 2.0 % 2.0 % Monocytes (%) (Auto) 2.1 % 2.6 % Eosinophils (%) (Auto) 0.0 % 0.0 % Basophils (%) (Auto) 0.1 % 0.3 % Neutrophils # (Auto) 31.3 TH/MM3 26.3 TH/MM3 Lymphocytes # (Auto) 0.6 TH/MM3 0.6 TH/MM3 Monocytes # (Auto) 0.7 TH/MM3 0.7 TH/MM3 Eosinophils # (Auto) 0.0 TH/MM3 0.0 TH/MM3 Basophils # (Auto) 0.0 TH/MM3 0.1 TH/MM3 CBC Comment AUTO DIFF AUTO DIFF Differential Total Cells 100 100 Counted Neutrophils % (Manual) 98 % 93 % Monocytes % 2 % 2 % Neutrophils # (Manual) 32.0 TH/MM3 26.3 TH/MM3 Differential Comment FINAL DIFF FINAL DIFF MANUAL MANUAL Platelet Estimate HIGH HIGH Platelet Morphology Comment NORMAL NORMAL Band Neutrophils % 1 % Lymphocytes % 3 % Myelocytes 1 % Toxic Vacuolation PRESENT Red Cell Morphology Comment NORMAL Laboratory Tests Test 06/14/17 06/15/17 05:30 06:13 Sodium Level 145 MEQ/L 142 MEQ/L Potassium Level 4.4 MEQ/L 3.8 MEQ/L Chloride Level 117 MEQ/L 112 MEQ/L Carbon Dioxide Level 20.9 MEQ/L 21.6 MEQ/L Anion Gap 7 MEQ/L 8 MEQ/L Blood Urea Nitrogen 32 MG/DL 27 MG/DL Creatinine 1.34 MG/DL 1.09 MG/DL Estimat Glomerular Filtration 55 ML/MIN 69 ML/MIN Rate Random Glucose 113 MG/DL 106 MG/DL Calcium Level 8.1 MG/DL 7.9 MG/DL Magnesium Level 2.1 MG/DL 2.0 MG/DL Total Bilirubin 0.3 MG/DL 0.3 MG/DL Aspartate Amino Transf 70 U/L 36 U/L (AST/SGOT) Alanine Aminotransferase 19 U/L 19 U/L (ALT/SGPT) Alkaline Phosphatase 50 U/L 46 U/L Total Protein 5.3 GM/DL 5.2 GM/DL Albumin 2.2 GM/DL 2.1 GM/DL Phosphorus Level 1.9 MG/DL Imaging Last Impressions Chest X-Ray 06/14/17 0600 Signed Impressions: Service Date/Time: June 03:23 - CONCLUSION: Persistent left lung consolidation and effusion. Reggie Murillo MD Renal Ultrasound 06/12/17 0000 Signed Impressions: Service Date/Time: Monday, June 12, 2017 12:41 - CONCLUSION: There continues to be bilateral hydronephrosis, right greater than left. The hydronephrosis appears to be improved compared to the prior examination. Alistair Balderas MD Chest CT 06/11/17 0000 Signed Impressions: Service Date/Time: Sunday, June 11, 2017 14:46 - CONCLUSION: 1. Large subcarinal mediastinal mass obstructing the left mainstem bronchus and presenting as a large filling defect within the esophagus. 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 2. Consolidated left lung to bronchial obstruction. 3. Small left pleural effusion 4. Known bilateral moderate to severe hydronephrosis. 5. Small patchy infiltrate right upper lobe. Edouard German MD Physical Exam GENERAL: On the ventilator. Awake. follows commands. HEENT: No icterus. Neck: Supple without adenopathy. Lungs: Decreased breath sounds on the left throughout. Clear on the right. Heart: Regular S1-S2 without audible murmurs, rubs or gallops. Abdomen: Bowel sounds present, soft, bowel sounds are diminished. 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 The left transmetatarsal site appears intact. No edema. Skin: No rash. : arellano in place with clear light yellow urine Neuro: awake and fiully alert, communicates approprietely via gestures and attempts to write Psych: cooperative Assessment & Plan Remarks IMPRESSION 1. Pneumonia involving the left lung likely post obstructive. MRSA. The patient noted to have large subcarinal mediastinal mass obstructing the left mainstem bronchus and also large filling defect within the esophagus. 2. Acute respiratory failure. 3. Chronic renal failure probable acute component. 4. UTI. Enterococcus. The patient has history of ureteral obstruction in the past. 5. Rectal cancer, untreated. Pt is now dw palliative care team further treatment oprtions. POssibly withdrawl RECOMMENDATIONS 1. cont Zyvox PO; duration per clinical pic and evel of care decision, but minimal of 2 weeks if pt decides on cont of active treatemnt 2. awaiting final decision on further treatment Sraahy Mitchell MD Jun 15, 2017 11:22
--- NOTE | 2017-06-15 11:57 | HHI.HCPN ---
Reason for visit a. To assist with evaluation and management of symptoms including: dyspnea, pain; encephalopathy b. To assist medical decision maker(s) with: better understanding of current medical conditions; weighing benefits/burdens of medical treatment options; making medical treatment decisions. . Subjective/Interval History Mr. Valles was sedated with propofol, fentanyl at 250 mcg/hr, and midazolam at 10 mg /hr. He was arousable, could follow basic commands, but was not able to engage further. We held all sedation and I returned about 2 hours later. Patient was awake, alert, could give me a "thumbs up" when asked. I inquired if I could tell him about his illness. I explained how the cancer had progressed and was causing airway and esophagus obstruction. I explained how he had come to be placed on the ventilator. I explained that with ongoing aggressive care we might be able to prolong his life by weeks to a couple of months, but it was unlikely he would ever be able to return to his home and live independently. I explained that his family had arrived and was trying to figure out what he wanted and that they knew he had the DNR order posted on his refrigerator. Family arrived -- sister, niece, and grand-niece -- and particpated in the conversation. He was initially non-committal about whether to continue on life support or not, but with family he indicated he wanted to be removed from life support. Family was content, as was I, that he understood the questions and that his response on withdrawal of life support accurately depicted his wishes. Otherwise... Patient is producing copious blood-tinged secretions. BPs are low 85-96 / 55- 60. Other VS stable. He is maintaining 02 sats on 40% FIO2 and 7 of PEEP. Hg is falling and is down to 8.6. WBC down to 27.7. Renal function improving. Albumin declining at 2.1. . Family/friend interactions See above. Family was present during goals of care discussion with the patient. He made it clear to family that he wanted life support withdrawn. . Advance Directives Living Will: Never completed Health Care Surrogate: Copy in medical record Durable Power of Race Relations Professor: Never completed Advance Directive Specifics Date completed: There is a "designation of health care surrogate" form in the electronic medical record dated 01/09/14. It should be noted that one witness signature is missing. . Health Care Surrogate(s): There is a "designation of health care surrogate" form in the electronic medical record dated 01/09/14. It should be noted that one witness signature is missing. The form designates his sisters as health care surrogates... * Jeimy Gorman [phone] * Karyn Osorio [phone] We have subsequently learned that Jeimy Gorman is . New number for Karyn Osorio who is willing to serve as proxy is [phone] . Documented care wishes: There is no written documentation of health care preferences/goals/wishes other than a signed DNR order. Unclear if the patient , in the ED wanted to reverse this. . Objective Vital Signs Date Time Temp Pulse Resp B/P Pulse Ox O2 Delivery O2 Flow Rate FiO2 06/15/17 10:59 40 06/15/17 10:00 100 06/15/17 10:00 100 20 90/56 99 06/15/17 09:00 101 20 85/55 97 06/15/17 08:00 100 06/15/17 08:00 40 06/15/17 08:00 98.2 100 20 96/60 98 06/15/17 07:59 98 40 06/15/17 07:00 101 20 92/59 97 06/15/17 06:00 101 06/15/17 04:00 40 06/15/17 04:00 97.8 109 20 126/81 99 06/15/17 04:00 109 06/15/17 03:53 96 40 06/15/17 02:00 99 06/15/17 01:21 98 40 06/15/17 00:00 40 06/15/17 00:00 96 06/15/17 00:00 97.9 96 34 117/76 99 06/14/17 22:38 99 40 06/14/17 22:00 101 06/14/17 20:30 99 40 06/14/17 20:00 104 06/14/17 20:00 40 06/14/17 20:00 97.7 104 58 134/88 98 06/14/17 18:00 104 06/14/17 18:00 104 26 121/78 98 06/14/17 17:00 105 21 124/80 98 06/14/17 17:00 105 06/14/17 16:00 105 06/14/17 16:00 45 06/14/17 16:00 98.4 105 27 115/77 97 06/14/17 15:00 104 114 117/79 99 06/14/17 15:00 104 06/14/17 14:53 98 40 06/14/17 14:00 104 06/14/17 13:30 45 06/14/17 12:00 98.7 108 23 115/67 95 06/14/17 12:00 108 06/14/17 12:00 45 06/14/17 11:49 40 Intake & Output 06/15/17 06/15/17 06:59 18:59 Intake Total 3562 ml Output Total 2000 ml Balance 1562 ml Intake IV Total 2435 ml Tube Feeding 802 ml Other 325 ml Output Urine Total 1750 ml Stool Total 250 ml . Physical Exam CONSTITUTIONAL/GENERAL: This is a pale; gaunt; chronically ill-appearing gentleman intubated, and mechanically ventilated in the MICU. During sedation vacation, he awake, alert, following commands, pointing to letter board , etc. SKIN: No jaundice, rashes, or lesions. No wounds seen anteriorly. Skin temperature appropriate. Slightly diaphoretic. EYES: Pupils equal and round. No scleral icterus. No injection or drainage. Fundi not examined. ENT: Oropharynx difficult to assess due to intubations.Copious blood-tinged secretions suctioned from tube. NECK: Trachea midline. CARDIOVASCULAR: Tachycardic. Regular rhythm without murmurs, gallops, or rubs. No JVD. RESPIRATORY/CHEST: Chest movement now symmetric. Diminished air movement heard on the left compared to right.. Scattered ronchi. GASTROINTESTINAL: Abdomen soft, distended, non-tender. Colostomy bag is present. No hepato-splenomegaly, or palpable masses. No guarding. Bowel sounds present. GENITOURINARY: Without palpable bladder distension. Yan catheter in place. 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 Extremities otherwise without clubbing, cyanosis , or edema. No mottling. LYMPHATICS: Not examined. NEUROLOGICAL: Awake , alert, follows commands, points to letter board, interacting with family, mouthing "I love you" to sister. PSYCHIATRIC: Anxious appearing. . Diagnostic Tests Laboratory Laboratory Tests Test 06/13/17 06/13/17 06/14/17 06/15/17 04:26 16:30 05:30 06:13 White Blood Count 27.8 TH/MM3 32.7 TH/MM3 27.7 TH/MM3 (4.0-11.0) (4.0-11.0) (4.0-11.0) Red Blood Count 3.83 MIL/MM3 3.75 MIL/MM3 3.43 MIL/MM3 (4.50-5.90) (4.50-5.90) (4.50-5.90) Hemoglobin 9.2 GM/DL 9.1 GM/DL 8.6 GM/DL (13.0-17.0) (13.0-17.0) (13.0-17.0) Hematocrit 29.9 % 29.3 % 27.0 % (39.0-51.0) (39.0-51.0) (39.0-51.0) Mean Corpuscular Volume 78.1 FL 78.2 FL 78.8 FL (80.0-100.0) (80.0-100.0) (80.0-100.0) Mean Corpuscular Hemoglobin 24.0 PG 24.2 PG 25.0 PG (27.0-34.0) (27.0-34.0) (27.0-34.0) Mean Corpuscular Hemoglobin 30.7 % 30.9 % 31.8 % Concent (32.0-36.0) (32.0-36.0) (32.0-36.0) Red Cell Distribution Width 17.9 % 18.1 % 18.3 % (11.6-17.2) (11.6-17.2) (11.6-17.2) Platelet Count 926 TH/MM3 971 TH/MM3 879 TH/MM3 (150-450) (150-450) (150-450) Mean Platelet Volume 6.7 FL 6.4 FL 6.5 FL (7.0-11.0) (7.0-11.0) (7.0-11.0) Neutrophils (%) (Auto) 96.1 % 95.8 % 95.1 % (16.0-70.0) (16.0-70.0) (16.0-70.0) Lymphocytes (%) (Auto) 1.7 % 2.0 % 2.0 % (9.0-44.0) (9.0-44.0) (9.0-44.0) Monocytes (%) (Auto) 2.0 % (0.0-8.0) 2.1 % (0.0-8.0) 2.6 % (0.0-8.0) Eosinophils (%) (Auto) 0.0 % (0.0-4.0) 0.0 % (0.0-4.0) 0.0 % (0.0-4.0) Basophils (%) (Auto) 0.2 % (0.0-2.0) 0.1 % (0.0-2.0) 0.3 % (0.0-2.0) Neutrophils # (Auto) 26.8 TH/MM3 31.3 TH/MM3 26.3 TH/MM3 (1.8-7.7) (1.8-7.7) (1.8-7.7) Lymphocytes # (Auto) 0.5 TH/MM3 0.6 TH/MM3 0.6 TH/MM3 (1.0-4.8) (1.0-4.8) (1.0-4.8) Monocytes # (Auto) 0.6 TH/MM3 0.7 TH/MM3 0.7 TH/MM3 (0-0.9) (0-0.9) (0-0.9) Eosinophils # (Auto) 0.0 TH/MM3 0.0 TH/MM3 0.0 TH/MM3 (0-0.4) (0-0.4) (0-0.4) Basophils # (Auto) 0.0 TH/MM3 0.0 TH/MM3 0.1 TH/MM3 (0-0.2) (0-0.2) (0-0.2) CBC Comment DIFF FINAL AUTO DIFF AUTO DIFF Differential Comment FINAL DIFF FINAL DIFF MANUAL MANUAL Sodium Level 143 MEQ/L 145 MEQ/L 142 MEQ/L (136-145) (136-145) (136-145) Potassium Level 4.1 MEQ/L 4.4 MEQ/L 3.8 MEQ/L (3.5-5.1) (3.5-5.1) (3.5-5.1) Chloride Level 115 MEQ/L 117 MEQ/L 112 MEQ/L (98-107) (98-107) (98-107) Carbon Dioxide Level 19.0 MEQ/L 20.9 MEQ/L 21.6 MEQ/L (21.0-32.0) (21.0-32.0) (21.0-32.0) Anion Gap 9 MEQ/L (5-15) 7 MEQ/L (5-15) 8 MEQ/L (5-15) Blood Urea Nitrogen 28 MG/DL (7-18) 32 MG/DL (7-18) 27 MG/DL (7-18) Creatinine 1.55 MG/DL 1.34 MG/DL 1.09 MG/DL (0.60-1.30) (0.60-1.30) (0.60-1.30) Estimat Glomerular Filtration 46 ML/MIN (>89) 55 ML/MIN (>89) 69 ML/MIN (>89) Rate Random Glucose 129 MG/DL 113 MG/DL 106 MG/DL (74-106) (74-106) (74-106) Calcium Level 7.7 MG/DL 8.1 MG/DL 7.9 MG/DL (8.5-10.1) (8.5-10.1) (8.5-10.1) Phosphorus Level 4.1 MG/DL 1.9 MG/DL (2.5-4.9) (2.5-4.9) Magnesium Level 2.0 MG/DL 2.1 MG/DL 2.0 MG/DL (1.5-2.5) (1.5-2.5) (1.5-2.5) Prothrombin Time 11.5 SEC (9.8-11.6) Prothromb Time International 1.0 RATIO Ratio Activated Partial 27.1 SEC Thromboplast Time (24.3-30.1) Differential Total Cells 100 100 Counted Neutrophils % (Manual) 98 % (16-70) 93 % (16-70) Monocytes % 2 % (0-8) 2 % (0-8) Neutrophils # (Manual) 32.0 TH/MM3 26.3 TH/MM3 (1.8-7.7) (1.8-7.7) Platelet Estimate HIGH (NORMAL) HIGH (NORMAL) Platelet Morphology Comment NORMAL NORMAL (NORMAL) (NORMAL) Total Bilirubin 0.3 MG/DL 0.3 MG/DL (0.2-1.0) (0.2-1.0) Aspartate Amino Transf 70 U/L (15-37) 36 U/L (15-37) (AST/SGOT) Alanine Aminotransferase 19 U/L (12-78) 19 U/L (12-78) (ALT/SGPT) Alkaline Phosphatase 50 U/L (45-117) 46 U/L (45-117) Total Protein 5.3 GM/DL 5.2 GM/DL (6.4-8.2) (6.4-8.2) Albumin 2.2 GM/DL 2.1 GM/DL (3.4-5.0) (3.4-5.0) Band Neutrophils % 1 % (0-6) Lymphocytes % 3 % (9-44) Myelocytes 1 % (0-0) Toxic Vacuolation PRESENT (NONE SEEN) Red Cell Morphology Comment NORMAL (NORMAL) . Result Diagram: 06/15/1761206/15/17 0613 Microbiology Microbiology Date/Time Procedure Status Source Growth 06/12/17 11:00 Influenza Types A,B Antigen (CORNELIA) - Final Complete Nasal Washing NEGATIVE FOR FLU A AND B ANTIGEN.... 06/12/17 09:45 Legionella Antigen - Final Complete Urine Catheterized Urine PRESUMPTIVE NEGATIVE FOR LEGIONELLA P... 06/12/17 09:45 Streptococcus pneumoniae Antigen (M - Final Complete Urine Catheterized Urine PRESUMPTIVE NEGATIVE FOR STREPTOCOCCU... 06/12/17 09:45 Influenza Types A,B Antigen (CORNELIA) Ordered Nasal Washing Pending 06/12/17 09:45 Gram Stain - Final Complete Sputum Endotracheal 06/12/17 09:45 Sputum Culture - Final Complete S. Aureus Mrsa 06/11/17 12:30 Urine Culture - Final Complete Urine Clean Catch Enterococcus Faecalis 06/11/17 11:55 Aerobic Blood Culture - Preliminary Resulted Blood Peripheral NO GROWTH IN 4 DAYS 06/11/17 11:55 Anaerobic Blood Culture - Preliminary Resulted Blood Peripheral NO GROWTH IN 4 DAYS . Imaging Last Impressions Chest X-Ray 06/14/17 0600 Signed Impressions: Service Date/Time: June 03:23 - CONCLUSION: Persistent left lung consolidation and effusion. Reggie Murillo MD Renal Ultrasound 06/12/17 0000 Signed Impressions: Service Date/Time: Monday, June 12, 2017 12:41 - CONCLUSION: There continues to be bilateral hydronephrosis, right greater than left. The hydronephrosis appears to be improved compared to the prior examination. Alistair Balderas MD Chest CT 06/11/17 0000 Signed Impressions: Service Date/Time: Sunday, June 11, 2017 14:46 - CONCLUSION: 1. Large subcarinal mediastinal mass obstructing the left mainstem bronchus and presenting as a large filling defect within the esophagus. 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 2. Consolidated left lung to bronchial obstruction. 3. Small left pleural effusion 4. Known bilateral moderate to severe hydronephrosis. 5. Small patchy infiltrate right upper lobe. Edouard German MD . Procedures * Intubation/mechanical ventilation . Assessment and Plan Disease Oriented Problem List: (1) Rectal adenocarcinoma Comment: Metastatic to pelvic and chest nodes. . (2) Respiratory failure with hypoxia Comment: Left lung is consolidated and not ventilating adequately due to carinal node obstruction of the left mainstem bronchus. . Initially unable to ventilate adequately in spite of vent support and high PEEP. Now improving. . . (3) Esophageal obstruction Comment: Obstruction appears to be secondary to compression from malignant node. . (4) Hydronephrosis Comment: Bilateral from tumor obstruction . (5) Sepsis (6) UTI (urinary tract infection) Symptom Scale: (1) Pain 0-10 Scale: Unable to quantify Comment: Sources of pain may now include orotracheal intubation; Yan catheterization; vascular access lines. . (2) Dyspnea 0-10 Scale: Unable to quantify Comment: Dyspnea with severe upon arrival. Now controlled with mechanical ventilation. Oxygenation slowly improving. Dyspnea also being treated pharmacologically with opiates and benzodiazepines. . Pertinent Non-Medical Issues Psychosocial: Patient apparently lived alone. He has one surviving sister -- Karyn Kineny -- who live in [facility]. He has kept in touch with here. There is an niece -- Tanika Rincon -- who knows him well and used to live here. There is a son he is estranged from for whom there is no contact information. Spiritual: No known jew affiliation. Patient declined black off worker visits when he was a hospice patient. Legal: Patient has a written designation of health care surrogate that is missing one of the witnesses. He designated both of the sisters as surrogates. Only one sister survives. There is also a community DNR form signed on . It is unclear from subsequent physician visits and hospitalizations if he wanted this DNR status to continue. Ethical issues impacting care: Patient is currently incapacitated. . Important Contacts Patient has listed his 2 sisters as health care surrogates back in 2013. Sister -- Jeimy -- is now . * Karyn Osorio (sister and health care surrogate) [phone] * Tanika Rincon (niece -- the health care surrogate usually consults with Ms. Rincon before making decisions (C: [phone]; H: [phone]) . Prognosis This patient has metastatic colorectal adenocarcinoma. He has undergone radiation. He has declined chemotherapy on several occasions. Metastatic disease is causing multiple complications. First and foremost he has obstruction of the left mainstem bronchus which has caused a central collapse of the left lung. Even with intubation and mechanical ventilation on high PEEP we were unable to bring oxygen saturations into the 90s. This has now improved probably from high dose IV steroids. . Tumor also appears to be compressing his esophagus. In addition, he has had ongoing problems with obstructive uropathy. Gross hematuria has improved but BUN/creatinine now rising. . These problems are on top of chronic malnutrition with a current albumin of 2.5. Due to patient's dire condition, he does not appear to be a candidate for any major procedures. He would certainly be a candidate for hospice care again if/when goals are clearly comfort oriented. . Code Status: No Code (Intubation only -- no chest compressions or shock or ACLS drugs.) Plan == Code Status: NO CODE. Code status changed from Alternate Code to NO CODE today in preparation of withdrawal of life support. Patient himself, has consented to withdrwawal of life support in presence of sister (health care surrogate; niece; and myself). == Decision making: Patient had been incapacitated to make his own health care decisions. He has regained capacity and on sedation vacation made wishes known to family and medical team this AM. There is no spouse. There is an estranged son we have no contact information for. He has previously listed his 2 sisters -- Jeimy Gorman and Karyn Kinney -- as health care surrogates though there is a witness signature omitted from the document. Sister -- Jeimy -- is as are his parents. That leaves sister Karyn Kinney [phone] as the surrogate and she is willing to fill this role. Ms. Kinney is now consulting with her niece -- Tanika Rincon -- to help with decision making during periods of patient incapacity. == Goals of medical treatment: Patient has made his own goals clear to family -- he wants to be withdrawn from life support. == Pain: Current sources of pain would include orotracheal intubation, Yan catheter, vascular access lines, and bedbound status. He is currently on a fentanyl drip which appears to be adequate for symptom management. No additional recommendations at this time. == Dyspnea: Patient has profound dyspnea from his obstructed left main bronchus . We initially had trouble oxygenating him adequately in spite of vent support and high PEEP. He is on both fentanyl, midazolam, , and propofol drips which will certainly help mitigate subjective dyspnea. . No further recommendations at this time == Will proceed with withdrawal of life support today * Will get "Exhibits" signed * Have already provdied anticipatory guidance to family regarding the process / logistics of withdrawal of life support. * Offered clergy -- patient/family has declined. * Given he was arousable on 250 mcg/hr of fentanyl, 10 mg/hr of midazolam, and propofol, anticpate he will need higher than usual doses of medicines to maintain comfort. ==Case discussed with dr. Olivares == Palliative care will continue to follow to assist with symptom management and to further clarify goals of medical treatment as the clinical course evolves. . Time Spent Total Floor Time (mins): 100 (Total floor time included chart review; patient exam; bedside discussion with patient and family using communication board to understand goals of treatment; discusion with dr. Olivares; anticpatory guidance regarding with drawal of life support wiht family; writing orders for withdrawal and post-withdrawal comfort meds; collaboration with nurse regarding withdrawal of life support. ) Face to Face Time (mins): 30 >50% Counseling/Coord of Care: Yes Attestation To help prompt me to consider important information that might be impacting today's encounter and assessment, information from prior notes written by myself or my colleagues may have been "brought forward" into today's note. My signature on this note, however, is an attestation that I personally performed the exam, history, and/or decision-making noted today, and, unless otherwise indicated, the interactions with patient, family, and staff as well as the review of records all occurred today. I also attest that the listed assessment and stated plan reflect my best clinical judgment today based on the combination of historical information, prior notes, and today's exam/ interactions. When time spent is documented, it refers only to time spent today by the signer, or if indicated, combined time spent today by collaborating physician/nurse practitioner. . Francis Bolden MD Jun 15, 2017 11:57
[2017-06-15] MEDS ORDERED: LINEZOLID 600 MG TAB PO SCH (12:00)
[2017-06-15] MEDS ORDERED: fentaNYL DRIP 250 ML IV SCH (12:30)
[2017-06-15] MEDS ORDERED: HYOSCYAMINE 0.5 MG/ML AMP IV ONE (12:30)
[2017-06-15] MEDS ORDERED: HYDROmorphone HCL PF 2 MG/ML VIAL IV ONE ×2 (12:30→12:45)
[2017-06-15] MEDS ORDERED: MIDAZOLAM 100 MG/ML INJ 100 ML IV SCH (12:30)
[2017-06-15] MEDS ORDERED: LORazepam 2 MG/ML VIAL IV ONE ×2 (12:30→12:45)
[2017-06-15] MEDS ORDERED: ONDANSETRON HCL 4 MG/2 ML VIAL IV PUSH PRN (12:30)
[2017-06-15] MEDS ORDERED: ONDANSETRON HCL 4 MG/2 ML VIAL ONE (12:37)
[2017-06-15] MEDS ORDERED: HYDROmorphone HCL PF 2 MG/ML VIAL IV PRN (13:00)
[2017-06-15] MEDS ORDERED: FUROSEMIDE 20 MG/2 ML VIAL IV PRN (13:00)
[2017-06-15] MEDS ORDERED: HYOSCYAMINE 0.5 MG/ML AMP IV PRN (13:00)
[2017-06-15] MEDS ORDERED: LORazepam 2 MG/ML VIAL IV PRN (13:00)
[2017-06-15] MEDS ORDERED: BISACODYL 10 MG SUPP RECTAL PRN (13:00)
[2017-06-15] MEDS ORDERED: ACETAMINOPHEN 650 MG SUPP RECTAL PRN (13:00)
[2017-06-15] MEDS: HYDROmorphone HCL PF 2 MG/ML VIAL IV PRN ×2 (17:09→21:12)
[2017-06-15] MEDS: LORazepam 2 MG/ML VIAL IV PRN (19:42)
[2017-06-16] VITALS (13 sets, daily range): BP systolic 76–94; BP diastolic 51–65; PULSE 100–119; RESP 19–24; TEMP 98.6–98.8; O2SAT 63–74
[2017-06-16] MEDS: HYDROmorphone HCL PF 2 MG/ML VIAL IV PRN ×3 (00:13→06:30)
[2017-06-16 06:12] LABS: AUTOMATED NEUTROPHIL # 27.2 TH/MM3 (1.8-7.7); BASOPHIL % 0.1 % (0.0-2.0); EOSINOPHIL # 0.1 TH/MM3 (0-0.4); EOSINOPHIL % 0.3 % (0.0-4.0); HEMATOCRIT 25.8 % (39.0-51.0); HEMO FLAGS DIFF FINAL; LYMPH % 3.7 % (9.0-44.0); LYMPHOCYTE # 1.1 TH/MM3 (1.0-4.8); MEAN CELL VOLUME 77.8 FL (80.0-100.0); MEAN CORPUSCULAR HEMOGLOBIN 25.1 PG (27.0-34.0); MEAN CORPUSCULAR HGB CONC 32.2 % (32.0-36.0); MONO % 2.6 % (0.0-8.0); NEUT % 93.3 % (16.0-70.0); PLATELET COUNT 729 TH/MM3 (150-450); RED BLOOD COUNT 3.32 MIL/MM3 (4.50-5.90); RED CELL DISTRIBUTION WIDTH 17.8 % (11.6-17.2); WHITE BLOOD COUNT 29.2 TH/MM3 (4.0-11.0)
[2017-06-16] MEDS: MIDAZOLAM 100 MG/ML INJ 100 ML IV SCH (06:37)
[2017-06-16 06:54] LABS: BICARBONATE 25.3 MEQ/L (21.0-32.0); MAGNESIUM 1.9 MG/DL (1.5-2.5); POTASSIUM 4.6 MEQ/L (3.5-5.1)
[2017-06-16] MEDS: methylPREDNISolone SOD SUCC 40 MG/1 ML VIAL IV PUSH SCH (09:43)
[2017-06-16] MEDS: fentaNYL DRIP 250 ML IV SCH (09:43)
--- NOTE | 2017-06-16 10:05 | HHI.CCPN ---
Subjective Remarks/Hospital Course The patient is a 57-year-old male with past medical history of rectal adenocarcinoma with metastatic disease and COPD, hypertension, GERD and anemia. He presented to [facility] Emergency Department from his oncologist's office for evaluation of shortness of breath. He was found to have O2 saturation in the low 80s and the patient has been short of breath for several days. He denied any associated symptoms of fever, chills, cough, nausea or vomiting or any abdominal pain. On arrival to the ER he was tachycardic, tachypneic and severely hypoxemic. The patient was intubated with etomidate, succinylcholine and placed on full mechanical ventilation. When seen he is currently on Diprivan, fentanyl and versed drips for sedation and vent synchrony. In addition he receive vecuronium 10 milligrams IV push. A chest x- ray pre intubation showed consolidation left base and his chest x-ray post intubation showed hyperinflation of the right with dense consolidation with volume loss on the left. Initially he was on BiPAP 10/5 with 100% FIO2, however , the patient failed BiPAP and he was subsequently intubated. ABG post intubation appears mixed venous gas with a pH of 7.46, CO2 33, paO2 39, bicarb 23 and saturation 70% on assist control rate of 24 tidal volume 550, PEEP of 14 , 100% FIO2. A CT scan of the chest was ordered. The patient's current blood pressure is 111/73, tachycardic with a heart rate of 115. 06/12 Patient is sedated with Diprivan, Fentanyl and Versed. Afebrile. On PRVC with PEEP:7 and FIO2 90%. No recurrent hematuria. 06/13 patient remains intubated sedated but wakes up easily follows commands. Chest x-ray pending today. PEEP at 7 FiO2 down to 55% 06/14 Patient remains intubated and sedated, On PRVC with PEEP: 7 and FIO2 45%. Afebrile. 06/15 No events overnight. Afebrile. WBC is trending down 06/16 Patient s/p withdrawal life support yesterday. Afebrile. Objective Vital Signs Date Time Temp Pulse Resp B/P Pulse Ox O2 Delivery O2 Flow Rate FiO2 06/16/17 06:00 104 06/16/17 04:00 24 76/51 74 06/16/17 00:00 98.6 06/15/17 16:28 Room Air 06/15/17 16:00 40 Intake and Output 06/15/17 06/15/17 06/16/17 08:00 16:00 00:00 Intake Total 1709 ml 336 ml 188 ml Output Total 875 ml 2700 ml 1300 ml Balance 834 ml -2364 ml -1112 ml Result Diagram: 06/16/17 0442 06/16/17 0442 Other Results Laboratory Tests Test 06/16/17 04:42 White Blood Count 29.2 TH/MM3 Red Blood Count 3.32 MIL/MM3 Hemoglobin 8.3 GM/DL Hematocrit 25.8 % Mean Corpuscular Volume 77.8 FL Mean Corpuscular Hemoglobin 25.1 PG Mean Corpuscular Hemoglobin 32.2 % Concent Red Cell Distribution Width 17.8 % Platelet Count 729 TH/MM3 Mean Platelet Volume 6.9 FL Neutrophils (%) (Auto) 93.3 % Lymphocytes (%) (Auto) 3.7 % Monocytes (%) (Auto) 2.6 % Eosinophils (%) (Auto) 0.3 % Basophils (%) (Auto) 0.1 % Neutrophils # (Auto) 27.2 TH/MM3 Lymphocytes # (Auto) 1.1 TH/MM3 Monocytes # (Auto) 0.8 TH/MM3 Eosinophils # (Auto) 0.1 TH/MM3 Basophils # (Auto) 0.0 TH/MM3 CBC Comment DIFF FINAL Differential Comment Sodium Level 147 MEQ/L Potassium Level 4.6 MEQ/L Chloride Level 112 MEQ/L Carbon Dioxide Level 25.3 MEQ/L Anion Gap 10 MEQ/L Blood Urea Nitrogen 26 MG/DL Creatinine 1.11 MG/DL Estimat Glomerular Filtration 68 ML/MIN Rate Random Glucose 75 MG/DL Calcium Level 8.6 MG/DL Phosphorus Level 3.5 MG/DL Magnesium Level 1.9 MG/DL Imaging Last Impressions Chest X-Ray 06/14/17 0600 Signed Impressions: Service Date/Time: June 03:23 - CONCLUSION: Persistent left lung consolidation and effusion. Regige Murillo MD Renal Ultrasound 06/12/17 0000 Signed Impressions: Service Date/Time: Monday, June 12, 2017 12:41 - CONCLUSION: There continues to be bilateral hydronephrosis, right greater than left. The hydronephrosis appears to be improved compared to the prior examination. Alistair Balderas MD Chest CT 06/11/17 0000 Signed Impressions: Service Date/Time: Sunday, June 11, 2017 14:46 - CONCLUSION: 1. Large subcarinal mediastinal mass obstructing the left mainstem bronchus and presenting as a large filling defect within the esophagus. 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 2. Consolidated left lung to bronchial obstruction. 3. Small left pleural effusion 4. Known bilateral moderate to severe hydronephrosis. 5. Small patchy infiltrate right upper lobe. Edouard German MD Objective Remarks GENERAL: Patient is 57 yo lying in bed in mild resp distress SKIN: Warm and dry. HEAD: Normocephalic. EYES: No scleral icterus. No injection or drainage. NECK: Supple, trachea midline. No JVD or lymphadenopathy. orally intubated CARDIOVASCULAR: Regular rate and rhythm without murmurs, gallops, or rubs. RESPIRATORY: Diminished BS on left. No accessory muscle use. GASTROINTESTINAL: Abdomen soft, non-tender, nondistended. MUSCULOSKELETAL: No cyanosis, or edema. Neuro: Awake A/P Assessment and Plan 1. Acute hypoxemic respiratory failure. 2. Left lung consolidation. 3. Leukocytosis. 4. COPD 5. Rectal adenocarcinoma with metastases. 6. Hypertension. 7. Mild lactic acidemia. 8. Hypokalemia. 9. Gastroesophageal reflux disease. 10. Anemia. 11. B/L hydronephrosis 12. UTI with enterococcus Plan: Patient s/p withdrawal life support yesterday On Dilaudid and Ativan for comfort measures Consult hospice service Level 1 Placido Olivares MD Jun 16, 2017 10:05
[2017-06-16] MEDS ORDERED: fentaNYL 25 MCG/HR PATCH T-DERMAL ONE (13:00)
[2017-06-16] MEDS: LORazepam 2 MG/ML VIAL IV PRN (14:05)
[2017-06-19] MEDS ORDERED: REMOVE OLD PATCH T-DERMAL ONE (13:00)
== END 2017-06-16 14:45 | disposition hospice, inpatient (51) | DRG 870 ==
LOC: NEPC 11:28 → NEDA 13:07 → HIME 18:20
PROVIDERS: ADMIT Internal Medicine Critical Care Medicine; ATTEND Internal Medicine Critical Care Medicine
PROC: 0BH17EZ Insertion of Endotracheal Airway into Trachea, Via Natural or Artificial Opening (ICD-10-PCS; principal; 2017-06-11)
PROC: 5A1955Z Respiratory Ventilation, Greater than 96 Consecutive Hours (ICD-10-PCS; 2017-06-11)
DX: A41.9 Sepsis, unspecified organism (principal); J96.01 Acute respiratory failure with hypoxia; G93.40 Encephalopathy, unspecified; J18.9 Pneumonia, unspecified organism; J44.0 Chronic obstructive pulmonary disease with (acute) lower respiratory infection; R64 Cachexia; E46 Unspecified protein-calorie malnutrition; E87.2 Acidosis; C78.02 Secondary malignant neoplasm of left lung; C78.89 Secondary malignant neoplasm of other digestive organs; N39.0 Urinary tract infection, site not specified; N13.30 Unspecified hydronephrosis; Z68.1 Body mass index [BMI] 19.9 or less, adult; K22.2 Esophageal obstruction; Z89.611 Acquired absence of right leg above knee; I10 Essential (primary) hypertension; F32.9 Major depressive disorder, single episode, unspecified; F41.9 Anxiety disorder, unspecified; K21.9 Gastro-esophageal reflux disease without esophagitis; Z79.82 Long term (current) use of aspirin; Z85.048 Personal history of other malignant neoplasm of rectum, rectosigmoid junction, and anus; E87.6 Hypokalemia; D63.8 Anemia in other chronic diseases classified elsewhere; Z66 Do not resuscitate; J98.09 Other diseases of bronchus, not elsewhere classified; R31.0 Gross hematuria; Z51.5 Encounter for palliative care; Z93.3 Colostomy status
CPT/HCPCS: 31500; 36415; 36600; 71010; 71250; 76775; 80048; 80053; 81001; 82378; 82805; 82948; 83605; 83735; 83880; 84100; 85007; 85025; 85027; 85610; 85730; 86403; 87040; 87070; 87077; 87086; 87147; 87186; 87205; 87449; 87641; 87804; 93005; 94002; 94003; 94640; 94664; 94799; 96365; 96374; C9113; J0330; J0456; J1170; J1325; J1644; J1980; J2020; J2060; J2250; J2405; J2543; J2920; J3010; J3370; J3480; J7030; J7040; J7042; J7050; J7608; J7626; P9047